=== PATIENT | male | born 1945 | race Caucasian/White ===

== ENCOUNTER 2017-01-13 06:00 | Day surgery (SDC) | payer MEDICARE, OTHER ==
[~2017-01-13 06:00] MED LIST: Ketamine HCl 50 MG/ML IJ ONE
[2017-01-13] MEDS ORDERED: Lactated Ringers 1,000 ML IV SCH (06:30)
[2017-01-13] MEDS ORDERED: DIPRIVAN 200 MG/20 ML IV ONE (08:00)
[2017-01-13 09:37] VITALS: BP 109/63; PULSE 57; O2SAT 94
--- NOTE | 2017-01-13 10:12 | OP ---
SURGERY DATE/TIME: 01/13/2017720 PREOPERATIVE DIAGNOSIS: Screening exam. POSTOPERATIVE DIAGNOSIS: Sigmoid diverticulosis and otherwise normal colon. PROCEDURE: Colonoscopy. SURGEON: Dr. Ryan. ANESTHESIA: MAC. Medications given by anesthesia department. HISTORY: The patient is a 71 year-old white male patient presenting now for colonoscopic evaluation. He reports that it has been ten years since his previous examination. The patient was reappraised of the risks of the procedure including the risk of perforation, phlebitis, untoward reaction to medication, bleeding, and missed lesions. The patient verbalized his understanding and desired to have the procedure performed. DESCRIPTION OF PROCEDURE: The patient was given the medications by the anesthesia department. He had continuous pulse oximetry, ECG monitoring, intermittent blood pressure monitoring, and tidal CO2 monitoring during the examination. He was placed in the left lateral decubitus position. A digital rectal examination was performed and revealed normal anal sphincter tone and no masses and normal prostate. The flexible Olympus pediatric colonoscope was used to intubate the rectum. A view of the colon was developed sequentially to the cecum. Upon insertion and withdrawal, including a retroflex view in the rectum, it was noted sigmoid diverticulosis otherwise no mucosal lesions were encountered. The scope was removed from the patient who tolerated the procedure well and was sent back to OP recovery in good condition. The prep was noted to be fair.
== END 2017-01-13 08:40 | disposition home or self-care (01) ==
LOC: SDC 06:00
PROVIDERS: ATTEND Family Medicine
PROC: 0DJD8ZZ Inspection of Lower Intestinal Tract, Via Natural or Artificial Opening Endoscopic (ICD-10-PCS; principal; 2017-01-13)
DX: Z12.11 Encounter for screening for malignant neoplasm of colon (principal); K57.30 Diverticulosis of large intestine without perforation or abscess without bleeding; E11.9 Type 2 diabetes mellitus without complications; Z79.4 Long term (current) use of insulin
CPT/HCPCS: 00810; G0121; J2704

== ENCOUNTER 2018-03-09 08:31 | Day surgery (SDC) | payer MEDICARE, OTHER ==
[~2018-03-09 08:31] MED LIST changes: -Ketamine HCl 50 MG/ML IJ ONE; +Lactated Ringers 1,000 ML IV ONE; +Lactated Ringers 1,000 ML IV SCH
[2018-03-09] MEDS ORDERED: DIPRIVAN 200 MG/20 ML IV ONE (08:32)
--- NOTE | 2018-03-09 09:20 | HP ---
DATE OF SURGERY: 03/09/2018 HISTORY OF PRESENT ILLNESS: The patient is a 72 year-old who had been going on for a while the past three to four months with dysphagia, upper esophagus on even liquids at times, feeling of stuck sensation or feeling upper esophagus. PAST MEDICAL HISTORY: Chronic obstructive pulmonary disease. Gallbladder issues to be addressed at a later date. He had been scheduled and canceled in the past for abnormal HIDA scan and dyskinesia. Reflux, diabetes and glaucoma, chronic obstructive pulmonary disease, hypertension. Chronic lung disease, dysphagia in the past. PAST SURGICAL HISTORY: Colonoscopy in the past. MEDICATIONS: Aspirin, atorvastatin, Claritin, gabapentin, levofloxacin, metformin, Naprosyn, polyethylene glycol, potassium chloride, prednisone, ProAir HFA, Ventolin inhaler, ropinirole, Spiriva, zolpidem in the past. ALLERGIES: NKDA. FAMILY HISTORY: Negative for esophageal cancer. Dysphagia. SOCIAL HISTORY: Smoked one pack per day but quit back in 2005. REVIEW OF SYSTEMS: Twelve systems reviewed pertinent for medical problems as mentioned above and per admission assessment. No chest pain or palpitations other systems negative or noncontributory as above and per preadmission questionnaire. PHYSICAL EXAMINATION: GENERAL: No acute distress. HEENT: Sclerae nonicteric. NECK: No JVD. CHEST: Equal excursion, nonlabored breathing. CVS: Regular rate and rhythm. ABDOMEN: Soft, overweight. No peritoneal signs. EXTREMITIES: No significant edema. NEURO: Alert, moving extremities symmetrically. No gross motor deficits noted. IMPRESSION: Dysphagia upper esophagus. Will benefit from EGD possible biopsy, possible dilatation. Risks and benefits explained in detail including but not limited to bleeding or infection, risk of bowel injury or perforation possibly requiring open procedure, risk of ongoing morbidity, risk of missed or nondiagnosis or incomplete exam possibly requiring barium swallow, other studies or procedures, general risk of anesthesia or sedation, risk of bowel injury or perforation or perforation possibly requiring open procedure, risk of ongoing morbidity/mortality, general risk if possibility if dilatation performed may need it repeated again in the future. He also understands that if there is functional problem and he failed to improve with dilatation that he may need further work up and or testing upper GI studies, other studies or referrals. He understands and agrees to the planned procedure and will proceed with EGD with possible biopsy, possible dilatation as an outpatient.
[2018-03-09 11:46] VITALS: BP 126/78; PULSE 85; O2SAT 96
--- NOTE | 2018-03-09 13:58 | OP ---
SURGERY DATE/TIME: 03/09/2018 1022 PREOPERATIVE DIAGNOSIS: Dysphagia. POSTOPERATIVE DIAGNOSES: 1) Minimal mild gastritis. 2) Proximal esophageal symptomatic narrowing and spasm. PROCEDURE: 1) EGD with cold biopsy of the antrum to evaluate for Helicobacter pylori. 2) Esophageal dilatation symptomatic proximal esophageal narrowing (size 20 balloon dilator). SURGEON: Dr. Shay Hutchison. BULK TANK DRIVER: Jose Perales, Medical Student III. ANESTHESIA: MAC. ESTIMATED BLOOD LOSS: Minimal. INDICATIONS: As noted above. Risks and benefits explained in detail and not limited to and consent obtained. DESCRIPTION OF PROCEDURE AND FINDINGS: The patient is taken to the operating room. MAC anesthesia introduced. After official time out and no disagreement with planned procedure, bite block positioned. Video gastroscope easily passed down the esophagus through the oropharynx to the proximal esophagus where there was a narrowed area and spasm. There was no obvious mass to biopsy but there was a narrowed area where he was having symptoms. It was felt that although the scope would just pass through here, it was felt he would benefit from dilatation as he is having symptoms in this area. The scope is passed back down through the gastroesophageal junction to 40 cm to the patent pylorus to the junction of the second and third portion of the duodenum. Duodenum and duodenal bulb grossly unremarkable. Back in the stomach had some minimal to mild gastritis. A cold biopsy taken to evaluate for Helicobacter pylori. Good hemostasis noted. On retroflex, there was no signs of any significant hiatal hernia. Gastroesophageal junction snug against the scope. The scope pulled back. The Z-line was crisp at 40 cm with the gastroesophageal junction. Random cold biopsies were taken of the esophagus to evaluate for eosinophilic esophagitis. He had some tertiary contractions. Otherwise back to the proximal narrowed area again no obvious evidence of any mass or anything to biopsy but a narrowed area. Dilatation scope passed back down in the stomach. Balloon catheter carefully advanced under direct vision of the stomach and then pulled back up to the narrowed area of proximal esophagus where it gradually inflated first stage 45 seconds, second stage 45 seconds, final stage 2 minutes size 20 balloon dilator. The balloon was then decompressed and removed. The scope much more easily passed through this area. There is no evidence of any full thickness issues or injury secondary to balloon dilatation. The scope is withdrawn. The patient tolerated the procedure well. Findings discussed with the family out in the waiting area.
== END 2018-03-09 11:55 | disposition home or self-care (01) ==
LOC: SDC 08:31
PROVIDERS: ATTEND Surgery
DX: K29.70 Gastritis, unspecified, without bleeding (principal); K22.2 Esophageal obstruction; J44.9 Chronic obstructive pulmonary disease, unspecified; K21.9 Gastro-esophageal reflux disease without esophagitis; I10 Essential (primary) hypertension; Z79.899 Other long term (current) drug therapy
CPT/HCPCS: 87081; 88305; C1726; J2704

== ENCOUNTER 2018-04-30 21:48 | Emergency (ER) | payer MEDICARE, OTHER ==
[2018-04-30] MEDS ORDERED: TYLENOL EXTRA STRENGTH 500 MG PO STA (22:10)
--- NOTE | 2018-04-30 22:14 | ERPHSYRPT ---
- History of Present Illness Time Seen by Provider: 04/30/18 22:04 Source: patient Exam Limitations: no limitations Physician History: 72 y/o male comes to the ER after some 4X4 wooden objects landed on the left side of head. Pt arrives with a large goose egg on the left side of his forehead. Pt admits to feeling hazy and having mild headache. Pt is on a baby ASA and denies any LOC. Pt also denies any neck or back pain. Occurred: just prior to arrival Severity: mild Head Injury Location: frontal Method of Injury: direct blow Loss of Consciousness: no loss of consciousness Associated Symptoms: denies symptoms Allergies/Adverse Reactions: influenza virus vaccine, specific [Influenza Virus Vacc,Specific] Allergy ( Severe, Verified 04/30/18 22:12) H1N1 vaccine sob, airway closed Home Medications: Albuterol Sulfate [Ventolin Hfa] 8 gm IH DAILY 07/17/13 [History] Zolpidem Tartrate 10 mg PO HS 06/11/15 [History] Ropinirole HCl 0.5 mg [Requip 0.5 MG] 0.5 mg PO HS 01/07/17 [History] Metformin HCl 500 mg [Glucophage 500 MG] 500 mg PO BID 04/22/17 [History] Omeprazole 20 MG [Prilosec 20 mg] 20 mg PO DAILY 04/22/17 [History] Budesonide/Formoterol Fumarate [Symbicort 160-4.5 Mcg Inhaler] 6 gm IH DAILY [History] Gabapentin 300 mg PO HS 03/04/18 [History] Hx Tetanus, Diphtheria Vaccination/Date Given: No Hx Influenza Vaccination/Date Given: No Hx Pneumococcal Vaccination/Date Given: Yes - Review of Systems Constitutional: No Fever, No Chills Eyes: No Symptoms Ears, Nose, & Throat: No Symptoms Respiratory: No Cough, No Dyspnea Cardiac: No Chest Pain, No Edema, No Syncope Abdominal/Gastrointestinal: No Abdominal Pain, No Nausea, No Vomiting, No Diarrhea Genitourinary Symptoms: No Dysuria Musculoskeletal: No Back Pain, No Neck Pain Skin: No Rash Neurological: Dizziness, Headache, No Focal Weakness, No Sensory Changes Psychological: No Symptoms Endocrine: No Symptoms All Other Systems: Reviewed and Negative - Past Medical History Pertinent Past Medical History: Yes Neurological History: No Pertinent History ENT History: Cataracts Cardiac History: No Pertinent History Respiratory History: COPD Endocrine Medical History: Diabetes Type II Musculoskeletal History: No Pertinent History GI Medical History: GERD, Other History: No Pertinent History Psycho-Social History: Anxiety Male Reproductive Disorders: Prostate Problems Other Medical History: esophageal difficulties. pt states has low b/p not high b/p - Past Surgical History Past Surgical History: Yes Neuro Surgical History: No Pertinent History Cardiac: No Pertinent History Respiratory: No Pertinent History Gastrointestinal: No Pertinent History Genitourinary: No Pertinent History Musculoskeletal: No Pertinent History Male Surgical History: No Pertinent History Other Surgical History: right big toenail. t&a - Social History Smoking Status: Former smoker How long have you smoked: 40 years Exposure to second hand smoke: No Drug Use: none Patient Lives Alone: No - Nursing Vital Signs Nursing Vital Signs: Initial Vital Signs Temperature 98.0 F 04/30/18 22:01 Pulse Rate 89 04/30/18 22:01 Respiratory Rate 20 04/30/18 22:01 Blood Pressure 126/65 04/30/18 22:01 O2 Sat by Pulse Oximetry 96 04/30/18 22:01 Pain Scale Pain Intensity 5 - [place] Coma Score Best Eye Response (Markos): (4) open spontaneously Best Verbal Response (Markos): (5) oriented Best Motor Response ([place]): (6) obeys commands Markos Total: 15 - Physical Exam General Appearance: no apparent distress, alert Head Injury: contusions, ecchymosis, swelling, tenderness Eye Exam: bilateral eye: PERRL, EOMI ENT Exam: airway nml Neck Exam: supple, trachea midline Cardiovascular/Respiratory Exam: chest non-tender, normal breath sounds, regular rate/rhythm Gastrointestinal/Abdominal Exam: soft, non tender, no distention Back Exam: normal inspection, No vertebral tenderness Extremity Exam: non-tender, normal range of motion, normal inspection Mental Status Exam: alert, 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, 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 Exam: normal hearing, normal speech, PERRL Motor/Sensory Exam: no motor deficit, no sensory deficit, CN II-XII intact Skin Exam: normal color, warm, dry, No rash - Course Nursing assessment & vital signs reviewed: Yes Ordered Tests: Active Orders 24 hr Category Date Time Status HEAD WITHOUT CONTRAST [CT] Stat Exams 04/30/18 22:42 Taken Medication Summary Discontinued Medications Generic Name Dose Route Start Last Admin Trade Name Princeq PRN Reason Stop Dose Admin Acetaminophen 1,000 mg 04/30/18 22:10 04/30/18 22:19 Tylenol Extra Strength 500 Mg PO 04/30/18 22:11 1,000 mg STAT STA Administration Acetaminophen Confirm 04/30/18 22:19 Tylenol Extra Strength 500 Mg Administered 04/30/18 22:20 Dose 1,000 mg .ROUTE .STK-MED ONE - Progress Progress: improved Progress Note: 04/30/18 23:24 The patient feels slightly better after receiving tylenol but still has a throbbing sensation. Pt will be given a script for tylenol # 3. The CT scan is negative for bleed. - Departure Time of Disposition: 23:25 Departure Disposition: Home Clinical Impression: Head injury Qualifiers: Encounter type: initial encounter Qualified Code(s): S09.90XA - Unspecified injury of head, initial encounter Condition: Stable Critical Care Time: No Referrals: WENDIE ROBLES [Primary Care Provider] - Instructions: Closed Head Injury (DC) Additional Instructions: Return to the ER if you should have worsening headache, dizziness, nausea, vomiting or balance issues. Prescriptions: Codeine Phosphate/APAP #3 [Tylenol #3 Tablet] 1 tab PO QID PRN #15 tablet PRN Reason: Pain
[2018-04-30] MEDS ORDERED: TYLENOL EXTRA STRENGTH 500 MG ONE (22:19)
[2018-04-30 23:05] VITALS: BP 126/54; O2SAT 94
[2018-04-30] MEDS ORDERED: Tylenol #3 Tablet PO ONE (23:24)
[2018-04-30] MEDS ORDERED: Tylenol #3 Tablet ONE (23:28)
[2018-04-30 23:30] VITALS: PULSE 76
--- NOTE | 2018-05-01 09:20 | XRAY ---
Indication: Pain following left head injury with 2 x 4 board. Multiple contiguous axial images obtained through the head without contrast. Comparison: None Age-appropriate global atrophy and minimal periventricular degenerative micro-ischemia bilaterally. No acute intracranial hemorrhage, abnormal extra-axial fluid collection, or mass effect. Fourth ventricle is midline without hydrocephalus. Bony calvarium intact. Small left anterior parietal scalp hematoma. Visualized paranasal sinuses and mastoid air cells are clear. Impression: Left anterior parietal scalp hematoma. Otherwise nonacute senile brain. Comment: Preliminary interpretation was made by [facility]. No discrepancy. CT DI 49.71
== END 2018-04-30 23:40 | disposition home or self-care (01) ==
LOC: ED 21:48
DX: S09.90XA Unspecified injury of head, initial encounter (principal); R51 Headache; W20.8XXA Other cause of strike by thrown, projected or falling object, initial encounter; Z79.899 Other long term (current) drug therapy
CPT/HCPCS: 70450; 99284; A9270-GY

== ENCOUNTER 2018-06-23 09:36 | Day surgery (SDC) | payer MEDICARE, OTHER ==
[~2018-06-23 09:36] MED LIST changes: +ACETAZOLAMIDE 250 MG TABLET PO ONE; +Ak-Dilate OPHTHALMIC*** 0.71 ML, Cyclogyl 1% OPHTH SOL 5 ML 0.71 ML, GATIFLOXACIN 0.5% ... OP ONE; +BETADINE 5% OPHTHALMIC 30 ML OP ONE; +TETRACAINE 0.5% STERI-UNIT SOL OP ONE; +Zofran 4 MG/2 ML VIAL IV PRN
[2018-06-23] MEDS ORDERED: DIPRIVAN 200 MG/20 ML IV ONE (09:37)
[2018-06-23] MEDS ORDERED: LIDOCAINE HCL 1% AMPUL 5 ML IJ ONE (12:30)
[2018-06-23] MEDS ORDERED: Epinephrine Preservative Free 1 MG/ML INTRAOP ONE (12:30)
[2018-06-23] MEDS ORDERED: BSS 500 ML, Fortaz/Tazicef 1 GM** 0.2 G IO ONE ×2 (12:30)
[2018-06-23 13:04] LABS: Hematocrit 30.3 % (42-50); Hemoglobin 8.5 gm/dl (12.5-18.0); Mean Cell Volume 65.6 fl (78-100); Mean Corpuscular Hgb Concent. 28.1 g/dl (32-36); Mean Platelet Volume 9.8 fl (6-9.5); Platelet Count 360 K/mm3 (150-450); Red Blood Count 4.62 M/mm3 (4.1-5.6); Red Cell Distribution Width 19.9 % (11.5-14.0); White Blood Count 8.3 K/mm3 (4.0-10.5)
[2018-06-23 13:06] LABS: Mean Corpuscular Hemoglobin 18.3 pg (26-32)
--- NOTE | 2018-06-23 13:19 | OP ---
DATE/TIME OF OPERATION: 06/23/2018 1220 TIME DICTATED: 1255 PREOPERATIVE DIAGNOSIS: Senile cataract of left eye. POSTOPERATIVE DIAGNOSIS: Senile cataract of left eye. SURGEON: Ren Richter MD HISTORIC SITE ADMINISTRATOR: None. OPERATION: Cataract extraction of left eye with an intraocular lens implant. STANDARD __X___ COMPLEX ANESTHESIA: MAC. ___X___ Monitored anesthesia care in combination with topical and intra-cameral anesthesia (because of the established specific risk of reflux, arrhythmias, or an anxiety attack associated with ocular manipulation as well as difficulty of the judicial clerk to manage such potentially catastrophic events while simultaneously attempting to complete the surgical procedure, it was deemed necessary for the patient's safety to have an anesthesiologist or a nurse still operator batch or continuous present during the procedure whenever possible. The anesthesiologist or the nurse still operator batch or continuous was utilized to monitor and regulate the intravenous sedation of the patient, so the patient was cooperative, relaxed, and comfortable). Topical anesthesia using Tetracaine eye drops together with intra cameral anesthesia using Lidocaine 1% MPF. The nurse was utilized to monitor the patient. ANESTHESIA PROVIDER: Felix Adamson CRNA. COMPLICATIONS: None. BLOOD LOSS: None. INDICATIONS: The patient is undergoing cataract surgery in the hopes of eliminating the visual complaints and difficulty. PROCEDURE: After arriving at the facility's outpatient surgery area, an IV was started; the patient was given 5 mg of p.o. Versed. (If an anesthesia provider was not monitoring the patient) The patient was then given topical anesthetic Tetracaine eye drops. A cotton pellet was soaked into a solution of a combination of Zymaxid 0.5%, Mariano-Synephrine 2.5% and Ocufen (other drops might have been substituted referenced in the patient's record). The pellet was inserted by the RN into the lower conjunctival cul-de-sac with a sterile forceps and left for 20 minutes. The pellet was then removed by the RN with a sterile forceps before taking the patient to the operating room. The preoperative area nurse identified the patient and marked the correct eye to be operated on. I identified the correct eye to be operated on and marked it appropriately in the outpatient surgery area. The patient was then taken into the operating room. Tetracaine eye drops were installed again in the correct eye. The eyelids and the lashes and the lid margins were scrubbed with Betadine solution. One drop of the diluted Betadine solution was placed in the conjunctival cul-de-sac for 45 seconds and then was irrigated. A drop of Tetracaine Gel was placed in the conjunctival cul-de-sac. The patient's forehead was taped to secure it during the procedure. The patient was monitored. The patient was then draped in the usual way for this procedure. An eye speculum was used to separate the eyelids. The eye was then fixated and a temporal 2.5 mm incision was made in the clear cornea temporally at the limbus. Through the incision, 0.25 cc of 1% non-preserved lidocaine was injected into the anterior chamber for intracameral anesthesia. The anterior chamber was then filled with viscoelastic. The pupil was small. I felt that it would be safer to mechanically dilate the pupil. A Malyugin ring was used at this point which dilated the pupil. That was removed at the end of the procedure prior to aspiration of the viscoelastic from the anterior chamber and posterior to the intraocular lens implant. The cataract had a great amount of cortical changes. That rendered seeing the anterior capsule difficult for a safe performance of an anterior capsulotomy. I injected an air bubble into the anterior chamber. I then injected 1 ML of vision blue solution into the anterior chamber. The vision blue solution was irrigated from the anterior chamber after 30 seconds. The anterior capsule was stained which facilitated performing the anterior capsulotomy safely. After that was completed, a cystotome was introduced into the anterior chamber and a round anterior capsulotomy was performed. The capsule was removed by a forceps. Hydrodissection was next carried utilizing a 25-gauge cannula and balanced salt solution to delineate the cortical material from the capsule and the nucleus from the cortical material. The nucleus was rotated freely into the capsular bag with no difficulty. The phaco tip of the [employer] Phacoemulsifier was introduced into the anterior chamber and two grooves were made into the nucleus 90 degrees apart. Using two spatulas resulted into the nucleus being fractured into four quadrants. The phaco tip was then used to remove each quadrant of the nucleus. Viscoelastic was used during this process to protect the corneal endothelium. Once the entire nucleus was removed, the phaco tip then was removed and the irrigation tip was introduced into the eye and the cortex was removed. The posterior capsule was polished. It was noticed that there was a tear into the posterior capsule with few vitreous strands into the pupil plan. An anterior vitrectomy was performed. A 23.50 diopter, [id number], posterior chamber lens implant, was inspected and found to be grossly normal. The implant was inserted into the implant injector cartridge; Viscoelastic again was introduced into the anterior chamber, which filled the capsular bag. The implant injector's cartridge tip was placed at the limbal wound and the posterior chamber implant was released into the capsular bag and rotated appropriately. The implant was found to be into the capsular bag and it was centered. 0.2 ml of Tri-Moxi was introduced via 27 gauge cannula into the vitreous cavity through the ciliary processes. Viscoelastic was aspirated from the anterior chamber and posterior to the intraocular lens implant from the capsular bag using the irrigating tip. The anterior chamber was irrigated and filled with 5 cc antibiotic solution (500 cc of BSS plus 2 ml of Fortaz 100 mg/ml) ( if patient was not allergic to the medication). The lips of the corneal incision were hydrated using BSS solution. The anterior chamber was checked and found to be water tight. ___X___ One drop each of antibiotic, steroid and NSAID drops (refer to chart for drops used) were placed in the conjunctival cul-de-sac of the operated eye. NOTE: During the procedure the patient was coughing and anesthesia did some aspiration and there was blood in the aspirating tube. When patient was stable we were committed to finish the procedure so we finished the procedure and the patient's vital signs were stable. We are going to send the patient for monitoring and consultation prior to his discharge. DISCHARGE SUMMARY: The patient was released in stable condition. The patient and those with the patient were given an instruction sheet as of how to care for the eye after surgery as well as counseling on any abnormal laboratory studies by the postoperative RN. The patient was also given an appointment card for follow-up in the office and is to call immediately for any difficulties including but not limited to pain in the eye, decreased vision, discharge from the eye, headache and or fever. DISCHARGE DIAGNOSIS: Pseudophakia of left eye.
[2018-06-23 13:20] LABS: ALBUMIN 3.6 g/dL (3.5-5.0); ALKALINE PHOSPHATASE 67 U/L (38-126); ANION GAP 9.9 MEQ/L (5-15); BLOOD UREA NITROGEN 14 mg/dL (9-20); CHLORIDE 108 mmol/L (98-107); Calcium 8.7 mg/dL (8.4-10.2); Carbon Dioxide 26 mmol/L (22-30); Creatinine 1 0.81 mg/dL (0.66-1.25); Glucose 104 mg/dL (74-106); Potassium 3.5 mmol/L (3.5-5.1); SGOT/AST 37 U/L (17-59); SGPT/ALT 27 U/L (0-50); SODIUM 140 mmol/L (137-145); Total Protein 6.3 g/dL (6.3-8.2)
--- NOTE | 2018-06-23 13:21 | XRAY ---
Exam: AP upright portable chest film from 06/23/2018. Comparison: Two-view chest from 01/12/2018. Indication: Coughing up blood post-cataract surgery. Findings: The film was obtained in a lordotic projection. The transverse heart size appears within normal limits for an AP portable technique. There is again noted to be mild hyperinflation of the lung sousa with some scattered prominent interstitial lung markings within the lower two thirds of each lung, left greater than right. This may reflect some interstitial scarring/fibrosis. I believe there is mild pulmonary vascular redistribution to the upper lobes, although I see no Phani B lines or pleural fluid. There is a minimal airspace density of the right cardiophrenic angle which could possibly represent a focus of pneumonitis. No other lung consolidation is seen. No pneumothorax is seen. No acute osseous process is seen. Impression: 1. I see mild hyperinflation of the lungs with prominent interstitial markings within the lower two thirds of each lung, left greater than right, suggestive of COPD with chronic interstitial lung disease/fibrosis. 2. However, there is a small focal airspace opacity at the right cardiophrenic angle which is difficult to confirm as stable. This may represent focal pneumonitis. 3. No other acute cardiopulmonary disease is seen.
[2018-06-23 13:34] VITALS: BP 140/69; PULSE 84; O2SAT 92
== END 2018-06-23 13:48 | disposition home or self-care (01) ==
LOC: SDC 09:36
PROVIDERS: ATTEND Ophthalmology
DX: H25.9 Unspecified age-related cataract (principal); G47.00 Insomnia, unspecified; E11.9 Type 2 diabetes mellitus without complications; Z79.4 Long term (current) use of insulin; J44.9 Chronic obstructive pulmonary disease, unspecified; G20 Parkinson's disease; Z79.899 Other long term (current) drug therapy
CPT/HCPCS: 36415; 66984; 67005; 71045; 80053; 82962; 85027; 94250; C1780; 99100; J0171; J2704; A9270-GY

== ENCOUNTER 2018-07-13 09:38 | Day surgery (SDC) | payer MEDICARE, OTHER ==
--- NOTE | 2018-07-13 08:11 | HP ---
DATE OF SURGERY: 07/13/2018 HISTORY OF PRESENT ILLNESS: The patient is a 72 year-old with some constant aches and pains, had been scheduled for surgery in the past. On HIDA scan shown increasingly symptomatic biliary dyskinesia, chronic cholecystitis. I felt he would benefit from cholecystectomy. Ultrasound had borderline wall thickening back then but no stones. PAST MEDICAL HISTORY: Diabetes, chronic obstructive pulmonary disease, had some chronic pain. PAST SURGICAL HISTORY: He had been scheduled for surgery a year or so ago but canceled at time. He has had endoscopy in the past. MEDICATIONS: Zolpidem, omeprazole, metformin, aspirin, gabapentin, ropinirole, Symbicort, ProAir. ALLERGIES: NKDA. FAMILY HISTORY: Negative. SOCIAL HISTORY: No smoking or alcohol abuse. He used to smoke, quit smoking in 2005. REVIEW OF SYSTEMS: Twelve systems reviewed pertinent for as noted above. No chest pain or palpitations other systems negative or noncontributory as above and per preadmission questionnaire. PHYSICAL EXAMINATION: GENERAL: A chronically ill gentleman. HEENT: Sclerae nonicteric. NECK: No JVD. CHEST: Equal excursion, nonlabored breathing. No current audible wheeze. CVS: Regular rate and rhythm. ABDOMEN: Soft. EXTREMITIES: No significant edema. NEURO: Alert, moving extremities symmetrically. No gross motor deficits noted. IMPRESSION: Increasingly symptomatic biliary dyskinesia, probable chronic cholecystitis. I feel the patient will benefit from cholecystectomy. Shown the risk sheet and gallbladder pamphlet. Explained the procedure in detail including but not limited to bleeding or infection, risk of trocar injury or hernia, small risk of bowel, bladder or blood vessel injury, small risk of bile leak, bile duct injury, retained stone or sludge possibly requiring further procedure either open or ERCP, general risk of anesthesia, deep venous thrombosis, pulmonary embolism, pneumonia, perioperative risk of aches, pains, bloating, constipation and/or loose stools possibly even chronic in nature. He understands and agrees to the planned procedure, will proceed with laparoscopic cholecystectomy with possible open as an outpatient.
[~2018-07-13 09:38] MED LIST changes: -ACETAZOLAMIDE 250 MG TABLET PO ONE; -Ak-Dilate OPHTHALMIC*** 0.71 ML, Cyclogyl 1% OPHTH SOL 5 ML 0.71 ML, GATIFLOXACIN 0.5% ... OP ONE; -BETADINE 5% OPHTHALMIC 30 ML OP ONE; +MEFOXIN 2 GM** 2 GM in Dextrose 5%/Water IV Soln. 100ML PLUS BAG 100 ML IV SCH; -TETRACAINE 0.5% STERI-UNIT SOL OP ONE; -Zofran 4 MG/2 ML VIAL IV PRN
[2018-07-13] MEDS ORDERED: BRIDION 200MG/2ML IV ONE (09:39)
[2018-07-13] MEDS ORDERED: SUBLIMAZE 250 MCG/5 ML IV ONE (09:39)
[2018-07-13] MEDS ORDERED: Zemuron 100 MG/10 ML IV ONE (09:39)
[2018-07-13] MEDS ORDERED: Versed 2 MG/2 ML Injection IV ONE (09:39)
[2018-07-13] MEDS ORDERED: DIPRIVAN 200 MG/20 ML IV ONE (09:39)
[2018-07-13] MEDS ORDERED: Sensorcaine 0.25% 10 ML ONE (11:28)
[2018-07-13] MEDS ORDERED: Lactated Ringers 1,000 ML IV ONE (11:28)
[2018-07-13] MEDS ORDERED: SUBLIMAZE 100 MCG/2 ML ONE (13:27)
[2018-07-13] MEDS ORDERED: MORPHINE SULFATE 10 MG/ML ONE (13:44)
--- NOTE | 2018-07-13 14:07 | OP ---
SURGERY DATE/TIME: 07/13/2018 1115 PREOPERATIVE DIAGNOSIS: Symptomatic biliary dyskinesia, chronic cholecystitis. POSTOPERATIVE DIAGNOSIS: Symptomatic biliary dyskinesia, chronic cholecystitis including fatty infiltration of the liver with question of early cirrhosis. PROCEDURES: 1) Laparoscopic cholecystectomy. 2) Laparoscopic assisted liver Dante-Cut core biopsy. SURGEON: Dr. Shay Hutchison. CUSTOM CAR BUILDER: Orion Rodrigues, Medical Student III. ANESTHESIA: General. ESTIMATED BLOOD LOSS: Less than 50 cc. INDICATIONS: As noted above. Risks and benefits explained in detail but not limited to and consent obtained. DESCRIPTION OF PROCEDURE AND FINDINGS: The patient was taken to the OR. General anesthesia induced. Abdomen prepped and draped in the usual sterile fashion. After official time out and no disagreement with planned procedure, a transverse incision made at the supraumbilical area. Fascia grasped and pulled upward. Veress needle inserted and tested with saline. Pneumoperitoneum accomplished insufflating opening pressure of 0-15. An 11 mm bladeless port and camera inserted without difficulty followed by two - 5 mm right upper quadrant ports and 5 mm epigastric port. The gallbladder grasped and retracted up over the edge of the liver. It was noted that he had some fatty infiltration of the liver and probably early cirrhosis. Extensive fibrofatty inflammation up to the gallbladder and very large veins and arterioles directly on the gallbladder this required slowly carefully dissecting them free to allow access to the gallbladder clipping directly on the gallbladder wall. This took quite some time requiring extra clips given the large veins and arterioles. Dissection carried down to infundibular cystic duct junction area. This area skeletonized until critical view obtained both anterior and posteriorly on the gallbladder side. The infundibulum had some leakage of bile. There was no evidence of any stone or sludge spillage. A 12 port placed in the epigastrium. A large clip was used to clip this. Again a critical view had been obtained both anteriorly and posteriorly. Given the extensive inflammatory reaction it was elected to go ahead and use stapler. EndoGIA stapler was then fired across the cystic duct-infundibular junction area. It appeared to have good hemostasis. No signs of any leakage from the staple line. The gallbladder is then slowly and carefully dissected free from its dense almost concrete attachment to liver bed. Staying directly on the gallbladder wall clipping additional oozing large veins and arterioles that were oozing as necessary directly on the gallbladder wall. This took some time but slowly and carefully accomplished. Just prior to releasing from final attachments to the anterior edge of the liver the liver bed re-inspected. Clips are noted in place in cystic duct and cystic artery stumps, large vein stumps with no sign of any active bleeding. The staple line is intact on the cystic duct infundibular area. Final vein on the anterior edge of the liver was clipped allowing the gallbladder to be freed. It was then pulled up out the epigastric port and passed off. Port is replaced. Copious amount of irrigation accomplished lateral to the liver and subhepatic space irrigating until clear. Given the question of cirrhosis I felt he warranted Dante-Cut core biopsy. A separate stab wound was made along the costal margin. Core biopsy carefully inserted elevating the liver upward with a blunt scoop. Blade and needle was then carefully advanced and then core biopsy slid over the top and then withdrawn. It appeared to have a core sample. There was some oozing from the liver. It was felt given the oozing issues it was not warranted to take any additional biopsies as it appeared to have adequate core biopsy. The area was cauterized. A small piece of Surgicel left in place and pressure held on this core biopsy site on the anterior aspect and the lateral aspect of the right lobe of the liver holding pressure in place for a few minutes and did have good hemostasis. Copious amount of irrigation irrigating lateral to the liver and subhepatic space irrigating until clear. Liver bed re-inspected. Clips noted in place cystic arteries, cystic vein stumps. There were no signs of any active bleeding at this point. Staple lines intact on cystic duct stump. Given extensive inflammation it was felt he would benefit from temporary BEATRIZ drain placement. BEATRIZ drain placed subhepatic space out through lateral port and sutured with PDS suture and placed to bulb suction. Copious amount of irrigation accomplished lateral to the liver. The core biopsy site appeared to have adequate hemostasis. No signs of any active bleeding at this point. Surgicel had been removed. At this point fascial defect 12 mm in the epigastrium, 10/11 in the supraumbilical area closed under direct vision of the camera with puncture closure device with #1 Vicryl. Pneumoperitoneum decompressed. The wound was irrigated out. Skin incision closed with 4-0 Vicryl. Steri-Strips and sterile dressing applied. 0.25% Marcaine local injected along the skin incision fascial defect at the beginning of the procedure. The patient tolerated the procedure well. There were no immediate complications. Findings discussed with the family out in the waiting area. I will see him back in the office next week for drain removal.
[2018-07-13] MEDS ORDERED: MORPHINE SULFATE 2 MG INJ IV ONE (15:54)
[2018-07-13 17:14] VITALS: O2SAT 98
[2018-07-13 17:22] VITALS: BP 140/66; PULSE 74
== END 2018-07-13 16:50 | disposition home or self-care (01) ==
LOC: SDC 09:38
PROVIDERS: ATTEND Surgery
DX: K81.1 Chronic cholecystitis (principal); K76.0 Fatty (change of) liver, not elsewhere classified; E11.9 Type 2 diabetes mellitus without complications; Z79.4 Long term (current) use of insulin; J44.9 Chronic obstructive pulmonary disease, unspecified; Z79.899 Other long term (current) drug therapy
CPT/HCPCS: 82962; 94010; 94250; 99100; J0694; J2250; J2270; J2704; J3010

== ENCOUNTER 2018-09-22 06:58 | Day surgery (SDC) | payer MEDICARE, OTHER ==
[~2018-09-22 06:58] MED LIST changes: -Lactated Ringers 1,000 ML IV SCH; -MEFOXIN 2 GM** 2 GM in Dextrose 5%/Water IV Soln. 100ML PLUS BAG 100 ML IV SCH
[2018-09-22] MEDS ORDERED: DIPRIVAN 200 MG/20 ML IV ONE (06:59)
[2018-09-22] MEDS ORDERED: TETRACAINE 0.5% STERI-UNIT SOL OP ONE ×2 (07:00)
[2018-09-22] MEDS ORDERED: Ak-Dilate OPHTHALMIC*** 1.065 ML, Cyclogyl 1% OPHTH SOL 5 ML 1.065 ML, GATIFLOXACIN 0.5... OP ONE ×4 (07:00)
[2018-09-22] MEDS ORDERED: Lactated Ringers 1,000 ML IV SCH (07:00)
[2018-09-22] MEDS ORDERED: ACETAZOLAMIDE 250 MG TABLET PO ONE (09:00)
[2018-09-22] MEDS ORDERED: Zofran 4 MG/2 ML VIAL IV PRN (09:00)
[2018-09-22] MEDS ORDERED: LIDOCAINE HCL 1% AMPUL 5 ML IJ ONE (10:00)
[2018-09-22] MEDS ORDERED: BETADINE 5% OPHTHALMIC 30 ML OP ONE (10:00)
[2018-09-22] MEDS ORDERED: Epinephrine Preservative Free 1 MG/ML INTRAOP ONE (10:00)
[2018-09-22] MEDS ORDERED: BSS 500 ML, Fortaz/Tazicef 1 GM** 0.2 G IO ONE ×2 (10:00)
[2018-09-22] MEDS ORDERED: TYLENOL EXTRA STRENGTH 500 MG ONE (10:01)
[2018-09-22] MEDS ORDERED: TYLENOL EXTRA STRENGTH 500 MG PO SCH (10:30)
[2018-09-22 10:36] VITALS: BP 124/75; PULSE 74; O2SAT 95
[2018-09-22] MEDS ORDERED: Lactated Ringers 1,000 ML IV ONE (11:19)
--- NOTE | 2018-09-23 08:54 | OP ---
DATE/TIME OF OPERATION: 09/22/2018 0910 TIME DICTATED: 1241 PREOPERATIVE DIAGNOSIS: Senile cataract of right eye. POSTOPERATIVE DIAGNOSIS: Senile cataract of right eye. SURGEON: Ren Richter MD BUSINESS ANALYTICS ANALYST: None. OPERATION: Cataract extraction of right eye with an intraocular lens implant. STANDARD __X___ COMPLEX ANESTHESIA: MAC. ___X___ Monitored anesthesia care in combination with topical and intra-cameral anesthesia (because of the established specific risk of reflux, arrhythmias, or an anxiety attack associated with ocular manipulation as well as difficulty of the sales service representative to manage such potentially catastrophic events while simultaneously attempting to complete the surgical procedure, it was deemed necessary for the patient's safety to have an anesthesiologist or a nurse cooler man present during the procedure whenever possible. The anesthesiologist or the nurse cooler man was utilized to monitor and regulate the intravenous sedation of the patient, so the patient was cooperative, relaxed, and comfortable). Topical anesthesia using Tetracaine eye drops together with intra cameral anesthesia using Lidocaine 1% MPF. The nurse was utilized to monitor the patient. ANESTHESIA PROVIDER: Corey Ugarte CRNA. COMPLICATIONS: None. BLOOD LOSS: None. INDICATIONS: The patient is undergoing cataract surgery in the hopes of eliminating the visual complaints and difficulty. PROCEDURE: After arriving at the facility's outpatient surgery area, an IV was started; the patient was given 5 mg of p.o. Versed. (If an anesthesia provider was not monitoring the patient) The patient was then given topical anesthetic Tetracaine eye drops. A cotton pellet was soaked into a solution of a combination of Zymaxid 0.5%, Mariano-Synephrine 2.5% and Ocufen (other drops might have been substituted referenced in the patient's record). The pellet was inserted by the RN into the lower conjunctival cul-de-sac with a sterile forceps and left for 20 minutes. The pellet was then removed by the RN with a sterile forceps before taking the patient to the operating room. The preoperative area nurse identified the patient and marked the correct eye to be operated on. I identified the correct eye to be operated on and marked it appropriately in the outpatient surgery area. The patient was then taken into the operating room. Tetracaine eye drops were installed again in the correct eye. The eyelids and the lashes and the lid margins were scrubbed with Betadine solution. One drop of the diluted Betadine solution was placed in the conjunctival cul-de-sac for 45 seconds and then was irrigated. A drop of Tetracaine Gel was placed in the conjunctival cul-de-sac. The patient's forehead was taped to secure it during the procedure. The patient was monitored. The patient was then draped in the usual way for this procedure. An eye speculum was used to separate the eyelids. The eye was then fixated and a temporal 2.5 mm incision was made in the clear cornea temporally at the limbus. Through the incision, 0.25 cc of 1% non-preserved lidocaine was injected into the anterior chamber for intracameral anesthesia. The anterior chamber was then filled with viscoelastic. The pupil was small. I felt that it would be safer to mechanically dilate the pupil. A Malyugin ring was used at this point which dilated the pupil. That was removed at the end of the procedure prior to aspiration of the viscoelastic from the anterior chamber and posterior to the intraocular lens implant. The cataract had a great amount of cortical changes. That rendered seeing the anterior capsule difficult for a safe performance of an anterior capsulotomy. I injected an air bubble into the anterior chamber. I then injected 1 ML of vision blue solution into the anterior chamber. The vision blue solution was irrigated from the anterior chamber after 30 seconds. The anterior capsule was stained which facilitated performing the anterior capsulotomy safely. After that was completed, a cystotome was introduced into the anterior chamber and a round anterior capsulotomy was performed. The capsule was removed by a forceps. Hydrodissection was next carried utilizing a 25-gauge cannula and balanced salt solution to delineate the cortical material from the capsule and the nucleus from the cortical material. The nucleus was rotated freely into the capsular bag with no difficulty. The phaco tip of the [employer] Phacoemulsifier was introduced into the anterior chamber and two grooves were made into the nucleus 90 degrees apart. Using two spatulas resulted into the nucleus being fractured into four quadrants. The phaco tip was then used to remove each quadrant of the nucleus. Viscoelastic was used during this process to protect the corneal endothelium. Once the entire nucleus was removed, the phaco tip then was removed and the irrigation tip was introduced into the eye and the cortex was removed. The posterior capsule was polished. It was noticed that there was a tear into the posterior capsule with few vitreous strands into the pupil plan. An anterior vitrectomy was performed. A 23.50 diopter, [id number], posterior chamber lens implant, was inspected and found to be grossly normal. The implant was inserted into the implant injector cartridge; Viscoelastic again was introduced into the anterior chamber, which filled the capsular bag. The implant injector's cartridge tip was placed at the limbal wound and the posterior chamber implant was released into the capsular bag and rotated appropriately. The implant was found to be into the capsular bag and it was centered. 0.2 ml of Tri-Moxi was introduced via 27 gauge cannula into the vitreous cavity through the ciliary processes. Viscoelastic was aspirated from the anterior chamber and posterior to the intraocular lens implant from the capsular bag using the irrigating tip. The anterior chamber was irrigated and filled with 5 cc antibiotic solution (500 cc of BSS plus 2 ml of Fortaz 100 mg/ml) ( if patient was not allergic to the medication). The lips of the corneal incision were hydrated using BSS solution. The anterior chamber was checked and found to be water tight. ___X___ One drop each of antibiotic, steroid and NSAID drops (refer to chart for drops used) were placed in the conjunctival cul-de-sac of the operated eye. Patient tolerated the procedure quite well and left the operating room in satisfactory condition. DISCHARGE SUMMARY: The patient was released in stable condition. The patient and those with the patient were given an instruction sheet as of how to care for the eye after surgery as well as counseling on any abnormal laboratory studies by the postoperative RN. The patient was also given an appointment card for follow-up in the office and is to call immediately for any difficulties including but not limited to pain in the eye, decreased vision, discharge from the eye, headache and or fever. DISCHARGE DIAGNOSIS: Pseudophakia of right eye.
== END 2018-09-22 10:35 | disposition home or self-care (01) ==
LOC: SDC 06:58
PROVIDERS: ATTEND Ophthalmology
DX: H25.811 Combined forms of age-related cataract, right eye (principal); E11.9 Type 2 diabetes mellitus without complications; G20 Parkinson's disease; Z79.84 Long term (current) use of oral hypoglycemic drugs; Z79.899 Other long term (current) drug therapy
CPT/HCPCS: 82962; 99100; C1780; J2704; A9270-GY

== ENCOUNTER 2020-01-31 11:00 | Observation (INO) | payer MEDICARE, OTHER ==
[2020-01-31] MEDS ORDERED: DUONEB 0.5-3 MG/3 ml Neb IH ONE ×2 (11:25→12:04)
[2020-01-31 11:53] LABS: Absolute Neutrophil Ct (ANC) 3.82 (1.4-6.9); BASOPHIL % 4.8 % (0.0-0.4); Basophil (Absolute #) 0.33 (0-0.4); Eosinophil % 9.3 % (0.00-5.0); Eosinophil (Absolute #) 0.64 (0-0.5); Lymphocyte (Absolute #) 1.09 (1.0-4.6); Lymphocytes % 15.8 % (24.0-44.0); Mean Cell Volume 62.5 fl (78-100); Mean Corpuscular Hemoglobin 16.5 pg (26-32); Mean Corpuscular Hgb Concent. 26.4 g/dl (32-36); Mean Platelet Volume 9.5 fl (7.5-11.0); Monocyte (Absolute #) 1.01 (0.0-1.3); Monocytes % 14.7 % (0.0-12.0); Neutrophil % 55.4 % (36.0-66.0); Platelet Count 586 K/mm3 (150-450); Red Blood Count 3.52 M/mm3 (4.1-5.6); Red Cell Distribution Width 18.7 % (11.5-14.0); White Blood Count 6.9 K/mm3 (4.0-10.5)
[2020-01-31 11:54] LABS: Hemoglobin 5.8 gm/dl (12.5-18.0)
[2020-01-31 12:03] LABS: ALBUMIN 3.2 g/dL (3.5-5.0); ALKALINE PHOSPHATASE 85 U/L (38-126); ANION GAP 9.6 MEQ/L (5-15); BLOOD UREA NITROGEN 12 mg/dL (9-20); CHLORIDE 108 mmol/L (98-107); Calcium 8.9 mg/dL (8.4-10.2); Carbon Dioxide 26 mmol/L (22-30); Creatinine 1 0.73 mg/dL (0.66-1.25); Glucose 110 mg/dL (74-106); NT PRO BNP 238 pg/mL (0-900); Potassium 3.3 mmol/L (3.5-5.1); SGOT/AST 60 U/L (17-59); SGPT/ALT 35 U/L (0-50); SODIUM 141 mmol/L (137-145); Total Protein 5.9 g/dL (6.3-8.2)
--- NOTE | 2020-01-31 12:46 | ERPHSYRPT ---
- History of Present Illness Time Seen by Provider: 01/31/20 11:05 Source: patient Exam Limitations: no limitations Patient Subjective Stated Complaint: Pt c/o of olya leg and feet swelling for the past 2 days, pt denies any hx of swelling prior to this, denies any heart history Triage Nursing Assessment: Pt brought to the ER by his , lungs clear, heart sounds normal, rates pain in feet as 4/10, olya swelling in lower legs and feet, +4 edema, denies chest pain, states that it is a little bit harder to breath, pulses normal, vitals wnl Physician History: 74 years old male with history of COPD on oxygen as needed, diabetes mellitus presented in the ER with chief complaint of bilateral lower extremity swelling for the last 3 days with progressive worsening associated with increasing dyspnea on exertion which is going on for the last few weeks. Patient reports lately he has not been able to walk without needing to rest to catch his breath. He is also complaining of generalized weakness and fatigue. He denies any chest pain tightness or pressure sensation. Denies any cough fever or chills. Denies any nausea or vomiting. No abdominal pain. Denies any history of heart disease or lower extremity swellings in the past. Timing/Duration: day(s) (3), gradual onset, worse Severity: moderate Associated Symptoms: shortness of breath, weakness Allergies/Adverse Reactions: No Known Drug Allergies Allergy (Verified 01/31/20 11:26) Home Medications: Zolpidem Tartrate 10 mg PO HS 06/11/15 [History] Ropinirole HCl 0.5 mg [Requip 0.5 MG] 0.5 mg PO HS 01/07/17 [History] Metformin HCl 500 mg [Glucophage 500 MG] 500 mg PO BID 04/22/17 [History] Budesonide/Formoterol Fumarate [Symbicort 160-4.5 Mcg Inhaler] 6 gm IH DAILY [History] Gabapentin 600 mg PO HS 03/04/18 [History] Albuterol Sulfate [Proair Hfa] 8.5 gm IH UD 07/13/18 [History] Hx Tetanus, Diphtheria Vaccination/Date Given: No Hx Influenza Vaccination/Date Given: No Hx Pneumococcal Vaccination/Date Given: Yes Travel Risk - International Travel Have you traveled outside of the country in past 3 weeks: No (N) Have you or anyone close to you been diagnosed with or: No Do your reside in a community with a known COVID-19 case?: Yes If Yes where:: [place] - Coronavirus Screening Has patient experienced Coronavirus symptoms: No - Review of Systems Constitutional: Fatigue, Weakness Eyes: No Symptoms Ears, Nose, & Throat: Epistaxis Respiratory: Dyspnea on Exertion ([place]), Wheezing Cardiac: No Symptoms, Edema Abdominal/Gastrointestinal: No Symptoms Genitourinary Symptoms: No Symptoms Musculoskeletal: No Symptoms Skin: No Symptoms Neurological: No Symptoms Psychological: No Symptoms Endocrine: No Symptoms Hematologic/Lymphatic: No Symptoms Immunological/Allergic: No Symptoms - Past Medical History Pertinent Past Medical History: Yes Neurological History: Peripheral Neuropathy ENT History: Cataracts Cardiac History: No Pertinent History Respiratory History: Bronchitis, COPD Endocrine Medical History: Diabetes Type II Musculoskeletal History: Arthritis GI Medical History: GERD, Gallbladder Disease, Other History: No Pertinent History Psycho-Social History: Anxiety Male Reproductive Disorders: Prostate Problems Other Medical History: esophageal difficulties. pt states has low b/p not high b/p - Past Surgical History Past Surgical History: Yes Neuro Surgical History: No Pertinent History Cardiac: No Pertinent History Respiratory: No Pertinent History Gastrointestinal: Cholecystectomy Genitourinary: No Pertinent History Musculoskeletal: No Pertinent History Male Surgical History: No Pertinent History Other Surgical History: right big toenail. t&a, [place] July 2018, left eye cataract removed and revision to a fold - Social History Smoking Status: Never smoker How long have you smoked: 40 years Exposure to second hand smoke: No Drug Use: none Patient Lives Alone: No - Nursing Vital Signs Nursing Vital Signs: Initial Vital Signs Temperature 96.3 F 01/31/20 11:09 Pulse Rate 90 01/31/20 11:09 Blood Pressure 125/58 01/31/20 11:09 O2 Sat by Pulse Oximetry 94 L 01/31/20 11:09 Pain Scale Pain Intensity 6 - Physical Exam General Appearance: no apparent distress, alert Eye Exam: eyes nml inspection Ears, Nose, Throat Exam: normal ENT inspection, TMs normal, pharynx normal Neck Exam: normal inspection, non-tender, supple, full range of motion Respiratory Exam: normal breath sounds, lungs clear Cardiovascular Exam: regular rate/rhythm, normal heart sounds Gastrointestinal/Abdomen Exam: soft, normal bowel sounds, No tenderness Extremity Exam: normal range of motion, pelvis stable, pedal edema (3+ bilateral pitting edema) Neurologic Exam: alert, 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, cooperative Skin Exam: normal color, warm SpO2 Interpretation: normal SpO2: 94 O2 Delivery: Room Air - Course Nursing assessment & vital signs reviewed: Yes EKG Interpreted by Me: RATE ([id number]), Sinus Rhythm, NORMAL AXIS, NORMAL INTERVALS, NORMAL QRS Ordered Tests: Active Orders 24 hr Category Date Time Status Central Scheduler STAT Care 01/31/20 11:26 Active EKG-ER Only STAT Care 01/31/20 11:25 Active IV Insertion STAT Care 01/31/20 11:25 Active CHEST 2 VIEWS (PA AND LAT) Stat Exams 01/31/20 11:25 Taken CBC W DIFF Stat Lab 01/31/20 11:30 Completed CMP Stat Lab 01/31/20 11:30 Completed MAGNESIUM Stat Lab 01/31/20 11:30 Completed Manual Differential NC Stat Lab 01/31/20 11:30 Completed NT PRO BNP Stat Lab 01/31/20 11:30 Completed PROTIME WITH INR Stat Lab 01/31/20 12:37 Ordered PTT Stat Lab 01/31/20 12:37 Ordered TROPONIN Q3H Lab 01/31/20 11:30 Completed TROPONIN Q3H Lab 01/31/20 14:30 Ordered TROPONIN Q3H Lab 01/31/20 17:30 Ordered TROPONIN Q3H Lab 01/31/20 20:30 Ordered TROPONIN Q3H Lab 01/31/20 23:30 Ordered Respiratory Therapy Assessment ONCE RT 01/31/20 12:13 Active Transfer Order Routine Transfer 01/31/20 Ordered Medication Summary Discontinued Medications Generic Name Dose Route Start Last Admin Trade Name Freq PRN Reason Stop Dose Admin Albuterol/Ipratropium 3 ml 01/31/20 11:25 01/31/20 12:06 Duoneb 0.5-3 Mg/3 Ml Neb IH 01/31/20 11:26 3 ml STAT ONE Administration Albuterol/Ipratropium Confirm 01/31/20 12:04 Duoneb 0.5-3 Mg/3 Ml Neb Administered 01/31/20 12:05 Dose 3 ml IH .STK-MED ONE Pantoprazole Sodium 40 mg 01/31/20 12:50 Protonix 40 Mg Iv IV 01/31/20 12:51 STAT ONE Potassium Chloride 40 meq 01/31/20 12:50 Klor Con 10 Meq PO 01/31/20 12:51 STAT ONE Lab/Rad Data: Laboratory Result Diagrams 01/31/20 11:30 01/31/20 11:30 Laboratory Results 01/31/20 01/31/20 01/31/20 Range/Units 12:00 11:30 11:30 WBC (4.0-10.5) K/mm3 RBC (4.1-5.6) M/mm3 Hgb (12.5-18.0) gm/dl Hct (42-50) % MCV (78-100) fl MCH (26-32) pg MCHC (32-36) g/dl RDW (11.5-14.0) % Plt Count (150-450) K/mm3 MPV (7.5-11.0) fl Gran % (36.0-66.0) % Eos # (Auto) (0-0.5) Absolute Lymphs (auto) (1.0-4.6) Absolute Monos (auto) (0.0-1.3) Lymphocytes % (24.0-44.0) % Monocytes % (0.0-12.0) % Eosinophils % (0.00-5.0) % Basophils % (0.0-0.4) % Absolute Granulocytes (1.4-6.9) Basophils # (0-0.4) PT 14.5 H (8.83-12.87) SECONDS INR 1.28 (0.8-3.0) APTT 35.9 (24.1-36.1) SECONDS Sodium 141 (137-145) mmol/L Potassium 3.3 L (3.5-5.1) mmol/L Chloride 108 H (98-107) mmol/L Carbon Dioxide 26 (22-30) mmol/L Anion Gap 9.6 (5-15) MEQ/L BUN 12 (9-20) mg/dL Creatinine 0.73 (0.66-1.25) mg/dL Estimated GFR > 60.0 ML/MIN Glucose 110 H (74-106) mg/dL Calcium 8.9 (8.4-10.2) mg/dL Magnesium 2.0 (1.6-2.3) mg/dL Total Bilirubin 1.00 (0.2-1.3) mg/dL AST 60 H (17-59) U/L ALT 35 (0-50) U/L Alkaline Phosphatase 85 (38-126) U/L Troponin I < 0.012 (0.000-0.034) ng/mL NT-Pro-B Natriuret Pep 238 (0-900) pg/mL Serum Total Protein 5.9 L (6.3-8.2) g/dL Albumin 3.2 L (3.5-5.0) g/dL // Range/Units 11:30 WBC 6.9 (4.0-10.5) K/mm3 RBC 3.52 L (4.1-5.6) M/mm3 Hgb 5.8 L* (12.5-18.0) gm/dl Hct 22.0 L (42-50) % MCV 62.5 L (78-100) fl MCH 16.5 L (26-32) pg MCHC 26.4 L (32-36) g/dl RDW 18.7 H (11.5-14.0) % Plt Count 586 H (150-450) K/mm3 MPV 9.5 (7.5-11.0) fl Gran % 55.4 (36.0-66.0) % Eos # (Auto) 0.64 H (0-0.5) Absolute Lymphs (auto) 1.09 (1.0-4.6) Absolute Monos (auto) 1.01 (0.0-1.3) Lymphocytes % 15.8 L (24.0-44.0) % Monocytes % 14.7 H (0.0-12.0) % Eosinophils % 9.3 H (0.00-5.0) % Basophils % 4.8 (0.0-0.4) % Absolute Granulocytes 3.82 (1.4-6.9) Basophils # 0.33 (0-0.4) PT (8.83-12.87) SECONDS INR (0.8-3.0) APTT (24.1-36.1) SECONDS Sodium (137-145) mmol/L Potassium (3.5-5.1) mmol/L Chloride (98-107) mmol/L Carbon Dioxide (22-30) mmol/L Anion Gap (5-15) MEQ/L BUN (9-20) mg/dL Creatinine (0.66-1.25) mg/dL Estimated GFR ML/MIN Glucose (74-106) mg/dL Calcium (8.4-10.2) mg/dL Magnesium (1.6-2.3) mg/dL Total Bilirubin (0.2-1.3) mg/dL AST (17-59) U/L ALT (0-50) U/L Alkaline Phosphatase (38-126) U/L Troponin I (0.000-0.034) ng/mL NT-Pro-B Natriuret Pep (0-900) pg/mL Serum Total Protein (6.3-8.2) g/dL Albumin (3.5-5.0) g/dL - Progress Progress: unchanged Progress Note: 01/31/20 13:01 74 years old is evaluated for bilateral lower extremity pitting edema with increasing shortness of breath and generalized weakness/fatigue. EKG showed normal sinus rhythm, chest x-ray did not show any new acute findings but has some old chronic changes. Has normal white count but his hemoglobin is 5.8 which was rechecked. Patient denies any history of epigastric pain, GERD or dark-colored stool but does have history of epistaxis off and on. Is given a dose of Protonix as well. I have discussed with patient about risk and benefits of transfusion and he wants to go ahead with transfusion. We will type and crossmatch, transfuse 2 units. Patient needs further work-up for his anemia. Discussed with Dr. Sweeney and patient is being admitted. Will see patient in: hospital (full admit) Counseled pt/family regarding: lab results, diagnosis, rad results - Departure Departure Disposition: In-patient Admission Clinical Impression: Edema of lower extremity Anemia Qualifiers: Anemia type: unspecified type Qualified Code(s): D64.9 - Anemia, unspecified Condition: Stable Critical Care Time: Yes Critical Care Time(excluding separately billable procedures): Critical 30-74 mins Referrals: IRINA KINGSTON [Primary Care Provider] -
[2020-01-31] MEDS ORDERED: Klor Con 10 MEQ PO ONE ×2 (12:50→13:06)
[2020-01-31] MEDS ORDERED: PROTONIX 40 MG IV IV ONE ×2 (12:50→13:06)
[2020-01-31 12:51] LABS: INR 1.28 (0.8-3.0); PROTIME 14.5 SECONDS (8.83-12.87)
[2020-01-31 12:54] LABS: PTT 35.9 SECONDS (24.1-36.1)
[2020-01-31 13:46] LABS: ABO TYPING O; Antibody Screen NEGATIVE (NEGATIVE); RH TYPING POSITIVE
[2020-01-31] MEDS ORDERED: Zofran 4 MG/2 ML VIAL IV PRN (13:48)
[2020-01-31] MEDS ORDERED: TYLENOL 325 MG PO PRN (13:48)
[2020-01-31] MEDS ORDERED: HUMALOG SQ PRN (13:48)
[2020-01-31 13:59] LABS: CROSS MATCH (PRBC) COMPATIBLE (COMPATIBLE)
[2020-01-31 15:13] LABS: Eosinophil 3 % (0.00-3.0); Lymphocytes 9 % (24-44); Monocyte 6 % (0.0-12.0); Neutrophils 82 % (36.-66.); Total Cells Counted 100
[2020-01-31 15:16] LABS: Polychromasia 2+
[2020-01-31 15:17] LABS: ANISOCYTOSIS 2+; Hypochromia 1+; Poikilocytosis 2+
[2020-01-31 15:19] LABS: Platelet Estimate INCREASED (NORMAL)
[2020-01-31] MEDS ORDERED: Sodium Chloride 0.9% 1000 ML 1,000 ML IV SCH (15:45)
[2020-01-31] MEDS ORDERED: PATIENT OWN MEDICATION IH PRN (17:04)
--- NOTE | 2020-01-31 18:33 | PCM.SSS ---
History of Present Illness - Chief Complaint Chief Complaint: anemia History of Present Illness: is a 74 year old male with DM2,COPD,HTN and sleep apnea states he has been feeling a little tired and his legs swelled so he came to ER,no Hx CHF. His BNP was wnl.Hgb was low at 5.6 and he was admitted for blood transfusion . Hgb 01/08/19 was 11.4 was 8.5 in 2018 , looking for a more recent Hgb.The source of bleed is from left nostril multiple ,states nose bleeds over the past several weeks ,followed by ENT . States cauterized but still bled and recauterized. Denies any GI symptoms or abnormal colored stools. - Review of Systems Constitutional: Fatigue, Other (no fever or chills) Eyes: No Symptoms Ears, Nose, & Throat: Epistaxis, Other (no sore throat or acute sinus symptoms) Respiratory: Other (COPD at baseline) Cardiac: No Symptoms Abdominal/Gastrointestinal: No Symptoms Genitourinary Symptoms: Other (no dysuria or frequency or hematuria) Musculoskeletal: Arthralgias (knees and shoulders) Skin: No Symptoms Neurological: No Symptoms Psychological: No Symptoms Medications & Allergies Home Medications: Home Medication List Zolpidem Tartrate 10 mg PO HS 06/11/15 [History Confirmed 01/31/20] Ropinirole HCl 0.5 mg [Requip 0.5 MG] 0.5 mg PO HS 01/07/17 [History Confirmed 01/31/20] Metformin HCl 500 mg [Glucophage 500 MG] 500 mg PO BID 04/22/17 [History Confirmed 01/31/20] Budesonide/Formoterol Fumarate [Symbicort 160-4.5 Mcg Inhaler] 6 gm IH DAILY [History Confirmed 01/31/20] Gabapentin 600 mg PO HS 03/04/18 [History Confirmed 01/31/20] Albuterol Sulfate [Proair Hfa] 8.5 gm IH UD 07/13/18 [History Confirmed 01/31/20 ] Aspirin 81 mg PO DAILY #0 07/13/18 [Rx Confirmed 01/31/20] Allergies/Adverse Reactions: Allergies Allergy/AdvReac Type Severity Reaction Status Date / Time No Known Drug Allergies Allergy Verified 01/31/20 11:26 - Past Medical History Past Medical History: Yes Neurological History: Peripheral Neuropathy ENT History: Cataracts Cardiac History: No Pertinent History Respiratory History: Bronchitis, COPD, Sleep Apnea Endocrine Medical History: Diabetes Type II Musculoskelatal History: Arthritis GI Medical History: GERD, Gallbladder Disease, Other History: No Pertinent History Pyscho-Social History: Anxiety Male Reproductive Disorders: Prostate Problems Comment: esophageal difficulties. pt states has low b/p not high b/p - Past Surgical History Past Surgical History: Yes Neuro Surgical History: No Pertinent History Cardiac History: No Pertinent History Respiratory Surgery: No Pertinent History GI Surgical History: Cholecystectomy Genitourinary Surgical Hx: No Pertinent History Musculskeletal Surgical Hx: No Pertinent History Male Surgical History: No Pertinent History Other Surgical History: right big toenail. t&a, [place] July 2018, left eye cataract removed and revision to a fold - Social History Smoking Status: Former smoker How long have you smoked: 40 years Exposure to second hand smoke: No Alcohol: Rarely Drug Use: none - Physical Exam Vital Signs: Vital Signs - 24 hr Temp Pulse Resp BP Pulse Ox 01/31/20 16:15 98.4 F 92 H 22 132/63 94 L 01/31/20 16:00 97.7 F 88 18 130/60 94 L 01/31/20 14:43 97.7 F 88 18 130/60 94 L 01/31/20 13:03 94 L 01/31/20 12:13 90 18 94 L 01/31/20 12:11 87 22 129/67 99 01/31/20 11:09 96.3 F 90 125/58 94 L General Appearance: no apparent distress, other (Patient is very talkative and full of energy during exam,does not appear to have an ACUTE anemia) Neurologic Exam: alert, 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, cooperative, 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 as tested, normal mood/affect Eye Exam: PERRL/EOMI, eyes nml inspection Ears, Nose, Throat Exam: pharynx normal, moist mucous membranes, other (no heme in nares or pharynx) Neck Exam: normal inspection (no JVD) Respiratory Exam: diminished breath sounds (bases), other (no wheeze no ronchi no rales) Cardiovascular Exam: regular rate/rhythm Gastrointestinal/Abdomen Exam: soft, normal bowel sounds (nontender) Rectal Exam: other (ER reported hemocult neg) Back Exam: normal inspection Extremity Exam: pedal edema (ankle edema 1+/4), other Skin Exam: warm, dry, pale Results - Labs Lab/Micro Results: Accuchecks Date 01/31/20 Time 16:30 Accucheck Value: 173 Lab Results-Last 24 Hours 01/31/20 01/31/20 01/31/20 Range/Units 11:30 11:30 11:30 WBC 6.9 (4.0-10.5) K/mm3 RBC 3.52 L (4.1-5.6) M/mm3 Hgb 5.8 L* (12.5-18.0) gm/dl Hct 22.0 L (42-50) % MCV 62.5 L (78-100) fl MCH 16.5 L (26-32) pg MCHC 26.4 L (32-36) g/dl RDW 18.7 H (11.5-14.0) % Plt Count 586 H (150-450) K/mm3 MPV 9.5 (7.5-11.0) fl Gran % 55.4 (36.0-66.0) % Eos # (Auto) 0.64 H (0-0.5) Absolute Lymphs (auto) 1.09 (1.0-4.6) Absolute Monos (auto) 1.01 (0.0-1.3) Lymphocytes % 15.8 L (24.0-44.0) % Monocytes % 14.7 H (0.0-12.0) % Eosinophils % 9.3 H (0.00-5.0) % Basophils % 4.8 (0.0-0.4) % Absolute Granulocytes 3.82 (1.4-6.9) Segmented Neutrophils 82 H (36.-66.) % Lymphocytes (Manual) 9 L (24-44) % Monocytes (Manual) 6 (0.0-12.0) % Eosinophils (Manual) 3 (0.00-3.0) % Basophils # 0.33 (0-0.4) Hypochromia 1+ Platelet Estimate INCREASED (NORMAL) RBC Morphology ABNORMAL Polychromasia 2+ Poikilocytosis 2+ Anisocytosis 2+ Smear Path Review Pending PT (8.83-12.87) SECONDS INR (0.8-3.0) APTT (24.1-36.1) SECONDS Sodium 141 (137-145) mmol/L Potassium 3.3 L (3.5-5.1) mmol/L Chloride 108 H (98-107) mmol/L Carbon Dioxide 26 (22-30) mmol/L Anion Gap 9.6 (5-15) MEQ/L BUN 12 (9-20) mg/dL Creatinine 0.73 (0.66-1.25) mg/dL Estimated GFR > 60.0 ML/MIN Glucose 110 H (74-106) mg/dL Calcium 8.9 (8.4-10.2) mg/dL Magnesium 2.0 (1.6-2.3) mg/dL Total Bilirubin 1.00 (0.2-1.3) mg/dL AST 60 H (17-59) U/L ALT 35 (0-50) U/L Alkaline Phosphatase 85 (38-126) U/L Troponin I < 0.012 (0.000-0.034) ng/mL NT-Pro-B Natriuret Pep 238 (0-900) pg/mL Serum Total Protein 5.9 L (6.3-8.2) g/dL Albumin 3.2 L (3.5-5.0) g/dL Stool Occult Blood (Negative) ABO Group Rh Factor Antibody Screen (NEGATIVE) Crossmatch (COMPATIBLE) 01/31/20 01/31/20 01/31/20 Range/Units 12:00 12:00 12:00 WBC (4.0-10.5) K/mm3 RBC (4.1-5.6) M/mm3 Hgb (12.5-18.0) gm/dl Hct (42-50) % MCV (78-100) fl MCH (26-32) pg MCHC (32-36) g/dl RDW (11.5-14.0) % Plt Count (150-450) K/mm3 MPV (7.5-11.0) fl Gran % (36.0-66.0) % Eos # (Auto) (0-0.5) Absolute Lymphs (auto) (1.0-4.6) Absolute Monos (auto) (0.0-1.3) Lymphocytes % (24.0-44.0) % Monocytes % (0.0-12.0) % Eosinophils % (0.00-5.0) % Basophils % (0.0-0.4) % Absolute Granulocytes (1.4-6.9) Segmented Neutrophils (36.-66.) % Lymphocytes (Manual) (24-44) % Monocytes (Manual) (0.0-12.0) % Eosinophils (Manual) (0.00-3.0) % Basophils # (0-0.4) Hypochromia Platelet Estimate (NORMAL) RBC Morphology Polychromasia Poikilocytosis Anisocytosis Smear Path Review PT 14.5 H (8.83-12.87) SECONDS INR 1.28 (0.8-3.0) APTT 35.9 (24.1-36.1) SECONDS Sodium (137-145) mmol/L Potassium (3.5-5.1) mmol/L Chloride (98-107) mmol/L Carbon Dioxide (22-30) mmol/L Anion Gap (5-15) MEQ/L BUN (9-20) mg/dL Creatinine (0.66-1.25) mg/dL Estimated GFR ML/MIN Glucose (74-106) mg/dL Calcium (8.4-10.2) mg/dL Magnesium (1.6-2.3) mg/dL Total Bilirubin (0.2-1.3) mg/dL AST (17-59) U/L ALT (0-50) U/L Alkaline Phosphatase (38-126) U/L Troponin I (0.000-0.034) ng/mL NT-Pro-B Natriuret Pep (0-900) pg/mL Serum Total Protein (6.3-8.2) g/dL Albumin (3.5-5.0) g/dL Stool Occult Blood (Negative) ABO Group O Rh Factor POSITIVE Antibody Screen NEGATIVE (NEGATIVE) Crossmatch COMPATIBLE COMPATIBLE (COMPATIBLE) 01/31/20 01/31/20 01/31/20 Range/Units 12:30 14:25 17:30 WBC (4.0-10.5) K/mm3 RBC (4.1-5.6) M/mm3 Hgb (12.5-18.0) gm/dl Hct (42-50) % MCV (78-100) fl MCH (26-32) pg MCHC (32-36) g/dl RDW (11.5-14.0) % Plt Count (150-450) K/mm3 MPV (7.5-11.0) fl Gran % (36.0-66.0) % Eos # (Auto) (0-0.5) Absolute Lymphs (auto) (1.0-4.6) Absolute Monos (auto) (0.0-1.3) Lymphocytes % (24.0-44.0) % Monocytes % (0.0-12.0) % Eosinophils % (0.00-5.0) % Basophils % (0.0-0.4) % Absolute Granulocytes (1.4-6.9) Segmented Neutrophils (36.-66.) % Lymphocytes (Manual) (24-44) % Monocytes (Manual) (0.0-12.0) % Eosinophils (Manual) (0.00-3.0) % Basophils # (0-0.4) Hypochromia Platelet Estimate (NORMAL) RBC Morphology Polychromasia Poikilocytosis Anisocytosis Smear Path Review PT (8.83-12.87) SECONDS INR (0.8-3.0) APTT (24.1-36.1) SECONDS Sodium (137-145) mmol/L Potassium (3.5-5.1) mmol/L Chloride (98-107) mmol/L Carbon Dioxide (22-30) mmol/L Anion Gap (5-15) MEQ/L BUN (9-20) mg/dL Creatinine (0.66-1.25) mg/dL Estimated GFR ML/MIN Glucose (74-106) mg/dL Calcium (8.4-10.2) mg/dL Magnesium (1.6-2.3) mg/dL Total Bilirubin (0.2-1.3) mg/dL AST (17-59) U/L ALT (0-50) U/L Alkaline Phosphatase (38-126) U/L Troponin I < 0.012 < 0.012 (0.000-0.034) ng/mL NT-Pro-B Natriuret Pep (0-900) pg/mL Serum Total Protein (6.3-8.2) g/dL Albumin (3.5-5.0) g/dL Stool Occult Blood NEGATIVE (Negative) ABO Group Rh Factor Antibody Screen (NEGATIVE) Crossmatch (COMPATIBLE) Accuchecks Date 01/31/20 Time 16:30 Accucheck Value: 173 - Radiology Impressions Radiology Exams & Impressions: Radiology Procedures Category Date Time Status CHEST 2 VIEWS (PA AND LAT) Stat Exams 01/31/20 11:25 Taken - Other Procedures and Tests Respiratory Therapy 01/31/20 15:10 RT Screen per Nursing Assess ONCE Assessment/Plan (1) Anemia due to blood loss Current Visit: Yes Status: Acute Assessment & Plan: epistaxis over several weeks followed by ENT,patient does not appear to have an acute anemia and will daljit outpatient workup by his PCP as to any other underlying etiology Code(s): D50.0 - IRON DEFICIENCY ANEMIA SECONDARY TO BLOOD LOSS (CHRONIC) (2) Epistaxis, recurrent Current Visit: Yes Status: Chronic Assessment & Plan: left nostril by hx Code(s): R04.0 - EPISTAXIS (3) Sleep apnea Current Visit: Yes Status: Chronic Code(s): G47.30 - SLEEP APNEA, UNSPECIFIED (4) Edema of both lower extremities Current Visit: Yes Status: Acute Assessment & Plan: feet and ankles ,BNP and TSH were wnl,further eval by PCP Code(s): R60.0 - LOCALIZED [facility] Hospital Summary - Hospital Course Hospital Course: Patient was admitted for transfusion with initial Hgb = 5.8. After 2 units PRBC Hgb = 7.9. His potassium was 3.1 post transfusion and after receiving IV lasix 40mg between units. He did not want to stay for a Krider and repeat labs. He was given potassium [place] 50meq at discharge. Labs ordered for AM outpatient CBCdiff ,BMP,hemetest stool x 3. Patient is anxious to return home due to his has health issues and nobody is able to be there with her. AM labs, Appt with PCP this week . Return to ER if any acute changes. - Vitals & Intake/Output Vital Signs: Vital Signs Temperature 98.4 F 01/31/20 16:15 Pulse Rate 92 H 01/31/20 16:15 Respiratory Rate 22 01/31/20 16:15 Blood Pressure 132/63 01/31/20 16:15 O2 Sat by Pulse Oximetry 94 L 01/31/20 16:15 Intake & Output: Intake & Output 01/29/20 01/30/20 01/31/20 02/01/20 11:59 11:59 11:59 11:59 Intake Total 431 Balance 431 Weight 102.965 kg 101.3 kg - Lab Result Diagrams: 02/01/20 05:00 02/01/20 05:00 Lab Results-Last 24 Hrs: Accuchecks Date 01/31/20 Time 16:30 Accucheck Value: 173 Lab Results-Last 24 Hours 01/31/20 01/31/20 01/31/20 Range/Units 11:30 11:30 11:30 WBC 6.9 (4.0-10.5) K/mm3 RBC 3.52 L (4.1-5.6) M/mm3 Hgb 5.8 L* (12.5-18.0) gm/dl Hct 22.0 L (42-50) % MCV 62.5 L (78-100) fl MCH 16.5 L (26-32) pg MCHC 26.4 L (32-36) g/dl RDW 18.7 H (11.5-14.0) % Plt Count 586 H (150-450) K/mm3 MPV 9.5 (7.5-11.0) fl Gran % 55.4 (36.0-66.0) % Eos # (Auto) 0.64 H (0-0.5) Absolute Lymphs (auto) 1.09 (1.0-4.6) Absolute Monos (auto) 1.01 (0.0-1.3) Lymphocytes % 15.8 L (24.0-44.0) % Monocytes % 14.7 H (0.0-12.0) % Eosinophils % 9.3 H (0.00-5.0) % Basophils % 4.8 (0.0-0.4) % Absolute Granulocytes 3.82 (1.4-6.9) Segmented Neutrophils 82 H (36.-66.) % Lymphocytes (Manual) 9 L (24-44) % Monocytes (Manual) 6 (0.0-12.0) % Eosinophils (Manual) 3 (0.00-3.0) % Basophils # 0.33 (0-0.4) Hypochromia 1+ Platelet Estimate INCREASED (NORMAL) RBC Morphology ABNORMAL Polychromasia 2+ Poikilocytosis 2+ Anisocytosis 2+ Smear Path Review Pending PT (8.83-12.87) SECONDS INR (0.8-3.0) APTT (24.1-36.1) SECONDS Sodium 141 (137-145) mmol/L Potassium 3.3 L (3.5-5.1) mmol/L Chloride 108 H (98-107) mmol/L Carbon Dioxide 26 (22-30) mmol/L Anion Gap 9.6 (5-15) MEQ/L BUN 12 (9-20) mg/dL Creatinine 0.73 (0.66-1.25) mg/dL Estimated GFR > 60.0 ML/MIN Glucose 110 H (74-106) mg/dL Calcium 8.9 (8.4-10.2) mg/dL Magnesium 2.0 (1.6-2.3) mg/dL Total Bilirubin 1.00 (0.2-1.3) mg/dL AST 60 H (17-59) U/L ALT 35 (0-50) U/L Alkaline Phosphatase 85 (38-126) U/L Troponin I < 0.012 (0.000-0.034) ng/mL NT-Pro-B Natriuret Pep 238 (0-900) pg/mL Serum Total Protein 5.9 L (6.3-8.2) g/dL Albumin 3.2 L (3.5-5.0) g/dL Stool Occult Blood (Negative) ABO Group Rh Factor Antibody Screen (NEGATIVE) Crossmatch (COMPATIBLE) 01/31/20 01/31/20 01/31/20 Range/Units 12:00 12:00 12:00 WBC (4.0-10.5) K/mm3 RBC (4.1-5.6) M/mm3 Hgb (12.5-18.0) gm/dl Hct (42-50) % MCV (78-100) fl MCH (26-32) pg MCHC (32-36) g/dl RDW (11.5-14.0) % Plt Count (150-450) K/mm3 MPV (7.5-11.0) fl Gran % (36.0-66.0) % Eos # (Auto) (0-0.5) Absolute Lymphs (auto) (1.0-4.6) Absolute Monos (auto) (0.0-1.3) Lymphocytes % (24.0-44.0) % Monocytes % (0.0-12.0) % Eosinophils % (0.00-5.0) % Basophils % (0.0-0.4) % Absolute Granulocytes (1.4-6.9) Segmented Neutrophils (36.-66.) % Lymphocytes (Manual) (24-44) % Monocytes (Manual) (0.0-12.0) % Eosinophils (Manual) (0.00-3.0) % Basophils # (0-0.4) Hypochromia Platelet Estimate (NORMAL) RBC Morphology Polychromasia Poikilocytosis Anisocytosis Smear Path Review PT 14.5 H (8.83-12.87) SECONDS INR 1.28 (0.8-3.0) APTT 35.9 (24.1-36.1) SECONDS Sodium (137-145) mmol/L Potassium (3.5-5.1) mmol/L Chloride (98-107) mmol/L Carbon Dioxide (22-30) mmol/L Anion Gap (5-15) MEQ/L BUN (9-20) mg/dL Creatinine (0.66-1.25) mg/dL Estimated GFR ML/MIN Glucose (74-106) mg/dL Calcium (8.4-10.2) mg/dL Magnesium (1.6-2.3) mg/dL Total Bilirubin (0.2-1.3) mg/dL AST (17-59) U/L ALT (0-50) U/L Alkaline Phosphatase (38-126) U/L Troponin I (0.000-0.034) ng/mL NT-Pro-B Natriuret Pep (0-900) pg/mL Serum Total Protein (6.3-8.2) g/dL Albumin (3.5-5.0) g/dL Stool Occult Blood (Negative) ABO Group O Rh Factor POSITIVE Antibody Screen NEGATIVE (NEGATIVE) Crossmatch COMPATIBLE COMPATIBLE (COMPATIBLE) 01/31/20 01/31/20 01/31/20 Range/Units 12:30 14:25 17:30 WBC (4.0-10.5) K/mm3 RBC (4.1-5.6) M/mm3 Hgb (12.5-18.0) gm/dl Hct (42-50) % MCV (78-100) fl MCH (26-32) pg MCHC (32-36) g/dl RDW (11.5-14.0) % Plt Count (150-450) K/mm3 MPV (7.5-11.0) fl Gran % (36.0-66.0) % Eos # (Auto) (0-0.5) Absolute Lymphs (auto) (1.0-4.6) Absolute Monos (auto) (0.0-1.3) Lymphocytes % (24.0-44.0) % Monocytes % (0.0-12.0) % Eosinophils % (0.00-5.0) % Basophils % (0.0-0.4) % Absolute Granulocytes (1.4-6.9) Segmented Neutrophils (36.-66.) % Lymphocytes (Manual) (24-44) % Monocytes (Manual) (0.0-12.0) % Eosinophils (Manual) (0.00-3.0) % Basophils # (0-0.4) Hypochromia Platelet Estimate (NORMAL) RBC Morphology Polychromasia Poikilocytosis Anisocytosis Smear Path Review PT (8.83-12.87) SECONDS INR (0.8-3.0) APTT (24.1-36.1) SECONDS Sodium (137-145) mmol/L Potassium (3.5-5.1) mmol/L Chloride (98-107) mmol/L Carbon Dioxide (22-30) mmol/L Anion Gap (5-15) MEQ/L BUN (9-20) mg/dL Creatinine (0.66-1.25) mg/dL Estimated GFR ML/MIN Glucose (74-106) mg/dL Calcium (8.4-10.2) mg/dL Magnesium (1.6-2.3) mg/dL Total Bilirubin (0.2-1.3) mg/dL AST (17-59) U/L ALT (0-50) U/L Alkaline Phosphatase (38-126) U/L Troponin I < 0.012 < 0.012 (0.000-0.034) ng/mL NT-Pro-B Natriuret Pep (0-900) pg/mL Serum Total Protein (6.3-8.2) g/dL Albumin (3.5-5.0) g/dL Stool Occult Blood NEGATIVE (Negative) ABO Group Rh Factor Antibody Screen (NEGATIVE) Crossmatch (COMPATIBLE) Micro Results-Entire Visit: Accuchecks Date 01/31/20 Time 16:30 Accucheck Value: 173 - Radiology Exams Ordered Rad Exams-Entire Visit: Radiology Procedures Category Date Time Status CHEST 2 VIEWS (PA AND LAT) Stat Exams 01/31/20 11:25 Taken - Procedures and Test Procedures and Tests throughout Hospitalization: Therapy Orders & Screens 01/31/20 12:13 Respiratory Therapy Assessment ONCE Comment: Diagnosis: right breast cancer 01/31/20 15:10 RT Screen per Nursing Assess ONCE Comment: Protocol Order Physician Instructions: Greater than 3 points order RT Admission Screen Reason For Exam: Triggered on Admission Diagnosis: anemia Diagnosis: anemia Pneumonia: No Home O2: No Asthma: No CHF: No Home CPAP/BIPAP: Yes: doesn't use Home Nebs/MDI: Yes Total Points: 10 - Discharge Disposition: Home, Self-Care Condition: Stable Prescriptions: Continue Zolpidem Tartrate 10 mg PO HS Ropinirole HCl 0.5 mg [Requip 0.5 MG] 0.5 mg PO HS Metformin HCl 500 mg [Glucophage 500 MG] 500 mg PO BID Gabapentin 600 mg PO HS Budesonide/Formoterol Fumarate [Symbicort 160-4.5 Mcg Inhaler] 6 gm IH DAILY Albuterol Sulfate [Proair Hfa] 8.5 gm IH UD Aspirin 81 mg PO DAILY #0 Outpatient Orders: BMP Time Frame: 1 Day, Location: LABORATORY CBC W DIFF Location: LABORATORY Instructions: Anemia of Chronic Disease Follow up with: IRINA KINGSTON [Primary Care Provider] - 02/04/20 10:15 am Forms: Discharge Instructions
[2020-01-31] MEDS ORDERED: Lasix 40 MG/4 ML IV ONE (19:30)
--- NOTE | 2020-01-31 19:53 | XRAY ---
Indication: CHF. Comparison: December 20, 2019. PA/lateral chest remains hyperinflated with mild improving right infrahilar infiltrate/atelectasis. Remaining heart and lungs unremarkable again with a few tiny calcified granulomas and left lung base fibrosis/scarring. No new cardiopulmonary abnormalities.
[2020-01-31] MEDS: DUONEB 0.5-3 MG/3 ml Neb IH SCH ×2 (19:55→21:27)
[2020-01-31] MEDS ORDERED: Glucophage 500 MG PO SCH (22:00)
[2020-01-31] MEDS ORDERED: Requip 0.5 MG PO SCH (22:00)
[2020-01-31] MEDS ORDERED: NEURONTIN 300 MG PO SCH (22:00)
[2020-01-31] MEDS ORDERED: Ambien 10 MG PO SCH (22:00)
[2020-01-31] MEDS ORDERED: CEPACOL SORE THROAT LOZENGE PO PRN (23:51)
[2020-02-01] MEDS: DUONEB 0.5-3 MG/3 ml Neb IH SCH ×2 (00:15→08:12)
[2020-02-01 00:51] LABS: Hematocrit 27.4 % (42-50)
[2020-02-01 00:57] LABS: Hemoglobin 7.9 gm/dl (12.5-18.0)
[2020-02-01 01:05] LABS: ANION GAP 10.7 MEQ/L (5-15); BLOOD UREA NITROGEN 10 mg/dL (9-20); CHLORIDE 106 mmol/L (98-107); Calcium 8.8 mg/dL (8.4-10.2); Carbon Dioxide 26 mmol/L (22-30); Creatinine 1 0.82 mg/dL (0.66-1.25); Glucose 135 mg/dL (74-106); Potassium 3.1 mmol/L (3.5-5.1); SODIUM 139 mmol/L (137-145)
[2020-02-01] MEDS ORDERED: Tessalon Perles 100 MG PO PRN (01:32)
[2020-02-01 05:19] LABS: Hematocrit 26.7 % (42-50); Hemoglobin 7.5 gm/dl (12.5-18.0); Mean Corpuscular Hemoglobin 18.6 pg (26-32); Mean Corpuscular Hgb Concent. 28.1 g/dl (32-36); Mean Platelet Volume 9.7 fl (7.5-11.0); Platelet Count 557 K/mm3 (150-450); Red Blood Count 4.03 M/mm3 (4.1-5.6); Red Cell Distribution Width 22.3 % (11.5-14.0); White Blood Count 8.7 K/mm3 (4.0-10.5)
[2020-02-01 05:22] LABS: Mean Cell Volume 66.3 fl (78-100)
[2020-02-01 05:34] LABS: ALBUMIN 3.2 g/dL (3.5-5.0); ALKALINE PHOSPHATASE 75 U/L (38-126); ANION GAP 10.6 MEQ/L (5-15); BLOOD UREA NITROGEN 9 mg/dL (9-20); CHLORIDE 107 mmol/L (98-107); Calcium 8.6 mg/dL (8.4-10.2); Carbon Dioxide 26 mmol/L (22-30); Creatinine 1 0.82 mg/dL (0.66-1.25); Glucose 93 mg/dL (74-106); Potassium 3.1 mmol/L (3.5-5.1); SGOT/AST 64 U/L (17-59); SGPT/ALT 32 U/L (0-50); SODIUM 140 mmol/L (137-145)
[2020-02-01 07:22] LABS: BAND 3 % (0.0-2.0); Basophil 1 % (0.0-1.0); Eosinophil 3 % (0.00-3.0); Lymphocytes 15 % (24-44); Monocyte 7 % (0.0-12.0); Neutrophils 71 % (36.-66.); Total Cells Counted 100
[2020-02-01 07:23] LABS: Platelet Estimate INCREASED (NORMAL)
[2020-02-01 07:24] LABS: Microcytosis 3+; Polychromasia 2+
[2020-02-01 07:25] LABS: Hypochromia 3+
[2020-02-01 07:27] VITALS: BP 119/57
[2020-02-01] MEDS ORDERED: Glucophage 500 MG PO SCH (08:00)
[2020-02-01 08:15] VITALS: PULSE 88; O2SAT 96
[2020-02-01] MEDS ORDERED: K-LYTE 25 MEQ PO ONE (08:32)
[2020-02-01] MEDS ORDERED: PROTONIX 40 MG IV IV SCH (10:00)
[2020-02-01] MEDS ORDERED: NON-FORMULARY ITEM (Budesonide/Formoterol Fumarate [Symbicort 160-4.5 Mcg Inhaler] 6 GM) IH SCH (10:00)
== END 2020-02-01 09:45 | disposition home or self-care (01) ==
LOC: ED 11:00 → INTOOBSV 13:30 → MED SURG 13:30 → ED 13:32
PROVIDERS: ADMIT Family Medicine; ATTEND Family Medicine
DX: D50.0 Iron deficiency anemia secondary to blood loss (chronic) (principal); E11.9 Type 2 diabetes mellitus without complications; I10 Essential (primary) hypertension; J44.9 Chronic obstructive pulmonary disease, unspecified; G47.30 Sleep apnea, unspecified; Z79.899 Other long term (current) drug therapy; R04.0 Epistaxis; R60.0 Localized edema
CPT/HCPCS: 36415; 36430; 80048; 80053; 82272; 82962; 83036; 83735; 83880; 84443; 84484; 85014; 85018; 85025; 85610; 85730; 86850; 86900; 86901; 86922; 93005; 93041; 93268; 94640; 94760; 96374; 99291; G0378; P9016; 36000; 71046; 99285; J1817; J1940; A9270-GY

== ENCOUNTER 2020-02-07 06:09 | Day surgery (SDC) | payer MEDICARE, OTHER ==
[2020-02-07] MEDS ORDERED: Lactated Ringers 1,000 ML IV SCH (06:30)
[2020-02-07] MEDS ORDERED: DIPRIVAN 200 MG/20 ML IV ONE (07:41)
[2020-02-07] MEDS ORDERED: Ketamine HCl 50 MG/ML ONE (07:42)
[2020-02-07] MEDS ORDERED: Xylocaine-Mpf 2% 5 Ml Vial ONE (07:46)
[2020-02-07 09:06] VITALS: BP 136/67; PULSE 89; O2SAT 95
--- NOTE | 2020-02-08 07:53 | OP ---
SURGERY DATE/TIME: 02/07/2020 0805 PREOPERATIVE DIAGNOSIS: Anemia and epigastric pain. POSTOPERATIVE DIAGNOSIS: Mild gastritis and epistaxis. PROCEDURE: Esophagogastroduodenoscopy. SURGEON: Dr. Ryan. ANESTHESIA: Medications were given by the anesthesia department. HISTORY: The patient is a 74 year old white male patient who had recent transfusion with hemoglobin below 6. The patient notes that he has been having problem with epistaxis which had been recently cauterized. He reports he still has occasional bleeding including some last night. However, the patient continues to take aspirin. He has been asked to stop taking the aspirin previously. The patient was felt the need to have endoscopic evaluation due to the chronicity of his bleeding problems with the anemia and taking aspirin with concern for possibility of gastric ulcer or NSAID gastropathy. The patient was appraised of the risks of the procedure including the risk of perforation, phlebitis, untoward reaction to medication, bleeding and missed lesions. The patient verbalized his understanding and desired to have the procedure performed. DESCRIPTION OF PROCEDURE: The patient was given the medications by the anesthesia department. He had continuous pulse oximetry, ECG monitoring, intermittent blood pressure monitoring and tidal CO2 monitoring during the examination. He was placed in the left lateral decubitus position. A bite block was placed. The flexible Olympus gastroscope was used to intubate the oropharynx. On entry into the posterior pharynx was noted blood coming down from the nasopharynx. The vocal cords were noted to be essentially normal. The scope was passed in the esophagus with ease. The esophagus appeared to be normal throughout its length. The stomach was entered where normal gastric rugal folds were seen and these distended nicely with insufflation of air. There was also noted to be small amounts of blood in the stomach. There were no erosions or ulcerations however noted in the stomach. The scope was passed along the greater curvature of the stomach to the pylorus which was then intubated. Duodenum inspected and found to be normal. The scope is withdrawn towards the stomach. Again a retroflex view was obtained of the lesser curvature, fundus and cardia regions of the stomach and these appeared to be normal as well. The scope was then withdrawn from the patient who tolerated the procedure well and sent back to outpatient recovery in good condition.
== END 2020-02-07 09:10 | disposition home or self-care (01) ==
LOC: SDC 06:09
PROVIDERS: ATTEND Family Medicine
DX: K29.70 Gastritis, unspecified, without bleeding (principal); D64.9 Anemia, unspecified; R04.0 Epistaxis; E11.9 Type 2 diabetes mellitus without complications; Z79.82 Long term (current) use of aspirin; Z79.899 Other long term (current) drug therapy
CPT/HCPCS: 82962; 99100; J2704

== ENCOUNTER 2020-03-29 17:39 | Observation (INO) | payer MEDICARE, OTHER ==
[2020-03-29] MEDS ORDERED: Klor Con 10 MEQ PO ONE ×2 (17:50→19:10)
--- NOTE | 2020-03-29 18:32 | ERPHSYRPT ---
- History of Present Illness Time Seen by Provider: 03/29/20 18:00 Source: patient Patient Subjective Stated Complaint: Pt states "I had blood drawn this morning and was callled and told my potassium was 2.5." Triage Nursing Assessment: PT presented alert and oriented X 3, skin pwd Pt ambulates with an upright steady gait, able to speak in clear full sentences pt in no apparent respiratory distress. Physician History: 74 years old male with history of hypertension, diabetes mellitus, COPD is sent in ER by primary care for hypokalemia. Patient reported he was having generalized weakness and fatigue yesterday evening which improved but again this morning was feeling weak all over with no energy to do his routine activities. He denies any chest pain palpitations or shortness of breath. In the rise any mariam pain nausea vomiting or diarrhea. Patient has a history of hypokalemia in the past and his work-up done today also showed it. Patient has been taking oral potassium as recommended. Denies any sick contact, fever or chills. Timing/Duration: yesterday, intermittent, gradual onset Severity: mild, moderate Modifying Factors: Improves With: nothing Associated Symptoms: weakness Allergies/Adverse Reactions: No Known Drug Allergies Allergy (Verified 03/21/20 14:47) Home Medications: Zolpidem Tartrate 10 mg PO HS PRN 06/11/15 [History] Ropinirole HCl 0.5 mg [Requip 0.5 MG] 0.5 mg PO HS 01/07/17 [History] Metformin HCl 500 mg [Glucophage 500 MG] 500 mg PO BID 04/22/17 [History] Budesonide/Formoterol Fumarate [Symbicort 160-4.5 Mcg Inhaler] 2 inh IH BID 03/04/18 [History] Gabapentin 300 mg PO HS 03/04/18 [History] Albuterol Sulfate [Ventolin Hfa] 2 puffs IH QID PRN 02/04/20 [History] Ferrous Sulfate 325 mg PO DAILY 02/04/20 [History] Fluticasone/Vilanterol [Breo Ellipta 100-25 Mcg INH] 1 each IH DAILY 02/04/20 [History] Nystatin 5 ml PO QID 02/04/20 [History] Tamsulosin HCl 0.4 mg [Flomax 0.4 MG] 1 tab PO DAILY 02/04/20 [History] Tramadol HCl 50 mg [Ultram 50 mg] 1 tab PO QAM 02/04/20 [History] Hx Tetanus, Diphtheria Vaccination/Date Given: No Hx Influenza Vaccination/Date Given: Yes Hx Pneumococcal Vaccination/Date Given: Yes Immunizations Up to Date: Yes Travel Risk - International Travel Have you traveled outside of the country in past 3 weeks: No - Coronavirus Screening Are you exhibiting any of the following symptoms?: No Close contact with a COVID-19 positive Pt in past 14-21 Days: No - Review of Systems Constitutional: Fatigue, Weakness Eyes: No Symptoms Ears, Nose, & Throat: No Symptoms Respiratory: No Symptoms Cardiac: No Symptoms Abdominal/Gastrointestinal: No Symptoms Genitourinary Symptoms: No Symptoms Musculoskeletal: No Symptoms Skin: No Symptoms Neurological: No Symptoms Psychological: No Symptoms Endocrine: No Symptoms Hematologic/Lymphatic: No Symptoms Immunological/Allergic: No Symptoms - Past Medical History Pertinent Past Medical History: Yes Neurological History: Peripheral Neuropathy ENT History: Cataracts Cardiac History: No Pertinent History Respiratory History: Bronchitis, COPD Endocrine Medical History: Diabetes Type II Musculoskeletal History: Arthritis GI Medical History: Other History: No Pertinent History Psycho-Social History: Anxiety Male Reproductive Disorders: Prostate Problems Other Medical History: esophageal difficulties. pt states has low b/p not high b/p. Uses 02 at home.Former smoker. anemia,low K+ levels - Past Surgical History Past Surgical History: Yes Neuro Surgical History: No Pertinent History Cardiac: No Pertinent History Respiratory: No Pertinent History Gastrointestinal: Cholecystectomy Genitourinary: No Pertinent History Musculoskeletal: No Pertinent History Male Surgical History: No Pertinent History Other Surgical History: right big toenail. t&a, [place] July 2018, left eye cataract removed and revision to a fold - Social History Smoking Status: Former smoker How long have you smoked: 40 years Exposure to second hand smoke: Yes Drug Use: none Patient Lives Alone: No - Nursing Vital Signs Nursing Vital Signs: Initial Vital Signs Temperature 97.9 F 03/29/20 17:48 Pulse Rate 94 H 03/29/20 17:48 Respiratory Rate 03/29/20 17:48 Blood Pressure 128/69 03/29/20 17:48 O2 Sat by Pulse Oximetry 94 L 03/29/20 17:48 Pain Scale Pain Intensity 4 - Physical Exam General Appearance: no apparent distress Eye Exam: PERRL/EOMI, eyes nml inspection Ears, Nose, Throat Exam: normal ENT inspection, pharynx normal Neck Exam: normal inspection, non-tender, supple, full range of motion Respiratory Exam: normal breath sounds, lungs clear Cardiovascular Exam: regular rate/rhythm, normal heart sounds Gastrointestinal/Abdomen Exam: soft, normal bowel sounds, No tenderness Back Exam: normal inspection Extremity Exam: normal inspection, pedal edema (1+ bilaterally), swelling Neurologic Exam: alert, 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, cooperative, air brake man II-XII nml as tested, normal mood/affect, nml cerebellar function, sensation nml Skin Exam: normal color SpO2 Interpretation: normal SpO2: 94 O2 Delivery: Room Air - Course EKG Interpreted by Me: RATE, Sinus Rhythm, NORMAL AXIS, NORMAL INTERVALS, NORMAL QRS Ordered Tests: Active Orders 24 hr Category Date Time 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 Care 03/29/20 17:50 Active EKG-ER Only STAT Care 03/29/20 17:49 Active IV Insertion STAT Care 03/29/20 17:49 Active CHEST 1 VIEW (PORTABLE) Stat Exams 03/29/20 17:49 Taken CBC W DIFF Stat Lab 03/29/20 18:20 Completed CMP Stat Lab 03/29/20 18:30 Completed MAG [MAGNESIUM] Stat Lab 03/29/20 18:20 Completed Manual Differential NC Stat Lab 03/29/20 18:20 Completed NT PRO BNP Stat Lab 03/29/20 18:30 Completed TROPONIN Q3H Lab 03/29/20 18:20 Completed TROPONIN Q3H Lab 03/29/20 21:00 Ordered TROPONIN Q3H Lab 03/30/20 00:00 Ordered TROPONIN Q3H Lab 03/30/20 03:00 Ordered TROPONIN Q3H Lab 03/30/20 06:00 Ordered Medication Summary Generic Name Dose Route Start Last Admin Trade Name Freq PRN Reason Stop Dose Admin Potassium Chloride 20 meq in 100 mls @ 50 mls/hr 03/29/20 18:00 03/29/20 19:15 Potassium Chloride 20 Meq In Water 100ml IV 03/29/20 21:59 50 mls/hr Q2H MAN Administration Sodium Chloride 500 mls @ 50 mls/hr 03/29/20 19:15 03/29/20 19:15 Sodium Chloride 0.9% 500 Ml IV 04/28/20 19:14 50 mls/hr .Q10H MAN Administration Discontinued Medications Generic Name Dose Route Start Last Admin Trade Name Marino PRN Reason Stop Dose Admin Potassium Chloride 40 meq 03/29/20 17:50 03/29/20 19:15 Klor Con 10 Meq PO 03/29/20 17:51 40 meq STAT ONE Administration Potassium Chloride Confirm 03/29/20 19:10 Klor Con 10 Meq Administered 03/29/20 19:11 Dose 40 meq PO .STK-MED ONE Lab/Rad Data: Laboratory Result Diagrams 03/29/20 18:20 03/29/20 18:30 Laboratory Results 03/29/20 03/29/20 03/29/20 Range/Units 18:30 18:20 18:20 WBC (4.0-10.5) K/mm3 RBC (4.1-5.6) M/mm3 Hgb (12.5-18.0) gm/dl Hct (42-50) % MCV (78-100) fl MCH (26-32) pg MCHC (32-36) g/dl RDW (11.5-14.0) % Plt Count (150-450) K/mm3 MPV (7.5-11.0) fl Absolute Granulocytes (1.4-6.9) Sodium 139 (137-145) mmol/L Potassium 2.6 L* (3.5-5.1) mmol/L Chloride 96 L (98-107) mmol/L Carbon Dioxide 35 H (22-30) mmol/L Anion Gap 11.3 (5-15) MEQ/L BUN 14 (9-20) mg/dL Creatinine 0.91 (0.66-1.25) mg/dL Estimated GFR > 60.0 ML/MIN Glucose 124 H (74-106) mg/dL Calcium 9.8 (8.4-10.2) mg/dL Magnesium 2.4 H (1.6-2.3) mg/dL Total Bilirubin 1.50 H (0.2-1.3) mg/dL AST 55 (17-59) U/L ALT 29 (0-50) U/L Alkaline Phosphatase 135 H (38-126) U/L Troponin I 0.017 (0.000-0.034) ng/mL NT-Pro-B Natriuret Pep 191 (0-900) pg/mL Serum Total Protein 7.7 (6.3-8.2) g/dL Albumin 4.3 (3.5-5.0) g/dL 03/29/20 Range/Units 18:20 WBC 8.5 (4.0-10.5) K/mm3 RBC 5.31 (4.1-5.6) M/mm3 Hgb 10.4 L (12.5-18.0) gm/dl Hct 36.7 L (42-50) % MCV 69.1 L (78-100) fl MCH 19.6 L (26-32) pg MCHC 28.3 L (32-36) g/dl RDW 27.4 H (11.5-14.0) % Plt Count 591 H (150-450) K/mm3 MPV 10.3 (7.5-11.0) fl Absolute Granulocytes 4.23 (1.4-6.9) Sodium (137-145) mmol/L Potassium (3.5-5.1) mmol/L Chloride (98-107) mmol/L Carbon Dioxide (22-30) mmol/L Anion Gap (5-15) MEQ/L BUN (9-20) mg/dL Creatinine (0.66-1.25) mg/dL Estimated GFR ML/MIN Glucose (74-106) mg/dL Calcium (8.4-10.2) mg/dL Magnesium (1.6-2.3) mg/dL Total Bilirubin (0.2-1.3) mg/dL AST (17-59) U/L ALT (0-50) U/L Alkaline Phosphatase (38-126) U/L Troponin I (0.000-0.034) ng/mL NT-Pro-B Natriuret Pep (0-900) pg/mL Serum Total Protein (6.3-8.2) g/dL Albumin (3.5-5.0) g/dL - Progress Progress: unchanged, re-examined Progress Note: 03/29/20 19:34 74 years old is evaluated for hypokalemia with generalized weakness fatigue. I have rechecked his potassium and it is 2.6. EKG was so it showed sinus rhythm with no acute ischemic changes. Negative initial troponins. Chest x-ray showed old changes but no new pneumonic infiltrates/consolidation. Patient is not in any distress. Has a magnesium of 2.4, started on potassium replacement oral and IV. Discussed with Dr. Sweeney and patient is being admitted for observation. Discussed with .: Avni Will see patient in: hospital (observation) Counseled pt/family regarding: lab results, diagnosis, rad results - Departure Departure Disposition: Observation Clinical Impression: Hypokalemia, General weakness Condition: Stable Critical Care Time: No Referrals: IRINA KINGSTON [Primary Care Provider] -
[2020-03-29 18:43] LABS: Absolute Neutrophil Ct (ANC) 4.23 (1.4-6.9); Hematocrit 36.7 % (42-50); Hemoglobin 10.4 gm/dl (12.5-18.0); Mean Cell Volume 69.1 fl (78-100); Mean Corpuscular Hemoglobin 19.6 pg (26-32); Mean Corpuscular Hgb Concent. 28.3 g/dl (32-36); Mean Platelet Volume 10.3 fl (7.5-11.0); Platelet Count 591 K/mm3 (150-450); Red Blood Count 5.31 M/mm3 (4.1-5.6); Red Cell Distribution Width 27.4 % (11.5-14.0); White Blood Count 8.5 K/mm3 (4.0-10.5)
[2020-03-29 19:06] LABS: ALBUMIN 4.3 g/dL (3.5-5.0); ALKALINE PHOSPHATASE 135 U/L (38-126); ANION GAP 11.3 MEQ/L (5-15); BLOOD UREA NITROGEN 14 mg/dL (9-20); CHLORIDE 96 mmol/L (98-107); Calcium 9.8 mg/dL (8.4-10.2); Carbon Dioxide 35 mmol/L (22-30); Creatinine 1 0.91 mg/dL (0.66-1.25); Glucose 124 mg/dL (74-106); NT PRO BNP 191 pg/mL (0-900); SGOT/AST 55 U/L (17-59); SGPT/ALT 29 U/L (0-50); SODIUM 139 mmol/L (137-145); Total Protein 7.7 g/dL (6.3-8.2)
[2020-03-29 19:08] LABS: Potassium 2.6 mmol/L (3.5-5.1)
[2020-03-29] MEDS: POTASSIUM CHLORIDE 20 mEq IN WATER 100ML 20 MEQ/100 ML BAG IV SCH ×2 (19:15→22:31)
[2020-03-29] MEDS: Sodium Chloride 0.9% 500 ML 500 ML IV SCH (19:15)
[2020-03-29 20:17] LABS: BAND 1 % (0.0-2.0); Basophil 5 % (0.0-1.0); Eosinophil 8 % (0.00-3.0); Lymphocytes 20 % (24-44); Monocyte 8 % (0.0-12.0); Neutrophils 58 % (36.-66.); Total Cells Counted 100
[2020-03-29 20:18] LABS: Platelet Estimate INCREASED (NORMAL); Polychromasia 1+
[2020-03-29 20:19] LABS: ANISOCYTOSIS 3+; Hypochromia 1+; Microcytosis 3+
[2020-03-29] MEDS ORDERED: TYLENOL 325 MG PO PRN (20:27)
[2020-03-29] MEDS ORDERED: Zofran 4 MG/2 ML VIAL IV PRN (20:27)
[2020-03-29] MEDS ORDERED: HUMALOG SQ PRN (20:27)
[2020-03-29] MEDS ORDERED: DUONEB 0.5-3 MG/3 ml Neb IH PRN (20:27)
[2020-03-29] MEDS: Advair Hfa 230/21 Mcg COMMON CANISTER IH SCH (21:18)
[2020-03-29] MEDS ORDERED: NEURONTIN 300 MG PO SCH (21:45)
[2020-03-29] MEDS ORDERED: Requip 0.5 MG PO SCH (22:00)
[2020-03-29] MEDS ORDERED: Ambien 10 MG PO SCH (22:00)
--- NOTE | 2020-03-29 22:12 | XRAY ---
Exam: AP portable chest film from 03/29/2020. Comparison: Two-view chest from 01/31/2020. Indication: 74-year-old male with generalized weakness, decreased potassium level per patient. Findings: The transverse heart size appears within normal limits. The sakshi and mediastinal structures appear unchanged. There is paucity of the bronchovascular structures within both upper lung sousa which may be due to emphysematous changes. Correlate clinically. Minimal bibasilar linear scarring/chronic plate atelectasis is seen. No acute air space infiltrates, vascular congestion, pneumothorax, or pleural fluid is seen. No acute osseous process is seen. Impression: 1. I believe there are some emphysematous changes within the upper lung sousa. 2. Also, mild bibasilar linear scarring/chronic plate atelectasis is seen. This is similar to 01/31/2020. 3. No acute air space infiltrates or other acute cardiopulmonary disease is seen.
[2020-03-29] MEDS: Pepcid 20 MG VIAL IV SCH (22:31)
[2020-03-30] MEDS: Sodium Chloride 0.9% 500 ML 500 ML IV SCH (00:40)
[2020-03-30 05:09] LABS: Hematocrit 33.1 % (42-50); Hemoglobin 9.2 gm/dl (12.5-18.0); Mean Cell Volume 69.1 fl (78-100); Mean Corpuscular Hemoglobin 19.2 pg (26-32); Mean Corpuscular Hgb Concent. 27.8 g/dl (32-36); Mean Platelet Volume 9.6 fl (7.5-11.0); Platelet Count 506 K/mm3 (150-450); Red Blood Count 4.79 M/mm3 (4.1-5.6); Red Cell Distribution Width 26.7 % (11.5-14.0); White Blood Count 7.9 K/mm3 (4.0-10.5)
[2020-03-30 05:26] LABS: ALBUMIN 3.4 g/dL (3.5-5.0); ALKALINE PHOSPHATASE 98 U/L (38-126); ANION GAP 7.9 MEQ/L (5-15); BLOOD UREA NITROGEN 10 mg/dL (9-20); CHLORIDE 103 mmol/L (98-107); Calcium 8.7 mg/dL (8.4-10.2); Carbon Dioxide 31 mmol/L (22-30); Creatinine 1 0.79 mg/dL (0.66-1.25); Glucose 95 mg/dL (74-106); SGOT/AST 39 U/L (17-59); SGPT/ALT 24 U/L (0-50); SODIUM 139 mmol/L (137-145); Total Protein 6.4 g/dL (6.3-8.2)
[2020-03-30 05:30] LABS: Potassium 2.7 mmol/L (3.5-5.1)
[2020-03-30] MEDS: POTASSIUM CHLORIDE 20 mEq IN WATER 100ML 20 MEQ/100 ML BAG IV SCH ×2 (05:48→09:23)
[2020-03-30] MEDS ORDERED: NEURONTIN 300 MG PO PRN (06:36)
[2020-03-30] MEDS ORDERED: Sodium Chloride 0.9% 1000 ML 1,000 ML IV SCH (06:45)
[2020-03-30 06:48] LABS: ANISOCYTOSIS 1+; Eosinophil 13 % (0.00-3.0); Hypochromia 1+; Lymphocytes 14 % (24-44); Monocyte 2 % (0.0-12.0); Neutrophils 71 % (36.-66.); Poikilocytosis 1+; Polychromasia 1+; Total Cells Counted 100
[2020-03-30 06:49] LABS: Platelet Estimate INCREASED (NORMAL)
[2020-03-30] MEDS: Advair Hfa 230/21 Mcg COMMON CANISTER IH SCH (07:17)
[2020-03-30] MEDS ORDERED: Ventolin Hfa MDI IH PRN (08:55)
[2020-03-30] MEDS ORDERED: VENTOLIN COMMON CANISTER IH PRN (08:59)
--- NOTE | 2020-03-30 09:05 | HP ---
CHIEF COMPLAINT: Low potassium. HISTORY OF PRESENT ILLNESS: The patient is a 75 year old white male patient who was brought into the hospital due to having low potassium. He had a blood draw that showed his potassium to be less than 2.5. The patient has been having problems over the last week with low potassium due to taking large amounts of Lasix for 3 to 4+ edema. The patient had gotten in trouble initially because he became anemic from epistaxis which was recalcitrant. The patient went to [place] and had a procedure performed which essentially has stopped the bleeding. The patient did receive blood transfusions and also on iron. His hemoglobin has been holding above 8 since that time. Due to the large amounts of extracellular fluid, he had been receiving Lasix after which his potassium had dropped and has been difficult to control. He was therefore brought in to the hospital for IV and p.o. potassium to get it out of the critical range. PAST MEDICAL/SURGICAL HISTORY: Otherwise essential for peripheral neuropathy, diabetes mellitus type II, chronic obstructive pulmonary disease, chronic hypokalemia. HOME MEDICATIONS: Albuterol, budesonide, iron, gabapentin 600 mg three times a day PRN for neuropathy, Metformin 500 mg b.i.d., Nystatin PRN basis for thrush, ropinirole 0.5 mg q.h.d., Tamsulosin 0.4 mg a day, tramadol 50 mg PRN basis for pain, Ambien 10 mg at night for sleep. ALLERGIES: NKDA. PHYSICAL EXAMINATION: The patient's vital signs on admission showed a temperature to be 97.9F, pulse 94, respiratory rate 22, blood pressure 128/69. O2 saturation 94% on room air. HEENT: NECK: CHEST: HEART: ABDOMEN: EXTREMITIES: NEUROLOGIC: LAB DATA AND TESTS: The patient's laboratory studies showed his hemoglobin to be 10.4, white count 8,500, PLT 599,000. Magnesium was slightly high at 2.4. Sugar 124 nonfasting, BUN 14, creatinine 0.91, potassium 2.6. Liver enzymes were essentially normal. Bilirubin was slightly high at 1.5. He had troponin of 0.017. Chest x-ray showed some emphysematous changes with no acute process. His EKG showed sinus rhythm. ASSESSMENT: A patient with profound hypokalemia. He has been brought in for oral and IV potassium and telemetry monitoring. He should be able to return home after bringing his potassium at least above 3.0.
[2020-03-30] MEDS: Pepcid 20 MG VIAL IV SCH (09:23)
[2020-03-30] MEDS ORDERED: FEOSOL 325 MG PO SCH (10:00)
[2020-03-30] MEDS ORDERED: Glucophage 500 MG PO SCH (10:00)
[2020-03-30] MEDS ORDERED: ULTRAM 50 MG PO SCH (10:00)
[2020-03-30] MEDS ORDERED: Flomax 0.4 MG PO SCH (10:00)
[2020-03-30 11:26] VITALS: BP 118/67; PULSE 82; O2SAT 94
[2020-03-30] MEDS ORDERED: Klor Con 10 MEQ PO SCH (12:00)
[2020-03-30] MEDS ORDERED: Ambien 10 MG PO PRN (22:00)
--- NOTE | 2020-03-31 08:14 | SSS ---
DISCHARGE DIAGNOSIS: LOW POTASSIUM. HISTORY: The patient is a 75 year old white male patient who was brought into the hospital due to having low potassium. He had a blood draw that showed his potassium to be less than 2.5. The patient has been having problems over the last week with low potassium due to taking large amounts of Lasix for 3 to 4+ edema. The patient had gotten in trouble initially because he became anemic from epistaxis which was recalcitrant. The patient went to [place] and had a procedure performed which essentially has stopped the bleeding. The patient did receive blood transfusions and also on iron. His hemoglobin has been holding above 8 since that time. Due to the large amounts of extracellular fluid, he had been receiving Lasix after which his potassium had dropped and has been difficult to control. He was therefore brought in to the hospital for IV and p.o. potassium to get it out of the critical range. PAST MEDICAL/SURGICAL HISTORY: Otherwise essential for peripheral neuropathy, diabetes mellitus type II, chronic obstructive pulmonary disease, chronic hypokalemia. HOME MEDICATIONS: Albuterol, budesonide, iron, gabapentin 600 mg three times a day PRN for neuropathy, Metformin 500 mg b.i.d., Nystatin PRN basis for thrush, ropinirole 0.5 mg q.h.s., Tamsulosin 0.4 mg a day, tramadol 50 mg PRN basis for pain, Ambien 10 mg at night for sleep. ALLERGIES: NKDA. PHYSICAL EXAMINATION: The patient's vital signs on admission showed a temperature to be 97.9F, pulse 94, respiratory rate 22 and blood pressure 128/69. O2 saturation 94% on room air. HEENT: Normocephalic, atraumatic. Pupils equal round reactive to light. Extraocular movements intact. Oropharynx is pink and moist. NECK: Supple without lymphadenopathy, thyromegaly or JVD. CHEST: Clear to auscultation. HEART: Regular rate and rhythm. ABDOMEN: Soft without palpable masses. EXTREMITIES: Reveal edema approximately 1+ at this time. It was noted previously that the patient had significant at least 4+ edema prior to this hospitalization. NEUROLOGIC: The patient is alert and oriented x3 with no focal deficits noted. LAB DATA AND TESTS: The patient's laboratory studies showed his hemoglobin to be 10.4, white count 8,500, PLT 599,000. Magnesium was slightly high at 2.4. Sugar 124 nonfasting, BUN 14, creatinine 0.91, potassium 2.6. Liver enzymes were essentially normal. Bilirubin was slightly high at 1.5. He had troponin of 0.017. Chest x-ray showed some emphysematous changes with no acute process. His EKG showed sinus rhythm. ASSESSMENT: A patient with profound hypokalemia. He has been brought in for oral and IV potassium and telemetry monitoring. He should be able to return home after bringing his potassium at least above 3.0.
== END 2020-03-30 16:40 | disposition home or self-care (01) ==
LOC: ED 17:39 → MED SURG 20:21
PROVIDERS: ADMIT Family Medicine; ATTEND Family Medicine
DX: E87.6 Hypokalemia (principal); E11.9 Type 2 diabetes mellitus without complications; J44.9 Chronic obstructive pulmonary disease, unspecified; Z79.899 Other long term (current) drug therapy; I10 Essential (primary) hypertension
CPT/HCPCS: 36000; 36415; 71045; 80048; 80053; 82962; 83735; 83880; 84132; 84484; 85025; 93005; 93041; 93268; 94640; 94760; 96365; 99285; G0378; J3480; A9270-GY

== ENCOUNTER 2020-04-06 11:02 | Emergency (ER) | payer MEDICARE, OTHER ==
[2020-04-06 11:42] LABS: Hematocrit 33.8 % (42-50); Hemoglobin 9.7 gm/dl (12.5-18.0); Mean Cell Volume 68.8 fl (78-100); Mean Corpuscular Hemoglobin 19.8 pg (26-32); Mean Corpuscular Hgb Concent. 28.7 g/dl (32-36); Platelet Count 563 K/mm3 (150-450); Red Blood Count 4.91 M/mm3 (4.1-5.6); Red Cell Distribution Width 26.9 % (11.5-14.0); White Blood Count 9.3 K/mm3 (4.0-10.5)
[2020-04-06 12:00] LABS: ALBUMIN 4.1 g/dL (3.5-5.0); ALKALINE PHOSPHATASE 107 U/L (38-126); BLOOD UREA NITROGEN 11 mg/dL (9-20); CHLORIDE 101 mmol/L (98-107); Calcium 9.4 mg/dL (8.4-10.2); Carbon Dioxide 29 mmol/L (22-30); Creatinine 1 0.86 mg/dL (0.66-1.25); Glucose 108 mg/dL (74-106); MAGNESIUM 2.1 mg/dL (1.6-2.3); SGOT/AST 48 U/L (17-59); SGPT/ALT 23 U/L (0-50); SODIUM 139 mmol/L (137-145); Total Protein 7.4 g/dL (6.3-8.2)
[2020-04-06 12:03] LABS: ETHYL ALCOHOL < 10 mg/dL (0-10); Potassium 2.9 mmol/L (3.5-5.1)
--- NOTE | 2020-04-06 12:05 | ERPHSYRPT ---
- History of Present Illness Time Seen by Provider: 04/06/20 11:15 Patient Subjective Stated Complaint: pt co pain today to right knee and left shoulder, states hes falling more, he states he is loosing he's balance. u ses walker some, was to have knee surg this month but couldnt due to anemia and low KCL Triage Nursing Assessment: pt alert, oriented, resp easy, face mask on, skin w/d/p, has bruising to right thigh and right side of abd Physician History: Patient is a 74-year-old male presents to our ED with his for evaluation of generalized weakness and recurrent falls. Symptoms have been ongoing for approximately 3 weeks. 3 weeks ago he was diagnosed with profound anemia. Family states his hemoglobin was approximately 5. Patient was transfused. Patient states since then he has been experiencing bilateral leg swelling. Patient also complains of burning sensation in both feet. No calf pain. Patient states he is borderline diabetic. Possible neuropathy. No associated fevers. No nausea or vomiting. No chest pain or shortness of breath no diarrhea. No diaphoresis. No BHT or LOC. No neck pain. No focal or lateralizing symptoms. Cervical spine cleared clinically. Patient at bedside. They voiced no other complaints or concerns at this time. Timing/Duration: week(s) (3 weeks) Severity: moderate Associated Symptoms: denies symptoms Allergies/Adverse Reactions: No Known Drug Allergies Allergy (Verified 04/06/20 11:19) Home Medications: Zolpidem Tartrate 10 mg PO HS PRN 06/11/15 [History] Ropinirole HCl 0.5 mg [Requip 0.5 MG] 0.5 mg PO HS 01/07/17 [History] Metformin HCl 500 mg [Glucophage 500 MG] 500 mg PO BID 04/22/17 [History] Budesonide/Formoterol Fumarate [Symbicort 160-4.5 Mcg Inhaler] 2 inh IH BID 03/04/18 [History] Gabapentin 600 mg PO TIDPRN PRN 03/04/18 [History] Albuterol Sulfate [Ventolin Hfa] 2 puffs IH QID PRN 02/04/20 [History] Ferrous Sulfate 325 mg PO DAILY 02/04/20 [History] Nystatin 5 ml PO QID 02/04/20 [History] Tamsulosin HCl 0.4 mg [Flomax 0.4 MG] 1 tab PO DAILY 02/04/20 [History] Tramadol HCl 50 mg [Ultram 50 mg] 1 tab PO QAM 02/04/20 [History] Hx Tetanus, Diphtheria Vaccination/Date Given: No Hx Influenza Vaccination/Date Given: Yes Hx Pneumococcal Vaccination/Date Given: Yes Immunizations Up to Date: Yes Travel Risk - International Travel Have you traveled outside of the country in past 3 weeks: No - Coronavirus Screening Are you exhibiting any of the following symptoms?: No Close contact with a COVID-19 positive Pt in past 14-21 Days: No - Review of Systems Constitutional: No Symptoms, No Fever, No Chills Eyes: No Symptoms Ears, Nose, & Throat: No Symptoms Respiratory: No Symptoms, No Cough, No Dyspnea Cardiac: No Symptoms, No Chest Pain, No Edema, No Syncope Abdominal/Gastrointestinal: No Symptoms, No Abdominal Pain, No Nausea, No Vomiting, No Diarrhea Genitourinary Symptoms: No Symptoms, No Dysuria Musculoskeletal: No Symptoms, No Back Pain, No Neck Pain Skin: No Symptoms, No Rash Neurological: No Symptoms, No Dizziness, No Focal Weakness, No Sensory Changes Psychological: No Symptoms Endocrine: No Symptoms Hematologic/Lymphatic: No Symptoms Immunological/Allergic: No Symptoms All Other Systems: Reviewed and Negative - Past Medical History Pertinent Past Medical History: Yes Neurological History: Peripheral Neuropathy ENT History: Cataracts Cardiac History: No Pertinent History, High Cholesterol Respiratory History: Bronchitis, COPD Endocrine Medical History: Diabetes Type II Musculoskeletal History: Arthritis GI Medical History: Other History: No Pertinent History Psycho-Social History: Anxiety Male Reproductive Disorders: Prostate Problems Other Medical History: esophageal difficulties. pt states has low b/p not high b/p. Uses 02 at home.Former smoker. anemia,low K+ levels - Past Surgical History Past Surgical History: Yes Neuro Surgical History: No Pertinent History Cardiac: No Pertinent History Respiratory: No Pertinent History Gastrointestinal: Cholecystectomy Genitourinary: No Pertinent History Musculoskeletal: No Pertinent History Male Surgical History: No Pertinent History Other Surgical History: right big toenail. t&a, [place] July 2018, left eye cataract removed and revision to a fold - Social History Smoking Status: Former smoker How long have you smoked: 40 years Exposure to second hand smoke: No Drug Use: none Patient Lives Alone: No - Nursing Vital Signs Nursing Vital Signs: Initial Vital Signs Temperature 98.9 F 04/06/20 11:10 Pulse Rate 95 H 04/06/20 11:10 Respiratory Rate 18 04/06/20 11:10 Blood Pressure 122/73 04/06/20 11:10 O2 Sat by Pulse Oximetry 95 04/06/20 11:10 Pain Scale Pain Intensity 10 - Physical Exam General Appearance: no apparent distress, alert Eye Exam: PERRL/EOMI, eyes nml inspection Ears, Nose, Throat Exam: normal ENT inspection, TMs normal, pharynx normal, moist mucous membranes Neck Exam: normal inspection, non-tender, supple, full range of motion Respiratory Exam: normal breath sounds, lungs clear, No respiratory distress Cardiovascular Exam: regular rate/rhythm, normal heart sounds, normal peripheral pulses Gastrointestinal/Abdomen Exam: soft, normal bowel sounds, No tenderness, No mass Back Exam: normal inspection, normal range of motion, No CVA tenderness, No vertebral tenderness Extremity Exam: normal inspection, normal range of motion, pelvis stable Neurologic Exam: alert, 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, cooperative, normal mood/affect, nml cerebellar function, nml station & gait, sensation nml, No motor deficits Skin Exam: normal color, warm, dry, No rash Lymphatic Exam: No adenopathy SpO2 Interpretation: normal SpO2: 95 O2 Delivery: Room Air - Course Nursing assessment & vital signs reviewed: Yes EKG Interpreted by Me: RATE (91), Sinus Rhythm, NORMAL AXIS, prolonged QT interval - Radiology Exams Chest X-ray Interpretation: Teleradiologist Report (Hyperinflated with bibasilar fibrosis/scarring and a few scattered tiny calcified granulomas. Heart is not enlarged. No new acute findings.) - Radiology Ultrasound Exam Venous Lower Extremity Ultrasound: discussed w/radiologist (Per satellite dish installer no DVT.) Ordered Tests: Active Orders 24 hr Category Date Time Status Etl Manager STAT Care 04/06/20 11:25 Active EKG-ER Only STAT Care 04/06/20 11:23 Active IV Insertion STAT Care 04/06/20 11:23 Active Pulse Oximetry (ED) STAT Care 04/06/20 11:23 Active CHEST 1 VIEW (PORTABLE) Stat Exams 04/06/20 12:37 Completed VENOUS BILATERAL EXTREMITY [US] Stat Exams 04/06/20 12:39 Taken CBC W DIFF Stat Lab 04/06/20 11:30 Completed CMP Stat Lab 04/06/20 11:30 Completed ETHYL ALCOHOL Stat Lab 04/06/20 11:30 Completed MAGNESIUM Stat Lab 04/06/20 11:30 Completed Manual Differential NC Stat Lab 04/06/20 11:30 Completed NT PRO BNP Stat Lab 04/06/20 11:42 Completed TROPONIN Q3H Lab 04/06/20 11:30 Completed TROPONIN Q3H Lab 04/06/20 14:27 Received TROPONIN Q3H Lab 04/06/20 17:30 Ordered TROPONIN Q3H Lab 04/06/20 20:30 Ordered TROPONIN Q3H Lab 04/06/20 23:30 Ordered UA W/RFX UR CULTURE Stat Lab 04/06/20 12:00 Completed Urine Triage Profile Stat Lab 04/06/20 12:00 Completed Medication Summary Discontinued Medications Generic Name Dose Route Start Last Admin Trade Name Freq PRN Reason Stop Dose Admin Potassium Chloride 40 meq 04/06/20 12:11 04/06/20 12:21 Klor Con 10 Meq PO 04/06/20 12:12 40 meq STAT ONE Administration Potassium Chloride Confirm 04/06/20 12:20 Klor Con 10 Meq Administered 04/06/20 12:21 Dose 40 meq PO .[employer] ONE Lab/Rad Data: Laboratory Result Diagrams 04/06/20 11:30 04/06/20 11:30 Laboratory Results 04/06/20 04/06/20 04/06/20 Range/Units 12:00 12:00 11:42 WBC (4.0-10.5) K/mm3 RBC (4.1-5.6) M/mm3 Hgb (12.5-18.0) gm/dl Hct (42-50) % MCV (78-100) fl MCH (26-32) pg MCHC (32-36) g/dl RDW (11.5-14.0) % Plt Count (150-450) K/mm3 MPV (7.5-11.0) fl Sodium (137-145) mmol/L Potassium (3.5-5.1) mmol/L Chloride (98-107) mmol/L Carbon Dioxide (22-30) mmol/L Anion Gap (5-15) MEQ/L BUN (9-20) mg/dL Creatinine (0.66-1.25) mg/dL Estimated GFR ML/MIN Glucose (74-106) mg/dL Calcium (8.4-10.2) mg/dL Magnesium (1.6-2.3) mg/dL Total Bilirubin (0.2-1.3) mg/dL AST (17-59) U/L ALT (0-50) U/L Alkaline Phosphatase (38-126) U/L Troponin I (0.000-0.034) ng/mL NT-Pro-B Natriuret Pep 187 (0-900) pg/mL Serum Total Protein (6.3-8.2) g/dL Albumin (3.5-5.0) g/dL Urine Color YELLOW (YELLOW) Urine Appearance CLEAR (CLEAR) Urine pH 5.0 (5-6) Ur Specific [place] 1.020 (1.005-1.025) Urine Protein NEGATIVE (Negative) Urine Ketones NEGATIVE (NEGATIVE) Urine Blood NEGATIVE (0-5) Pradeep/ul Urine Nitrite NEGATIVE (NEGATIVE) Urine Bilirubin NEGATIVE (NEGATIVE) Urine Urobilinogen 2 (0-1) mg/dL Ur Leukocyte Esterase NEGATIVE (NEGATIVE) Urine WBC (Auto) 0-2 (0-5) /HPF Urine RBC (Auto) NONE (0-2) /HPF U Epithel Cells (Auto) NONE (FEW) /HPF Urine Bacteria (Auto) NONE (NEGATIVE) /HPF Urine Mucus (Auto) SLIGHT (NEGATIVE) /HPF Urine Culture Reflexed NO (NO) Urine Glucose NEGATIVE (NEGATIVE) mg/dL Urine Opiates Level NEGATIVE (NEGATIVE) Ur Methadone NEGATIVE (NEGATIVE) Urine Barbiturates NEGATIVE (NEGATIVE) Ur Phencyclidine (PCP) NEGATIVE (NEGATIVE) Urine Amphetamine NEGATIVE (NEGATIVE) U Benzodiazepine Level NEGATIVE (NEGATIVE) Urine Cocaine NEGATIVE (NEGATIVE) Urine Marijuana (THC) NEGATIVE (NEGATIVE) Ethyl Alcohol (0-10) mg/dL 04/06/20 04/06/20 04/06/20 Range/Units 11:30 11:30 11:30 WBC 9.3 (4.0-10.5) K/mm3 RBC 4.91 (4.1-5.6) M/mm3 Hgb 9.7 L (12.5-18.0) gm/dl Hct 33.8 L (42-50) % MCV 68.8 L (78-100) fl MCH 19.8 L (26-32) pg MCHC 28.7 L (32-36) g/dl RDW 26.9 H (11.5-14.0) % Plt Count 563 H (150-450) K/mm3 MPV 10.0 (7.5-11.0) fl Sodium 139 (137-145) mmol/L Potassium 2.9 L* D (3.5-5.1) mmol/L Chloride 101 (98-107) mmol/L Carbon Dioxide 29 (22-30) mmol/L Anion Gap 12.0 (5-15) MEQ/L BUN 11 (9-20) mg/dL Creatinine 0.86 (0.66-1.25) mg/dL Estimated GFR > 60.0 ML/MIN Glucose 108 H (74-106) mg/dL Calcium 9.4 (8.4-10.2) mg/dL Magnesium 2.1 (1.6-2.3) mg/dL Total Bilirubin 1.30 (0.2-1.3) mg/dL AST 48 (17-59) U/L ALT 23 (0-50) U/L Alkaline Phosphatase 107 (38-126) U/L Troponin I 0.015 (0.000-0.034) ng/mL NT-Pro-B Natriuret Pep (0-900) pg/mL Serum Total Protein 7.4 (6.3-8.2) g/dL Albumin 4.1 (3.5-5.0) g/dL Urine Color (YELLOW) Urine Appearance (CLEAR) Urine pH (5-6) Ur Specific [place] (1.005-1.025) Urine Protein (Negative) Urine Ketones (NEGATIVE) Urine Blood (0-5) Pradeep/ul Urine Nitrite (NEGATIVE) Urine Bilirubin (NEGATIVE) Urine Urobilinogen (0-1) mg/dL Ur Leukocyte Esterase (NEGATIVE) Urine WBC (Auto) (0-5) /HPF Urine RBC (Auto) (0-2) /HPF U Epithel Cells (Auto) (FEW) /HPF Urine Bacteria (Auto) (NEGATIVE) /HPF Urine Mucus (Auto) (NEGATIVE) /HPF Urine Culture Reflexed (NO) Urine Glucose (NEGATIVE) mg/dL Urine Opiates Level (NEGATIVE) Ur Methadone (NEGATIVE) Urine Barbiturates (NEGATIVE) Ur Phencyclidine (PCP) (NEGATIVE) Urine Amphetamine (NEGATIVE) U Benzodiazepine Level (NEGATIVE) Urine Cocaine (NEGATIVE) Urine Marijuana (THC) (NEGATIVE) Ethyl Alcohol < 10 (0-10) mg/dL - Progress Progress: improved Progress Note: 04/06/20 14:32 Patient reassessed. He is well. Potassium replaced. Patient currently on iron for microcytic anemia. Thrombocytosis observed. Unclear etiology. Prolonged QT observed on EKG. However this is not immediately concerning. Case discussed with Dr. Hearn. Dr. Hearn will see Mr. Gudino tomorrow at 9:15 AM in his office. Patient may require referral to hematology oncology. Counseled pt/family regarding: lab results, diagnosis, need for follow-up, rad results - Departure Departure Disposition: Home, Extended Care Facility Clinical Impression: Hypokalemia, Microcytic anemia, Thrombocytosis, Prolonged QT interval, Generalized weakness, Falls Condition: Stable Critical Care Time: No Referrals: IRINA KINGSTON [Primary Care Provider] - DIANNE HEARN [ACTIVE STAFF] - Additional Instructions: He has an appointment with Dr. Hearn tomorrow at 9:15 AM. Discharge/Care Plan JALEEL GUDINO was seen on 04/06/20 in the Emergency Room. The patient was counseled regarding Diagnosis,Lab results, Imaging studies, need for follow up and when to return to the Emergency Room. Prescriptions given: Discharge Note I have spoken with the patient and/or caregivers. I have explained the patient's condition, diagnosis and treatment plan based on the information available to me at this time. I have answered the patient's and/or caregiver's questions and addressed any concerns. The patient and/or caregivers have as good understanding of the patient's diagnosis, condition and treatment plan as can be expected at this point. The vital signs have been stable. The patient's condition is stable and appropriate for discharge from the emergency department. The patient will pursue further outpatient evaluation with the primary care physician or other designated or consulting physician as outlined in the discharge instructions. The patient and/or caregivers are agreeable to this plan of care and follow-up instructions have been explained in detail. The patient and/or caregivers have received these instruction. The patient/and or caregivers are aware that any significant change in condition or worsening of symptoms should prompt an immediate return to this or the closest emergency department or call 911.
[2020-04-06] MEDS ORDERED: Klor Con 10 MEQ PO ONE ×2 (12:11→12:20)
[2020-04-06 12:20] LABS: Appearance CLEAR (CLEAR); Bilirubin NEGATIVE (NEGATIVE); Blood NEGATIVE Ery/ul (0-5); Glucose NEGATIVE (NEGATIVE); Ketones NEGATIVE (NEGATIVE); Leukocyte Esterase NEGATIVE (NEGATIVE); Mucus SLIGHT /HPF (NEGATIVE); Nitrite NEGATIVE (NEGATIVE); Protein,Urine Dip NEGATIVE (Negative); Urobilinogen 2 mg/dL (0-1); WBC 0-2 /HPF (0-5)
[2020-04-06 12:42] LABS: Amphetamine,Urine NEGATIVE (NEGATIVE); Barbiturate,Urine NEGATIVE (NEGATIVE); Benzodiazepine,Urine NEGATIVE (NEGATIVE); Cocaine,Urine NEGATIVE (NEGATIVE); Methadone,Urine NEGATIVE (NEGATIVE); Opiate,Urine NEGATIVE (NEGATIVE); PCP,Urine NEGATIVE (NEGATIVE); THC,Urine NEGATIVE (NEGATIVE)
--- NOTE | 2020-04-06 13:54 | XRAY ---
Indication: Edema. Comparison: March 29, 2020. Portable chest again hyperinflated with bibasilar fibrosis/scarring and a few scattered tiny calcified granulomas. Heart is not enlarged. No new/acute findings.
--- NOTE | 2020-04-06 14:41 | XRAY ---
Indication: DVT. Two-dimensional sonogram and color Doppler imaging of the major venous vessels of the left and right leg performed. Comparison: None No thrombus seen in the examined deep venous vessels of the left and right leg including greater saphenous vein. Veins demonstrate normal compressibility. Venous waveforms are normal with and without augmentation. Impression: Left and right legs negative for DVT.
[2020-04-06 14:44] VITALS: BP 120/68; PULSE 93; O2SAT 94
[2020-04-06 15:16] LABS: ANISOCYTOSIS 1+; Eosinophil 9 % (0.00-3.0); Hypochromia 2+; Lymphocytes 25 % (24-44); Neutrophils 66 % (36.-66.); Poikilocytosis 1+; Schistocytes 1+; Total Cells Counted 100
[2020-04-06 15:17] LABS: Microcytosis 1+; Platelet Estimate INCREASED (NORMAL)
== END 2020-04-06 14:44 | disposition home or self-care (01) ==
LOC: ED 11:02
DX: E87.6 Hypokalemia (principal); D50.9 Iron deficiency anemia, unspecified; D47.3 Essential (hemorrhagic) thrombocythemia; I45.81 Long QT syndrome; R53.1 Weakness; M79.661 Pain in right lower leg; E78.00 Pure hypercholesterolemia, unspecified; R29.6 Repeated falls; M25.561 Pain in right knee; M25.512 Pain in left shoulder; S70.11XA Contusion of right thigh, initial encounter; Z79.899 Other long term (current) drug therapy; E11.9 Type 2 diabetes mellitus without complications; Z79.4 Long term (current) use of insulin; F41.9 Anxiety disorder, unspecified
CPT/HCPCS: 36000; 36415; 71045; 80053; 80307; 81001; 83735; 83880; 84484; 85025; 93005; 93041; 93970; 94760; 99284; G0480; A9270-GY

== ENCOUNTER 2020-04-18 14:17 | Emergency (ER) | payer MEDICARE, OTHER ==
--- NOTE | 2020-04-18 15:07 | ERPHSYRPT ---
- History of Present Illness Time Seen by Provider: 04/18/20 14:18 Source: patient Exam Limitations: no limitations Patient Subjective Stated Complaint: pt here for falling x2 today, weakness, and being sleepy, pt has no co's at persent time, falls asleep during triage,arouses easlily, Triage Nursing Assessment: pt alert, resp easy. has facemask on, moves all ext well, edema to lower legs that is normal for him Physician History: Patient is a 74-year-old male presents to our ED for evaluation of generalized weakness. Patient has reportedly fallen 2 times today. Patient has been appearing very sleepy. No pain. Family reports bilateral lower extremity pitting edema however patient states this is chronic. Patient is arousable to verbal and tactile stimulus. Otherwise patient tends to sleep. No nausea or vo miting. No diarrhea. No fever. Symptoms are progressive. Symptoms are moderate in intensity. No specific worsening or improving factors. Patient voices no other complaints at this time. Timing/Duration: today Severity: moderate Modifying Factors: Improves With: nothing Associated Symptoms: No nausea, No vomiting, No shortness of breath, No chest pain, No fever, No loss of appetite, No rash, No syncope, No seizure, No weakness Allergies/Adverse Reactions: No Known Drug Allergies Allergy (Verified 04/18/20 14:28) Home Medications: Zolpidem Tartrate 10 mg PO HS PRN 06/11/15 [History] Ropinirole HCl 0.5 mg [Requip 0.5 MG] 0.5 mg PO HS 01/07/17 [History] Metformin HCl 500 mg [Glucophage 500 MG] 500 mg PO BID 04/22/17 [History] Budesonide/Formoterol Fumarate [Symbicort 160-4.5 Mcg Inhaler] 2 inh IH BID 03/04/18 [History] Gabapentin 600 mg PO TIDPRN PRN 03/04/18 [History] Albuterol Sulfate [Ventolin Hfa] 2 puffs IH QID PRN 02/04/20 [History] Ferrous Sulfate 325 mg PO DAILY 02/04/20 [History] Nystatin 5 ml PO QID 02/04/20 [History] Tramadol HCl 50 mg [Ultram 50 mg] 1 tab PO QAM 02/04/20 [History] Hx Tetanus, Diphtheria Vaccination/Date Given: No Hx Influenza Vaccination/Date Given: Yes Hx Pneumococcal Vaccination/Date Given: Yes Immunizations Up to Date: Yes Travel Risk - International Travel Have you traveled outside of the country in past 3 weeks: No - Coronavirus Screening Close contact with a COVID-19 positive Pt in past 14-21 Days: No - Review of Systems Constitutional: No Symptoms, No Fever, No Chills Eyes: No Symptoms Ears, Nose, & Throat: No Symptoms Respiratory: No Symptoms, No Cough, No Dyspnea Cardiac: No Symptoms, No Chest Pain, No Edema, No Syncope Abdominal/Gastrointestinal: No Symptoms, No Abdominal Pain, No Nausea, No Vomiting, No Diarrhea Genitourinary Symptoms: No Symptoms, No Dysuria Musculoskeletal: No Symptoms, No Back Pain, No Neck Pain Skin: No Symptoms, No Rash Neurological: No Symptoms, No Dizziness, No Focal Weakness, No Sensory Changes Psychological: No Symptoms Endocrine: No Symptoms Hematologic/Lymphatic: No Symptoms Immunological/Allergic: No Symptoms All Other Systems: Reviewed and Negative - Past Medical History Pertinent Past Medical History: Yes Neurological History: Peripheral Neuropathy ENT History: Cataracts Cardiac History: No Pertinent History, High Cholesterol Respiratory History: Bronchitis, COPD Endocrine Medical History: Diabetes Type II Musculoskeletal History: Arthritis GI Medical History: Other History: No Pertinent History Psycho-Social History: Anxiety Male Reproductive Disorders: Prostate Problems Other Medical History: esophageal difficulties. pt states has low b/p not high b/p. Uses 02 at home.Former smoker. anemia,low K+ levels - Past Surgical History Past Surgical History: Yes Neuro Surgical History: No Pertinent History Cardiac: No Pertinent History Respiratory: No Pertinent History Gastrointestinal: Cholecystectomy Genitourinary: No Pertinent History Musculoskeletal: No Pertinent History Male Surgical History: No Pertinent History Other Surgical History: right big toenail. t&a, [place] July 2018, left eye cataract removed and revision to a fold - Social History Smoking Status: Former smoker How long have you smoked: 40 years Exposure to second hand smoke: No Drug Use: none Patient Lives Alone: No - Nursing Vital Signs Nursing Vital Signs: Initial Vital Signs Temperature 97.9 F 04/18/20 14:18 Pulse Rate 78 04/18/20 14:18 Respiratory Rate 18 04/18/20 14:18 Blood Pressure 130/67 04/18/20 14:18 O2 Sat by Pulse Oximetry 93 L 04/18/20 14:18 Pain Scale Pain Intensity 0 - Physical Exam General Appearance: no apparent distress, alert, other (Patient appears very sleepy. He tends to fall asleep but arouses easily. Patient in no acute distre ss.) Eye Exam: PERRL/EOMI, eyes nml inspection Ears, Nose, Throat Exam: normal ENT inspection, TMs normal, pharynx normal, moist mucous membranes Neck Exam: normal inspection, non-tender, supple, full range of motion Respiratory Exam: normal breath sounds, lungs clear, No respiratory distress Cardiovascular Exam: regular rate/rhythm, normal heart sounds, normal peripheral pulses, other (1+ pitting edema bilateral lower extremity. Negative Homans sign bilaterally.) Gastrointestinal/Abdomen Exam: soft, normal bowel sounds, No tenderness, No mass Back Exam: normal inspection, normal range of motion, No CVA tenderness, No vertebral tenderness Extremity Exam: normal inspection, normal range of motion, pelvis stable Neurologic Exam: cooperative, normal mood/affect, nml cerebellar function, nml station & gait, sensation nml, No motor deficits Skin Exam: normal color, warm, dry, No rash Lymphatic Exam: No adenopathy SpO2 Interpretation: normal SpO2: 93 O2 Delivery: Room Air - Course EKG Interpreted by Me: RATE (78), Sinus Rhythm, NORMAL AXIS, NORMAL INTERVALS - Radiology Exams Chest X-ray Interpretation: Teleradiologist Report (No acute pathology.) - CT Exams Head CT Interpretation: Tele-radiologist Report (No Pathology.) Ordered Tests: Active Orders 24 hr Category Date Time Status Wax Room Supervisor STAT Care 04/18/20 14:32 Active EKG-ER Only STAT Care 04/18/20 14:31 Active IV Insertion STAT Care 04/18/20 14:31 Active Order K Level 2 hours post-inf 2 HRS POST K-INFUSED Care 04/18/20 16:25 Active Pulse Oximetry (ED) STAT Care 04/18/20 14:31 Active Telemetry q4h Care 04/18/20 16:25 Active CHEST 1 VIEW (PORTABLE) Stat Exams 04/18/20 14:32 Completed HEAD WITHOUT CONTRAST [CT] Stat Exams 04/18/20 14:34 Completed BNP [NT PRO BNP] Stat Lab 04/18/20 Completed CBC W DIFF Stat Lab 04/18/20 14:30 Completed CMP Stat Lab 04/18/20 14:30 Completed ETHYL ALCOHOL Stat Lab 04/18/20 14:30 Completed MAGNESIUM Stat Lab 04/18/20 14:30 Completed Manual Differential NC Stat Lab 04/18/20 14:30 Completed Potassium Urgent Lab 04/18/20 16:25 Ordered TROPONIN Q3H Lab 04/18/20 14:30 Completed TROPONIN Q3H Lab 04/18/20 17:45 Received TROPONIN Q3H Lab 04/18/20 20:45 Ordered TROPONIN Q3H Lab 04/18/20 23:45 Ordered TROPONIN Q3H Lab 04/19/20 02:45 Ordered TSH, 3RD Generation Stat Lab 04/18/20 Completed UA W/RFX UR CULTURE Stat Lab 04/18/20 16:42 Completed Transfer Order Routine Transfer 04/18/20 Ordered Medication Summary Generic Name Dose Route Start Last Admin Trade Name Freq PRN Reason Stop Dose Admin Potassium Chloride 20 meq in 100 mls @ 50 mls/hr 04/18/20 16:25 04/18/20 16:33 Potassium Chloride 20 Meq In Water 100ml IV 04/18/20 18:24 50 mls/hr STAT ONE Administration Sodium Chloride 1,000 mls @ 50 mls/hr 04/18/20 16:45 04/18/20 16:40 Sodium Chloride 0.9% 1000 Ml IV 05/18/20 16:44 50 mls/hr .Q20H MAN Administration Discontinued Medications Generic Name Dose Route Start Last Admin Trade Name Freq PRN Reason Stop Dose Admin Potassium Chloride Confirm 04/18/20 16:30 Potassium Chloride 20 Meq In Water 100ml Administered 04/18/20 16:31 Dose 100 mls @ ud IV .STK-MED ONE Sodium Chloride Confirm 04/18/20 16:30 Sodium Chloride 0.9% 1000 Ml Administered 04/18/20 16:31 Dose 1,000 mls @ ud .ROUTE .STK-MED ONE Potassium Chloride 40 meq 04/18/20 16:23 04/18/20 16:33 Klor Con 10 Meq PO 04/18/20 16:24 40 meq STAT ONE Administration Potassium Chloride Confirm 04/18/20 16:29 Klor Con 10 Meq Administered 04/18/20 16:30 Dose 40 meq PO .STK-MED ONE Lab/Rad Data: Laboratory Result Diagrams 04/18/20 14:30 04/18/20 14:30 Laboratory Results 04/18/20 04/18/20 04/18/20 Range/Units Unknown 16:42 14:30 WBC (4.0-10.5) K/mm3 RBC (4.1-5.6) M/mm3 Hgb (12.5-18.0) gm/dl Hct (42-50) % MCV (78-100) fl MCH (26-32) pg MCHC (32-36) g/dl RDW (11.5-14.0) % Plt Count (150-450) K/mm3 MPV (7.5-11.0) fl Sodium (137-145) mmol/L Potassium (3.5-5.1) mmol/L Chloride (98-107) mmol/L Carbon Dioxide (22-30) mmol/L Anion Gap (5-15) MEQ/L BUN (9-20) mg/dL Creatinine (0.66-1.25) mg/dL Estimated GFR ML/MIN Glucose (74-106) mg/dL Calcium (8.4-10.2) mg/dL Magnesium (1.6-2.3) mg/dL Total Bilirubin (0.2-1.3) mg/dL AST (17-59) U/L ALT (0-50) U/L Alkaline Phosphatase (38-126) U/L Troponin I 0.018 (0.000-0.034) ng/mL NT-Pro-B Natriuret Pep 194 (0-900) pg/mL Serum Total Protein (6.3-8.2) g/dL Albumin (3.5-5.0) g/dL TSH 3rd Generation 1.140 (0.47-4.68) mIU/L Urine Color YELLOW (YELLOW) Urine Appearance CLEAR (CLEAR) Urine pH 5.0 (5-6) Ur Specific [place] 1.018 (1.005-1.025) Urine Protein NEGATIVE (Negative) Urine Ketones NEGATIVE (NEGATIVE) Urine Blood NEGATIVE (0-5) Pradeep/ul Urine Nitrite NEGATIVE (NEGATIVE) Urine Bilirubin NEGATIVE (NEGATIVE) Urine Urobilinogen 2 (0-1) mg/dL Ur Leukocyte Esterase TRACE (NEGATIVE) Urine WBC (Auto) 3-5 (0-5) /HPF Urine RBC (Auto) NONE (0-2) /HPF U Epithel Cells (Auto) NONE (FEW) /HPF Urine Bacteria (Auto) NONE (NEGATIVE) /HPF Urine Mucus (Auto) SLIGHT (NEGATIVE) /HPF Urine Culture Reflexed NO (NO) Urine Glucose NEGATIVE (NEGATIVE) mg/dL Ethyl Alcohol (0-10) mg/dL 04/18/20 04/18/20 Range/Units 14:30 14:30 WBC 6.6 (4.0-10.5) K/mm3 RBC 4.56 (4.1-5.6) M/mm3 Hgb 9.7 L (12.5-18.0) gm/dl Hct 34.4 L (42-50) % MCV 75.4 L (78-100) fl MCH 21.3 L (26-32) pg MCHC 28.2 L (32-36) g/dl RDW 28.3 H (11.5-14.0) % Plt Count 415 (150-450) K/mm3 MPV 10.1 (7.5-11.0) fl Sodium 139 (137-145) mmol/L Potassium 2.7 L* (3.5-5.1) mmol/L Chloride 100 (98-107) mmol/L Carbon Dioxide 33 H (22-30) mmol/L Anion Gap 8.9 (5-15) MEQ/L BUN 11 (9-20) mg/dL Creatinine 0.77 (0.66-1.25) mg/dL Estimated GFR > 60.0 ML/MIN Glucose 128 H (74-106) mg/dL Calcium 9.2 (8.4-10.2) mg/dL Magnesium 2.5 H (1.6-2.3) mg/dL Total Bilirubin 0.90 (0.2-1.3) mg/dL AST 43 (17-59) U/L ALT 23 (0-50) U/L Alkaline Phosphatase 106 (38-126) U/L Troponin I (0.000-0.034) ng/mL NT-Pro-B Natriuret Pep (0-900) pg/mL Serum Total Protein 6.3 (6.3-8.2) g/dL Albumin 3.5 (3.5-5.0) g/dL TSH 3rd Generation (0.47-4.68) mIU/L Urine Color (YELLOW) Urine Appearance (CLEAR) Urine pH (5-6) Ur Specific [place] (1.005-1.025) Urine Protein (Negative) Urine Ketones (NEGATIVE) Urine Blood (0-5) Pradeep/ul Urine Nitrite (NEGATIVE) Urine Bilirubin (NEGATIVE) Urine Urobilinogen (0-1) mg/dL Ur Leukocyte Esterase (NEGATIVE) Urine WBC (Auto) (0-5) /HPF Urine RBC (Auto) (0-2) /HPF U Epithel Cells (Auto) (FEW) /HPF Urine Bacteria (Auto) (NEGATIVE) /HPF Urine Mucus (Auto) (NEGATIVE) /HPF Urine Culture Reflexed (NO) Urine Glucose (NEGATIVE) mg/dL Ethyl Alcohol < 10 (0-10) mg/dL - Progress Progress: improved Progress Note: 04/18/20 17:58 Patient reassessed. Patient stable. Patient has hypokalemia. We began to replace potassium in our ED. Case discussed with Dr. Dowd covering Dr. Ryan. Dr. Dowd accepts admission to observation. Plan of care discussed with patient and his . They agree to admission to [facility] for further evaluation and treatment. Discussed with : Charlene Will see patient in: hospital (observation) Counseled pt/family regarding: lab results, diagnosis, need for follow-up, rad results - Departure Departure Disposition: Observation, Extended Care Facility Clinical Impression: Hypokalemia, Hypermagnesuria, Microcytic anemia, Chronic sinusitis, Generalized weakness Condition: Stable Critical Care Time: No Referrals: IRINA RYAN [Primary Care Provider] -
--- NOTE | 2020-04-18 15:21 | XRAY ---
Exam: AP upright portable chest film from 04/18/2020. Comparison: AP upright portable chest film from 04/06/2020. Indication: Altered mental status, weakness. Findings: The transverse heart size appears towards the upper limits of normal. This represents no change from 04/06/2020. No central pulmonary vascular congestion is seen. I again note a couple focal areas of atelectasis/scarring at the left lung base. There are also some mild interstitial changes at the central right lung base and lateral left lower lung field which appear to be chronic and are likely due to chronic interstitial lung disease. A new airspace infiltrate or consolidation is not seen. No pneumothorax or pleural effusion is seen. No acute osseous process is seen. Mild degenerative changes of both acromioclavicular joints are seen. Impression: 1. No significant interval change from 04/06/2020. Some mild chronic interstitial lung changes are seen at the central right lung base and lateral left lower lung field. I also see a couple small foci of focal scarring/atelectasis at the left lung base near the left hemidiaphragm - stable. 2. No new airspace consolidations or other acute cardiopulmonary disease is seen.
[2020-04-18 15:22] LABS: Hematocrit 34.4 % (42-50); Hemoglobin 9.7 gm/dl (12.5-18.0); Mean Cell Volume 75.4 fl (78-100); Mean Corpuscular Hemoglobin 21.3 pg (26-32); Mean Corpuscular Hgb Concent. 28.2 g/dl (32-36); Mean Platelet Volume 10.1 fl (7.5-11.0); Platelet Count 415 K/mm3 (150-450); Red Blood Count 4.56 M/mm3 (4.1-5.6); Red Cell Distribution Width 28.3 % (11.5-14.0); White Blood Count 6.6 K/mm3 (4.0-10.5)
[2020-04-18 15:33] LABS: ALBUMIN 3.5 g/dL (3.5-5.0); ALKALINE PHOSPHATASE 106 U/L (38-126); ANION GAP 8.9 MEQ/L (5-15); BLOOD UREA NITROGEN 11 mg/dL (9-20); CHLORIDE 100 mmol/L (98-107); Calcium 9.2 mg/dL (8.4-10.2); Carbon Dioxide 33 mmol/L (22-30); Creatinine 1 0.77 mg/dL (0.66-1.25); Glucose 128 mg/dL (74-106); MAGNESIUM 2.5 mg/dL (1.6-2.3); SGOT/AST 43 U/L (17-59); SGPT/ALT 23 U/L (0-50); SODIUM 139 mmol/L (137-145); Total Protein 6.3 g/dL (6.3-8.2)
[2020-04-18 15:37] LABS: ETHYL ALCOHOL < 10 mg/dL (0-10); Potassium 2.7 mmol/L (3.5-5.1)
--- NOTE | 2020-04-18 15:41 | XRAY ---
Exam: CT of the head without IV contrast from 04/18/2020. CTDI: 53.92 mGy Comparison: CT of the head without IV contrast from 04/30/2018. Indication: 74-year-old male with altered mental status, weakness. Technique: Non-IV contrast axial images were obtained through the brain. Reconstructed coronal and sagittal images were created and reviewed. Findings: The ventricles are mildly prominent in a diffuse manner representing no significant change. There is also some prominence of the cortical sulci and basilar cisterns. These findings likely due to generalized atrophy/cerebral volume loss. There is no focal mass effect or midline shift. No acute intracranial bleed or abnormal extra-axial fluid collection is seen. Subtle bilateral periventricular and subcortical white matter changes are again seen, likely due to chronic microvascular disease. I see no acute cortical infarct. The calvarium of the skull appears intact. The left maxillary sinus is small and reveals moderate peripheral mucosal thickening consistent with chronic sinusitis. No air-fluid level is seen. Minimal motion artifact is evident. I see mild mucosal thickening within the left frontoethmoid sinus recess and anterior aspect of the left ethmoid sinus. The mastoids are cells are clear without effusion. The orbits appear grossly unremarkable. Impression: 1. No acute intracranial bleed, cortical infarct, or other acute intracranial abnormality is seen. 2. Mild generalized cerebral atrophy/volume loss representing no significant change from 04/30/2018. I again note subtle evidence of chronic microvascular disease within the periventricular and subcortical white matter. A new discrete cortical infarct is not seen. 3. Chronic paranasal sinus disease, as discussed above.
[2020-04-18] MEDS ORDERED: Klor Con 10 MEQ PO ONE ×2 (16:23→16:29)
[2020-04-18] MEDS ORDERED: POTASSIUM CHLORIDE 20 mEq IN WATER 100ML 20 MEQ/100 ML BAG IV ONE (16:25)
[2020-04-18] MEDS ORDERED: POTASSIUM CHLORIDE 20 mEq IN WATER 100ML 100 ML IV ONE (16:30)
[2020-04-18] MEDS ORDERED: Sodium Chloride 0.9% 1000 ML 1,000 ML ONE (16:30)
[2020-04-18 16:32] LABS: Appearance CLEAR (CLEAR); Bilirubin NEGATIVE (NEGATIVE); Blood NEGATIVE Ery/ul (0-5); Glucose NEGATIVE (NEGATIVE); Ketones NEGATIVE (NEGATIVE); Leukocyte Esterase TRACE (NEGATIVE); Mucus SLIGHT /HPF (NEGATIVE); Nitrite NEGATIVE (NEGATIVE); Protein,Urine Dip NEGATIVE (Negative); Specific Gravity 1.018 (1.005-1.025); Urobilinogen 2 mg/dL (0-1)
[2020-04-18] MEDS ORDERED: Sodium Chloride 0.9% 1000 ML 1,000 ML IV SCH (16:45)
[2020-04-18 16:56] LABS: TSH, 3RD Generation 1.14 mIU/L (0.47-4.68)
[2020-04-18 18:41] LABS: ATYPICAL LYMPHS 1 %; BAND 1 % (0.0-2.0); Basophil 9 % (0.0-1.0); Eosinophil 10 % (0.00-3.0); Hypochromia 2+; Lymphocytes 17 % (24-44); Metamyelocyte 3 %; Monocyte 9 % (0.0-12.0); Neutrophils 50 % (36.-66.); Platelet Estimate NORMAL (NORMAL); Total Cells Counted 100
[2020-04-18 18:42] LABS: ANISOCYTOSIS 2+; Microcytosis 1+
[2020-04-18 18:43] LABS: Ovalocytes 1+; Poikilocytosis 1+; Schistocytes 1+
[2020-04-18] MEDS: Advair Hfa 230/21 Mcg COMMON CANISTER IH SCH (18:54)
[2020-04-18] MEDS ORDERED: DESYREL 50 MG ONE (19:03)
[2020-04-18] MEDS: ULTRAM 50 MG PO SCH (19:09)
[2020-04-18] MEDS ORDERED: Ambien 10 MG PO PRN (20:15)
[2020-04-18] MEDS: Klor Con 10 MEQ PO SCH (21:28)
[2020-04-18] MEDS: NEURONTIN 300 MG PO SCH (21:29)
[2020-04-18] MEDS: Nystatin SUSPENSION 60 ML PO SCH (21:30)
[2020-04-18] MEDS ORDERED: Glucophage 500 MG PO SCH (22:00)
[2020-04-18] MEDS ORDERED: Requip 0.5 MG PO SCH (22:00)
[2020-04-18] MEDS ORDERED: PROVENTIL 2.5 MG/3 ML NEB IH PRN (22:23)
[2020-04-18] MEDS ORDERED: VENTOLIN COMMON CANISTER IH PRN (22:24)
[2020-04-19 00:28] LABS: A-aADO2 35; ABG HEMOGLOBIN 9.3; ABG POTASSIUM 3.1 (3.5-5.1); ARTERIAL BLD GAS O2 SATURATION 95.7 % (95-100); ARTERIAL BLOOD GAS FIO2 21 %; ARTERIAL BLOOD GAS PCO2 38 mmHg (35-45); ARTERIAL BLOOD GAS PO2 67 mmHg (75-100); CARBOXYHEMOGLOBIN 1.8 % THgb (0.0-6.9); HGB O2 SAT 93.8 g/dF (94-100); Methhemoglobin 0.2 % (1.4-1.5); paO2 pAO1 0.66
[2020-04-19 00:31] LABS: ABG SITE RIGHT BRACHIAL; ARTERIAL BLOOD GAS pH 7.56 (7.35-7.45)
[2020-04-19 04:09] LABS: Hematocrit 31.8 % (42-50); Hemoglobin 8.8 gm/dl (12.5-18.0); Mean Cell Volume 76.3 fl (78-100); Mean Corpuscular Hemoglobin 21.1 pg (26-32); Mean Corpuscular Hgb Concent. 27.7 g/dl (32-36); Mean Platelet Volume 10.3 fl (7.5-11.0); Platelet Count 374 K/mm3 (150-450); Red Blood Count 4.17 M/mm3 (4.1-5.6); Red Cell Distribution Width 28.3 % (11.5-14.0); White Blood Count 6.9 K/mm3 (4.0-10.5)
[2020-04-19 04:12] LABS: ALBUMIN 2.8 g/dL (3.5-5.0); ALKALINE PHOSPHATASE 83 U/L (38-126); ANION GAP 6.5 MEQ/L (5-15); BLOOD UREA NITROGEN 9 mg/dL (9-20); CHLORIDE 105 mmol/L (98-107); Calcium 8.8 mg/dL (8.4-10.2); Carbon Dioxide 31 mmol/L (22-30); Creatinine 1 0.71 mg/dL (0.66-1.25); Glucose 106 mg/dL (74-106); Potassium 3.2 mmol/L (3.5-5.1); SGOT/AST 38 U/L (17-59); SGPT/ALT 20 U/L (0-50); SODIUM 139 mmol/L (137-145); Total Protein 5.3 g/dL (6.3-8.2)
[2020-04-19] MEDS: Advair Hfa 230/21 Mcg COMMON CANISTER IH SCH (05:17)
[2020-04-19 05:27] LABS: A-aADO2 63; ABG HEMOGLOBIN 9.4; ARTERIAL BLD GAS O2 SATURATION 97.6 % (95-100); ARTERIAL BLOOD GAS BASE EXCESS 7.4 (-2.0-2.0); ARTERIAL BLOOD GAS FIO2 28 %; ARTERIAL BLOOD GAS PCO2 44 mmHg (35-45); ARTERIAL BLOOD GAS PO2 82 mmHg (75-100); ARTERIAL BLOOD GAS pH 7.47 (7.35-7.45); CARBOXYHEMOGLOBIN 1.7 % THgb (0.0-6.9); HGB O2 SAT 95.5 g/dF (94-100); Methhemoglobin 0.5 % (1.4-1.5); paO2 pAO1 0.57
[2020-04-19 05:28] LABS: ABG SITE RIGHT BRACHIAL
[2020-04-19 05:54] LABS: ATYPICAL LYMPHS 2 %; BAND 1 % (0.0-2.0); Basophil 5 % (0.0-1.0); Eosinophil 9 % (0.00-3.0); Lymphocytes 24 % (24-44); Metamyelocyte 1 %; Monocyte 6 % (0.0-12.0); Neutrophils 52 % (36.-66.); Total Cells Counted 100
[2020-04-19 05:55] LABS: ANISOCYTOSIS 2+; Platelet Estimate NORMAL (NORMAL)
[2020-04-19 05:56] LABS: Hypochromia 1+; Polychromasia 1+
[2020-04-19] MEDS ORDERED: Glucophage 500 MG PO SCH (08:00)
[2020-04-19] MEDS ORDERED: FEOSOL 325 MG PO SCH (10:00)
[2020-04-19] MEDS ORDERED: Lasix 40 MG PO SCH (10:00)
[2020-04-19] MEDS: Klor Con 10 MEQ PO SCH ×2 (10:33→14:01)
[2020-04-19] MEDS: NEURONTIN 300 MG PO SCH (10:33)
[2020-04-19] MEDS: Nystatin SUSPENSION 60 ML PO SCH (10:33)
[2020-04-19] MEDS: ULTRAM 50 MG PO SCH ×2 (10:50→14:00)
[2020-04-19 12:33] VITALS: BP 119/62; PULSE 80; O2SAT 97
--- NOTE | 2020-04-19 13:24 | PCM.SSS ---
History of Present Illness - Chief Complaint Chief Complaint: hypokalemia Date: 04/19/20 History of Present Illness: is a 74 year old male. Presented to ER last evening complaining of increased weakness and reportedly had fallen twice yesterday, pt. with chronic lower extremity edema. - Review of Systems Constitutional: Weakness, No Fever, No Chills Eyes: No Symptoms Ears, Nose, & Throat: No Symptoms Respiratory: No Cough, No Short Of Breath Cardiac: No Chest Pain, No Edema, No Syncope Abdominal/Gastrointestinal: No Abdominal Pain, No Nausea, No Vomiting, No Diarrhea Genitourinary Symptoms: No Dysuria Musculoskeletal: No Back Pain, No Neck Pain Skin: No Rash Neurological: No Dizziness, No Focal Weakness, No Sensory Changes Psychological: No Symptoms Endocrine: No Symptoms Hematologic/Lymphatic: No Symptoms Immunological/Allergic: No Symptoms Medications & Allergies Home Medications: Home Medication List Zolpidem Tartrate 10 mg PO HS PRN 06/11/15 [History Confirmed 04/18/20] Ropinirole HCl 0.5 mg [Requip 0.5 MG] 0.5 mg PO HS 01/07/17 [History Confirmed 04/18/20] Metformin HCl 500 mg [Glucophage 500 MG] 500 mg PO BID 04/22/17 [History Confirmed 04/18/20] Budesonide/Formoterol Fumarate [Symbicort 160-4.5 Mcg Inhaler] 2 inh IH BID 03/04/18 [History Confirmed 04/18/20] Gabapentin 600 mg PO TID 03/04/18 [History Confirmed 04/18/20] Albuterol Sulfate [Ventolin Hfa] 2 puffs IH QID PRN 02/04/20 [History Confirmed 04/18/20] Ferrous Sulfate 325 mg PO DAILY 02/04/20 [History Confirmed 04/18/20] Nystatin 5 ml PO QID 02/04/20 [History Confirmed 04/18/20] Potassium Chloride 10 Meq Tab* [Klor Con 10 MEQ] 20 meq PO TID 30 Days #180 tab 03/30/20 [Rx Confirmed 04/18/20] Furosemide 40 mg PO DAILY 04/18/20 [History Confirmed 04/18/20] Tramadol HCl 50 mg [Ultram 50 mg] 50 mg PO BID PRN 04/18/20 [History Confirmed 04/19/20] Allergies/Adverse Reactions: Allergies Allergy/AdvReac Type Severity Reaction Status Date / Time No Known Drug Allergies Allergy Verified 04/18/20 14:28 - Past Medical History Past Medical History: Yes Neurological History: Peripheral Neuropathy ENT History: Cataracts Cardiac History: No Pertinent History Respiratory History: Bronchitis, COPD, Pneumonia Endocrine Medical History: Diabetes Type II Musculoskelatal History: No Pertinent History GI Medical History: Other History: No Pertinent History Pyscho-Social History: No Pertinent History Male Reproductive Disorders: Prostate Problems Comment: esophageal difficulties. pt states has low b/p not high b/p. Uses 02 at home.Former smoker. anemia,low K+ levels - Past Surgical History Past Surgical History: Yes Neuro Surgical History: No Pertinent History Cardiac History: No Pertinent History Respiratory Surgery: No Pertinent History GI Surgical History: Cholecystectomy Genitourinary Surgical Hx: No Pertinent History Musculskeletal Surgical Hx: No Pertinent History Male Surgical History: No Pertinent History Other Surgical History: right big toenail ingrown toenail. t&a, [place] July 2018, left eye cataract removed and revision to a fold - Social History Smoking Status: Former smoker How long have you smoked: 40 years Exposure to second hand smoke: No Alcohol: Rarely Drug Use: none - Physical Exam Vital Signs: Vital Signs - 24 hr Temp Pulse Resp BP Pulse Ox 04/19/20 12:00 98.1 F 80 16 119/62 97 04/19/20 10:27 93 L 04/19/20 07:56 97.9 F 78 16 119/65 91 L 04/19/20 05:17 76 18 96 04/19/20 04:00 97.6 F 79 18 113/56 94 L 04/19/20 00:00 97.6 F 82 18 107/51 92 L 04/18/20 20:02 97.6 F 79 20 110/56 95 04/18/20 19:41 97.6 F 79 20 110/56 95 04/18/20 18:54 76 19 95 04/18/20 18:25 95 04/18/20 18:01 93 L 04/18/20 17:32 82 17 120/78 95 04/18/20 16:17 79 15 116/63 95 04/18/20 15:30 83 20 135/73 94 L 04/18/20 14:31 94 L 04/18/20 14:18 97.9 F 78 18 130/67 93 L General Appearance: no apparent distress, alert Neurologic Exam: alert, 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, cooperative Eye Exam: PERRL/EOMI Ears, Nose, Throat Exam: normal ENT inspection Neck Exam: normal inspection Respiratory Exam: normal breath sounds, chest tenderness Cardiovascular Exam: regular rate/rhythm, normal heart sounds, normal peripheral pulses Gastrointestinal/Abdomen Exam: soft, normal bowel sounds, No tenderness, No mass Rectal Exam: deferred Back Exam: normal inspection Extremity Exam: normal inspection, normal range of motion, pelvis stable Skin Exam: normal color, warm, dry, No rash Lymphatic Exam: No adenopathy Results - Labs Lab/Micro Results: Lab Results-Last 24 Hours 04/18/20 04/18/20 04/18/20 Range/Units 00:09 14:30 14:30 WBC 6.6 (4.0-10.5) K/mm3 RBC 4.56 (4.1-5.6) M/mm3 Hgb 9.7 L (12.5-18.0) gm/dl Hct 34.4 L (42-50) % MCV 75.4 L (78-100) fl MCH 21.3 L (26-32) pg MCHC 28.2 L (32-36) g/dl RDW 28.3 H (11.5-14.0) % Plt Count 415 (150-450) K/mm3 MPV 10.1 (7.5-11.0) fl Segmented Neutrophils 50 (36.-66.) % Band Neutrophils 1 (0.0-2.0) % Lymphocytes (Manual) 17 L (24-44) % Monocytes (Manual) 9 (0.0-12.0) % Eosinophils (Manual) 10 H (0.00-3.0) % Basophils (Manual) 9 H (0.0-1.0) % Metamyelocytes 3 % Atypical Lymphocytes 1 % Hypochromia 2+ Platelet Estimate NORMAL (NORMAL) RBC Morphology ABNORMAL Polychromasia Poikilocytosis 1+ Anisocytosis 2+ Microcytosis 1+ Ovalocytes 1+ Schistocytes 1+ Puncture Site pCO2 (35-45) mmHg pO2 (75-100) mmHg Base Excess (-2.0-2.0) O2 Saturation (94-100) g/dF ABG pH (7.35-7.45) ABG HCO3 (22-28) ABG O2 Sat (Measured) (95-100) % Gold Test A-a Gradient a/A Ratio Hemoglobin Carboxyhemoglobin (0.0-6.9) % THgb Methemoglobin (1.4-1.5) % Temperature C POC O2 Flow Rate % Inspiratory BiPAP Expiratory BiPAP Sodium 139 (137-145) mmol/L Potassium 2.7 L* (3.5-5.1) mmol/L Chloride 100 (98-107) mmol/L Carbon Dioxide 33 H (22-30) mmol/L Anion Gap 8.9 (5-15) MEQ/L BUN 11 (9-20) mg/dL Creatinine 0.77 (0.66-1.25) mg/dL Estimated GFR > 60.0 ML/MIN Glucose 128 H (74-106) mg/dL Calcium 9.2 (8.4-10.2) mg/dL Magnesium 2.5 H (1.6-2.3) mg/dL Total Bilirubin 0.90 (0.2-1.3) mg/dL AST 43 (17-59) U/L ALT 23 (0-50) U/L Alkaline Phosphatase 106 (38-126) U/L Troponin I 0.018 (0.000-0.034) ng/mL NT-Pro-B Natriuret Pep (0-900) pg/mL Serum Total Protein 6.3 (6.3-8.2) g/dL Albumin 3.5 (3.5-5.0) g/dL TSH 3rd Generation (0.47-4.68) mIU/L Urine Color (YELLOW) Urine Appearance (CLEAR) Urine pH (5-6) Ur Specific Dalton (1.005-1.025) Urine Protein (Negative) Urine Ketones (NEGATIVE) Urine Blood (0-5) Pradeep/ul Urine Nitrite (NEGATIVE) Urine Bilirubin (NEGATIVE) Urine Urobilinogen (0-1) mg/dL Ur Leukocyte Esterase (NEGATIVE) Urine WBC (Auto) (0-5) /HPF Urine RBC (Auto) (0-2) /HPF U Epithel Cells (Auto) (FEW) /HPF Urine Bacteria (Auto) (NEGATIVE) /HPF Urine Mucus (Auto) (NEGATIVE) /HPF Urine Culture Reflexed (NO) Urine Glucose (NEGATIVE) mg/dL Ethyl Alcohol < 10 (0-10) mg/dL 04/18/20 04/18/20 04/18/20 Range/Units 14:30 16:42 17:45 WBC (4.0-10.5) K/mm3 RBC (4.1-5.6) M/mm3 Hgb (12.5-18.0) gm/dl Hct (42-50) % MCV (78-100) fl MCH (26-32) pg MCHC (32-36) g/dl RDW (11.5-14.0) % Plt Count (150-450) K/mm3 MPV (7.5-11.0) fl Segmented Neutrophils (36.-66.) % Band Neutrophils (0.0-2.0) % Lymphocytes (Manual) (24-44) % Monocytes (Manual) (0.0-12.0) % Eosinophils (Manual) (0.00-3.0) % Basophils (Manual) (0.0-1.0) % Metamyelocytes % Atypical Lymphocytes % Hypochromia Platelet Estimate (NORMAL) RBC Morphology Polychromasia Poikilocytosis Anisocytosis Microcytosis Ovalocytes Schistocytes Puncture Site pCO2 (35-45) mmHg pO2 (75-100) mmHg Base Excess (-2.0-2.0) O2 Saturation (94-100) g/dF ABG pH (7.35-7.45) ABG HCO3 (22-28) ABG O2 Sat (Measured) (95-100) % Gold Test A-a Gradient a/A Ratio Hemoglobin Carboxyhemoglobin (0.0-6.9) % THgb Methemoglobin (1.4-1.5) % Temperature C POC O2 Flow Rate % Inspiratory BiPAP Expiratory BiPAP Sodium (137-145) mmol/L Potassium (3.5-5.1) mmol/L Chloride (98-107) mmol/L Carbon Dioxide (22-30) mmol/L Anion Gap (5-15) MEQ/L BUN (9-20) mg/dL Creatinine (0.66-1.25) mg/dL Estimated GFR ML/MIN Glucose (74-106) mg/dL Calcium (8.4-10.2) mg/dL Magnesium (1.6-2.3) mg/dL Total Bilirubin (0.2-1.3) mg/dL AST (17-59) U/L ALT (0-50) U/L Alkaline Phosphatase (38-126) U/L Troponin I 0.018 0.016 (0.000-0.034) ng/mL NT-Pro-B Natriuret Pep (0-900) pg/mL Serum Total Protein (6.3-8.2) g/dL Albumin (3.5-5.0) g/dL TSH 3rd Generation (0.47-4.68) mIU/L Urine Color YELLOW (YELLOW) Urine Appearance CLEAR (CLEAR) Urine pH 5.0 (5-6) Ur Specific Dalton 1.018 (1.005-1.025) Urine Protein NEGATIVE (Negative) Urine Ketones NEGATIVE (NEGATIVE) Urine Blood NEGATIVE (0-5) Pradeep/ul Urine Nitrite NEGATIVE (NEGATIVE) Urine Bilirubin NEGATIVE (NEGATIVE) Urine Urobilinogen 2 (0-1) mg/dL Ur Leukocyte Esterase TRACE (NEGATIVE) Urine WBC (Auto) 3-5 (0-5) /HPF Urine RBC (Auto) NONE (0-2) /HPF U Epithel Cells (Auto) NONE (FEW) /HPF Urine Bacteria (Auto) NONE (NEGATIVE) /HPF Urine Mucus (Auto) SLIGHT (NEGATIVE) /HPF Urine Culture Reflexed NO (NO) Urine Glucose NEGATIVE (NEGATIVE) mg/dL Ethyl Alcohol (0-10) mg/dL 04/18/20 04/18/20 04/18/20 Range/Units 21:16 21:16 Unknown WBC (4.0-10.5) K/mm3 RBC (4.1-5.6) M/mm3 Hgb (12.5-18.0) gm/dl Hct (42-50) % MCV (78-100) fl MCH (26-32) pg MCHC (32-36) g/dl RDW (11.5-14.0) % Plt Count (150-450) K/mm3 MPV (7.5-11.0) fl Segmented Neutrophils (36.-66.) % Band Neutrophils (0.0-2.0) % Lymphocytes (Manual) (24-44) % Monocytes (Manual) (0.0-12.0) % Eosinophils (Manual) (0.00-3.0) % Basophils (Manual) (0.0-1.0) % Metamyelocytes % Atypical Lymphocytes % Hypochromia Platelet Estimate (NORMAL) RBC Morphology Polychromasia Poikilocytosis Anisocytosis Microcytosis Ovalocytes Schistocytes Puncture Site pCO2 (35-45) mmHg pO2 (75-100) mmHg Base Excess (-2.0-2.0) O2 Saturation (94-100) g/dF ABG pH (7.35-7.45) ABG HCO3 (22-28) ABG O2 Sat (Measured) (95-100) % Gold Test A-a Gradient a/A Ratio Hemoglobin Carboxyhemoglobin (0.0-6.9) % THgb Methemoglobin (1.4-1.5) % Temperature C POC O2 Flow Rate % Inspiratory BiPAP Expiratory BiPAP Sodium (137-145) mmol/L Potassium 3.1 L (3.5-5.1) mmol/L Chloride (98-107) mmol/L Carbon Dioxide (22-30) mmol/L Anion Gap (5-15) MEQ/L BUN (9-20) mg/dL Creatinine (0.66-1.25) mg/dL Estimated GFR ML/MIN Glucose (74-106) mg/dL Calcium (8.4-10.2) mg/dL Magnesium (1.6-2.3) mg/dL Total Bilirubin (0.2-1.3) mg/dL AST (17-59) U/L ALT (0-50) U/L Alkaline Phosphatase (38-126) U/L Troponin I 0.016 (0.000-0.034) ng/mL NT-Pro-B Natriuret Pep 194 (0-900) pg/mL Serum Total Protein (6.3-8.2) g/dL Albumin (3.5-5.0) g/dL TSH 3rd Generation 1.140 (0.47-4.68) mIU/L Urine Color (YELLOW) Urine Appearance (CLEAR) Urine pH (5-6) Ur Specific Dalton (1.005-1.025) Urine Protein (Negative) Urine Ketones (NEGATIVE) Urine Blood (0-5) Pradeep/ul Urine Nitrite (NEGATIVE) Urine Bilirubin (NEGATIVE) Urine Urobilinogen (0-1) mg/dL Ur Leukocyte Esterase (NEGATIVE) Urine WBC (Auto) (0-5) /HPF Urine RBC (Auto) (0-2) /HPF U Epithel Cells (Auto) (FEW) /HPF Urine Bacteria (Auto) (NEGATIVE) /HPF Urine Mucus (Auto) (NEGATIVE) /HPF Urine Culture Reflexed (NO) Urine Glucose (NEGATIVE) mg/dL Ethyl Alcohol (0-10) mg/dL 04/19/20 04/19/20 04/19/20 Range/Units 00:18 03:35 03:35 WBC 6.9 (4.0-10.5) K/mm3 RBC 4.17 (4.1-5.6) M/mm3 Hgb 8.8 L (12.5-18.0) gm/dl Hct 31.8 L (42-50) % MCV 76.3 L (78-100) fl MCH 21.1 L (26-32) pg MCHC 27.7 L (32-36) g/dl RDW 28.3 H (11.5-14.0) % Plt Count 374 (150-450) K/mm3 MPV 10.3 (7.5-11.0) fl Segmented Neutrophils 52 (36.-66.) % Band Neutrophils 1 (0.0-2.0) % Lymphocytes (Manual) 24 (24-44) % Monocytes (Manual) 6 (0.0-12.0) % Eosinophils (Manual) 9 H (0.00-3.0) % Basophils (Manual) 5 H (0.0-1.0) % Metamyelocytes 1 % Atypical Lymphocytes 2 % Hypochromia 1+ Platelet Estimate NORMAL (NORMAL) RBC Morphology ABNORMAL Polychromasia 1+ Poikilocytosis Anisocytosis 2+ Microcytosis Ovalocytes Schistocytes Puncture Site RIGHT BRACHIAL pCO2 38 (35-45) mmHg pO2 67 L (75-100) mmHg Base Excess 11.0 H (-2.0-2.0) O2 Saturation 93.8 L (94-100) g/dF ABG pH 7.56 H* (7.35-7.45) ABG HCO3 34.0 H* (22-28) ABG O2 Sat (Measured) 95.7 (95-100) % Gold Test NOT APPLICABLE A-a Gradient 35 a/A Ratio 0.66 Hemoglobin 9.3 Carboxyhemoglobin 1.8 (0.0-6.9) % THgb Methemoglobin 0.2 L (1.4-1.5) % Temperature 37.0 C POC O2 Flow Rate 21 % Inspiratory BiPAP Expiratory BiPAP Sodium (137-145) mmol/L Potassium 3.1 L (3.5-5.1) mmol/L Chloride (98-107) mmol/L Carbon Dioxide (22-30) mmol/L Anion Gap (5-15) MEQ/L BUN (9-20) mg/dL Creatinine (0.66-1.25) mg/dL Estimated GFR ML/MIN Glucose (74-106) mg/dL Calcium (8.4-10.2) mg/dL Magnesium (1.6-2.3) mg/dL Total Bilirubin (0.2-1.3) mg/dL AST (17-59) U/L ALT (0-50) U/L Alkaline Phosphatase (38-126) U/L Troponin I 0.015 (0.000-0.034) ng/mL NT-Pro-B Natriuret Pep (0-900) pg/mL Serum Total Protein (6.3-8.2) g/dL Albumin (3.5-5.0) g/dL TSH 3rd Generation (0.47-4.68) mIU/L Urine Color (YELLOW) Urine Appearance (CLEAR) Urine pH (5-6) Ur Specific Dalton (1.005-1.025) Urine Protein (Negative) Urine Ketones (NEGATIVE) Urine Blood (0-5) Pradeep/ul Urine Nitrite (NEGATIVE) Urine Bilirubin (NEGATIVE) Urine Urobilinogen (0-1) mg/dL Ur Leukocyte Esterase (NEGATIVE) Urine WBC (Auto) (0-5) /HPF Urine RBC (Auto) (0-2) /HPF U Epithel Cells (Auto) (FEW) /HPF Urine Bacteria (Auto) (NEGATIVE) /HPF Urine Mucus (Auto) (NEGATIVE) /HPF Urine Culture Reflexed (NO) Urine Glucose (NEGATIVE) mg/dL Ethyl Alcohol (0-10) mg/dL 04/19/20 04/19/20 Range/Units 03:35 05:12 WBC (4.0-10.5) K/mm3 RBC (4.1-5.6) M/mm3 Hgb (12.5-18.0) gm/dl Hct (42-50) % MCV (78-100) fl MCH (26-32) pg MCHC (32-36) g/dl RDW (11.5-14.0) % Plt Count (150-450) K/mm3 MPV (7.5-11.0) fl Segmented Neutrophils (36.-66.) % Band Neutrophils (0.0-2.0) % Lymphocytes (Manual) (24-44) % Monocytes (Manual) (0.0-12.0) % Eosinophils (Manual) (0.00-3.0) % Basophils (Manual) (0.0-1.0) % Metamyelocytes % Atypical Lymphocytes % Hypochromia Platelet Estimate (NORMAL) RBC Morphology Polychromasia Poikilocytosis Anisocytosis Microcytosis Ovalocytes Schistocytes Puncture Site RIGHT BRACHIAL pCO2 44 (35-45) mmHg pO2 82 (75-100) mmHg Base Excess 7.4 H (-2.0-2.0) O2 Saturation 95.5 (94-100) g/dF ABG pH 7.47 H (7.35-7.45) ABG HCO3 32.0 H* (22-28) ABG O2 Sat (Measured) 97.6 (95-100) % Gold Test NOT APPLICABLE A-a Gradient 63 a/A Ratio 0.57 Hemoglobin 9.4 Carboxyhemoglobin 1.7 (0.0-6.9) % THgb Methemoglobin 0.5 L (1.4-1.5) % Temperature 37.0 C POC O2 Flow Rate 28 % Inspiratory BiPAP 12 Expiratory BiPAP 6 Sodium 139 (137-145) mmol/L Potassium 3.2 L 3.0 L (3.5-5.1) mmol/L Chloride 105 (98-107) mmol/L Carbon Dioxide 31 H (22-30) mmol/L Anion Gap 6.5 (5-15) MEQ/L BUN 9 (9-20) mg/dL Creatinine 0.71 (0.66-1.25) mg/dL Estimated GFR > 60.0 ML/MIN Glucose 106 (74-106) mg/dL Calcium 8.8 (8.4-10.2) mg/dL Magnesium (1.6-2.3) mg/dL Total Bilirubin 0.90 (0.2-1.3) mg/dL AST 38 (17-59) U/L ALT 20 (0-50) U/L Alkaline Phosphatase 83 (38-126) U/L Troponin I (0.000-0.034) ng/mL NT-Pro-B Natriuret Pep (0-900) pg/mL Serum Total Protein 5.3 L (6.3-8.2) g/dL Albumin 2.8 L (3.5-5.0) g/dL TSH 3rd Generation (0.47-4.68) mIU/L Urine Color (YELLOW) Urine Appearance (CLEAR) Urine pH (5-6) Ur Specific Dalton (1.005-1.025) Urine Protein (Negative) Urine Ketones (NEGATIVE) Urine Blood (0-5) Pradeep/ul Urine Nitrite (NEGATIVE) Urine Bilirubin (NEGATIVE) Urine Urobilinogen (0-1) mg/dL Ur Leukocyte Esterase (NEGATIVE) Urine WBC (Auto) (0-5) /HPF Urine RBC (Auto) (0-2) /HPF U Epithel Cells (Auto) (FEW) /HPF Urine Bacteria (Auto) (NEGATIVE) /HPF Urine Mucus (Auto) (NEGATIVE) /HPF Urine Culture Reflexed (NO) Urine Glucose (NEGATIVE) mg/dL Ethyl Alcohol (0-10) mg/dL - Radiology Impressions Radiology Exams & Impressions: Radiology Procedures Category Date Time Status CHEST 1 VIEW (PORTABLE) Stat Exams 04/18/20 14:32 Completed HEAD WITHOUT CONTRAST [CT] Stat Exams 04/18/20 14:34 Completed - Other Procedures and Tests Respiratory Therapy 04/18/20 19:38 Oxygen NASAL CANNULA 2 lpm 04/18/20 22:06 Respiratory Therapy Assessment DAILY 04/19/20 01:21 BiPap/CPAP ROUTINE Assessment/Plan (1) General weakness Current Visit: Yes Status: Acute Assessment & Plan: Pt. admitted with judicious fluids, weakness resolved and ready for discharge by this am. cardiac markers rechecked and remained negative. Code(s): R53.1 - WEAKNESS (2) Hypokalemia Current Visit: Yes Status: Acute Assessment & Plan: Pt. was aggressively treated with potassium,. but next morning felt better, no further weakness, potassium near normal and inadvertent excess of lasix was discussed, pt. was receiving 2 lasix tablets twice daily but should have been on 1 twice daily. Pt. will have potassium increased to 40 meq twice daily from 20meq tid. Pt. ready for discharge. Code(s): E87.6 - HYPOKALEMIA Hospital Summary - Hospital Course Hospital Course: Pt. admitted for hydration and potassium replacement, lower extremity edema resolved, pt. felt strength return and ready for discharge by the following day. - Vitals & Intake/Output Vital Signs: Vital Signs Temperature 98.1 F 04/19/20 12:00 Pulse Rate 80 04/19/20 12:00 Respiratory Rate 16 04/19/20 12:00 Blood Pressure 119/62 04/19/20 12:00 O2 Sat by Pulse Oximetry 97 04/19/20 12:00 Intake & Output: Intake & Output 04/17/20 04/18/20 04/19/20 04/20/20 11:59 11:59 11:59 11:59 Intake Total 1312 Balance 1312 Weight 87.9 kg - Lab Result Diagrams: 04/19/20 03:35 04/19/20 03:35 Lab Results-Last 24 Hrs: Lab Results-Last 24 Hours 04/18/20 04/18/20 04/18/20 Range/Units 00:09 14:30 14:30 WBC 6.6 (4.0-10.5) K/mm3 RBC 4.56 (4.1-5.6) M/mm3 Hgb 9.7 L (12.5-18.0) gm/dl Hct 34.4 L (42-50) % MCV 75.4 L (78-100) fl MCH 21.3 L (26-32) pg MCHC 28.2 L (32-36) g/dl RDW 28.3 H (11.5-14.0) % Plt Count 415 (150-450) K/mm3 MPV 10.1 (7.5-11.0) fl Segmented Neutrophils 50 (36.-66.) % Band Neutrophils 1 (0.0-2.0) % Lymphocytes (Manual) 17 L (24-44) % Monocytes (Manual) 9 (0.0-12.0) % Eosinophils (Manual) 10 H (0.00-3.0) % Basophils (Manual) 9 H (0.0-1.0) % Metamyelocytes 3 % Atypical Lymphocytes 1 % Hypochromia 2+ Platelet Estimate NORMAL (NORMAL) RBC Morphology ABNORMAL Polychromasia Poikilocytosis 1+ Anisocytosis 2+ Microcytosis 1+ Ovalocytes 1+ Schistocytes 1+ Puncture Site pCO2 (35-45) mmHg pO2 (75-100) mmHg Base Excess (-2.0-2.0) O2 Saturation (94-100) g/dF ABG pH (7.35-7.45) ABG HCO3 (22-28) ABG O2 Sat (Measured) (95-100) % Gold Test A-a Gradient a/A Ratio Hemoglobin Carboxyhemoglobin (0.0-6.9) % THgb Methemoglobin (1.4-1.5) % Temperature C POC O2 Flow Rate % Inspiratory BiPAP Expiratory BiPAP Sodium 139 (137-145) mmol/L Potassium 2.7 L* (3.5-5.1) mmol/L Chloride 100 (98-107) mmol/L Carbon Dioxide 33 H (22-30) mmol/L Anion Gap 8.9 (5-15) MEQ/L BUN 11 (9-20) mg/dL Creatinine 0.77 (0.66-1.25) mg/dL Estimated GFR > 60.0 ML/MIN Glucose 128 H (74-106) mg/dL Calcium 9.2 (8.4-10.2) mg/dL Magnesium 2.5 H (1.6-2.3) mg/dL Total Bilirubin 0.90 (0.2-1.3) mg/dL AST 43 (17-59) U/L ALT 23 (0-50) U/L Alkaline Phosphatase 106 (38-126) U/L Troponin I 0.018 (0.000-0.034) ng/mL NT-Pro-B Natriuret Pep (0-900) pg/mL Serum Total Protein 6.3 (6.3-8.2) g/dL Albumin 3.5 (3.5-5.0) g/dL TSH 3rd Generation (0.47-4.68) mIU/L Urine Color (YELLOW) Urine Appearance (CLEAR) Urine pH (5-6) Ur Specific Dalton (1.005-1.025) Urine Protein (Negative) Urine Ketones (NEGATIVE) Urine Blood (0-5) Pradeep/ul Urine Nitrite (NEGATIVE) Urine Bilirubin (NEGATIVE) Urine Urobilinogen (0-1) mg/dL Ur Leukocyte Esterase (NEGATIVE) Urine WBC (Auto) (0-5) /HPF Urine RBC (Auto) (0-2) /HPF U Epithel Cells (Auto) (FEW) /HPF Urine Bacteria (Auto) (NEGATIVE) /HPF Urine Mucus (Auto) (NEGATIVE) /HPF Urine Culture Reflexed (NO) Urine Glucose (NEGATIVE) mg/dL Ethyl Alcohol < 10 (0-10) mg/dL 04/18/20 04/18/20 04/18/20 Range/Units 14:30 16:42 17:45 WBC (4.0-10.5) K/mm3 RBC (4.1-5.6) M/mm3 Hgb (12.5-18.0) gm/dl Hct (42-50) % MCV (78-100) fl MCH (26-32) pg MCHC (32-36) g/dl RDW (11.5-14.0) % Plt Count (150-450) K/mm3 MPV (7.5-11.0) fl Segmented Neutrophils (36.-66.) % Band Neutrophils (0.0-2.0) % Lymphocytes (Manual) (24-44) % Monocytes (Manual) (0.0-12.0) % Eosinophils (Manual) (0.00-3.0) % Basophils (Manual) (0.0-1.0) % Metamyelocytes % Atypical Lymphocytes % Hypochromia Platelet Estimate (NORMAL) RBC Morphology Polychromasia Poikilocytosis Anisocytosis Microcytosis Ovalocytes Schistocytes Puncture Site pCO2 (35-45) mmHg pO2 (75-100) mmHg Base Excess (-2.0-2.0) O2 Saturation (94-100) g/dF ABG pH (7.35-7.45) ABG HCO3 (22-28) ABG O2 Sat (Measured) (95-100) % Gold Test A-a Gradient a/A Ratio Hemoglobin Carboxyhemoglobin (0.0-6.9) % THgb Methemoglobin (1.4-1.5) % Temperature C POC O2 Flow Rate % Inspiratory BiPAP Expiratory BiPAP Sodium (137-145) mmol/L Potassium (3.5-5.1) mmol/L Chloride (98-107) mmol/L Carbon Dioxide (22-30) mmol/L Anion Gap (5-15) MEQ/L BUN (9-20) mg/dL Creatinine (0.66-1.25) mg/dL Estimated GFR ML/MIN Glucose (74-106) mg/dL Calcium (8.4-10.2) mg/dL Magnesium (1.6-2.3) mg/dL Total Bilirubin (0.2-1.3) mg/dL AST (17-59) U/L ALT (0-50) U/L Alkaline Phosphatase (38-126) U/L Troponin I 0.018 0.016 (0.000-0.034) ng/mL NT-Pro-B Natriuret Pep (0-900) pg/mL Serum Total Protein (6.3-8.2) g/dL Albumin (3.5-5.0) g/dL TSH 3rd Generation (0.47-4.68) mIU/L Urine Color YELLOW (YELLOW) Urine Appearance CLEAR (CLEAR) Urine pH 5.0 (5-6) Ur Specific Dalton 1.018 (1.005-1.025) Urine Protein NEGATIVE (Negative) Urine Ketones NEGATIVE (NEGATIVE) Urine Blood NEGATIVE (0-5) Pradeep/ul Urine Nitrite NEGATIVE (NEGATIVE) Urine Bilirubin NEGATIVE (NEGATIVE) Urine Urobilinogen 2 (0-1) mg/dL Ur Leukocyte Esterase TRACE (NEGATIVE) Urine WBC (Auto) 3-5 (0-5) /HPF Urine RBC (Auto) NONE (0-2) /HPF U Epithel Cells (Auto) NONE (FEW) /HPF Urine Bacteria (Auto) NONE (NEGATIVE) /HPF Urine Mucus (Auto) SLIGHT (NEGATIVE) /HPF Urine Culture Reflexed NO (NO) Urine Glucose NEGATIVE (NEGATIVE) mg/dL Ethyl Alcohol (0-10) mg/dL 04/18/20 04/18/20 04/18/20 Range/Units 21:16 21:16 Unknown WBC (4.0-10.5) K/mm3 RBC (4.1-5.6) M/mm3 Hgb (12.5-18.0) gm/dl Hct (42-50) % MCV (78-100) fl MCH (26-32) pg MCHC (32-36) g/dl RDW (11.5-14.0) % Plt Count (150-450) K/mm3 MPV (7.5-11.0) fl Segmented Neutrophils (36.-66.) % Band Neutrophils (0.0-2.0) % Lymphocytes (Manual) (24-44) % Monocytes (Manual) (0.0-12.0) % Eosinophils (Manual) (0.00-3.0) % Basophils (Manual) (0.0-1.0) % Metamyelocytes % Atypical Lymphocytes % Hypochromia Platelet Estimate (NORMAL) RBC Morphology Polychromasia Poikilocytosis Anisocytosis Microcytosis Ovalocytes Schistocytes Puncture Site pCO2 (35-45) mmHg pO2 (75-100) mmHg Base Excess (-2.0-2.0) O2 Saturation (94-100) g/dF ABG pH (7.35-7.45) ABG HCO3 (22-28) ABG O2 Sat (Measured) (95-100) % Gold Test A-a Gradient a/A Ratio Hemoglobin Carboxyhemoglobin (0.0-6.9) % THgb Methemoglobin (1.4-1.5) % Temperature C POC O2 Flow Rate % Inspiratory BiPAP Expiratory BiPAP Sodium (137-145) mmol/L Potassium 3.1 L (3.5-5.1) mmol/L Chloride (98-107) mmol/L Carbon Dioxide (22-30) mmol/L Anion Gap (5-15) MEQ/L BUN (9-20) mg/dL Creatinine (0.66-1.25) mg/dL Estimated GFR ML/MIN Glucose (74-106) mg/dL Calcium (8.4-10.2) mg/dL Magnesium (1.6-2.3) mg/dL Total Bilirubin (0.2-1.3) mg/dL AST (17-59) U/L ALT (0-50) U/L Alkaline Phosphatase (38-126) U/L Troponin I 0.016 (0.000-0.034) ng/mL NT-Pro-B Natriuret Pep 194 (0-900) pg/mL Serum Total Protein (6.3-8.2) g/dL Albumin (3.5-5.0) g/dL TSH 3rd Generation 1.140 (0.47-4.68) mIU/L Urine Color (YELLOW) Urine Appearance (CLEAR) Urine pH (5-6) Ur Specific Dalton (1.005-1.025) Urine Protein (Negative) Urine Ketones (NEGATIVE) Urine Blood (0-5) Pradeep/ul Urine Nitrite (NEGATIVE) Urine Bilirubin (NEGATIVE) Urine Urobilinogen (0-1) mg/dL Ur Leukocyte Esterase (NEGATIVE) Urine WBC (Auto) (0-5) /HPF Urine RBC (Auto) (0-2) /HPF U Epithel Cells (Auto) (FEW) /HPF Urine Bacteria (Auto) (NEGATIVE) /HPF Urine Mucus (Auto) (NEGATIVE) /HPF Urine Culture Reflexed (NO) Urine Glucose (NEGATIVE) mg/dL Ethyl Alcohol (0-10) mg/dL 04/19/20 04/19/20 04/19/20 Range/Units 00:18 03:35 03:35 WBC 6.9 (4.0-10.5) K/mm3 RBC 4.17 (4.1-5.6) M/mm3 Hgb 8.8 L (12.5-18.0) gm/dl Hct 31.8 L (42-50) % MCV 76.3 L (78-100) fl MCH 21.1 L (26-32) pg MCHC 27.7 L (32-36) g/dl RDW 28.3 H (11.5-14.0) % Plt Count 374 (150-450) K/mm3 MPV 10.3 (7.5-11.0) fl Segmented Neutrophils 52 (36.-66.) % Band Neutrophils 1 (0.0-2.0) % Lymphocytes (Manual) 24 (24-44) % Monocytes (Manual) 6 (0.0-12.0) % Eosinophils (Manual) 9 H (0.00-3.0) % Basophils (Manual) 5 H (0.0-1.0) % Metamyelocytes 1 % Atypical Lymphocytes 2 % Hypochromia 1+ Platelet Estimate NORMAL (NORMAL) RBC Morphology ABNORMAL Polychromasia 1+ Poikilocytosis Anisocytosis 2+ Microcytosis Ovalocytes Schistocytes Puncture Site RIGHT BRACHIAL pCO2 38 (35-45) mmHg pO2 67 L (75-100) mmHg Base Excess 11.0 H (-2.0-2.0) O2 Saturation 93.8 L (94-100) g/dF ABG pH 7.56 H* (7.35-7.45) ABG HCO3 34.0 H* (22-28) ABG O2 Sat (Measured) 95.7 (95-100) % Gold Test NOT APPLICABLE A-a Gradient 35 a/A Ratio 0.66 Hemoglobin 9.3 Carboxyhemoglobin 1.8 (0.0-6.9) % THgb Methemoglobin 0.2 L (1.4-1.5) % Temperature 37.0 C POC O2 Flow Rate 21 % Inspiratory BiPAP Expiratory BiPAP Sodium (137-145) mmol/L Potassium 3.1 L (3.5-5.1) mmol/L Chloride (98-107) mmol/L Carbon Dioxide (22-30) mmol/L Anion Gap (5-15) MEQ/L BUN (9-20) mg/dL Creatinine (0.66-1.25) mg/dL Estimated GFR ML/MIN Glucose (74-106) mg/dL Calcium (8.4-10.2) mg/dL Magnesium (1.6-2.3) mg/dL Total Bilirubin (0.2-1.3) mg/dL AST (17-59) U/L ALT (0-50) U/L Alkaline Phosphatase (38-126) U/L Troponin I 0.015 (0.000-0.034) ng/mL NT-Pro-B Natriuret Pep (0-900) pg/mL Serum Total Protein (6.3-8.2) g/dL Albumin (3.5-5.0) g/dL TSH 3rd Generation (0.47-4.68) mIU/L Urine Color (YELLOW) Urine Appearance (CLEAR) Urine pH (5-6) Ur Specific Dalton (1.005-1.025) Urine Protein (Negative) Urine Ketones (NEGATIVE) Urine Blood (0-5) Pradeep/ul Urine Nitrite (NEGATIVE) Urine Bilirubin (NEGATIVE) Urine Urobilinogen (0-1) mg/dL Ur Leukocyte Esterase (NEGATIVE) Urine WBC (Auto) (0-5) /HPF Urine RBC (Auto) (0-2) /HPF U Epithel Cells (Auto) (FEW) /HPF Urine Bacteria (Auto) (NEGATIVE) /HPF Urine Mucus (Auto) (NEGATIVE) /HPF Urine Culture Reflexed (NO) Urine Glucose (NEGATIVE) mg/dL Ethyl Alcohol (0-10) mg/dL 04/19/20 04/19/20 Range/Units 03:35 05:12 WBC (4.0-10.5) K/mm3 RBC (4.1-5.6) M/mm3 Hgb (12.5-18.0) gm/dl Hct (42-50) % MCV (78-100) fl MCH (26-32) pg MCHC (32-36) g/dl RDW (11.5-14.0) % Plt Count (150-450) K/mm3 MPV (7.5-11.0) fl Segmented Neutrophils (36.-66.) % Band Neutrophils (0.0-2.0) % Lymphocytes (Manual) (24-44) % Monocytes (Manual) (0.0-12.0) % Eosinophils (Manual) (0.00-3.0) % Basophils (Manual) (0.0-1.0) % Metamyelocytes % Atypical Lymphocytes % Hypochromia Platelet Estimate (NORMAL) RBC Morphology Polychromasia Poikilocytosis Anisocytosis Microcytosis Ovalocytes Schistocytes Puncture Site RIGHT BRACHIAL pCO2 44 (35-45) mmHg pO2 82 (75-100) mmHg Base Excess 7.4 H (-2.0-2.0) O2 Saturation 95.5 (94-100) g/dF ABG pH 7.47 H (7.35-7.45) ABG HCO3 32.0 H* (22-28) ABG O2 Sat (Measured) 97.6 (95-100) % Gold Test NOT APPLICABLE A-a Gradient 63 a/A Ratio 0.57 Hemoglobin 9.4 Carboxyhemoglobin 1.7 (0.0-6.9) % THgb Methemoglobin 0.5 L (1.4-1.5) % Temperature 37.0 C POC O2 Flow Rate 28 % Inspiratory BiPAP 12 Expiratory BiPAP 6 Sodium 139 (137-145) mmol/L Potassium 3.2 L 3.0 L (3.5-5.1) mmol/L Chloride 105 (98-107) mmol/L Carbon Dioxide 31 H (22-30) mmol/L Anion Gap 6.5 (5-15) MEQ/L BUN 9 (9-20) mg/dL Creatinine 0.71 (0.66-1.25) mg/dL Estimated GFR > 60.0 ML/MIN Glucose 106 (74-106) mg/dL Calcium 8.8 (8.4-10.2) mg/dL Magnesium (1.6-2.3) mg/dL Total Bilirubin 0.90 (0.2-1.3) mg/dL AST 38 (17-59) U/L ALT 20 (0-50) U/L Alkaline Phosphatase 83 (38-126) U/L Troponin I (0.000-0.034) ng/mL NT-Pro-B Natriuret Pep (0-900) pg/mL Serum Total Protein 5.3 L (6.3-8.2) g/dL Albumin 2.8 L (3.5-5.0) g/dL TSH 3rd Generation (0.47-4.68) mIU/L Urine Color (YELLOW) Urine Appearance (CLEAR) Urine pH (5-6) Ur Specific Dalton (1.005-1.025) Urine Protein (Negative) Urine Ketones (NEGATIVE) Urine Blood (0-5) Pradeep/ul Urine Nitrite (NEGATIVE) Urine Bilirubin (NEGATIVE) Urine Urobilinogen (0-1) mg/dL Ur Leukocyte Esterase (NEGATIVE) Urine WBC (Auto) (0-5) /HPF Urine RBC (Auto) (0-2) /HPF U Epithel Cells (Auto) (FEW) /HPF Urine Bacteria (Auto) (NEGATIVE) /HPF Urine Mucus (Auto) (NEGATIVE) /HPF Urine Culture Reflexed (NO) Urine Glucose (NEGATIVE) mg/dL Ethyl Alcohol (0-10) mg/dL - Radiology Exams Ordered Rad Exams-Entire Visit: Radiology Procedures Category Date Time Status CHEST 1 VIEW (PORTABLE) Stat Exams 04/18/20 14:32 Completed HEAD WITHOUT CONTRAST [CT] Stat Exams 04/18/20 14:34 Completed - Procedures and Test Procedures and Tests throughout Hospitalization: Therapy Orders & Screens 04/18/20 19:38 Oxygen NASAL CANNULA 2 lpm Comment: Diagnosis: hypokalemia 04/18/20 22:06 Respiratory Therapy Assessment DAILY Comment: Diagnosis: hypokalemia 04/19/20 01:21 BiPap/CPAP ROUTINE Comment: Diagnosis: hypokalemia - Discharge Discharge Date: 04/19/20 Disposition: Home, Self-Care Condition: Stable Prescriptions: No Action Zolpidem Tartrate 10 mg PO HS PRN PRN Reason: Insomnia Ropinirole HCl 0.5 mg [Requip 0.5 MG] 0.5 mg PO HS Metformin HCl 500 mg [Glucophage 500 MG] 500 mg PO BID Gabapentin 600 mg PO TID Budesonide/Formoterol Fumarate [Symbicort 160-4.5 Mcg Inhaler] 2 inh IH BID Nystatin 5 ml PO QID Ferrous Sulfate 325 mg PO DAILY Albuterol Sulfate [Ventolin Hfa] 2 puffs IH QID PRN PRN Reason: Shortness Of Breath Potassium Chloride 10 Meq Tab* [Klor Con 10 MEQ] 20 meq PO TID 30 Days #180 tab Furosemide 40 mg PO DAILY Tramadol HCl 50 mg [Ultram 50 mg] 50 mg PO BID PRN PRN Reason: Pain Additional Instructions: Pt. to take 1 lasix tablet twice daily and potassium 40meq total twice daily for a daily total of 80 meq. Follow up with: IRINA KINGSTON [Primary Care Provider] - 1 Week
[2020-04-19] MEDS ORDERED: Klor Con 10 MEQ PO SCH (14:00)
== END 2020-04-19 15:31 | disposition home or self-care (01) ==
LOC: ED 14:17 → MED SURG 18:08
PROVIDERS: ADMIT Family Medicine; ATTEND Family Medicine
DX: R53.1 Weakness (principal); E87.6 Hypokalemia; E11.9 Type 2 diabetes mellitus without complications; J44.9 Chronic obstructive pulmonary disease, unspecified; Z79.899 Other long term (current) drug therapy
CPT/HCPCS: 36000; 36415; 36600; 70450; 71045; 80053; 81001; 82375; 82803; 83735; 83880; 84132; 84443; 84484; 85025; 93005; 93041; 93268; 94002; 94640; 94760; 94762; 96360; 96365; 99285; G0378; G0480; 80307; J3480; A9270-GY

== ENCOUNTER 2020-07-29 12:08 | Emergency (ER) | payer MEDICARE, OTHER ==
--- NOTE | 2020-07-29 12:50 | ERPHSYRPT ---
- History of Present Illness Time Seen by Provider: 07/29/20 12:48 Source: patient Exam Limitations: no limitations Patient Subjective Stated Complaint: back pain Triage Nursing Assessment: pt to ED c/o R lower back pain with unknown onset. states he has to compensate for knee pain and thinks thats why his back has been hurting. rates 7/10 pain dull at rest and intermittent shooting sharp pains. ambulates with steady gate with no assist. denies trauma or injury to area Physician History: 74-year-old male with history of hypertension coronary artery disease osteoarthritis came to the emergency room with complaining of lower back pain radiating to both lower extremity for last 2 to 3 days. Patient denies any numb ness weakness or loss of control of bladder or bowel. Patient denies any other symptoms. Timing/Duration: day(s) Method of Injury: bending Quality: sharp, aching Back Pain Location: lumbar spine Back Pain Radiation: lower legs Severity of Pain-Max: mild Severity of Pain-Current: moderate Modifying Factors: Improves With: nothing Associated Symptoms: denies symptoms Allergies/Adverse Reactions: No Known Drug Allergies Allergy (Verified 07/29/20 12:24) Home Medications: Zolpidem Tartrate 10 mg PO HS PRN 06/11/15 [History] Ropinirole HCl 0.5 mg [Requip 0.5 MG] 0.5 mg PO HS 01/07/17 [History] Metformin HCl 500 mg [Glucophage 500 MG] 500 mg PO BID 04/22/17 [History] Budesonide/Formoterol Fumarate [Symbicort 160-4.5 Mcg Inhaler] 2 inh IH BID 03/04/18 [History] Gabapentin 600 mg PO TID 03/04/18 [History] Albuterol Sulfate [Ventolin Hfa] 2 puffs IH QID PRN 02/04/20 [History] Ferrous Sulfate 325 mg PO DAILY 02/04/20 [History] Nystatin 5 ml PO QID 02/04/20 [History] Furosemide 40 mg PO BID 04/18/20 [History] Tramadol HCl 50 mg [Ultram 50 mg] 50 mg PO BID PRN 04/18/20 [History] Hx Tetanus, Diphtheria Vaccination/Date Given: No Hx Influenza Vaccination/Date Given: Yes Hx Pneumococcal Vaccination/Date Given: Yes Travel Risk - International Travel Have you traveled outside of the country in past 3 weeks: No - Coronavirus Screening Are you exhibiting any of the following symptoms?: No Close contact with a COVID-19 positive Pt in past 14-21 Days: No - Review of Systems Constitutional: No Fever, No Chills Eyes: No Symptoms Ears, Nose, & Throat: No Symptoms Respiratory: No Cough, No Dyspnea Cardiac: No Chest Pain, No Edema, No Syncope Abdominal/Gastrointestinal: No Abdominal Pain, No Nausea, No Vomiting, No Diarrhea Genitourinary Symptoms: No Dysuria Musculoskeletal: Back Pain, No Neck Pain Skin: No Rash Neurological: No Dizziness, No Focal Weakness, No Sensory Changes Psychological: No Symptoms Endocrine: No Symptoms All Other Systems: Reviewed and Negative - Past Medical History Pertinent Past Medical History: Yes Neurological History: Peripheral Neuropathy ENT History: Cataracts Cardiac History: No Pertinent History Respiratory History: Bronchitis, COPD, Pneumonia Endocrine Medical History: Diabetes Type II Musculoskeletal History: No Pertinent History GI Medical History: Other History: No Pertinent History Psycho-Social History: No Pertinent History Male Reproductive Disorders: Prostate Problems Other Medical History: esophageal difficulties. pt states has low b/p not high b/p. Uses 02 at home.Former smoker. anemia,low K+ levels - Past Surgical History Past Surgical History: Yes Neuro Surgical History: No Pertinent History Cardiac: No Pertinent History Respiratory: No Pertinent History Gastrointestinal: Cholecystectomy Genitourinary: No Pertinent History Musculoskeletal: No Pertinent History Male Surgical History: No Pertinent History Other Surgical History: right big toenail ingrown toenail. t&a, [place] July 2018, left eye cataract removed and revision to a fold - Social History Smoking Status: Former smoker How long have you smoked: 40 years Exposure to second hand smoke: No Drug Use: none Patient Lives Alone: No - Nursing Vital Signs Nursing Vital Signs: Initial Vital Signs Temperature 97.1 F 07/29/20 12:10 Pulse Rate 83 07/29/20 12:10 Respiratory Rate 18 07/29/20 12:10 Blood Pressure 132/62 07/29/20 12:10 O2 Sat by Pulse Oximetry 94 L 07/29/20 12:10 Pain Scale Pain Intensity [] 7 Pain Intensity 7 - Physical Exam General Appearance: no apparent distress, alert Eye Exam: PERRL/EOMI, eyes nml inspection Neck Exam: normal inspection, non-tender, supple, full range of motion, No meningismus, No midline tenderness Respiratory Exam: normal breath sounds, lungs clear, No respiratory distress Cardiovascular Exam: regular rate/rhythm, normal heart sounds Gastrointestinal Exam: soft, No tenderness, No mass Extremity Exam: normal inspection, normal range of motion, No calf tenderness, No pedal edema Neurologic Exam: alert, 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, cooperative, cath lab radiological technologist II-XII nml as tested, normal mood/affect, nml station & gait, sensation nml, No motor deficits Skin Exam: normal color, warm, dry, No rash SpO2: 94 - Course Nursing assessment & vital signs reviewed: Yes - Radiology Exams Abdomen X-ray Interpretation: Reviewed by me, Negative, No Fracture Ordered Tests: Active Orders 24 hr Category Date Time Status KUB Stat Exams 07/29/20 12:42 Ordered CBC W DIFF Stat Lab 07/29/20 13:15 Completed CMP Stat Lab 07/29/20 13:15 Received Manual Differential NC Stat Lab 07/29/20 13:15 Completed Medication Summary Generic Name Dose Route Start Last Admin Trade Name Marino PRN Reason Stop Dose Admin Ketorolac Tromethamine 60 mg 07/29/20 13:43 Toradol 30 Mg Injection IM 07/29/20 13:44 STAT ONE Lab/Rad Data: Laboratory Result Diagrams 07/29/20 13:15 Laboratory Results 07/29/20 Range/Units 13:15 WBC 5.3 (4.0-10.5) K/mm3 RBC 5.51 (4.1-5.6) M/mm3 Hgb 14.2 (12.5-18.0) gm/dl Hct 45.9 (42-50) % MCV 83.3 (78-100) fl MCH 25.8 L (26-32) pg MCHC 30.9 L (32-36) g/dl RDW 18.6 H (11.5-14.0) % Plt Count 242 (150-450) K/mm3 MPV 11.1 H (7.5-11.0) fl - Progress Progress: improved, pain not gone completely Counseled pt/family regarding: lab results, diagnosis, need for follow-up, rad results - Departure Departure Disposition: Home Clinical Impression: Back pain at L4-L5 level, Degenerative disc disease, lumbar Condition: Stable Critical Care Time: No Referrals: DIANNE HEARN [Primary Care Provider] - Instructions: Low Back Pain (DC), Sciatica (DC) Additional Instructions: Discharge/Care Plan JALEEL GUDINO was seen on 07/29/20 in the Emergency Room. The patient was counseled regarding Diagnosis,Lab results, Imaging studies, need for follow up and when to return to the Emergency Room. Prescriptions given: Discharge Note I have spoken with the patient and/or caregivers. I have explained the patient's condition, diagnosis and treatment plan based on the information available to me at this time. I have answered the patient's and/or caregiver's questions and addressed any concerns. The patient and/or caregivers have as good understanding of the patient's diagnosis, condition and treatment plan as can be expected at this point. The vital signs have been stable. The patient's condition is stable and appropriate for discharge from the emergency department. The patient will pursue further outpatient evaluation with the primary care physician or other designated or consulting physician as outlined in the discharge instructions. The patient and/or caregivers are agreeable to this plan of care and follow-up instructions have been explained in detail. The patient and/or caregivers have received these instruction. The patient/and or caregivers are aware that any significant change in condition or worsening of symptoms should prompt an immediate return to this or the closest emergency department or call 911. JALEEL GUDINO was seen on 07/29/20 n the Emergency Room. At that time you were treated for an emergent condition, during your visit Laboratory, Radiology and/or other procedures may have been ordered. It is very important that you follow-up with your Primary Care Physician DIANNE HEARN within the next 24-48 hours to review your Emergency Room visit and the final results of testing that was ordered. Some test results such as Urine Cultures, Blood Cultures, and other cultures if ordered will not be finalized for 24-48 hours. If you do not have a Primary Care Provider please call the medical records department at [phone] to obtain a copy of your results or you may sign into our patient portal to obtain these results by visiting us @ [email or web address] and completing the following steps: 1. Click on the Patient Portal link 2. Click the Patient Self Enrollment Link to complete the enrollment form and entering your 3. Once the enrollment form is completed you will receive an email with a temp orary ID and password at the email address you provided. 4. Next choose a user name and password. Your user name must be at least 4 characters long and your password must be at least 4 characters long. 5. Choose a security question from the list and provide your answer to the question. If you already have signed into the Health Portal you may access your Health Care Information 31/03 by the following steps: 1. Login to our website @ [email or web address] 2. Enter your original user name and password. FAQS The [facility] Health Portal is an online tool that contains your Lab Results, Radiology Reports, Visit History, Discharge Instructions and Health Summary Lab and Radiology Results will not be available for 72 hours on the portal. The Portal is a secure site, passwords are encryted and URLs are re-written so they cannot be copied and pasted. You and authorized family members are the only ones who can access your Portal. Also there is a timeout feature that protects your information if you leave the Portal page open. If you have technical difficulty please use the Contact Us link on the page this will allow you to submit any questions you have regarding the Portal or you may contact the Medical Record Department at [phone]. Prescriptions: Cyclobenzaprine HCl 10 mg [Flexeril 10 MG] 10 mg PO TID #20 tablet
[2020-07-29 13:24] LABS: Hematocrit 45.9 % (42-50); Hemoglobin 14.2 gm/dl (12.5-18.0); Mean Cell Volume 83.3 fl (78-100); Mean Corpuscular Hemoglobin 25.8 pg (26-32); Mean Corpuscular Hgb Concent. 30.9 g/dl (32-36); Mean Platelet Volume 11.1 fl (7.5-11.0); Platelet Count 242 K/mm3 (150-450); Red Blood Count 5.51 M/mm3 (4.1-5.6); Red Cell Distribution Width 18.6 % (11.5-14.0); White Blood Count 5.3 K/mm3 (4.0-10.5)
[2020-07-29 13:34] LABS: ALBUMIN 3.7 g/dL (3.5-5.0); ALKALINE PHOSPHATASE 96 U/L (38-126); ANION GAP 9.4 MEQ/L (5-15); BLOOD UREA NITROGEN 13 mg/dL (9-20); CHLORIDE 103 mmol/L (98-107); Calcium 8.9 mg/dL (8.4-10.2); Carbon Dioxide 30 mmol/L (22-30); Creatinine 1 0.79 mg/dL (0.66-1.25); EST GLOMERULAR FILTRATION RATE > 60.0 ML/MIN; Glucose 104 mg/dL (74-106); Potassium 3.6 mmol/L (3.5-5.1); SGOT/AST 41 U/L (17-59); SGPT/ALT 26 U/L (0-50); SODIUM 140 mmol/L (137-145); Total Protein 6.6 g/dL (6.3-8.2)
[2020-07-29] MEDS ORDERED: TORAdol 30 mg Injection IM ONE (13:43)
[2020-07-29] MEDS ORDERED: TORAdol 30 mg Injection ONE (13:52)
[2020-07-29 14:02] VITALS: BP 120/66; PULSE 78; O2SAT 93
[2020-07-29 14:25] LABS: BAND 1 % (0.0-2.0); Eosinophil 2 % (0.00-3.0); Lymphocytes 19 % (24-44); Monocyte 11 % (0.0-12.0); Neutrophils 67 % (36.-66.); Total Cells Counted 100
[2020-07-29 14:26] LABS: Platelet Estimate NORMAL (NORMAL)
--- NOTE | 2020-07-29 18:30 | XRAY ---
Indication: Pain. History kidney infection. Comparison: None KUB nonacute and nonobstructed with incidental minimal vascular calcifications and right upper quadrant surgical clips. No radiopaque calculus. Osseous structures intact with mild lumbar degenerative changes. Lung bases demonstrates left infrahilar subsegmental atelectasis/scarring.
== END 2020-07-29 14:15 | disposition home or self-care (01) ==
LOC: ED 12:08
DX: M54.2 Cervicalgia (principal); M47.896 Other spondylosis, lumbar region; I10 Essential (primary) hypertension; I25.10 Atherosclerotic heart disease of native coronary artery without angina pectoris; M79.605 Pain in left leg; M79.604 Pain in right leg; Z79.899 Other long term (current) drug therapy; E11.9 Type 2 diabetes mellitus without complications; J44.9 Chronic obstructive pulmonary disease, unspecified
CPT/HCPCS: 36415; 74018; 80053; 85025; 96372; 99284; J1885

== ENCOUNTER 2021-01-03 11:14 | Emergency (ER) | payer MEDICARE, OTHER ==
[2021-01-03] MEDS ORDERED: MORPHINE SULFATE 4 MG INJ IV ONE (11:34)
[2021-01-03] MEDS ORDERED: BABY ASPIRIN 81 MG CHEW PO ONE (11:34)
[2021-01-03] MEDS ORDERED: Zofran 4 MG/2 ML VIAL IV ONE (11:34)
[2021-01-03] MEDS ORDERED: PROTONIX 40 MG IV IV ONE ×2 (11:35→11:37)
[2021-01-03] MEDS ORDERED: BABY ASPIRIN 81 MG CHEW ONE (11:37)
[2021-01-03] MEDS ORDERED: Zofran 4 MG/2 ML VIAL ONE (11:37)
[2021-01-03] MEDS ORDERED: MORPHINE SULFATE 4 MG INJ ONE (11:38)
--- NOTE | 2021-01-03 11:40 | ERPHSYRPT ---
- History of Present Illness Time Seen by Provider: 01/03/21 11:22 Historian: patient Exam Limitations: no limitations Patient Subjective Stated Complaint: Patient states he has a history of pain every 6 months "coming down into chest" and states when this happens he goes to the doctor to get antibiotics and prednisone injections. He states there is pain in his stomach and in chest. "everything hurts all the time its hard to nail it down." Triage Nursing Assessment: Patient presents to the ER stating he is having pain that he has around every 6 months. Does not appear to be in distress. Patient is laughing and talking with staff. Skin is pink, no respiratory distress, v/s WNL. Physician History: 75 years old male with history of diabetes mellitus, hypertension, hyperlipidemia, COPD presented in the ER with substernal chest burning pain since yesterday without any significant aggravating or relieving factors. Denies associated palpitations but does have mild increased shortness of breath than usual. Patient reports having similar symptoms once or twice a year and has to go to the urgent care to get some steroid shot and antibiotics which helps. No fever or chills reported. Has chronic cough which is not any worse than usual. Denies any lower extremity swellings. Timing/Duration: day(s) (1), gradual onset, worse Activities at Onset: rest Quality: burning, dullness Location: substernal Chest Pain Radiation: no radiation Severity of Pain-Max: moderate Severity of Pain-Current: moderate Modifying Factors: Improves With: nothing Associated Symptoms: heartburn, No palpitations, No dizziness Prior Chest Pain/Cardiac Workup: no prior cardiac workup Nitro Today/Relief: no nitro taken today Aspirin Treatment Today: no aspirin today Allergies/Adverse Reactions: No Known Drug Allergies Allergy (Verified 01/03/21 11:37) Home Medications: Zolpidem Tartrate 10 mg PO HS PRN 06/11/15 [History] Ropinirole HCl 0.5 mg [Requip 0.5 MG] 0.5 mg PO HS 01/07/17 [History] Metformin HCl 500 mg [Glucophage 500 MG] 500 mg PO BID 04/22/17 [History] Budesonide/Formoterol Fumarate [Symbicort 160-4.5 Mcg Inhaler] 2 inh IH BID 03/04/18 [History] Gabapentin 600 mg PO TID 03/04/18 [History] Albuterol Sulfate [Ventolin Hfa] 2 puffs IH QID PRN 02/04/20 [History] Ferrous Sulfate 325 mg PO DAILY 02/04/20 [History] Nystatin 5 ml PO QID 02/04/20 [History] Furosemide 40 mg PO BID 04/18/20 [History] Tramadol HCl 50 mg [Ultram 50 mg] 50 mg PO BID PRN 04/18/20 [History] Hx Tetanus, Diphtheria Vaccination/Date Given: No Hx Influenza Vaccination/Date Given: Yes Hx Pneumococcal Vaccination/Date Given: Yes Travel Risk - International Travel Have you traveled outside of the country in past 3 weeks: No - Coronavirus Screening Are you exhibiting any of the following symptoms?: No Close contact with a COVID-19 positive Pt in past 14-21 Days: No - Vaccine Status Have you recieved a Covid-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: Yes 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[employer] - Vaccination Dates Date of 2cond Vaccination (if applicable): 12/27 - Review of Systems Constitutional: No Symptoms Eyes: No Symptoms Ears, Nose, & Throat: No Symptoms Respiratory: Cough, Dyspnea Cardiac: Chest Pain Abdominal/Gastrointestinal: No Symptoms Genitourinary Symptoms: No Symptoms Musculoskeletal: No Symptoms Skin: No Symptoms Neurological: No Symptoms Psychological: No Symptoms Endocrine: No Symptoms Hematologic/Lymphatic: No Symptoms Immunological/Allergic: No Symptoms - Past Medical History Pertinent Past Medical History: Yes Neurological History: Peripheral Neuropathy ENT History: Cataracts Cardiac History: No Pertinent History Respiratory History: Bronchitis, COPD, Pneumonia Endocrine Medical History: Diabetes Type II Musculoskeletal History: No Pertinent History GI Medical History: Other History: No Pertinent History Psycho-Social History: No Pertinent History Male Reproductive Disorders: Prostate Problems Other Medical History: esophageal difficulties. pt states has low b/p not high b/p. Uses 02 at home.Former smoker. anemia,low K+ levels - Past Surgical History Past Surgical History: Yes Neuro Surgical History: No Pertinent History Cardiac: No Pertinent History Respiratory: No Pertinent History Gastrointestinal: Cholecystectomy Genitourinary: No Pertinent History Musculoskeletal: No Pertinent History Male Surgical History: No Pertinent History Other Surgical History: right big toenail ingrown toenail. t&a, [place] July 2018, left eye cataract removed and revision to a fold - Social History Smoking Status: Former smoker How long have you smoked: 40 years Exposure to second hand smoke: No Drug Use: none Patient Lives Alone: No - Nursing Vital Signs Nursing Vital Signs: Initial Vital Signs Temperature 97.8 F 01/03/21 11:20 Pulse Rate 90 01/03/21 11:20 Blood Pressure 139/79 01/03/21 11:20 O2 Sat by Pulse Oximetry 93 L 01/03/21 11:20 Pain Scale Pain Intensity 0 - Physical Exam General Appearance: no apparent distress, alert Eye Exam: PERRL/EOMI, eyes nml inspection Ears, Nose, Throat Exam: normal ENT inspection, pharynx normal Neck Exam: normal inspection, non-tender, supple, full range of motion Respiratory Exam: normal breath sounds, lungs clear, No chest tenderness Cardiovascular Exam: regular rate/rhythm, normal heart sounds Gastrointestinal/Abdomen Exam: soft, normal bowel sounds, No tenderness Back Exam: normal inspection, normal range of motion Extremity Exam: normal inspection, normal range of motion, pelvis stable Neurologic Exam: alert, 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, cooperative Skin Exam: normal color SpO2 Interpretation: normal SpO2: 93 O2 Delivery: Room Air - Course EKG Interpreted by Me: RATE ([id number]), Sinus Rhythm, NORMAL AXIS, NORMAL INTERVALS, N ORMAL QRS Ordered Tests: Active Orders 24 hr Category Date Time Status Be[employer] Manager STAT Care 01/03/21 11:34 Active EKG-ER Only STAT Care 01/03/21 11:34 Active IV Insertion STAT Care 01/03/21 11:34 Active Oxygen-ED Only Nasal Cannula 2 lpm Care 01/03/21 11:34 Active CHEST 1 VIEW (PORTABLE) Stat Exams 01/03/21 11:34 Completed CBC W DIFF Stat Lab 01/03/21 11:30 Completed CMP Stat Lab 01/03/21 11:30 Completed D-DIMER QUANTITATIVE Stat Lab 01/03/21 11:30 Completed Manual Differential NC Stat Lab 01/03/21 11:30 Completed NT PRO BNP Stat Lab 01/03/21 11:30 Completed TROPONIN Q3H Lab 01/03/21 11:30 Completed TROPONIN Q3H Lab 01/03/21 14:55 Completed TROPONIN Q3H Lab 01/03/21 17:45 Ordered TROPONIN Q3H Lab 01/03/21 20:45 Ordered TROPONIN Q3H Lab 01/03/21 23:45 Ordered Medication Summary Discontinued Medications Generic Name Dose Route Start Last Admin Trade Name Freq PRN Reason Stop Dose Admin Aspirin 324 mg 01/03/21 11:34 01/03/21 11:42 Baby Aspirin 81 Mg Chew PO 01/03/21 11:35 324 mg STAT ONE Administration Aspirin Confirm 01/03/21 11:37 Baby Aspirin 81 Mg Chew Administered 01/03/21 11:38 Dose 324 mg .ROUTE .STK-MED ONE Morphine Sulfate 4 mg 01/03/21 11:34 01/03/21 11:41 Morphine Sulfate 4 Mg Inj IV 01/03/21 11:35 4 mg STAT ONE Administration Morphine Sulfate Confirm 01/03/21 11:38 Morphine Sulfate 4 Mg Inj Administered 01/03/21 11:39 Dose 4 mg .ROUTE .STK-MED ONE Ondansetron HCl 4 mg 01/03/21 11:34 01/03/21 11:41 Zofran 4 Mg/2 Ml Vial IV 01/03/21 11:35 4 mg STAT ONE Administration Ondansetron HCl Confirm 01/03/21 11:37 Zofran 4 Mg/2 Ml Vial Administered 01/03/21 11:38 Dose 4 mg .ROUTE .STK-MED ONE Pantoprazole Sodium 40 mg 01/03/21 11:35 01/03/21 11:41 Protonix 40 Mg Iv IV 01/03/21 11:36 40 mg STAT ONE Administration Pantoprazole Sodium Confirm 01/03/21 11:37 Protonix 40 Mg Iv Administered 01/03/21 11:38 Dose 40 mg IV .STK-MED ONE Lab/Rad Data: Laboratory Result Diagrams 01/03/21 11:30 01/03/21 11:30 Laboratory Results 01/03/21 01/03/21 01/03/21 Range/Units 14:55 11:30 11:30 WBC (4.0-10.5) K/mm3 RBC (4.1-5.6) M/mm3 Hgb (12.5-18.0) gm/dl Hct (42-50) % MCV (78-100) fl MCH (26-32) pg MCHC (32-36) g/dl RDW (11.5-14.0) % Plt Count (150-450) K/mm3 MPV (7.5-11.0) fl Segmented Neutrophils (36.-66.) % Lymphocytes (Manual) (24-44) % Monocytes (Manual) (0.0-12.0) % Eosinophils (Manual) (0.00-3.0) % Basophils (Manual) (0.0-1.0) % Platelet Estimate (NORMAL) RBC Morphology D-Dimer 287 (215-500) ng/mL Sodium (137-145) mmol/L Potassium (3.5-5.1) mmol/L Chloride (98-107) mmol/L Carbon Dioxide (22-30) mmol/L Anion Gap (5-15) MEQ/L BUN (9-20) mg/dL Creatinine (0.66-1.25) mg/dL Estimated GFR ML/MIN Glucose (74-106) mg/dL Calcium (8.4-10.2) mg/dL Total Bilirubin (0.2-1.3) mg/dL AST (17-59) U/L ALT (0-50) U/L Alkaline Phosphatase (38-126) U/L Troponin I < 0.012 < 0.012 (0.000-0.034) ng/mL NT-Pro-B Natriuret Pep (0-900) pg/mL Serum Total Protein (6.3-8.2) g/dL Albumin (3.5-5.0) g/dL 01/03/21 01/03/21 Range/Units 11:30 11:30 WBC 6.8 (4.0-10.5) K/mm3 RBC 5.45 (4.1-5.6) M/mm3 Hgb 15.8 (12.5-18.0) gm/dl Hct 48.7 (42-50) % MCV 89.4 (78-100) fl MCH 29.0 (26-32) pg MCHC 32.4 (32-36) g/dl RDW 14.6 H (11.5-14.0) % Plt Count 343 (150-450) K/mm3 MPV 11.3 H (7.5-11.0) fl Segmented Neutrophils 57 (36.-66.) % Lymphocytes (Manual) 57 H (24-44) % Monocytes (Manual) 6 (0.0-12.0) % Eosinophils (Manual) 8 H (0.00-3.0) % Basophils (Manual) 2 H (0.0-1.0) % Platelet Estimate NORMAL (NORMAL) RBC Morphology NORMAL D-Dimer (215-500) ng/mL Sodium 141 (137-145) mmol/L Potassium 3.5 (3.5-5.1) mmol/L Chloride 102 (98-107) mmol/L Carbon Dioxide 30 (22-30) mmol/L Anion Gap 13.3 (5-15) MEQ/L BUN 14 (9-20) mg/dL Creatinine 1.00 (0.66-1.25) mg/dL Estimated GFR > 60.0 ML/MIN Glucose 120 H (74-106) mg/dL Calcium 10.9 H (8.4-10.2) mg/dL Total Bilirubin 1.50 H (0.2-1.3) mg/dL AST 41 (17-59) U/L ALT 30 (0-50) U/L Alkaline Phosphatase 64 (38-126) U/L Troponin I (0.000-0.034) ng/mL NT-Pro-B Natriuret Pep 62.9 (0-900) pg/mL Serum Total Protein 7.9 (6.3-8.2) g/dL Albumin 4.4 (3.5-5.0) g/dL - Progress Progress: improved Air Movement: good Progress Note: 01/03/21 15:36 75 years old is evaluated for substernal chest pain. EKG did not show any acute ST elevation and negative troponins x2. Negative D-dimers. Low suspicion for dissection. Chest x-ray negative for any acute cardiopulmonary findings. Grossly unremarkable work-up otherwise. Given symptomatic treatment, reevaluation patient is feeling better. Patient has multiple risk factor for CAD and does not have any work-up done, recommended observation admission but patient does not want to stay in the hospital at all. Patient states "I have to take care of my she has multiple strokes and no one is there to help her". He is not confused altered at all. He states that he will return for worsening and would be more interested in getting outpatient follow-up with a client relation specialist. He seems to be reliable. I have convinced him to get second troponin done. patient does have some scratchiness in the throat and similar symptoms in the past that responded to antibiotics. I would give him Z-Joaquin to go home as it could be COPD related. I would also give him Pepcid as it could be acid reflux related. Recommended outpatient cardiology follow-up. Discussed signs symptoms of worsening needing return to ER which he seems understanding. 01/03/21 15:41 Blood Culture(s) Obtained: No Antibiotics given: Yes Counseled pt/family regarding: lab results, diagnosis, need for follow-up, rad results - Departure Departure Disposition: Home Clinical Impression: Atypical chest pain, Bronchitis Condition: Stable Critical Care Time: No Referrals: DIANNE HEARN [Primary Care Provider] - (1-2 days for reevaluation) TONY WALSH [CONSULTING PHYSICIAN] - (1-2 days for reevaluation) Instructions: Angina Additional Instructions: Take Tylenol as needed for pain. Continue with inhaler. Follow-up with your primary care physician and cardiology for reevaluation. Return to ER for any worsening pain, shortness of breath, fever chills cough etc. Prescriptions: Famotidine 20 mg [Pepcid 20 MG] 20 mg PO BID #60 tablet Azithromycin 250 mg [Zithromax 250 MG TABLET] 250 mg PO ZPACK #6 tablet
[2021-01-03 12:04] LABS: Hematocrit 48.7 % (42-50); Hemoglobin 15.8 gm/dl (12.5-18.0); Mean Cell Volume 89.4 fl (78-100); Mean Corpuscular Hgb Concent. 32.4 g/dl (32-36); Mean Platelet Volume 11.3 fl (7.5-11.0); Platelet Count 343 K/mm3 (150-450); Red Blood Count 5.45 M/mm3 (4.1-5.6); Red Cell Distribution Width 14.6 % (11.5-14.0); White Blood Count 6.8 K/mm3 (4.0-10.5)
[2021-01-03 12:11] LABS: ALBUMIN 4.4 g/dL (3.5-5.0); ALKALINE PHOSPHATASE 64 U/L (38-126); ANION GAP 13.3 MEQ/L (5-15); BLOOD UREA NITROGEN 14 mg/dL (9-20); CHLORIDE 102 mmol/L (98-107); Calcium 10.9 mg/dL (8.4-10.2); Carbon Dioxide 30 mmol/L (22-30); EST GLOMERULAR FILTRATION RATE > 60.0 ML/MIN; Glucose 120 mg/dL (74-106); NT PRO BNP 62.9 pg/mL (0-900); Potassium 3.5 mmol/L (3.5-5.1); SGOT/AST 41 U/L (17-59); SGPT/ALT 30 U/L (0-50); SODIUM 141 mmol/L (137-145); Total Protein 7.9 g/dL (6.3-8.2)
--- NOTE | 2021-01-03 12:40 | XRAY ---
Exam: AP upright portable chest film from 01/03/2021. Comparison: Two-view chest from 07/17/2020. Indication: 75-year-old male with chest pain. Findings: The transverse heart size appears within normal limits. The sakshi and mediastinal structures appear unchanged. The level of inspiration is not quite as deep on today's study as compared to 07/17/2020. I believe there is some mild vascular crowding/congestion at the lung bases. Relative hyper radiolucency within the upper lobes may be due to emphysematous change. Focal scarring/discoid atelectasis is again seen at the medial left lung base behind the heart and within the projection of the left lateral costophrenic angle. A confluent airspace infiltrate, pneumothorax, or pleural fluid is not seen. No acute osseous process is seen. Mild osteophyte formation is seen within the lower thoracic spine. Impression: 1. Compared to the prior two-view chest study of 07/17/2020, the inspiration is not quite as deep. There appears to be either some mild vascular crowding or congestion at the lung bases on the current study. No cardiomegaly, Phani B lines, or pleural fluid is seen. 2. No focal airspace infiltrate is seen to suggest pneumonia. 3. Mild chronic scarring/atelectasis at the left lung base. 4. Relative radiolucency overlying both upper lobes, probably due to emphysematous changes
[2021-01-03 14:06] LABS: Lymphocytes 57 % (24-44); Monocyte 6 % (0.0-12.0); Neutrophils 57 % (36.-66.); Total Cells Counted 100
[2021-01-03 14:07] LABS: Basophil 2 % (0.0-1.0); Eosinophil 8 % (0.00-3.0)
[2021-01-03 14:09] LABS: Platelet Estimate NORMAL (NORMAL)
[2021-01-03 15:44] VITALS: BP 127/80; PULSE 76; O2SAT 95
== END 2021-01-03 15:51 | disposition home or self-care (01) ==
LOC: ED 11:14
DX: R78.9 Finding of unspecified substance, not normally found in blood (principal); J40 Bronchitis, not specified as acute or chronic; E11.9 Type 2 diabetes mellitus without complications; I10 Essential (primary) hypertension; E78.5 Hyperlipidemia, unspecified; J44.9 Chronic obstructive pulmonary disease, unspecified; Z79.899 Other long term (current) drug therapy
CPT/HCPCS: 36000; 36415; 71045; 80053; 83880; 84484; 85025; 85379; 93005; 93041; 96374; 96375; 99284; J2270; J2405; A9270-GY

== ENCOUNTER 2022-02-18 12:35 | Emergency (ER) | payer MEDICARE, OTHER ==
[2022-02-18] MEDS ORDERED: Sodium Chloride 0.9% 1000 ML 1,000 ML ONE ×2 (12:58→13:10)
[2022-02-18] MEDS ORDERED: Zofran 4 MG/2 ML VIAL ONE ×2 (12:58→14:18)
--- NOTE | 2022-02-18 13:03 | ERPHSYRPT ---
- History of Present Illness Time Seen by Provider: 02/18/22 12:35 Source: patient, EMS Exam Limitations: clinical condition Patient Subjective Stated Complaint: Pt has been becoming ingreasingly weak and has a new diagnosis of leukemia Triage Nursing Assessment: Pt brought to the ER by EMS, hypoxic, placed on 3L NC and went from 86% to 94%, tachypnic, denies pain at this time although he is holding his head, photophobia, scattered bruises all over his body from previous falls per his , A&O x3, last intake was last night, last bowel movement yesterday Physician History: This is a 76-year-old white male who is a patient of Dr. Ryan is brought in by the ambulance service because of weakness. Patient has been falling frequently at home. Patient was recently diagnosed with leukemia. noted that he has a lot of bruises. However, the patient does not complain of any pain at this time. He is mildly short of breath. Patient has a history of diabetes mellitus, COPD, osteoarthritis and chronic anemia. Patient does, on occasion, see Dr. Coffey for pain control issues. Patient was hypoxic with a room air oxygen level of 86%. He was placed on 2 L oxygen nasal cannula and his oxygen saturations increased to 94%. Patient does use oxygen via nasal cannula at home on a as needed basis. Patient denies headache. He denies chest pain. He has no abdominal pain. He denies nausea vomiting or diarrhea. Timing/Duration: day(s) (Last few days) Severity: mild (To moderate) Associated Symptoms: shortness of breath, weakness, No chest pain, No fever Allergies/Adverse Reactions: No Known Drug Allergies Allergy (Verified 02/18/22 12:58) Home Medications: Zolpidem Tartrate 10 mg PO HS PRN 06/11/15 [History] Ropinirole HCl 0.5 mg [Requip 0.5 MG] 0.5 mg PO HS 01/07/17 [History] Metformin HCl 500 mg [Glucophage 500 MG] 500 mg PO BID 04/22/17 [History] Budesonide/Formoterol Fumarate [Symbicort 160-4.5 Mcg Inhaler] 2 inh IH BID 03/04/18 [History] Gabapentin 600 mg PO TID 06/27/18 [History] Albuterol Sulfate [Ventolin Hfa] 2 puffs IH QID PRN 02/04/20 [History] Ferrous Sulfate 325 mg PO UD 02/04/20 [History] Tramadol HCl 50 mg [Ultram 50 mg] 50 mg PO BID PRN 04/18/20 [History] Hydrocodone/Acetaminophen [Hydrocodone-Acetamin 10-325 mg] 1 tablet PO UD PRN 02/18/22 [History] Tamsulosin HCl 0.4 mg [Flomax 0.4 MG] 0.4 mg PO DAILY 02/18/22 [History] Hx Tetanus, Diphtheria Vaccination/Date Given: No Hx Influenza Vaccination/Date Given: Yes Hx Pneumococcal Vaccination/Date Given: Yes Travel Risk - International Travel Have you traveled outside of the country in past 3 weeks: No - Coronavirus Screening Are you exhibiting any of the following symptoms?: No Close contact with a COVID-19 positive Pt in past 14-21 Days: No - Vaccine Status Have you recieved a Covid-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: Yes 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[employer] - Vaccination Dates Date of 2cond Vaccination (if applicable): 12/27 - Review of Systems Constitutional: Weakness Eyes: No Symptoms, Foreign Body Sensation Respiratory: Dyspnea Cardiac: No Symptoms Abdominal/Gastrointestinal: No Symptoms Genitourinary Symptoms: No Symptoms Musculoskeletal: No Symptoms Skin: No Symptoms Neurological: No Symptoms Psychological: No Symptoms Endocrine: No Symptoms Hematologic/Lymphatic: No Symptoms Immunological/Allergic: No Symptoms All Other Systems: Reviewed and Negative - Past Medical History Pertinent Past Medical History: Yes Neurological History: Peripheral Neuropathy ENT History: Cataracts Cardiac History: Hypertension Respiratory History: COPD Endocrine Medical History: No Pertinent History Musculoskeletal History: Osteoarthritis GI Medical History: Other History: No Pertinent History Psycho-Social History: No Pertinent History Male Reproductive Disorders: Prostate Problems Other Medical History: HX OF ESOPHAGEAL DIFFICULTIES. PRN USE OF O2 AT HOME. HX OF ANEMIA, LOW K+, leukemia - Past Surgical History Past Surgical History: Yes Neuro Surgical History: No Pertinent History Cardiac: No Pertinent History Respiratory: No Pertinent History Gastrointestinal: Cholecystectomy Genitourinary: No Pertinent History Musculoskeletal: No Pertinent History Male Surgical History: No Pertinent History Other Surgical History: right big toenail ingrown toenail. t&a, [place] July 2018, left eye cataract removed and revision to a fold - Social History Smoking Status: Former smoker How long have you smoked: 40 years Exposure to second hand smoke: No Drug Use: none Patient Lives Alone: No - Nursing Vital Signs Nursing Vital Signs: Initial Vital Signs Temperature 98.8 F 02/18/22 12:37 Pulse Rate 100 H 02/18/22 12:37 Respiratory Rate 28 H 02/18/22 12:37 Blood Pressure 122/68 02/18/22 12:37 O2 Sat by Pulse Oximetry 86 L 02/18/22 12:37 Pain Scale Pain Intensity 0 - Physical Exam General Appearance: mild distress, alert, anxiety, obese Eye Exam: PERRL/EOMI, eyes nml inspection Ears, Nose, Throat Exam: normal ENT inspection, dry mucous membranes Neck Exam: normal inspection, non-tender, supple, full range of motion Respiratory Exam: normal breath sounds, lungs clear, respiratory distress (Mild), airway intact, No chest tenderness Cardiovascular Exam: regular rate/rhythm, normal heart sounds, normal peripheral pulses Gastrointestinal/Abdomen Exam: soft, normal bowel sounds, No tenderness Rectal Exam: not done Back Exam: normal inspection, normal range of motion, No CVA tenderness, No vertebral tenderness Extremity Exam: normal inspection, normal range of motion, pelvis stable Neurologic Exam: alert, 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, cooperative, rubber attacher II-XII nml as tested, normal mood/affect, sensation nml Skin Exam: normal color, warm, dry Lymphatic Exam: No adenopathy SpO2 Interpretation: hypoxic SpO2: 86 O2 Delivery: Room Air - Course Nursing assessment & vital signs reviewed: Yes EKG Interpreted by Me: RATE (100), Sinus Tach, Right [place] Deviation (Borderline), NORMAL INTERVALS, NORMAL QRS, Other (PVCs. No acute ischemic changes.) Ordered Tests: Active Orders 24 hr Category Date Time Status EKG-ER Only STAT Care 02/18/22 13:04 Active IV Insertion STAT Care 02/18/22 13:04 Active Oxygen-ED Only Nasal Cannula 3 lpm Care 02/18/22 13:10 Active Pulse Oximetry (ED) STAT Care 02/18/22 13:04 Active CHEST 1 VIEW (PORTABLE) Stat Exams 02/18/22 13:04 Completed CHEST WITH CONTRAST [CT] Stat Exams 02/18/22 17:02 Taken HEAD WITHOUT CONTRAST [CT] Stat Exams 02/18/22 14:07 Completed BLOOD CULTURE Stat Lab 02/18/22 13:25 Received CBC W DIFF Stat Lab 02/18/22 13:25 Completed CMP Stat Lab 02/18/22 13:20 Completed D-DIMER QUANTITATIVE Stat Lab 02/18/22 13:20 Completed Lactic Acid Stat Lab 02/18/22 13:25 Completed Manual Differential NC Stat Lab 02/18/22 13:25 Completed Turner Screen Stat Lab 02/18/22 13:25 Completed NT PRO BNP Stat Lab 02/18/22 13:20 Completed TROPONIN Q3H Lab 02/18/22 13:20 Completed TROPONIN Q3H Lab 02/18/22 16:19 Completed TROPONIN Q3H Lab 02/18/22 19:15 Ordered TROPONIN Q3H Lab 02/18/22 22:15 Ordered TROPONIN Q3H Lab 02/19/22 01:15 Ordered UA W/RFX CULTURE Stat Lab 02/18/22 16:19 Completed Medication Summary Generic Name Dose Route Start Last Admin Trade Name Freq PRN Reason Stop Dose Admin Sodium Chloride 1,000 mls @ 100 mls/hr 02/18/22 13:15 02/18/22 13:10 Sodium Chloride 0.9% 1000 Ml IV 03/20/22 13:14 100 mls/hr .Q10H MAN Administration Discontinued Medications Generic Name Dose Route Start Last Admin Trade Name Freq PRN Reason Stop Dose Admin Acetaminophen 650 mg 02/18/22 13:15 02/18/22 13:22 Acetaminophen 325 Mg Tablet PO 02/18/22 13:16 650 mg STAT ONE Administration Acetaminophen Confirm 02/18/22 13:15 Acetaminophen 325 Mg Tablet Administered 02/18/22 13:16 Dose 650 mg .ROUTE .STK-MED ONE Sodium Chloride Confirm 02/18/22 12:58 Sodium Chloride 0.9% 1000 Ml Administered 02/18/22 12:59 Dose 1,000 mls @ ud .ROUTE .STK-MED ONE Morphine Sulfate 2 mg 02/18/22 14:06 02/18/22 14:23 Morphine Sulfate 2 Mg/Ml Inj IV 02/18/22 14:07 2 mg STAT ONE Administration Morphine Sulfate Confirm 02/18/22 14:18 Morphine Sulfate 2 Mg/Ml Inj Administered 02/18/22 14:19 Dose 2 mg .ROUTE .STK-MED ONE Ondansetron HCl Confirm 02/18/22 12:58 Ondansetron Hcl 4 Mg/2 Ml Vial Administered 02/18/22 12:59 Dose 4 mg .ROUTE .STK-MED ONE Ondansetron HCl 4 mg 02/18/22 14:06 02/18/22 14:23 Ondansetron Hcl 4 Mg/2 Ml Vial IV 02/18/22 14:07 4 mg STAT ONE Administration Ondansetron HCl Confirm 02/18/22 14:18 Ondansetron Hcl 4 Mg/2 Ml Vial Administered 02/18/22 14:19 Dose 4 mg .ROUTE .STK-MED ONE Lab/Rad Data: Laboratory Result Diagrams 02/18/22 13:25 02/18/22 13:20 Laboratory Results 02/18/22 02/18/22 02/18/22 Range/Units 16:19 16:19 13:35 WBC (4.0-10.5) x10^3/uL RBC (4.1-5.6) x10^6/uL Hgb (12.5-18.0) g/dL Hct (42-50) % MCV (78-100) fL MCH (26-32) pg MCHC (32-36) g/dL RDW (11.5-14.0) % Plt Count (150-450) x10^3/uL MPV (7.5-11.0) fL Gran % (36.0-66.0) % D-Dimer (0.0-0.50) mg/L Sodium (137-145) mmol/L Potassium (3.5-5.1) mmol/L Chloride (98-107) mmol/L Carbon Dioxide (22-30) mmol/L Anion Gap (5-15) MEQ/L BUN (9-20) mg/dL Creatinine (0.66-1.25) mg/dL Estimated GFR ML/MIN Glucose (74-106) mg/dL Lactic Acid (0.4-2.0) Calcium (8.4-10.2) mg/dL Total Bilirubin (0.2-1.3) mg/dL AST (17-59) U/L ALT (0-50) U/L Alkaline Phosphatase (38-126) U/L Troponin I 0.021 (0.000-0.034) ng/mL NT-Pro-B Natriuret Pep (0-900) pg/mL Serum Total Protein (6.3-8.2) g/dL Albumin (3.5-5.0) g/dL Urinalys Dipstick Clnc MAIN LAB Urine Color YELLOW (YELLOW) Urine Appearance CLEAR (CLEAR) Urine pH 5.5 (5-6) Ur Specific [place] 1.020 (1.005-1.025) POC Urine Protein Conf NEGATIVE (Negative) Urine Ketones MODERATE-40 (NEGATIVE) Urine Nitrite NEGATIVE (NEGATIVE) Urine Bilirubin NEGATIVE (NEGATIVE) Urine Urobilinogen 0.2 (0-1) mg/dL Urine Leukocytes NEGATIVE (NEGATIVE) Urine WBC (Auto) NONE (0-5) /HPF Urine RBC (Auto) NONE (0-2) /HPF U Epithel Cells (Auto) Not Reportable Urine Bacteria (Auto) Not Reportable Urine RBC NEGATIVE (0-5) Pradeep/ul Urine Mucus (Auto) SLIGHT (NEGATIVE) /HPF Ur Culture Indicated? NO Urine Glucose NEGATIVE (NEGATIVE) mg/dL Monoscreen (Negative) Influenza Type A Ag NEGATIVE (NEGATIVE) Influenza Type B Ag NEGATIVE (NEGATIVE) RSV (PCR) NEGATIVE (Negative) SARS-CoV-2 (PCR) NEGATIVE (NEGATIVE) Group A Strep Antibody NOT DETECTED (NEGATIVE) 02/18/22 02/18/22 02/18/22 Range/Units 13:25 13:25 13:25 WBC 40.5 H* (4.0-10.5) x10^3/uL RBC 5.19 (4.1-5.6) x10^6/uL Hgb 15.2 (12.5-18.0) g/dL Hct 47.1 (42-50) % MCV 90.8 (78-100) fL MCH 29.3 (26-32) pg MCHC 32.3 (32-36) g/dL RDW 14.9 H (11.5-14.0) % Plt Count 193 (150-450) x10^3/uL MPV 10.1 (7.5-11.0) fL Gran % 53.9 (36.0-66.0) % D-Dimer (0.0-0.50) mg/L Sodium (137-145) mmol/L Potassium (3.5-5.1) mmol/L Chloride (98-107) mmol/L Carbon Dioxide (22-30) mmol/L Anion Gap (5-15) MEQ/L BUN (9-20) mg/dL Creatinine (0.66-1.25) mg/dL Estimated GFR ML/MIN Glucose (74-106) mg/dL Lactic Acid 1.0 (0.4-2.0) Calcium (8.4-10.2) mg/dL Total Bilirubin (0.2-1.3) mg/dL AST (17-59) U/L ALT (0-50) U/L Alkaline Phosphatase (38-126) U/L Troponin I (0.000-0.034) ng/mL NT-Pro-B Natriuret Pep (0-900) pg/mL Serum Total Protein (6.3-8.2) g/dL Albumin (3.5-5.0) g/dL Urinalys Dipstick Clnc Urine Color (YELLOW) Urine Appearance (CLEAR) Urine pH (5-6) Ur Specific [place] (1.005-1.025) POC Urine Protein Conf (Negative) Urine Ketones (NEGATIVE) Urine Nitrite (NEGATIVE) Urine Bilirubin (NEGATIVE) Urine Urobilinogen (0-1) mg/dL Urine Leukocytes (NEGATIVE) Urine WBC (Auto) (0-5) /HPF Urine RBC (Auto) (0-2) /HPF U Epithel Cells (Auto) Urine Bacteria (Auto) Urine RBC (0-5) Pradeep/ul Urine Mucus (Auto) (NEGATIVE) /HPF Ur Culture Indicated? Urine Glucose (NEGATIVE) mg/dL Monoscreen NEGATIVE (Negative) Influenza Type A Ag (NEGATIVE) Influenza Type B Ag (NEGATIVE) RSV (PCR) (Negative) SARS-CoV-2 (PCR) (NEGATIVE) Group A Strep Antibody (NEGATIVE) 02/18/22 02/18/22 02/18/22 Range/Units 13:20 13:20 13:20 WBC (4.0-10.5) x10^3/uL RBC (4.1-5.6) x10^6/uL Hgb (12.5-18.0) g/dL Hct (42-50) % MCV (78-100) fL MCH (26-32) pg MCHC (32-36) g/dL RDW (11.5-14.0) % Plt Count (150-450) x10^3/uL MPV (7.5-11.0) fL Gran % (36.0-66.0) % D-Dimer 0.58 H (0.0-0.50) mg/L Sodium 134 L (137-145) mmol/L Potassium 3.4 L (3.5-5.1) mmol/L Chloride 100 (98-107) mmol/L Carbon Dioxide 23 (22-30) mmol/L Anion Gap 13.6 (5-15) MEQ/L BUN 16 (9-20) mg/dL Creatinine 0.86 (0.66-1.25) mg/dL Estimated GFR > 60.0 ML/MIN Glucose 86 (74-106) mg/dL Lactic Acid (0.4-2.0) Calcium 9.0 (8.4-10.2) mg/dL Total Bilirubin 1.50 H (0.2-1.3) mg/dL AST 44 (17-59) U/L ALT 21 (0-50) U/L Alkaline Phosphatase 57 (38-126) U/L Troponin I 0.023 (0.000-0.034) ng/mL NT-Pro-B Natriuret Pep 185 (0-900) pg/mL Serum Total Protein 6.7 (6.3-8.2) g/dL Albumin 3.8 (3.5-5.0) g/dL Urinalys Dipstick Clnc Urine Color (YELLOW) Urine Appearance (CLEAR) Urine pH (5-6) Ur Specific [place] (1.005-1.025) POC Urine Protein Conf (Negative) Urine Ketones (NEGATIVE) Urine Nitrite (NEGATIVE) Urine Bilirubin (NEGATIVE) Urine Urobilinogen (0-1) mg/dL Urine Leukocytes (NEGATIVE) Urine WBC (Auto) (0-5) /HPF Urine RBC (Auto) (0-2) /HPF U Epithel Cells (Auto) Urine Bacteria (Auto) Urine RBC (0-5) Pradeep/ul Urine Mucus (Auto) (NEGATIVE) /HPF Ur Culture Indicated? Urine Glucose (NEGATIVE) mg/dL Monoscreen (Negative) Influenza Type A Ag (NEGATIVE) Influenza Type B Ag (NEGATIVE) RSV (PCR) (Negative) SARS-CoV-2 (PCR) (NEGATIVE) Group A Strep Antibody (NEGATIVE) - Progress Progress: improved Progress Note: 02/18/22 13:47 Patient's framing mill operator/oncologist is Dr. Graf. Patient had an elevated white blood cell count of 45.4 on 02/12/2022. Today he has an elevated white blood cell count of 40.5. 02/18/22 15:30 Chest x-ray shows no acute/new cardiopulmonary processes. CT of the head without contrast shows a nonacute senile brain. There is chronic left maxillary sinus disease. 02/18/22 18:07 CTA of the chest is negative for pulmonary embolus. There is extensive emphysema and worsening bibasilar atelectasis/scarring. There is no new or acu te findings. 02/18/22 18:07 Clinically, the patient states that he is feeling much better. Patient does wear oxygen primarily at night. His oxygen level on 2 L oxygen nasal cannula is 95%. His weakness has improved. He wants to go home. We will put a call into Dr. Graf or whoever is on-call for the patient's framing mill operator/oncologist. 02/18/22 18:11 Medical decision making: This patient has CML. I spoke with Dr. Graf, the patient's framing mill operator/oncologist. I reviewed the patient history, the physical findings, vital signs that are current and the results of his lab work- up and radiographic studies. The patient desires to go home. Dr. Graf states that he feels the patient is safe enough to be discharged to home. He has an appointment with the patient tomorrow (02/19/2022). We will discharge him to home and he is to wear his oxygen. The patient has had 2 troponins that are within the normal limits and the second troponin actually decreased compared to the first. Counseled pt/family regarding: lab results, diagnosis, rad results - Departure Departure Disposition: Home Clinical Impression: Weakness, CML (chronic myelocytic leukemia), Hypoxia Condition: Stable Critical Care Time: No Referrals: IRINA RYAN [Primary Care Provider] - Follow up/PCP as directed Additional Instructions: Continue your medication as prescribed. Follow-up with your framing mill operator/on cologist tomorrow at your scheduled appointment time. Return to the emergency department if symptoms worsen. Wear your oxygen from the moment to get home until you see your framing mill operator/oncologist.
[2022-02-18] MEDS ORDERED: TYLENOL 325 MG ONE (13:15)
[2022-02-18] MEDS ORDERED: TYLENOL 325 MG PO ONE (13:15)
[2022-02-18] MEDS ORDERED: Sodium Chloride 0.9% 1000 ML 1,000 ML IV SCH (13:15)
[2022-02-18 13:35] LABS: Hematocrit 47.1 % (42-50); Hemoglobin 15.2 g/dL (12.5-18.0); Mean Cell Volume 90.8 fL (78-100); Mean Corpuscular Hemoglobin 29.3 pg (26-32); Mean Corpuscular Hgb Concent. 32.3 g/dL (32-36); Mean Platelet Volume 10.1 fL (7.5-11.0); Neutrophil % 53.9 % (36.0-66.0); Platelet Count 193 x10^3/uL (150-450); Red Blood Count 5.19 x10^6/uL (4.1-5.6); Red Cell Distribution Width 14.9 % (11.5-14.0)
[2022-02-18 13:41] LABS: White Blood Count 40.5 x10^3/uL (4.0-10.5)
[2022-02-18] MEDS ORDERED: MORPHINE SULFATE 2 MG INJ IV ONE (14:06)
[2022-02-18] MEDS ORDERED: Zofran 4 MG/2 ML VIAL IV ONE (14:06)
[2022-02-18 14:17] LABS: ALBUMIN 3.8 g/dL (3.5-5.0); ALKALINE PHOSPHATASE 57 U/L (38-126); ANION GAP 13.6 MEQ/L (5-15); BLOOD UREA NITROGEN 16 mg/dL (9-20); CHLORIDE 100 mmol/L (98-107); Carbon Dioxide 23 mmol/L (22-30); Creatinine 1 0.86 mg/dL (0.66-1.25); EST GLOMERULAR FILTRATION RATE > 60.0 ML/MIN; Glucose 86 mg/dL (74-106); NT PRO BNP 185 pg/mL (0-900); Potassium 3.4 mmol/L (3.5-5.1); SGOT/AST 44 U/L (17-59); SGPT/ALT 21 U/L (0-50); SODIUM 134 mmol/L (137-145); Total Protein 6.7 g/dL (6.3-8.2)
[2022-02-18] MEDS ORDERED: MORPHINE SULFATE 2 MG INJ ONE (14:18)
[2022-02-18 14:19] LABS: Group A Strep NOT DETECTED (NEGATIVE)
--- NOTE | 2022-02-18 14:28 | XRAY ---
Indication: Short of breath, hypoxia, and weakness. History COPD. Comparison: January 03, 2021. Portable apical lordotic chest again hyperinflated with chronic lung markings and tiny left base calcified granuloma. Remaining heart and lungs unremarkable. Bony thorax intact again with mild osteopenia and degenerative changes. No new/acute findings.
[2022-02-18 14:30] LABS: INFLUENZA A NEGATIVE (NEGATIVE); INFLUENZA B NEGATIVE (NEGATIVE); RESPIRATORY SYNCTIAL VIRUS NEGATIVE (Negative); SARS-CoV-2 Xpert Express NEGATIVE (NEGATIVE)
--- NOTE | 2022-02-18 15:25 | XRAY ---
Indication: Headache and weakness. Frequent falls. Leukocytosis. Leukemia. Multiple contiguous axial images obtained through the head without contrast. Comparison: April 18, 2020. Again age-appropriate global atrophy and mild periventricular degenerative micro-ischemia bilaterally. No acute intracranial hemorrhage, abnormal extra-axial fluid collection, or mass effect. Fourth ventricle is midline without hydrocephalus. Bony calvarium intact. Again mild mucoperiosteal thickening left maxillary sinus. Remaining visualized paranasal sinuses and mastoid air cells are clear. Impression: Continued nonacute senile brain with again incidental chronic left maxillary sinus disease.
[2022-02-18 17:10] LABS: Mucus SLIGHT /HPF (NEGATIVE)
[2022-02-18 17:18] LABS: Appearance CLEAR (CLEAR); Bilirubin NEGATIVE (NEGATIVE); Dipstick done @ ? MAIN LAB; Glucose NEGATIVE (NEGATIVE); Ketones MODERATE-40 (NEGATIVE); Nitrite NEGATIVE (NEGATIVE); Ph 5.5 (5-6); Protein,Urine Dip NEGATIVE (Negative); RBC NEGATIVE Ery/ul (0-5); Urobilinogen 0.2 mg/dL (0-1)
[2022-02-18 17:23] VITALS: BP 141/68
[2022-02-18 17:24] LABS: Urine Cultured Indicated? NO
[2022-02-18 18:06] VITALS: PULSE 83
[2022-02-18 18:09] VITALS: O2SAT 86
[2022-02-18 22:42] LABS: BAND 5 % (0.0-2.0); Basophil 1 % (0.0-1.0); Eosinophil 4 % (0.00-3.0); Lymphocytes 8 % (24-44); Metamyelocyte 12 %; Monocyte 7 % (0.0-12.0); Myelocyte 10 %; Promyelocyte 4 %; Total Cells Counted 100
[2022-02-18 22:45] LABS: ANISOCYTOSIS 1+; Platelet Estimate NORMAL (NORMAL); Polychromasia 1+
--- NOTE | 2022-02-19 08:35 | XRAY ---
Indication: Short of breath. Elevated d-dimer. Multiple contiguous axial images obtained through the chest using 98 cc Isovue 370 contrast and PE protocol. Comparison: January 27, 2014. There is good opacification of the pulmonary arteries to include the lobar and segmental branches. No pulmonary embolus. Heart is not enlarged. Aorta is mildly arteriosclerotic without aneurysm/dissection. No pathologic mediastinal/hilar lymphadenopathy. Lungs again demonstrates extensive diffuse pulmonary emphysema. Worsening bibasilar subsegmental atelectasis/scarring. Left upper lobe demonstrates new 9 mm indeterminant subpleural noncalcified nodule. No infiltrate, effusion, or pneumothorax. Bony thorax intact with mild osteopenia and minimal degenerative changes. Limited upper abdomen demonstrates interval cholecystectomy. Impression: 1. Negative pulmonary embolus. 2. New 9 mm indeterminant left upper lobe noncalcified nodule. Findings too small for PET/CT. Recommend follow-up per Fleischner guidelines. 3. Again extensive pulmonary emphysema with worsening bibasilar subsegmental atelectasis/scarring
== END 2022-02-18 18:33 | disposition home or self-care (01) ==
LOC: ED 12:35
DX: C92.10 Chronic myeloid leukemia, BCR/ABL-positive, not having achieved remission (principal); R53.1 Weakness; R09.02 Hypoxemia; Z91.81 History of falling; E11.9 Type 2 diabetes mellitus without complications; J44.9 Chronic obstructive pulmonary disease, unspecified; I10 Essential (primary) hypertension; Z79.84 Long term (current) use of oral hypoglycemic drugs; Z79.891 Long term (current) use of opiate analgesic; Z79.899 Other long term (current) drug therapy; Z20.828 Contact with and (suspected) exposure to other viral communicable diseases
CPT/HCPCS: 0241U; 36000; 36415; 70450; 71045; 71260; 80053; 81015; 83605; 83880; 84484; 85025; 85379; 86308; 87040; 87651; 93005; 94760; 96374; 96375; 99285; J2270; J2405; A9270-GY

== ENCOUNTER 2022-04-19 13:40 | Emergency (ER) | payer MEDICARE, OTHER ==
--- NOTE | 2022-04-19 13:48 | ERPHSYRPT ---
- History of Present Illness Time Seen by Provider: 04/19/22 13:47 Source: patient Exam Limitations: no limitations Physician History: This is a 76-year-old white male patient of Dr. Ryan who fell while working out in the yard in grass and broken concrete. Patient tripped and fell onto his right tibia. Patient presents with an abrasion and mild swelling of the skin overlying the mid tibia region. He is able to ambulate. His tetanus status is up-to-date. Patient is diabetic. He has a history of hypertension and COPD. This occurred prior to arrival. He did not hit his head. He has no neck pain. He has no headache. Occurred: just prior to arrival Quality: aching (Mid right tibia) Severity of Pain-Max: mild Severity of Pain-Current: mild Lower Extremities Pain: leg: right (Mid right tibia) Modifying Factors: Improves With: movement Associated Symptoms: other (Is able to bear weight but there is some pain present when he does so.) Allergies/Adverse Reactions: No Known Drug Allergies Allergy (Verified 04/19/22 13:46) Home Medications: Zolpidem Tartrate 10 mg PO HS PRN 06/11/15 [History] Ropinirole HCl 0.5 mg [Requip 0.5 MG] 0.5 mg PO HS 01/07/17 [History] Metformin HCl 500 mg [Glucophage 500 MG] 500 mg PO BID 04/22/17 [History] Budesonide/Formoterol Fumarate [Symbicort 160-4.5 Mcg Inhaler] 2 inh IH BID 03/04/18 [History] Gabapentin 600 mg PO TID 03/04/18 [History] Albuterol Sulfate [Ventolin Hfa] 2 puffs IH QID PRN 02/04/20 [History] Ferrous Sulfate 325 mg PO UD 02/04/20 [History] Tramadol HCl 50 mg [Ultram 50 mg] 50 mg PO BID PRN 04/18/20 [History] Hydrocodone/Acetaminophen [Hydrocodone-Acetamin 10-325 mg] 1 tablet PO UD PRN 02/18/22 [History] Tamsulosin HCl 0.4 mg [Flomax 0.4 MG] 0.4 mg PO DAILY 02/18/22 [History] Hx Tetanus, Diphtheria Vaccination/Date Given: No Hx Influenza Vaccination/Date Given: Yes Hx Pneumococcal Vaccination/Date Given: Yes Travel Risk - International Travel Have you traveled outside of the country in past 3 weeks: No - Coronavirus Screening Are you exhibiting any of the following symptoms?: No Close contact with a COVID-19 positive Pt in past 14-21 Days: No - Vaccine Status Have you recieved a Covid-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: Yes [employer]: Modern[employer] - Vaccination Dates Date of 2cond Vaccination (if applicable): 12/27 - Review of Systems Constitutional: No Symptoms Eyes: No Symptoms Ears, Nose, & Throat: No Symptoms Respiratory: No Symptoms Cardiac: No Symptoms Abdominal/Gastrointestinal: No Symptoms Genitourinary Symptoms: No Symptoms Musculoskeletal: Fall, Injury (Right mid tibia) Skin: Other (Abrasion of the skin overlying the right mid tibia) Neurological: No Symptoms Psychological: No Symptoms Endocrine: No Symptoms Hematologic/Lymphatic: No Symptoms Immunological/Allergic: No Symptoms All Other Systems: Reviewed and Negative - Past Medical History Pertinent Past Medical History: Yes Neurological History: Peripheral Neuropathy ENT History: Cataracts Cardiac History: Hypertension Respiratory History: COPD Endocrine Medical History: No Pertinent History Musculoskeletal History: Osteoarthritis GI Medical History: Other History: No Pertinent History Psycho-Social History: No Pertinent History Male Reproductive Disorders: Prostate Problems Other Medical History: HX OF ESOPHAGEAL DIFFICULTIES. PRN USE OF O2 AT HOME. HX OF ANEMIA, LOW K+, leukemia - Past Surgical History Past Surgical History: Yes Neuro Surgical History: No Pertinent History Cardiac: No Pertinent History Respiratory: No Pertinent History Gastrointestinal: Cholecystectomy Genitourinary: No Pertinent History Musculoskeletal: No Pertinent History Male Surgical History: No Pertinent History Other Surgical History: right big toenail ingrown toenail. t&a, [place] July 2018, left eye cataract removed and revision to a fold - Social History Smoking Status: Former smoker How long have you smoked: 40 years Exposure to second hand smoke: No Drug Use: none Patient Lives Alone: No - Nursing Vital Signs Nursing Vital Signs: Initial Vital Signs Temperature 98.5 F 04/19/22 13:46 Pulse Rate 94 H 04/19/22 13:46 Respiratory Rate 20 04/19/22 13:46 Blood Pressure 127/62 04/19/22 13:46 O2 Sat by Pulse Oximetry 95 04/19/22 13:46 Pain Scale Pain Intensity 9 - Physical Exam General Appearance: no apparent distress, alert Eyes, Ears, Nose, Throat Exam: normal ENT inspection, moist mucous membranes Neck Exam: normal inspection, non-tender, supple, full range of motion Cardiovascular/Respiratory Exam: chest non-tender, no respiratory distress Gastrointestinal/Abdominal Exam: non-tender Back Exam: normal inspection, normal range of motion, No CVA tenderness, No vertebral tenderness Hips Exam: bilateral: non-tender, normal inspection, normal range of motion, no evidence of injury Legs Exam: right leg: bone tenderness (Right mid tibia), soft tissue tenderness (Right mid tibia), swelling (Skin overlying right mid tibia), other (Abrasion of the skin overlying right mid tibia), left leg: non-tender, normal inspection, no evidence of injury, bilateral leg: normal range of motion Knees Exam: bilateral knee: non-tender, normal inspection, normal range of motion, no evidence of injury Ankle Exam: bilateral ankle: non-tender, normal inspection, normal range of motion, no evidence of injury Foot Exam: bilateral foot: non-tender, normal inspection, normal range of motion, no evidence of injury Neuro/Tendon Exam: normal sensation, normal motor functions, normal tendon functions, responds to pain, no evidence tendon injury Mental Status Exam: alert, 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, cooperative Skin Exam: abrasion (Skin overlying right mid tibia), ecchymosis (Mild skin overlying right mid tibia) SpO2 Interpretation: normal O2 Delivery: Room Air - Course Nursing assessment & vital signs reviewed: Yes Ordered Tests: Active Orders 24 hr Category Date Time Status LOWER LEG Stat Exams 04/19/22 13:48 Taken - Progress Progress: unchanged Progress Note: 04/19/22 14:30 X-ray right tibfib shows no acute fracture or dislocation. Counseled pt/family regarding: diagnosis, need for follow-up, rad results - Departure Departure Disposition: Home Clinical Impression: Contusion of right tibia, Abrasion of leg, right Condition: Stable Critical Care Time: No Referrals: IRINA RYAN [Primary Care Provider] - Follow up/PCP as directed Additional Instructions: Keep the abrasion site clean daily with soap and water. May apply thin layer of antibiotic ointment to abrasion sites twice a day and cover with bandage. Ice pack to area 3 times a day for the next 48 hours. Take the antibiotics as pre scribed. Prescriptions: Cephalexin Mh 500 mg [Keflex 500 mg] 500 mg PO TID #15 cap
[2022-04-19 14:41] VITALS: BP 135/89; PULSE 88; O2SAT 96
--- NOTE | 2022-04-19 14:42 | XRAY ---
Indication: Pain and swelling following fall. Comparison: None 2 portable views right lower leg demonstrates osteopenia, partially visualized total knee arthroplasty with grossly intact prosthesis, mild anterior soft tissue swelling, and minimal vascular calcifications. No other bony, articular, or soft tissue abnormalities.
== END 2022-04-19 14:47 | disposition home or self-care (01) ==
LOC: ED 13:40
DX: S80.811A Abrasion, right lower leg, initial encounter (principal); W01.0XXA Fall on same level from slipping, tripping and stumbling without subsequent striking against object, initial encounter; Y93.H9 Activity, other involving exterior property and land maintenance, building and construction; Y92.007 Garden or yard of unspecified non-institutional (private) residence as the place of occurrence of the external cause; I10 Essential (primary) hypertension; E11.9 Type 2 diabetes mellitus without complications; J44.9 Chronic obstructive pulmonary disease, unspecified; Z79.84 Long term (current) use of oral hypoglycemic drugs; Z79.899 Other long term (current) drug therapy
CPT/HCPCS: 73590; 99282

== ENCOUNTER 2022-05-01 16:47 | Emergency (ER) | payer MEDICARE, OTHER ==
[2022-05-01] MEDS ORDERED: HYDROCODONE-ACETAMIN 10-325 MG PO ONE (17:04)
--- NOTE | 2022-05-01 17:42 | ERPHSYRPT ---
- History of Present Illness Source: patient, family Exam Limitations: no limitations Patient Subjective Stated Complaint: Right knee pain Triage Nursing Assessment: Patient brought back to ED per w/c and transferred self to bed. Patient A+O x3. Patient's skin pink, warm and dry. Patient complains of right hip pain/knee and lower leg pain after a fall two days ago. No internal/external or shortening noted to right leg. Patient complains of pain 7/10. Occurred: days ago (2) Reason for Fall: lost balance, tripped Injuries/Pain Location: lower extremity (Right lower extremity from the hip to t he lower leg) Loss of Consciousness: no loss of consciousness Quality: throbbing Severity of Pain-Max: moderate Severity of Pain-Current: moderate Associated Symptoms (Fall): extremity injury, trouble walking Hx Tetanus, Diphtheria Vaccination/Date Given: No Hx Influenza Vaccination/Date Given: Yes Hx Pneumococcal Vaccination/Date Given: Yes Immunizations Up to Date: Yes <LORENE LINDQUIST - Last Filed: 05/01/22 18:41> <MIKAEL RIBERA - Last Filed: 05/01/22 20:37> - History of Present Illness Time Seen by Provider: 05/01/22 17:10 Physician History: Patient is a 76-year-old white male who fell 2 days ago. He presents complaining of right hip pain which radiates down to the right knee where he has had a knee replacement according to the patient. Also complains of pain in his right leg from a more remote fall. He has been able to bear a small amount of weight on the right lower extremity. He is in chronic pain patient and has had pain regardless and errors effective of his [employer]. (OLRENE LINDQUSIT) Allergies/Adverse Reactions: No Known Drug Allergies Allergy (Verified 05/01/22 17:00) Home Medications: Zolpidem Tartrate 10 mg PO HS PRN 06/11/15 [History] Ropinirole HCl 0.5 mg [Requip 0.5 MG] 0.5 mg PO HS 01/07/17 [History] Metformin HCl 500 mg [Glucophage 500 MG] 500 mg PO BID 04/22/17 [History] Budesonide/Formoterol Fumarate [Symbicort 160-4.5 Mcg Inhaler] 2 inh IH BID 03/04/18 [History] Gabapentin 600 mg PO TID 03/04/18 [History] Albuterol Sulfate [Ventolin Hfa] 2 puffs IH QID PRN 02/04/20 [History] Ferrous Sulfate 325 mg PO UD 02/04/20 [History] Tramadol HCl 50 mg [Ultram 50 mg] 50 mg PO BID PRN 04/18/20 [History] Hydrocodone/Acetaminophen [Hydrocodone-Acetamin 10-325 mg] 1 tablet PO UD PRN 02/18/22 [History] Tamsulosin HCl 0.4 mg [Flomax 0.4 MG] 0.4 mg PO DAILY 02/18/22 [History] Travel Risk - International Travel Have you traveled outside of the country in past 3 weeks: No - Coronavirus Screening Are you exhibiting any of the following symptoms?: No Close contact with a COVID-19 positive Pt in past 14-21 Days: No - Vaccine Status Have you recieved a Covid-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: 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[place] - Vaccination Dates Date of 2cond Vaccination (if applicable): 12/27 <LORENE LINDQUIST - Last Filed: 05/01/22 18:41> - Review of Systems Constitutional: No Fever, No Chills Eyes: No Symptoms Ears, Nose, & Throat: No Symptoms Respiratory: No Cough, No Dyspnea Cardiac: No Chest Pain, No Edema, No Syncope Abdominal/Gastrointestinal: No Abdominal Pain, No Nausea, No Vomiting, No Diarrhea Genitourinary Symptoms: No Dysuria Musculoskeletal: Fall, Injury, Joint Pain, No Back Pain, No Neck Pain Skin: No Rash Neurological: No Dizziness, No Focal Weakness, No Sensory Changes Psychological: No Symptoms Endocrine: No Symptoms All Other Systems: Reviewed and Negative <LORENE LINDQUIST - Last Filed: 05/01/22 18:41> - Past Medical History Pertinent Past Medical History: Yes Neurological History: Peripheral Neuropathy ENT History: Cataracts Cardiac History: Hypertension Respiratory History: COPD Endocrine Medical History: No Pertinent History Musculoskeletal History: Osteoarthritis GI Medical History: Other History: No Pertinent History Psycho-Social History: No Pertinent History Male Reproductive Disorders: Prostate Problems Other Medical History: HX OF ESOPHAGEAL DIFFICULTIES. PRN USE OF O2 AT HOME. HX OF ANEMIA, LOW K+, leukemia - Past Surgical History Past Surgical History: Yes Neuro Surgical History: No Pertinent History Cardiac: No Pertinent History Respiratory: No Pertinent History Gastrointestinal: Cholecystectomy Genitourinary: No Pertinent History Musculoskeletal: Orthopedic Surgery Male Surgical History: No Pertinent History Other Surgical History: right big toenail ingrown toenail. t&a, [place] July 2018, left eye cataract removed and revision to a fold. right knee replacement 2020 - Social History Smoking Status: Former smoker How long have you smoked: 40 years Exposure to second hand smoke: No Drug Use: none Patient Lives Alone: No <LORENE LINDQUIST - Last Filed: 05/01/22 18:41> - Markos Coma Score Best Eye Response (Friona): (4) open spontaneously Best Verbal Response (Markos): (5) oriented Best Motor Response (Markos): (6) obeys commands Friona Total: 15 - Physical Exam General Appearance: mild distress, alert Head Injury: no evidence of injury Eye Exam: PERRL/EOMI ENT Exam: airway nml Neck Exam: normal inspection, No tenderness Respiratory/Chest Exam: normal breath sounds, No chest tenderness, No respiratory distress Cardiovascular Exam: normal heart sounds, regular rate/rhythm Gastrointestinal Exam: soft, No tenderness, No distention, No guarding, No ecchymosis Back Exam: normal inspection, No vertebral tenderness Extremity Exam: normal inspection, normal range of motion, pelvis stable, limited range of motion (Limited range of motion right hip and right knee some bony tenderness.), pain with movement, weight bearing, tenderness, No deformities Neurologic Exam: alert, 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, cooperative, sensation nml, No motor deficits Skin Exam: normal color, warm, dry SpO2 Interpretation: normal SpO2: 95 O2 Delivery: Room Air <LORENE LINDQUIST - Last Filed: 05/01/22 18:41> - Nursing Vital Signs Nursing Vital Signs: Initial Vital Signs Temperature 97.9 F 05/01/22 17:00 Pulse Rate 88 05/01/22 17:00 Respiratory Rate 18 05/01/22 17:00 Blood Pressure 132/59 05/01/22 17:00 O2 Sat by Pulse Oximetry 95 05/01/22 17:00 Pain Scale Pain Intensity 7 - Course Nursing assessment & vital signs reviewed: Yes - Radiology Exams Hip X-ray Interpretation: Interpreted by me, Other (Probable impacted fracture anatomic neck hip) <LORENE LINDQUIST - Last Filed: 05/01/22 18:41> Ordered Tests: Active Orders 24 hr Category Date Time Status HIP UNI (2V) INCL PEL IF DONE Stat Exams 05/01/22 18:37 Taken KNEE (3 VIEWS) Stat Exams 05/01/22 17:06 Taken LOWER EXTREMITY WO CONTRAST [CT] Stat Exams 05/01/22 18:39 Taken LOWER LEG Stat Exams 05/01/22 17:07 Taken Medication Summary Generic Name Dose Route Start Last Admin Trade Name Freq PRN Reason Stop Dose Admin Morphine Sulfate 4 mg 05/01/22 20:30 Morphine Sulfate 4 Mg/Ml Injection IV 05/01/22 20:31 STAT ONE Discontinued Medications Generic Name Dose Route Start Last Admin Trade Name Freq PRN Reason Stop Dose Admin Hydrocodone Bitart/Acetaminophen 1 tablet 05/01/22 17:04 05/01/22 17:35 Hydrocodone/Acetamin 10-325 Mg Tablet PO 05/01/22 17:05 1 tablet ONCE ONE Administration - Progress Progress: unchanged <LORENE LINDQUIST - Last Filed: 05/01/22 18:41> - Progress Counseled pt/family regarding: diagnosis, rad results <MIKAEL RIBERA - Last Filed: 05/01/22 20:37> - Progress Progress Note: Patient reassessed. He is requesting addition of no pain medication. 4 mg morphine ordered. CAT scan reveals a new nondisplaced nonangulated subcapital fracture of the right hip. Patient advised of the findings. We will transfer patient to [facility] for further evaluation and treatment. Case discussed with who accepts transfer. Plan of care discussed with patient and family. They agree to transfer to [facility] for further evaluation and treatment. Portions of this note were created with voice recognition technology. There may be grammatical, spelling, punctuation or sound alike errors 05/01/22 20:31 (MIKAEL RIBERA) - Departure Departure Disposition: Transfer Critical Care Time: No <LORENE LINDQUIST - Last Filed: 05/01/22 18:41> <MIKAEL RIBERA - Last Filed: 05/01/22 20:37> - Departure Clinical Impression: Closed right hip fracture Condition: Stable Referrals: IRINA KINGSTON [Primary Care Provider] - Follow up/PCP as directed
[2022-05-01 20:19] VITALS: O2SAT 94
[2022-05-01] MEDS ORDERED: MORPHINE SULFATE 4 MG INJ IV ONE (20:30)
[2022-05-01] MEDS ORDERED: MORPHINE SULFATE 4 MG INJ ONE (20:34)
[2022-05-01 21:19] VITALS: BP 123/64; PULSE 85
--- NOTE | 2022-05-02 08:44 | XRAY ---
Indication: Pain following fall one week ago. Comparison: April 19, 2022 2 view right lower leg unchanged again demonstrating osteopenia, intact total knee arthroplasty, and scattered vascular calcifications. No new/acute bony, articular, or soft tissue abnormalities.
--- NOTE | 2022-05-02 08:44 | XRAY ---
Indication: Pain following fall one week ago. Comparison: None 3 view right knee demonstrates osteopenia, intact total knee arthroplasty, and scattered vascular calcifications. No other bony, articular, or soft tissue abnormalities.
--- NOTE | 2022-05-02 08:46 | XRAY ---
Indication: Pain following fall one week ago. Comparison: March 29, 2016 AP pelvis and 2 view right hip demonstrates new nondisplaced right subcapital femur fracture. Remaining exam unchanged again demonstrating osteopenia, minimal degenerative changes both hips, and minimal scattered vascular calcifications.
--- NOTE | 2022-05-02 08:48 | XRAY ---
Indication: Right hip pain following fall 3 days ago. Right femur subcapital fracture on same day hip exam. Multiple contiguous axial images obtained through the right hip. Sagittal and coronal reformatted images obtained. Comparison: June 11, 2015 Osseous structures demineralized consistent with patient's age and mild degenerative joint space narrowing. Nondisplaced non-angulated subcapital femur fracture. No other acute fracture or suspicious bony lesions. Visualized right SI joint intact. Visualized noncontrasted soft tissues unremarkable with incidental mild scattered vascular calcifications. Impression: Right subcapital femur fracture. Incidental osteopenia and scattered vascular calcifications.
== END 2022-05-01 22:22 | disposition short-term general hospital (02) ==
LOC: ED 16:47
DX: S72.011A Unspecified intracapsular fracture of right femur, initial encounter for closed fracture (principal); W19.XXXA Unspecified fall, initial encounter; M25.551 Pain in right hip; I10 Essential (primary) hypertension; J44.9 Chronic obstructive pulmonary disease, unspecified; Z79.891 Long term (current) use of opiate analgesic; Z79.899 Other long term (current) drug therapy
CPT/HCPCS: 36000; 73502; 73562; 73590; 73700; 96374; 99284; J2270; A9270-GY

== ENCOUNTER 2022-09-16 17:17 | Emergency (ER) | payer MEDICARE, OTHER ==
[2022-09-16 18:54] LABS: Absolute Neutrophil Ct (ANC) 3.65 x10^3/uL (1.4-6.9); Eosinophil % 3.5 % (0.00-5.0); Eosinophil (Absolute #) 0.25 x10^3/uL (0-0.5); Hematocrit 26.7 % (42-50); Hemoglobin 7.6 g/dL (12.5-18.0); Lymphocyte (Absolute #) 0.83 x10^3/uL (1.0-4.6); Lymphocytes % 11.8 % (24.0-44.0); Mean Cell Volume 75.2 fL (78-100); Mean Corpuscular Hemoglobin 21.4 pg (26-32); Mean Corpuscular Hgb Concent. 28.5 g/dL (32-36); Mean Platelet Volume 9.9 fL (7.5-11.0); Monocytes % 24.1 % (0.0-12.0); Neutrophil % 51.7 % (36.0-66.0); Platelet Count 371 x10^3/uL (150-450); Red Blood Count 3.55 x10^6/uL (4.1-5.6); Red Cell Distribution Width 19.2 % (11.5-14.0); White Blood Count 7.1 x10^3/uL (4.0-10.5)
[2022-09-16 19:05] LABS: ALBUMIN 3.6 g/dL (3.5-5.0); ALKALINE PHOSPHATASE 114 U/L (38-126); ANION GAP 9.1 MEQ/L (5-15); BLOOD UREA NITROGEN 16 mg/dL (9-20); CHLORIDE 109 mmol/L (98-107); Calcium 9.2 mg/dL (8.4-10.2); Carbon Dioxide 24 mmol/L (22-30); Creatinine 1 0.63 mg/dL (0.66-1.25); EST GLOMERULAR FILTRATION RATE > 60.0 ML/MIN; Glucose 102 mg/dL (74-106); Potassium 3.6 mmol/L (3.5-5.1); SGOT/AST 26 U/L (17-59); SGPT/ALT 17 U/L (0-50); SODIUM 139 mmol/L (137-145); Total Protein 6.6 g/dL (6.3-8.2)
--- NOTE | 2022-09-16 19:05 | ERPHSYRPT ---
- History of Present Illness Time Seen by Provider: 09/16/22 19:01 Source: patient Exam Limitations: no limitations Patient Subjective Stated Complaint: C/O increased confusion and drowsiness by . Patient has no current complaints. also indicates that patient has been incontinent of bowel and bladder today and that this has never happened before. denies any falls at home. Triage Nursing Assessment: Patient brought into the ER by ambulance. No SOB. Patient wakes briefly to name and answers some yes/no questions before falling back asleep. He denies pain and is not currently showing any s/s of pain. He will not follow any commands given to him by nursing staff to complete NIHSS appropriately. BLE 2+ pitting edema present. Physician History: Patient is 76-year-old male presents to our ED for evaluation of confusion. Patient arrived via EMS. states he has been drowsy all day today. Patient has no complaints. He denies pain. states patient has been incontinent. He has never had issues with bowel bladder function in the past. No falls no trauma. No fever. Patient has a history of leukemia. Patient awakes to tactile verbal stimulation. They voiced no other complaints or concerns at this time. at bedside. She voices no other complaints or concerns at this time. Timing/Duration: today Severity: moderate Modifying Factors: Improves With: nothing Associated Symptoms: denies symptoms Allergies/Adverse Reactions: No Known Drug Allergies Allergy (Verified 09/16/22 17:25) Home Medications: Zolpidem Tartrate 10 mg PO HS PRN 06/11/15 [History] Ropinirole HCl 0.5 mg [Requip 0.5 MG] 0.5 mg PO HS 01/07/17 [History] Ferrous Sulfate 325 mg PO DAILY 02/04/20 [History] Tamsulosin HCl 0.4 mg [Flomax 0.4 MG] 0.4 mg PO DAILY 02/18/22 [History] Omeprazole Magnesium 1 tab PO DAILY 09/16/22 [History] Oxycodone HCl 10 mg PO Q4-6HPRN PRN 09/16/22 [History] Torsemide 20 mg [Demadex 20 mg] 1 tab PO BID 09/16/22 [History] Hx Tetanus, Diphtheria Vaccination/Date Given: Yes Hx Influenza Vaccination/Date Given: Yes Hx Pneumococcal Vaccination/Date Given: Yes Immunizations Up to Date: Yes Travel Risk - International Travel Have you traveled outside of the country in past 3 weeks: No - Coronavirus Screening Are you exhibiting any of the following symptoms?: No Close contact with a COVID-19 positive Pt in past 14-21 Days: No - Vaccine Status Have you recieved a Covid-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: Yes Car Scrubber: Moderna - Vaccination Dates Date of 2cond Vaccination (if applicable): 12/27 - Past Medical History Pertinent Past Medical History: Yes Neurological History: Peripheral Neuropathy ENT History: Cataracts Cardiac History: Hypertension Respiratory History: COPD Endocrine Medical History: No Pertinent History Musculoskeletal History: Osteoarthritis GI Medical History: GERD, Other History: No Pertinent History Psycho-Social History: No Pertinent History Male Reproductive Disorders: Prostate Problems Other Medical History: ANEMIA, Hypokalemia, leukemia, insomnia, BPH - Past Surgical History Past Surgical History: Yes Neuro Surgical History: No Pertinent History Cardiac: No Pertinent History Respiratory: No Pertinent History Gastrointestinal: Cholecystectomy Genitourinary: No Pertinent History Musculoskeletal: Orthopedic Surgery Male Surgical History: No Pertinent History Other Surgical History: right knee replacement 2020 - Social History Smoking Status: Former smoker How long have you smoked: 40 years Exposure to second hand smoke: No Drug Use: none Patient Lives Alone: No - Nursing Vital Signs Nursing Vital Signs: Initial Vital Signs Temperature 98.6 F 09/16/22 17:26 Pulse Rate 88 09/16/22 17:26 Respiratory Rate 18 09/16/22 17:26 Blood Pressure 121/53 09/16/22 17:26 O2 Sat by Pulse Oximetry 96 09/16/22 17:26 Pain Scale Pain Intensity 0 - Physical Exam General Appearance: no apparent distress, lethargy Eye Exam: PERRL/EOMI, eyes nml inspection Ears, Nose, Throat Exam: normal ENT inspection, TMs normal, pharynx normal, mois t mucous membranes Neck Exam: normal inspection, non-tender, supple, full range of motion Respiratory Exam: normal breath sounds, lungs clear, airway intact, No respiratory distress Cardiovascular Exam: regular rate/rhythm, normal heart sounds, normal peripheral pulses Gastrointestinal/Abdomen Exam: soft, normal bowel sounds, No tenderness, No mass Back Exam: normal inspection, normal range of motion, No CVA tenderness, No vertebral tenderness Extremity Exam: normal inspection, normal range of motion, pelvis stable Neurologic Exam: other (Patient is sleepy. He is arousable to tactile and verbal stimulation. He is focal or lateralizing symptoms. Symmetrical smile.), No motor deficits Skin Exam: normal color, warm, dry, No rash Lymphatic Exam: No adenopathy SpO2 Interpretation: normal SpO2: 97 O2 Delivery: Room Air - Course Nursing assessment & vital signs reviewed: Yes - Radiology Exams Chest X-ray Interpretation: Teleradiologist Report (New subtle bibasilar infiltrate versus atelectasis compared to 02/18/2022.) - CT Exams Head CT Interpretation: Tele-radiologist Report (Compared to 02/18/2022 new motion artifact limits exams. Otherwise grossly negative head) Ordered Tests: Active Orders 24 hr Category Date Time Status New Car Get Ready Mechanic STAT Care 09/16/22 17:37 Active IV Insertion STAT Care 09/16/22 17:37 Active Pulse Oximetry (ED) STAT Care 09/16/22 17:37 Active CHEST 1 VIEW (PORTABLE) Stat Exams 09/16/22 17:37 Taken HEAD WITHOUT CONTRAST [CT] Stat Exams 09/16/22 17:39 Taken ACETAMINOPHEN Stat Lab 09/16/22 19:06 Completed BLOOD CULTURE Stat Lab 09/16/22 18:25 Received BNP [NT PRO BNP] Stat Lab 09/16/22 19:12 Completed CBC W DIFF Stat Lab 09/16/22 18:25 Completed CMP Stat Lab 09/16/22 18:25 Completed ETHYL ALCOHOL Stat Lab 09/16/22 19:06 Completed Lactic Acid Stat Lab 09/16/22 18:40 Completed SALICYLATE Stat Lab 09/16/22 19:06 Completed UA W/RFX UR CULTURE Stat Lab 09/16/22 19:17 Completed Urine Triage Profile Stat Lab 09/16/22 19:17 Completed Medication Summary Discontinued Medications Generic Name Dose Route Start Last Admin Trade Name Freq PRN Reason Stop Dose Admin Hydrocodone Bitart/Acetaminophen 1 tab 09/17/22 03:02 09/17/22 03:03 Hydrocodone/Apap 5/325 1 Tab Tablet PO 09/17/22 03:03 1 tab STAT ONE Administration Hydrocodone Bitart/Acetaminophen Confirm 09/17/22 03:02 Hydrocodone/Apap 5/325 1 Tab Tablet Administered 09/17/22 03:03 Dose 1 tab .ROUTE .STK-MED ONE Lorazepam 0.5 mg 09/16/22 21:26 09/16/22 21:43 Lorazepam 2 Mg/1 Ml 2 Mg Vial IV 09/16/22 21:27 0.5 mg ONCE STA Administration Lorazepam Confirm 09/16/22 21:43 Lorazepam 2 Mg/1 Ml 2 Mg Vial Administered 09/16/22 21:44 Dose 2 mg .ROUTE .STK-MED ONE Lab/Rad Data: Laboratory Result Diagrams 09/16/22 18:25 09/16/22 18:25 Laboratory Results 09/16/22 09/16/22 09/16/22 Range/Units 19:17 19:17 19:12 WBC (4.0-10.5) x10^3/uL RBC (4.1-5.6) x10^6/uL Hgb (12.5-18.0) g/dL Hct (42-50) % MCV (78-100) fL MCH (26-32) pg MCHC (32-36) g/dL RDW (11.5-14.0) % Plt Count (150-450) x10^3/uL MPV (7.5-11.0) fL Gran % (36.0-66.0) % Immature Gran % (Auto) (0.00-0.4) % Nucleat RBC Rel Count (0.00-0.1) % Eos # (Auto) (0-0.5) x10^3/uL Immature Gran # (Auto) (0.00-0.03) x10^3u/L Absolute Lymphs (auto) (1.0-4.6) x10^3/uL Absolute Monos (auto) (0.0-1.3) x10^3/uL Absolute Nucleated RBC (0.00-0.01) x10^3u/L Lymphocytes % (24.0-44.0) % Monocytes % (0.0-12.0) % Eosinophils % (0.00-5.0) % Basophils % (0.0-0.4) % Absolute Granulocytes (1.4-6.9) x10^3/uL Basophils # (0-0.4) x10^3/uL Sodium (137-145) mmol/L Potassium (3.5-5.1) mmol/L Chloride (98-107) mmol/L Carbon Dioxide (22-30) mmol/L Anion Gap (5-15) MEQ/L BUN (9-20) mg/dL Creatinine (0.66-1.25) mg/dL Estimated GFR ML/MIN Glucose (74-106) mg/dL Lactic Acid (0.4-2.0) Calcium (8.4-10.2) mg/dL Total Bilirubin (0.2-1.3) mg/dL AST (17-59) U/L ALT (0-50) U/L Alkaline Phosphatase (38-126) U/L NT-Pro-B Natriuret Pep 298 (0-900) pg/mL Serum Total Protein (6.3-8.2) g/dL Albumin (3.5-5.0) g/dL Urine Color Yellow (Yellow) Urine Appearance Clear (Clear) Urine pH 7.5 (4.6-8.0) Ur Specific [place] 1.010 (1.005-1.030) Urine Protein Negative (Negative) Urine Glucose (UA) Negative (Negative) mg/dL Urine Ketones Negative (Negative) Urine Blood Negative (Negative) Urine Nitrite Negative (Negative) Urine Bilirubin Negative (Negative) Urine Urobilinogen 1.0 A (0.2) mg/dL Ur Leukocyte Esterase Trace A (Negative) U Hyaline Cast (Auto) 0-2 (0-2) /LPF Urine Microscopic RBC 0-2 (0-5) /HPF Urine Microscopic WBC 0-2 (0-5) /HPF Ur Epithelial Cells None Seen (None Seen) /HPF Urine Bacteria None Seen (None Seen) /HPF Urine Culture Reflexed NO (NO) Salicylates (2-20) mg/dL Urine Opiates Level NEGATIVE (NEGATIVE) Ur Methadone NEGATIVE (NEGATIVE) Acetaminophen (10-30) ug/ml Urine Barbiturates NEGATIVE (NEGATIVE) Ur Phencyclidine (PCP) NEGATIVE (NEGATIVE) Urine Amphetamine NEGATIVE (NEGATIVE) U Benzodiazepine Level NEGATIVE (NEGATIVE) Urine Cocaine NEGATIVE (NEGATIVE) Urine Marijuana (THC) NEGATIVE (NEGATIVE) Ethyl Alcohol (0-10) mg/dL Influenza Type A Ag (NEGATIVE) Influenza Type B Ag (NEGATIVE) RSV (PCR) (Negative) SARS-CoV-2 (PCR) (NEGATIVE) Slides for Path Review 0109/16/22 09/16/22 Range/Units 19:06 18:40 18:25 WBC (4.0-10.5) x10^3/uL RBC (4.1-5.6) x10^6/uL Hgb (12.5-18.0) g/dL Hct (42-50) % MCV (78-100) fL MCH (26-32) pg MCHC (32-36) g/dL RDW (11.5-14.0) % Plt Count (150-450) x10^3/uL MPV (7.5-11.0) fL Gran % (36.0-66.0) % Immature Gran % (Auto) (0.00-0.4) % Nucleat RBC Rel Count (0.00-0.1) % Eos # (Auto) (0-0.5) x10^3/uL Immature Gran # (Auto) (0.00-0.03) x10^3u/L Absolute Lymphs (auto) (1.0-4.6) x10^3/uL Absolute Monos (auto) (0.0-1.3) x10^3/uL Absolute Nucleated RBC (0.00-0.01) x10^3u/L Lymphocytes % (24.0-44.0) % Monocytes % (0.0-12.0) % Eosinophils % (0.00-5.0) % Basophils % (0.0-0.4) % Absolute Granulocytes (1.4-6.9) x10^3/uL Basophils # (0-0.4) x10^3/uL Sodium (137-145) mmol/L Potassium (3.5-5.1) mmol/L Chloride (98-107) mmol/L Carbon Dioxide (22-30) mmol/L Anion Gap (5-15) MEQ/L BUN (9-20) mg/dL Creatinine (0.66-1.25) mg/dL Estimated GFR ML/MIN Glucose (74-106) mg/dL Lactic Acid 1.8 (0.4-2.0) Calcium (8.4-10.2) mg/dL Total Bilirubin (0.2-1.3) mg/dL AST (17-59) U/L ALT (0-50) U/L Alkaline Phosphatase (38-126) U/L NT-Pro-B Natriuret Pep (0-900) pg/mL Serum Total Protein (6.3-8.2) g/dL Albumin (3.5-5.0) g/dL Urine Color (Yellow) Urine Appearance (Clear) Urine pH (4.6-8.0) Ur Specific [place] (1.005-1.030) Urine Protein (Negative) Urine Glucose (UA) (Negative) mg/dL Urine Ketones (Negative) Urine Blood (Negative) Urine Nitrite (Negative) Urine Bilirubin (Negative) Urine Urobilinogen (0.2) mg/dL Ur Leukocyte Esterase (Negative) U Hyaline Cast (Auto) (0-2) /LPF Urine Microscopic RBC (0-5) /HPF Urine Microscopic WBC (0-5) /HPF Ur Epithelial Cells (None Seen) /HPF Urine Bacteria (None Seen) /HPF Urine Culture Reflexed (NO) Salicylates < 1.0 L (2-20) mg/dL Urine Opiates Level (NEGATIVE) Ur Methadone (NEGATIVE) Acetaminophen < 10 L (10-30) ug/ml Urine Barbiturates (NEGATIVE) Ur Phencyclidine (PCP) (NEGATIVE) Urine Amphetamine (NEGATIVE) U Benzodiazepine Level (NEGATIVE) Urine Cocaine (NEGATIVE) Urine Marijuana (THC) (NEGATIVE) Ethyl Alcohol < 10 (0-10) mg/dL Influenza Type A Ag NEGATIVE (NEGATIVE) Influenza Type B Ag NEGATIVE (NEGATIVE) RSV (PCR) NEGATIVE (Negative) SARS-CoV-2 (PCR) NEGATIVE (NEGATIVE) Slides for Path Review 09/16/22 09/16/22 Range/Units 18:25 18:25 WBC 7.1 (4.0-10.5) x10^3/uL RBC 3.55 L (4.1-5.6) x10^6/uL Hgb 7.6 L (12.5-18.0) g/dL Hct 26.7 L (42-50) % MCV 75.2 L (78-100) fL MCH 21.4 L (26-32) pg MCHC 28.5 L (32-36) g/dL RDW 19.2 H (11.5-14.0) % Plt Count 371 (150-450) x10^3/uL MPV 9.9 (7.5-11.0) fL Gran % 51.7 (36.0-66.0) % Immature Gran % (Auto) 4.7 H (0.00-0.4) % Nucleat RBC Rel Count 0.4 H (0.00-0.1) % Eos # (Auto) 0.25 (0-0.5) x10^3/uL Immature Gran # (Auto) 0.33 H (0.00-0.03) x10^3u/L Absolute Lymphs (auto) 0.83 L (1.0-4.6) x10^3/uL Absolute Monos (auto) 1.70 H (0.0-1.3) x10^3/uL Absolute Nucleated RBC 0.03 H (0.00-0.01) x10^3u/L Lymphocytes % 11.8 L (24.0-44.0) % Monocytes % 24.1 H (0.0-12.0) % Eosinophils % 3.5 (0.00-5.0) % Basophils % 4.2 (0.0-0.4) % Absolute Granulocytes 3.65 (1.4-6.9) x10^3/uL Basophils # 0.30 (0-0.4) x10^3/uL Sodium 139 (137-145) mmol/L Potassium 3.6 (3.5-5.1) mmol/L Chloride 109 H (98-107) mmol/L Carbon Dioxide 24 (22-30) mmol/L Anion Gap 9.1 (5-15) MEQ/L BUN 16 (9-20) mg/dL Creatinine 0.63 L (0.66-1.25) mg/dL Estimated GFR > 60.0 ML/MIN Glucose 102 (74-106) mg/dL Lactic Acid (0.4-2.0) Calcium 9.2 (8.4-10.2) mg/dL Total Bilirubin 1.50 H (0.2-1.3) mg/dL AST 26 (17-59) U/L ALT 17 (0-50) U/L Alkaline Phosphatase 114 (38-126) U/L NT-Pro-B Natriuret Pep (0-900) pg/mL Serum Total Protein 6.6 (6.3-8.2) g/dL Albumin 3.6 (3.5-5.0) g/dL Urine Color (Yellow) Urine Appearance (Clear) Urine pH (4.6-8.0) Ur Specific [place] (1.005-1.030) Urine Protein (Negative) Urine Glucose (UA) (Negative) mg/dL Urine Ketones (Negative) Urine Blood (Negative) Urine Nitrite (Negative) Urine Bilirubin (Negative) Urine Urobilinogen (0.2) mg/dL Ur Leukocyte Esterase (Negative) U Hyaline Cast (Auto) (0-2) /LPF Urine Microscopic RBC (0-5) /HPF Urine Microscopic WBC (0-5) /HPF Ur Epithelial Cells (None Seen) /HPF Urine Bacteria (None Seen) /HPF Urine Culture Reflexed (NO) Salicylates (2-20) mg/dL Urine Opiates Level (NEGATIVE) Ur Methadone (NEGATIVE) Acetaminophen (10-30) ug/ml Urine Barbiturates (NEGATIVE) Ur Phencyclidine (PCP) (NEGATIVE) Urine Amphetamine (NEGATIVE) U Benzodiazepine Level (NEGATIVE) Urine Cocaine (NEGATIVE) Urine Marijuana (THC) (NEGATIVE) Ethyl Alcohol (0-10) mg/dL Influenza Type A Ag (NEGATIVE) Influenza Type B Ag (NEGATIVE) RSV (PCR) (Negative) SARS-CoV-2 (PCR) (NEGATIVE) Slides for Path Review YES - Progress Progress: improved Progress Note: Patient is a poor historian. providing pertinent information for our history of present illness 09/16/22 19:[address] Ordaz covering Dr. gilman who advised transfer to [facility] for interventional lumbar puncture to assess cytology for leptomeningeal involvement. He did not advise transfusing patient. 09/16/22 20:52 Were unable to transfer patient. Case discussed with Dr. Kapadia who declined admission and advised continue trying to transfer patient to [facility]/outside hospital as we do not have the services available to perform interventional lumbar puncture. Per RN, surrounding hospitals do not have the beds available to accomodate transfer. 09/17/22 03:13 Chest x-ray was initially read by ED physician as unchanged with bibasilar atelectasis. Dr. Ruiz requested to confirm findings. Dr. Ruiz read as possible bilateral lobar infiltrates versus atelectasis. Patient has no respiratory complaints. No respiratory clinical findings. No cough. No shortness of breath no hypoxia no fever. However we will cover for possible pneumonia in light of the read by the radiologist. 09/17/22 06:58 Patient is a 76-year-old male with a history of leukemia presents to our ED with altered mental status. Patient had a bout of incontinence. Upon arrival patient was lethargic but arousable to verbal and tactile stimulation. Patient symptoms are acute. Complexity of the problems is moderate to severe. Patient's history of leukemia may be a complicated comorbidity. Testing ordered include laboratory work-up, blood cultures chest x-ray, CT head. Results reviewed. Results were implemented in formulating medical decision making. We obtain outside medical records from [facility]. Medical records reviewed including hemoglobin. Patient's hemoglobin today was low at 7.6. Patient previous hemoglobin was 7.2. Medical records were faxed over to us and are currently in patient's chart. Patient received acetaminophen for initial temperature of 100. Patient was somewhat agitated later during his stay patient received a dose of lorazepam. Per 's request home pain medication was administered. Chest x-ray revealed possible bilateral infiltrates. Antibiotics infused. IV fluids infused for maintenance of hydration. Consultations with oncology specifically Dr. Ordaz. Dr. Ordaz advised transfer to [facility], as patient's oncologist is on staff at [facility]. Dr. Ordaz advised patient will require a interventional radiology guided lumbar puncture to assess for cytology for possible leptomeningeal involvement of leukemia Consultation with Dr. Kapadia our hospitalist declined admission due to lack of services to provide our patient care. Plan of care discussed with patient and family. They agree to transfer to [facility] however in the hospital unable to accommodate transfer at this time. Level of EM service provided was moderate to high. Complexity of problem was moderate to high. Complexity of data reviewed and analyzed is moderate to high. Risk for complication is moderate to high. Patient's provided most of the history pertaining to the history of present illness. No physician/allergy/immunology required. We are currently awaiting transfer to [facility]. Patient endorsed to incoming physician at change of shift.. Portions of this note were created with voice recognition technology. There may be grammatical, spelling, punctuation or sound alike errors 09/17/22 07:52 Counseled pt/family regarding: lab results, diagnosis, need for follow-up, rad results - Departure Departure Disposition: Home Clinical Impression: Altered mental status, Microcytic anemia Condition: Stable Critical Care Time: No Referrals: IRINA KINGSTON [Primary Care Provider] - Follow up/PCP as directed
[2022-09-16 19:31] LABS: INFLUENZA A NEGATIVE (NEGATIVE); INFLUENZA B NEGATIVE (NEGATIVE); RESPIRATORY SYNCTIAL VIRUS NEGATIVE (Negative); SARS-CoV-2 Xpert Express NEGATIVE (NEGATIVE)
[2022-09-16 19:33] LABS: ACETAMINOPHEN < 10 ug/ml (10-30); ETHYL ALCOHOL < 10 mg/dL (0-10); SALICYLATE < 1.0 mg/dL (2-20)
[2022-09-16 19:38] LABS: Appearance Clear (Clear); Bacteria None Seen /HPF (None Seen); Bilirubin Negative (Negative); Blood Negative (Negative); Epithelial Cells None Seen /HPF (None Seen); Glucose, Urine Negative (Negative); Hyaline Casts 0-2 /LPF (0-2); Ketones Negative (Negative); Leukocyte Esterase Trace (Negative); Nitrite Negative (Negative); Ph 7.5 (4.6-8.0); Protein,Urine Dip Negative (Negative); RBC 0-2 /HPF (0-5); WBC 0-2 /HPF (0-5)
[2022-09-16 19:48] LABS: Amphetamine,Urine NEGATIVE (NEGATIVE); Barbiturate,Urine NEGATIVE (NEGATIVE); Benzodiazepine,Urine NEGATIVE (NEGATIVE); Cocaine,Urine NEGATIVE (NEGATIVE); Methadone,Urine NEGATIVE (NEGATIVE); Opiate,Urine NEGATIVE (NEGATIVE); PCP,Urine NEGATIVE (NEGATIVE); THC,Urine NEGATIVE (NEGATIVE)
[2022-09-16 19:58] LABS: ADD URINE CULTURE? NO (NO)
[2022-09-16] MEDS ORDERED: Ativan 2 MG/1 ML VIAL IV STA (21:26)
[2022-09-16] MEDS ORDERED: Ativan 2 MG/1 ML VIAL ONE (21:43)
[2022-09-17] MEDS ORDERED: NORCO 5/325 MG ONE (03:02)
[2022-09-17] MEDS ORDERED: NORCO 5/325 MG PO ONE (03:02)
[2022-09-17 04:53] LABS: Slide Review 1 YES
[2022-09-17] MEDS ORDERED: Zithromax 500 MG/ 250 ML NaCl Premix 500 MG/250 ML IVPB IV STA (06:56)
[2022-09-17] MEDS ORDERED: ROCEPHIN 2 Gm-D5w 50ML BAG** 2 G/50 ML IVPB IV STA (06:57)
[2022-09-17] MEDS ORDERED: ROCEPHIN 2 Gm-D5w 50ML BAG** 2 G/50 ML IVPB IV ONE (07:22)
[2022-09-17] MEDS ORDERED: Zithromax 500 MG/ 250 ML NaCl Premix 500 MG/250 ML IVPB IV ONE (07:28)
--- NOTE | 2022-09-17 08:35 | XRAY ---
Indication: Confusion. Multiple contiguous axial images obtained through the head without contrast. Comparison: February 18, 2022 Several images through base of brain and near vertex are now degraded by motion artifact. Again age-appropriate global atrophy and mild periventricular degenerative micro-ischemia bilaterally. No gross acute intracranial hemorrhage, abnormal extra-axial fluid collection, or mass effect. Fourth ventricle is midline without hydrocephalus. Bony calvarium grossly intact. Visualized paranasal sinuses and mastoid air cells are clear. Impression: Motion artifact. Grossly nonacute senile brain.
--- NOTE | 2022-09-17 08:35 | XRAY ---
Indication: Confusion Comparison: February 18, 2022 Portable chest less inflated with new subtle bibasilar infiltrates versus atelectasis. Remaining lungs again demonstrates chronic lung markings and tiny left base calcified granuloma. Heart borderline enlarged. Bony thorax intact.
[2022-09-17 09:14] VITALS: BP 168/74; PULSE 73; O2SAT 98
== END 2022-09-17 09:14 | disposition home or self-care (01) ==
LOC: ED 17:17
DX: R41.82 Altered mental status, unspecified (principal); D50.9 Iron deficiency anemia, unspecified; I10 Essential (primary) hypertension; Z79.899 Other long term (current) drug therapy; Z20.828 Contact with and (suspected) exposure to other viral communicable diseases
CPT/HCPCS: 0241U; 36000; 36415; 51702; 70450; 71045; 80053; 80307; 81001; 83605; 83880; 85025; 87040; 93041; 94760; 96365; 96367; 96374; 99284; G0480; J0456; J0696; J2060; A9270-GY

== ENCOUNTER 2022-09-23 14:31 | Observation (INO) | payer MEDICARE, OTHER ==
[2022-09-23 16:02] LABS: Mean Cell Volume 77.1 fL (78-100); Mean Corpuscular Hemoglobin 21.3 pg (26-32); Mean Corpuscular Hgb Concent. 27.6 g/dL (32-36); Mean Platelet Volume 9.1 fL (7.5-11.0); Platelet Count 311 x10^3/uL (150-450); Red Blood Count 3.76 x10^6/uL (4.1-5.6); Red Cell Distribution Width 20.3 % (11.5-14.0); White Blood Count 10.8 x10^3/uL (4.0-10.5)
[2022-09-23 16:07] LABS: Appearance Clear (Clear); Bacteria None Seen /HPF (None Seen); Bilirubin Negative (Negative); Blood Negative (Negative); Epithelial Cells None Seen /HPF (None Seen); Glucose, Urine Negative (Negative); Hyaline Casts NONE SEEN /LPF (0-2); Ketones Trace (Negative); Leukocyte Esterase Negative (Negative); Nitrite Negative (Negative); Ph 6.5 (4.6-8.0); Protein,Urine Dip Trace (Negative); RBC 0-2 /HPF (0-5); WBC 0-2 /HPF (0-5)
[2022-09-23 16:11] LABS: ADD URINE CULTURE? NO (NO)
[2022-09-23 16:35] LABS: ALBUMIN 3.5 g/dL (3.5-5.0); ALKALINE PHOSPHATASE 114 U/L (38-126); ANION GAP 8.1 MEQ/L (5-15); BLOOD UREA NITROGEN 22 mg/dL (9-20); CHLORIDE 107 mmol/L (98-107); Carbon Dioxide 29 mmol/L (22-30); Creatinine 1 0.87 mg/dL (0.66-1.25); EST GLOMERULAR FILTRATION RATE > 60.0 ML/MIN; Glucose 104 mg/dL (74-106); Potassium 3.7 mmol/L (3.5-5.1); SGOT/AST 33 U/L (17-59); SGPT/ALT 22 U/L (0-50); SODIUM 140 mmol/L (137-145); Total Protein 6.4 g/dL (6.3-8.2)
[2022-09-23 17:00] LABS: INFLUENZA A NEGATIVE (NEGATIVE); INFLUENZA B NEGATIVE (NEGATIVE); RESPIRATORY SYNCTIAL VIRUS NEGATIVE (Negative)
[2022-09-23 17:10] LABS: SARS-CoV-2 Xpert Express POSITIVE (NEGATIVE)
--- NOTE | 2022-09-23 17:22 | ERPHSYRPT ---
- History of Present Illness Time Seen by Provider: 09/23/22 16:00 Source: patient Patient Subjective Stated Complaint: C/O generalized weakness and inability to be cared for at home. Patient was discharged from [facility] 3 days ago and is having problems getting around at home. Patient had a follow-up appointment with Dr. Ryan today and indicates that MD does not feel patient is safe to be at home at this time and would benefit from a stay in a rehab facility for therapy. states that the patient has 5 steps to climb up at home to enter his house and she is unsure how she is going to be able to get him back into the house today. Triage Nursing Assessment: Patient brought back to ER in a W/C. Patient transferred from w/c to bed with assist of one staff slowly. Patient will wake up to answer questions when spoken to but is drowsy and falls asleep during the assessment often. NO SOB noted. Patient denies pain but will moan out when asleep at times. Physician History: Patient is a 76-year-old male presents to our ED for evaluation of generalized weakness and decreased oral intake. Patient lives at home with his . states she is unable to care for him due to the level of assist required for ADLs. Patient was recently discharged from [facility]. Patient was admitted there for altered mental status and discharged 3 days ago. They followed up with patient's primary care doctor today. Dr. Ryan evaluated patient. Dr. Ryan instructed patient come to our ED for an admission to attend rehab for the generalized weakness and debilitation. Patient has no specific complaints. Patient denies pain at this time. No shortness of breath. No nausea vomiting or diaphoresis. No diarrhea. No rash. at bedside. providing most of the information for this HPI. She voices no other comp laints or concerns at this time. Portions of this note were created with voice recognition technology. There may be grammatical, spelling, punctuation or sound alike errors Timing/Duration: today Severity: moderate Modifying Factors: Improves With: nothing Associated Symptoms: weakness (Generalized weakness), No nausea, No vomiting, No shortness of breath Allergies/Adverse Reactions: No Known Drug Allergies Allergy (Verified 09/16/22 17:25) Home Medications: Zolpidem Tartrate 10 mg PO HS PRN 06/11/15 [History] Ropinirole HCl 0.5 mg [Requip 0.5 MG] 0.5 mg PO HS 01/07/17 [History] Ferrous Sulfate 325 mg PO DAILY 02/04/20 [History] Tamsulosin HCl 0.4 mg [Flomax 0.4 MG] 0.4 mg PO DAILY 02/18/22 [History] Omeprazole Magnesium 1 tab PO DAILY 09/16/22 [History] Oxycodone HCl 10 mg PO Q4-6HPRN PRN 09/16/22 [History] Torsemide 20 mg [Demadex 20 mg] 1 tab PO BID 09/16/22 [History] Furosemide [Lasix] 1 tab PO DAILY 09/23/22 [History] Hx Tetanus, Diphtheria Vaccination/Date Given: Yes Hx Influenza Vaccination/Date Given: Yes Hx Pneumococcal Vaccination/Date Given: Yes Immunizations Up to Date: Yes Travel Risk - International Travel Have you traveled outside of the country in past 3 weeks: No - Coronavirus Screening Are you exhibiting any of the following symptoms?: No Close contact with a COVID-19 positive Pt in past 14-21 Days: No - Vaccine Status Have you recieved a Covid-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: Yes 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: 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 - Vaccination Dates Date of 2cond Vaccination (if applicable): 12/27 - Review of Systems Constitutional: No Symptoms, No Fever, No Chills Eyes: No Symptoms Ears, Nose, & Throat: No Symptoms Respiratory: No Symptoms, No Cough, No Dyspnea Cardiac: No Symptoms, No Chest Pain, No Edema, No Syncope Abdominal/Gastrointestinal: No Symptoms, No Abdominal Pain, No Nausea, No Vomiting, No Diarrhea Genitourinary Symptoms: No Symptoms, No Dysuria Musculoskeletal: No Symptoms, No Back Pain, No Neck Pain Skin: No Symptoms, No Rash Neurological: No Symptoms, No Dizziness, No Focal Weakness, No Sensory Changes Psychological: No Symptoms Endocrine: No Symptoms Hematologic/Lymphatic: No Symptoms Immunological/Allergic: No Symptoms All Other Systems: Unable due to condition - Past Medical History Pertinent Past Medical History: Yes Neurological History: Peripheral Neuropathy ENT History: Cataracts Cardiac History: Hypertension Respiratory History: COPD Endocrine Medical History: No Pertinent History Musculoskeletal History: Osteoarthritis GI Medical History: GERD, Other History: No Pertinent History Psycho-Social History: No Pertinent History Male Reproductive Disorders: Prostate Problems Other Medical History: ANEMIA, Hypokalemia, leukemia, insomnia, BPH - Past Surgical History Past Surgical History: Yes Neuro Surgical History: No Pertinent History Cardiac: No Pertinent History Respiratory: No Pertinent History Gastrointestinal: Cholecystectomy Genitourinary: No Pertinent History Musculoskeletal: Orthopedic Surgery Male Surgical History: No Pertinent History Other Surgical History: right knee replacement 2020 - Social History Smoking Status: Former smoker How long have you smoked: 40 years Exposure to second hand smoke: No Drug Use: none Patient Lives Alone: No () - Nursing Vital Signs Nursing Vital Signs: Initial Vital Signs Temperature 98.3 F 09/23/22 15:44 Pulse Rate 90 09/23/22 15:44 Respiratory Rate 15 09/23/22 15:44 Blood Pressure 132/59 09/23/22 15:44 O2 Sat by Pulse Oximetry 94 L 09/23/22 15:44 Pain Scale Pain Intensity 0 - Physical Exam General Appearance: no apparent distress, alert Eye Exam: PERRL/EOMI, eyes nml inspection Ears, Nose, Throat Exam: normal ENT inspection, TMs normal, pharynx normal, moist mucous membranes Neck Exam: normal inspection, non-tender, supple, full range of motion Respiratory Exam: normal breath sounds, lungs clear, airway intact, No respiratory distress Cardiovascular Exam: regular rate/rhythm, normal heart sounds, normal peripheral pulses Gastrointestinal/Abdomen Exam: soft, normal bowel sounds, No tenderness, No mass Back Exam: normal inspection, normal range of motion, No CVA tenderness, No vertebral tenderness Extremity Exam: normal inspection, normal range of motion, pelvis stable Neurologic Exam: alert, 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, cooperative, normal mood/affect, nml cerebellar function, nml station & gait, sensation nml, No motor deficits Skin Exam: normal color, warm, dry, No rash Lymphatic Exam: No adenopathy SpO2 Interpretation: normal SpO2: 94 O2 Delivery: Room Air - Course Nursing assessment & vital signs reviewed: Yes - Radiology Exams Chest X-ray Interpretation: Interpreted by me (Bibasilar atelectasis. Otherwise no change since 09/16/2022) Ordered Tests: Active Orders 24 hr Category Date Time Status Granite Polisher Machine STAT Care 09/23/22 15:42 Active EKG-ER Only STAT Care 09/23/22 15:42 Active IV Insertion STAT Care 09/23/22 15:42 Active Pulse Oximetry (ED) STAT Care 09/23/22 15:42 Active CHEST 1 VIEW (PORTABLE) Stat Exams 09/23/22 17:31 Taken CBC W DIFF Stat Lab 09/23/22 15:56 Completed CMP Stat Lab 09/23/22 15:56 Completed Manual Differential NC Stat Lab 09/23/22 15:56 Completed UA W/RFX UR CULTURE Stat Lab 09/23/22 15:44 Completed Transfer Order Routine Transfer 09/23/22 Ordered Medication Summary Generic Name Dose Route Start Last Admin Trade Name Freq PRN Reason Stop Dose Admin Sodium Chloride 1,000 mls @ 100 mls/hr 09/23/22 17:30 Sodium Chloride 0.9% 1000 Ml IV 10/23/22 17:29 .Q10H MAN Remdesivir 200 mg/ Sodium 250 mls @ 125 mls/hr 09/23/22 17:28 Chloride IV 09/23/22 19:27 ONCE ONE Lab/Rad Data: Laboratory Result Diagrams 09/23/22 15:56 09/23/22 15:56 Laboratory Results 09/23/22 09/23/22 09/23/22 Range/Units 15:56 15:56 15:56 WBC 10.8 H (4.0-10.5) x10^3/uL RBC 3.76 L (4.1-5.6) x10^6/uL Hgb 8.0 L (12.5-18.0) g/dL Hct 29.0 L (42-50) % MCV 77.1 L (78-100) fL MCH 21.3 L (26-32) pg MCHC 27.6 L (32-36) g/dL RDW 20.3 H (11.5-14.0) % Plt Count 311 (150-450) x10^3/uL MPV 9.1 (7.5-11.0) fL Sodium 140 (137-145) mmol/L Potassium 3.7 (3.5-5.1) mmol/L Chloride 107 (98-107) mmol/L Carbon Dioxide 29 (22-30) mmol/L Anion Gap 8.1 (5-15) MEQ/L BUN 22 H (9-20) mg/dL Creatinine 0.87 (0.66-1.25) mg/dL Estimated GFR > 60.0 ML/MIN Glucose 104 (74-106) mg/dL Calcium 9.0 (8.4-10.2) mg/dL Total Bilirubin 0.80 (0.2-1.3) mg/dL AST 33 (17-59) U/L ALT 22 (0-50) U/L Alkaline Phosphatase 114 (38-126) U/L Serum Total Protein 6.4 (6.3-8.2) g/dL Albumin 3.5 (3.5-5.0) g/dL Urine Color (Yellow) Urine Appearance (Clear) Urine pH (4.6-8.0) Ur Specific Gower (1.005-1.030) Urine Protein (Negative) Urine Glucose (UA) (Negative) mg/dL Urine Ketones (Negative) Urine Blood (Negative) Urine Nitrite (Negative) Urine Bilirubin (Negative) Urine Urobilinogen (0.2) mg/dL Ur Leukocyte Esterase (Negative) U Hyaline Cast (Auto) (0-2) /LPF Urine Microscopic RBC (0-5) /HPF Urine Microscopic WBC (0-5) /HPF Ur Epithelial Cells (None Seen) /HPF Urine Bacteria (None Seen) /HPF Urine Culture Reflexed (NO) Influenza Type A Ag NEGATIVE (NEGATIVE) Influenza Type B Ag NEGATIVE (NEGATIVE) RSV (PCR) NEGATIVE (Negative) SARS-CoV-2 (PCR) POSITIVE A (NEGATIVE) 09/23/22 Range/Units 15:44 WBC (4.0-10.5) x10^3/uL RBC (4.1-5.6) x10^6/uL Hgb (12.5-18.0) g/dL Hct (42-50) % MCV (78-100) fL MCH (26-32) pg MCHC (32-36) g/dL RDW (11.5-14.0) % Plt Count (150-450) x10^3/uL MPV (7.5-11.0) fL Sodium (137-145) mmol/L Potassium (3.5-5.1) mmol/L Chloride (98-107) mmol/L Carbon Dioxide (22-30) mmol/L Anion Gap (5-15) MEQ/L BUN (9-20) mg/dL Creatinine (0.66-1.25) mg/dL Estimated GFR ML/MIN Glucose (74-106) mg/dL Calcium (8.4-10.2) mg/dL Total Bilirubin (0.2-1.3) mg/dL AST (17-59) U/L ALT (0-50) U/L Alkaline Phosphatase (38-126) U/L Serum Total Protein (6.3-8.2) g/dL Albumin (3.5-5.0) g/dL Urine Color Dark Yellow (Yellow) Urine Appearance Clear (Clear) Urine pH 6.5 (4.6-8.0) Ur Specific Gower 1.020 (1.005-1.030) Urine Protein Trace A (Negative) Urine Glucose (UA) Negative (Negative) mg/dL Urine Ketones Trace A (Negative) Urine Blood Negative (Negative) Urine Nitrite Negative (Negative) Urine Bilirubin Negative (Negative) Urine Urobilinogen 1.0 A (0.2) mg/dL Ur Leukocyte Esterase Negative (Negative) U Hyaline Cast (Auto) NONE SEEN (0-2) /LPF Urine Microscopic RBC 0-2 (0-5) /HPF Urine Microscopic WBC 0-2 (0-5) /HPF Ur Epithelial Cells None Seen (None Seen) /HPF Urine Bacteria None Seen (None Seen) /HPF Urine Culture Reflexed NO (NO) Influenza Type A Ag (NEGATIVE) Influenza Type B Ag (NEGATIVE) RSV (PCR) (Negative) SARS-CoV-2 (PCR) (NEGATIVE) - Progress Progress: improved Progress Note: Patient is a 76-year-old male presents to our ED as a referral from his primary care doctor for progressive weakness. Patient has been requiring increased assistance with ADLs since his discharge from [facility] 3 days ago. Patient's primary care doctor feels patient needs to be admitted for rehab. Review of systems noncontributory. Physical exam does reveal a gentleman who is weak appearing. No focal or lateralizing symptoms. Patient symptoms are acute. Complexity of patient's complaint is moderate. Patient's comorbidities are not directly affecting patient's current presentation. Work-up includes EKG, CBC, CMP, COVID testing, urinalysis. COVID test is pos itive. CBC reveals a microcytic anemia. CMP is noncontributory. Testing results reviewed and contributed to medical decision making. IV fluid administered for dehydration. Remdesivir for COVID positivity. . Case discussed with Dr. Casey who accepts admission to observation. Plan of care discussed with who agrees to admission [facility] for further evaluation and treatment. Level of EM service provided was moderate. Complexity of problem addressed was moderate. Complexity of data review and analysis was moderate. Risks of complications and risk of mor bidity/mortality of patient management was moderate. Patient's served as the historian. Patient could not serve as an independent historian. Portions of this note were created with voice recognition technology. There may be grammatical, spelling, punctuation or sound alike errors Discussed with Dr.: Viral Will see patient in: hospital (observation) Counseled pt/family regarding: lab results, diagnosis, need for follow-up - Departure Departure Disposition: Observation Clinical Impression: Generalized weakness, SARS-CoV-2 positive, Microcytic anemia, Dehydration Condition: Stable Critical Care Time: No Referrals: IRINA RYAN [Primary Care Provider] - Follow up/PCP as directed
[2022-09-23] MEDS ORDERED: REMDESIVIR 200 MG in Sodium Chloride 0.9% 250 ML 250 ML IV ONE (17:28)
[2022-09-23] MEDS ORDERED: TYLENOL 325 MG PO PRN (19:41)
[2022-09-23] MEDS ORDERED: MORPHINE SULFATE 4 MG INJ IV PRN (19:41)
[2022-09-23] MEDS ORDERED: Zofran 4 MG/2 ML VIAL IV PRN (19:41)
[2022-09-23] MEDS ORDERED: Oxycontin 10 MG ER PO PRN (20:14)
[2022-09-23] MEDS ORDERED: Ambien 10 MG PO PRN (20:15)
[2022-09-23] MEDS: Requip 0.5 MG PO SCH (21:46)
[2022-09-23] MEDS: Sodium Chloride 0.9% 1000 ML 1,000 ML IV SCH (21:46)
[2022-09-23 23:39] LABS: Eosinophil 3 % (0.00-3.0); Hypochromia 1+; Lymphocytes 11 % (24-44); Microcytosis 1+; Monocyte 5 % (0.0-12.0); Platelet Estimate NORMAL (NORMAL); Total Cells Counted 100
[2022-09-24 05:06] LABS: Hematocrit 28.5 % (42-50); Hemoglobin 7.8 g/dL (12.5-18.0); Mean Cell Volume 76.8 fL (78-100); Mean Corpuscular Hgb Concent. 27.4 g/dL (32-36); Mean Platelet Volume 9.4 fL (7.5-11.0); Platelet Count 287 x10^3/uL (150-450); Red Blood Count 3.71 x10^6/uL (4.1-5.6); Red Cell Distribution Width 20.6 % (11.5-14.0); White Blood Count 7.3 x10^3/uL (4.0-10.5)
[2022-09-24 05:35] LABS: ALBUMIN 3.4 g/dL (3.5-5.0); ALKALINE PHOSPHATASE 92 U/L (38-126); ANION GAP 8.7 MEQ/L (5-15); BLOOD UREA NITROGEN 16 mg/dL (9-20); CHLORIDE 108 mmol/L (98-107); Calcium 8.4 mg/dL (8.4-10.2); Carbon Dioxide 26 mmol/L (22-30); Creatinine 1 0.76 mg/dL (0.66-1.25); EST GLOMERULAR FILTRATION RATE > 60.0 ML/MIN; Glucose 144 mg/dL (74-106); Potassium 3.3 mmol/L (3.5-5.1); SGOT/AST 32 U/L (17-59); SGPT/ALT 22 U/L (0-50); SODIUM 140 mmol/L (137-145); Total Protein 6.4 g/dL (6.3-8.2)
[2022-09-24 05:42] LABS: Basophil 4 % (0.0-1.0); Eosinophil 4 % (0.00-3.0); Lymphocytes 22 % (24-44); Microcytosis 1+; Monocyte 12 % (0.0-12.0); Myelocyte 1 %; Nucleated Red Blood Cell 1 %; Platelet Estimate NORMAL (NORMAL); Total Cells Counted 100
[2022-09-24] MEDS: Sodium Chloride 0.9% 1000 ML 1,000 ML IV SCH ×2 (06:52→17:35)
--- NOTE | 2022-09-24 08:25 | XRAY ---
Indication: Covid 19. Comparison: September 16, 2022 Portable chest demonstrates interval worsening bibasilar infiltrates versus atelectasis without consolidation/large effusion. Remaining heart and upper lungs unremarkable.
[2022-09-24] MEDS ORDERED: PROTONIX 40 MG IV IV SCH (10:00)
[2022-09-24] MEDS ORDERED: NON-FORMULARY ITEM (Albuterol Sulfate [Proair Respiclick] 90 MCG Aer.Pow.Ba) IH PRN (11:35)
[2022-09-24] MEDS ORDERED: TYLENOL EXTRA STRENGTH 500 MG PO PRN (11:35)
[2022-09-24] MEDS ORDERED: celeBREX 100 MG PO PRN (11:35)
[2022-09-24] MEDS: Oxy-IR 5 MG PO PRN ×3 (11:38→22:13)
[2022-09-24] MEDS: ENOXAPARIN SODIUM SQ SCH (11:42)
[2022-09-24] MEDS ORDERED: VENTOLIN COMMON CANISTER IH PRN (11:45)
--- NOTE | 2022-09-24 11:56 | PCM.HP ---
History of Present Illness - Chief Complaint Chief Complaint: covid, weakness History of Present Illness: is a 76 year old male pt of Dr. Ryan admitted through ER yesterday with Covid, AMS, weakness, and anemia. He was in [facility] on 09/16/22 and transferred to [facility]. He was discharged from [place] [facility] prior to re-admission; yesterday he saw Dr. Ryan in office and was found to be too weak to return home with his . He was sent over to the hospital to explore a rehab stay, then was found to be covid positive. Pt's PMHx includes leukemia (sees Dr. Graf), peipheral neuropathy, COPD, HTN, OA, GERD, anemia, BPH, hypokalemia, insomnia, and hx TOB (40 pk yrs). In ER, pt had hgb 8.0, wbc 10.8. K+ 3.7. CXR showed worsening bibasilar infiltrates compared with 09/16/22. He was started on IV remdesivir. No O2 requirement. Today pt is well-appearing. He is alert and 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, but doesn't know exactly why he came in. Doesn't know several things, including name of his orthopedist. Only complaint is R knee pain - had surgery 14 mo ago, he says, then 2 mo ago had increase in pain and saw a different orthopedist. - Review of Systems Musculoskeletal: Joint Pain (R knee) All Other Systems: Unable due to dementia Medications & Allergies Home Medications: Home Medication List Zolpidem Tartrate 10 mg PO QHS 06/11/15 [History Confirmed 09/24/22] Ropinirole HCl 0.5 mg [Requip 0.5 MG] 0.5 mg PO QHS 01/07/17 [History Confirmed 09/24/22] Ferrous Sulfate 325 mg PO QHS 02/04/20 [History Confirmed 09/24/22] Tamsulosin HCl 0.4 mg [Flomax 0.4 MG] 0.4 mg PO QHS 02/18/22 [History Confirmed 09/24/22] Omeprazole Magnesium 40 mg PO QHS 09/16/22 [History Confirmed 09/24/22] Oxycodone HCl 10 mg PO Q4HPRN PRN 09/16/22 [History Confirmed 09/24/22] Furosemide [Lasix] 20 mg PO QAM 09/23/22 [History Confirmed 09/24/22] Acetaminophen 500 mg [Tylenol Extra Strength 500 mg] 500 mg PO TIDPRN PRN 09/24/22 [History Confirmed 09/24/22] Albuterol Sulfate [Proair Respiclick] 1 puff IH UD PRN 09/24/22 [History Confirmed 09/24/22] Aspirin EC 81 mg [Ecotrin 81 mg] 81 mg PO QHS 09/24/22 [History Confirmed 09/24/22] Celecoxib 100 mg [celeBREX 100 MG] 200 mg PO BIDPRN PRN 09/24/22 [History Confirmed 09/24/22] Fluticasone/Umeclidin/Vilanter [Trelegy Ellipta 100-62.5-25] 1 puff IH QHS 09/24/22 [History Confirmed 09/24/22] Gabapentin [Neurontin ] 300 mg PO QHS 09/24/22 [History Confirmed 09/24/22] Imatinib Mesylate [Gleevec] 300 mg PO QHS 09/24/22 [History Confirmed 09/24/22] Metformin HCl 500 mg [Glucophage 500 MG] 500 mg PO QHS 09/24/22 [History Confirmed 09/24/22] Potassium Chloride 10 mg PO QAM 09/24/22 [History Confirmed 09/24/22] Sennosides/Docusate Sodium [Stimulant Laxative Plus Tablet] 1 each PO BID [History Confirmed 09/24/22] Allergies/Adverse Reactions: Allergies Allergy/AdvReac Type Severity Reaction Status Date / Time No Known Drug Allergies Allergy Verified 09/16/22 17:25 - Past Medical History Past Medical History: Yes Neurological History: Peripheral Neuropathy ENT History: Cataracts Cardiac History: Hypertension Respiratory History: COPD Endocrine Medical History: No Pertinent History Musculoskelatal History: Osteoarthritis GI Medical History: GERD, Other History: No Pertinent History Pyscho-Social History: No Pertinent History Male Reproductive Disorders: Prostate Problems Comment: ANEMIA, Hypokalemia, leukemia, insomnia, BPH - Past Surgical History Past Surgical History: Yes Neuro Surgical History: No Pertinent History Cardiac History: No Pertinent History Respiratory Surgery: No Pertinent History GI Surgical History: Cholecystectomy Genitourinary Surgical Hx: No Pertinent History Musculskeletal Surgical Hx: Orthopedic Surgery Male Surgical History: No Pertinent History Other Surgical History: right knee replacement 2020 - Social History Smoking Status: Former smoker How long have you smoked: 40 years Exposure to second hand smoke: No Alcohol: None Drug Use: none - Physical Exam Vital Signs: Vital Signs - 24 hr Temp Pulse Resp BP Pulse Ox 09/24/22 07:58 97.9 F 83 18 117/58 95 09/24/22 04:00 98.5 F 87 16 121/60 94 L 09/24/22 00:00 86 137/59 93 L 09/23/22 20:07 90 16 97 09/23/22 20:06 97 09/23/22 18:56 97.8 F 99 H 18 121/56 93 L 09/23/22 18:51 97.8 F 99 H 18 121/56 93 L 09/23/22 18:37 97.8 F 99 H 18 121/56 93 L 09/23/22 18:22 94 L 09/23/22 17:00 95 H 17 120/82 95 09/23/22 16:05 88 18 124/55 94 L 09/23/22 15:44 98.3 F 90 15 132/59 95 General Appearance: no apparent distress, alert, other (very well appearing; in bed) Neurologic Exam: 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, cooperative Eye Exam: eyes nml inspection Ears, Nose, Throat Exam: moist mucous membranes Neck Exam: normal inspection, non-tender, No lymphadenopathy, No subcutaneous emphysema, No thyromegaly Respiratory Exam: normal breath sounds, lungs clear, No crackles/rales, No rhonchi, No wheezing Cardiovascular Exam: regular rate/rhythm, normal heart sounds, No murmur Gastrointestinal/Abdomen Exam: soft, normal bowel sounds, No tenderness, No distention, No mass, No guarding, No rebound Back Exam: normal inspection, No CVA tenderness, No rash Extremity Exam: swelling (R knee midline scar, healing. generalized edema. no pretibial edema bilat) Skin Exam: normal color, warm, dry, No rash Results - Labs Lab/Micro Results: Lab Results-Last 24 Hours 09/23/22 09/23/22 09/23/22 Range/Units 15:44 15:56 15:56 WBC 10.8 H (4.0-10.5) x10^3/uL RBC 3.76 L (4.1-5.6) x10^6/uL Hgb 8.0 L (12.5-18.0) g/dL Hct 29.0 L (42-50) % MCV 77.1 L (78-100) fL MCH 21.3 L (26-32) pg MCHC 27.6 L (32-36) g/dL RDW 20.3 H (11.5-14.0) % Plt Count 311 (150-450) x10^3/uL MPV 9.1 (7.5-11.0) fL Segmented Neutrophils 81 H (36.-66.) % Lymphocytes (Manual) 11 L (24-44) % Monocytes (Manual) 5 (0.0-12.0) % Eosinophils (Manual) 3 (0.00-3.0) % Basophils (Manual) (0.0-1.0) % Myelocytes % Nucleated RBCs % Hypochromia 1+ Platelet Estimate NORMAL (NORMAL) RBC Morphology ABNORMAL Microcytosis 1+ Sodium 140 (137-145) mmol/L Potassium 3.7 (3.5-5.1) mmol/L Chloride 107 (98-107) mmol/L Carbon Dioxide 29 (22-30) mmol/L Anion Gap 8.1 (5-15) MEQ/L BUN 22 H (9-20) mg/dL Creatinine 0.87 (0.66-1.25) mg/dL Estimated GFR > 60.0 ML/MIN Glucose 104 (74-106) mg/dL POC Glucometer (74 to 106) mg/dL Calcium 9.0 (8.4-10.2) mg/dL Total Bilirubin 0.80 (0.2-1.3) mg/dL AST 33 (17-59) U/L ALT 22 (0-50) U/L Alkaline Phosphatase 114 (38-126) U/L Serum Total Protein 6.4 (6.3-8.2) g/dL Albumin 3.5 (3.5-5.0) g/dL Urine Color Dark Yellow (Yellow) Urine Appearance Clear (Clear) Urine pH 6.5 (4.6-8.0) Ur Specific [place] 1.020 (1.005-1.030) Urine Protein Trace A (Negative) Urine Glucose (UA) Negative (Negative) mg/dL Urine Ketones Trace A (Negative) Urine Blood Negative (Negative) Urine Nitrite Negative (Negative) Urine Bilirubin Negative (Negative) Urine Urobilinogen 1.0 A (0.2) mg/dL Ur Leukocyte Esterase Negative (Negative) U Hyaline Cast (Auto) NONE SEEN (0-2) /LPF Urine Microscopic RBC 0-2 (0-5) /HPF Urine Microscopic WBC 0-2 (0-5) /HPF Ur Epithelial Cells None Seen (None Seen) /HPF Urine Bacteria None Seen (None Seen) /HPF Urine Culture Reflexed NO (NO) Influenza Type A Ag (NEGATIVE) Influenza Type B Ag (NEGATIVE) RSV (PCR) (Negative) SARS-CoV-2 (PCR) (NEGATIVE) SARS-CoV-2 Ag (Rapid) (NEGATIVE) 09/23/22 09/24/22 09/24/22 Range/Units 15:56 04:00 04:50 WBC 7.3 (4.0-10.5) x10^3/uL RBC 3.71 L (4.1-5.6) x10^6/uL Hgb 7.8 L (12.5-18.0) g/dL Hct 28.5 L (42-50) % MCV 76.8 L (78-100) fL MCH 21.0 L (26-32) pg MCHC 27.4 L (32-36) g/dL RDW 20.6 H (11.5-14.0) % Plt Count 287 (150-450) x10^3/uL MPV 9.4 (7.5-11.0) fL Segmented Neutrophils 57 (36.-66.) % Lymphocytes (Manual) 22 L (24-44) % Monocytes (Manual) 12 (0.0-12.0) % Eosinophils (Manual) 4 H (0.00-3.0) % Basophils (Manual) 4 H (0.0-1.0) % Myelocytes 1 % Nucleated RBCs 1 % Hypochromia Platelet Estimate NORMAL (NORMAL) RBC Morphology ABNORMAL Microcytosis 1+ Sodium 140 (137-145) mmol/L Potassium 3.3 L (3.5-5.1) mmol/L Chloride 108 H (98-107) mmol/L Carbon Dioxide 26 (22-30) mmol/L Anion Gap 8.7 (5-15) MEQ/L BUN 16 (9-20) mg/dL Creatinine 0.76 (0.66-1.25) mg/dL Estimated GFR > 60.0 ML/MIN Glucose 144 H (74-106) mg/dL POC Glucometer (74 to 106) mg/dL Calcium 8.4 (8.4-10.2) mg/dL Total Bilirubin 0.80 (0.2-1.3) mg/dL AST 32 (17-59) U/L ALT 22 (0-50) U/L Alkaline Phosphatase 92 (38-126) U/L Serum Total Protein 6.4 (6.3-8.2) g/dL Albumin 3.4 L (3.5-5.0) g/dL Urine Color (Yellow) Urine Appearance (Clear) Urine pH (4.6-8.0) Ur Specific [place] (1.005-1.030) Urine Protein (Negative) Urine Glucose (UA) (Negative) mg/dL Urine Ketones (Negative) Urine Blood (Negative) Urine Nitrite (Negative) Urine Bilirubin (Negative) Urine Urobilinogen (0.2) mg/dL Ur Leukocyte Esterase (Negative) U Hyaline Cast (Auto) (0-2) /LPF Urine Microscopic RBC (0-5) /HPF Urine Microscopic WBC (0-5) /HPF Ur Epithelial Cells (None Seen) /HPF Urine Bacteria (None Seen) /HPF Urine Culture Reflexed (NO) Influenza Type A Ag NEGATIVE (NEGATIVE) Influenza Type B Ag NEGATIVE (NEGATIVE) RSV (PCR) NEGATIVE (Negative) SARS-CoV-2 (PCR) POSITIVE A (NEGATIVE) SARS-CoV-2 Ag (Rapid) (NEGATIVE) 09/24/22 09/24/22 09/24/22 Range/Units 06:27 10:56 11:24 WBC (4.0-10.5) x10^3/uL RBC (4.1-5.6) x10^6/uL Hgb (12.5-18.0) g/dL Hct (42-50) % MCV (78-100) fL MCH (26-32) pg MCHC (32-36) g/dL RDW (11.5-14.0) % Plt Count (150-450) x10^3/uL MPV (7.5-11.0) fL Segmented Neutrophils (36.-66.) % Lymphocytes (Manual) (24-44) % Monocytes (Manual) (0.0-12.0) % Eosinophils (Manual) (0.00-3.0) % Basophils (Manual) (0.0-1.0) % Myelocytes % Nucleated RBCs % Hypochromia Platelet Estimate (NORMAL) RBC Morphology Microcytosis Sodium (137-145) mmol/L Potassium (3.5-5.1) mmol/L Chloride (98-107) mmol/L Carbon Dioxide (22-30) mmol/L Anion Gap (5-15) MEQ/L BUN (9-20) mg/dL Creatinine (0.66-1.25) mg/dL Estimated GFR ML/MIN Glucose (74-106) mg/dL POC Glucometer 106 92 (74 to 106) mg/dL Calcium (8.4-10.2) mg/dL Total Bilirubin (0.2-1.3) mg/dL AST (17-59) U/L ALT (0-50) U/L Alkaline Phosphatase (38-126) U/L Serum Total Protein (6.3-8.2) g/dL Albumin (3.5-5.0) g/dL Urine Color (Yellow) Urine Appearance (Clear) Urine pH (4.6-8.0) Ur Specific [place] (1.005-1.030) Urine Protein (Negative) Urine Glucose (UA) (Negative) mg/dL Urine Ketones (Negative) Urine Blood (Negative) Urine Nitrite (Negative) Urine Bilirubin (Negative) Urine Urobilinogen (0.2) mg/dL Ur Leukocyte Esterase (Negative) U Hyaline Cast (Auto) (0-2) /LPF Urine Microscopic RBC (0-5) /HPF Urine Microscopic WBC (0-5) /HPF Ur Epithelial Cells (None Seen) /HPF Urine Bacteria (None Seen) /HPF Urine Culture Reflexed (NO) Influenza Type A Ag (NEGATIVE) Influenza Type B Ag (NEGATIVE) RSV (PCR) (Negative) SARS-CoV-2 (PCR) (NEGATIVE) SARS-CoV-2 Ag (Rapid) NEGATIVE (NEGATIVE) Accuchecks Date 09/24/22 Time 07:58 - Radiology Impressions Radiology Exams & Impressions: Radiology Procedures Category Date Time Status CHEST 1 VIEW (PORTABLE) Stat Exams 09/23/22 17:31 Completed - Other Procedures and Tests Respiratory Therapy 09/23/22 20:07 Respiratory Therapy Assessment DAILY Assessment/Plan (1) Generalized weakness Current Visit: Yes Status: Acute Assessment & Plan: With deconditioning. Consult PT. I have ordered a procalcitonin in light of CXR findings, but I suspect these are chronic. Code(s): R53.1 - WEAKNESS (2) Microcytic anemia Current Visit: Yes Status: Acute Code(s): D50.9 - IRON DEFICIENCY ANEMIA, UNSPECIFIED (3) SARS-CoV-2 positive Current Visit: Yes Status: Ruled-out Assessment & Plan: Binax test was subsequently negative. Code(s): U07.1 - COVID-19 (4) Altered mental status Current Visit: No Status: Resolved Qualifiers: Altered mental status type: transient alteration of awareness Qualified Code(s): R40.4 - Transient alteration of awareness Assessment & Plan: Much better than when in ER, although still has some intermittent confusion. Code(s): R41.82 - ALTERED MENTAL STATUS, UNSPECIFIED (5) Right knee pain Current Visit: Yes Status: Chronic Qualifiers: Chronicity: chronic Qualified Code(s): M25.561 - Pain in right knee; G89.29 - Other chronic pain Code(s): M25.561 - PAIN IN RIGHT KNEE
[2022-09-24] MEDS: Klor Con PO SCH (13:14)
[2022-09-24] MEDS: LASIX 20 MG PO SCH (13:14)
[2022-09-24] MEDS ORDERED: PATIENT OWN MEDICATION IH PRN (15:35)
[2022-09-24] MEDS ORDERED: ECOTRIN 81 MG PO SCH (22:00)
[2022-09-24] MEDS ORDERED: OMEPRAZOLE MAGNESIUM 20 MG PO SCH (22:00)
[2022-09-24] MEDS ORDERED: Flomax 0.4 MG PO SCH (22:00)
[2022-09-24] MEDS ORDERED: Protonix 40MG Tablet PO SCH (22:00)
[2022-09-24] MEDS ORDERED: PATIENT OWN MEDICATION PO SCH (22:00)
[2022-09-24] MEDS ORDERED: IMATINIB MESYLATE 100 MG PO SCH (22:00)
[2022-09-24] MEDS ORDERED: Senokot-S Tablet PO PRN (22:00)
[2022-09-24] MEDS ORDERED: PATIENT OWN MEDICATION IH SCH (22:00)
[2022-09-24] MEDS ORDERED: NON-FORMULARY ITEM (Fluticasone/Umeclidin/Vilanter [Trelegy Ellipta 100-62.5-25] 1 EACH Bl IH SCH (22:00)
[2022-09-24] MEDS ORDERED: NEURONTIN PO SCH (22:00)
[2022-09-24] MEDS: Requip 0.5 MG PO SCH (22:14)
[2022-09-25] MEDS: Sodium Chloride 0.9% 1000 ML 1,000 ML IV SCH (03:36)
[2022-09-25] MEDS: Oxy-IR 5 MG PO PRN ×2 (03:58→10:38)
[2022-09-25 05:50] LABS: Hematocrit 30.7 % (42-50); Hemoglobin 8.7 g/dL (12.5-18.0); Mean Cell Volume 75.4 fL (78-100); Mean Corpuscular Hemoglobin 21.4 pg (26-32); Mean Corpuscular Hgb Concent. 28.3 g/dL (32-36); Mean Platelet Volume 9.3 fL (7.5-11.0); Platelet Count 318 x10^3/uL (150-450); Red Blood Count 4.07 x10^6/uL (4.1-5.6); Red Cell Distribution Width 20.4 % (11.5-14.0); White Blood Count 7.7 x10^3/uL (4.0-10.5)
[2022-09-25 06:34] LABS: ANION GAP 9.5 MEQ/L (5-15); BLOOD UREA NITROGEN 13 mg/dL (9-20); CHLORIDE 108 mmol/L (98-107); Calcium 8.8 mg/dL (8.4-10.2); Carbon Dioxide 25 mmol/L (22-30); Creatinine 1 0.77 mg/dL (0.66-1.25); EST GLOMERULAR FILTRATION RATE > 60.0 ML/MIN; Glucose 108 mg/dL (74-106); Potassium 3.6 mmol/L (3.5-5.1); SODIUM 139 mmol/L (137-145)
[2022-09-25 07:20] LABS: Basophil 2 % (0.0-1.0); Eosinophil 6 % (0.00-3.0); Lymphocytes 31 % (24-44); Monocyte 10 % (0.0-12.0); Total Cells Counted 100
[2022-09-25 07:31] LABS: Hypochromia 1+
[2022-09-25 07:32] LABS: ANISOCYTOSIS 2+; Microcytosis 1+; Platelet Estimate NORMAL (NORMAL)
[2022-09-25 07:36] VITALS: PULSE 85
[2022-09-25 07:36] LABS: Toxic Granulation 1+
--- NOTE | 2022-09-25 08:48 | PCM.DS ---
Discharge Summary Date of Admission: 09/23/22 18:28 Admitting Physician: SHINE KNUTSON Primary Care Provider: IRINA RYAN Allergies Allergies No Known Drug Allergies Allergy (Verified 09/16/22 17:25) Hospital Summary - Hospital Course Hospital Course: is a 76 year old male pt of Dr. Ryan admitted through ER with Covid+, AMS, weakness, and anemia. He was in [facility] on 09/16/22 and transferred to [facility]. He was discharged from [address] prior to re-admission; the day he was admitted again here he saw Dr. Ryan in office and was found to be too weak to return home with his . He was sent over to the hospital to explore a rehab stay, and was found to be covid positive. Subsequent testing with binax was negative, so pt was taken out of isolation. Pt's PMHx includes leukemia (sees Dr. Graf), peipheral neuropathy, COPD, HTN, OA, GERD, anemia, BPH, hypokalemia, insomnia, and hx TOB (40 pk yrs). In ER, pt had hgb 8.0, decreased to 7.8 on day 2 and today is back up to 8.7. cxr showed interval worsening bibasilar infiltrates versus atelectasis without consolidation/large effusion. His potassium has been slightly low, but today is 3.6. Sending out on increased potassium, 20 mEq daily. He worked with PT and did well, but I suspect he has variable performance physically and mentally. This morning he is oriented to place, thinks the day is Sep 21, 2022. He will be evaluated by Andrew for a rehab stay and may be able to be discharged today. - Vitals & Intake/Output Vital Signs: Vital Signs Temperature 97.7 F 09/25/22 07:35 Pulse Rate 85 09/25/22 07:35 Respiratory Rate 16 09/25/22 07:35 Blood Pressure 125/59 09/25/22 07:35 O2 Sat by Pulse Oximetry 94 L 09/25/22 07:35 Intake & Output: Intake & Output 09/22/22 09/23/22 09/24/22 09/25/22 11:59 11:59 11:59 11:59 Intake Total 600 3928 Output Total 600 1200 Balance 0 2728 Weight 79.832 kg - Lab Result Diagrams: 09/25/22 05:00 09/25/22 05:00 Lab Results-Last 24 Hrs: Lab Results-Last 24 Hours 09/24/22 09/24/22 09/24/22 Range/Units 10:56 11:24 16:17 WBC (4.0-10.5) x10^3/uL RBC (4.1-5.6) x10^6/uL Hgb (12.5-18.0) g/dL Hct (42-50) % MCV (78-100) fL MCH (26-32) pg MCHC (32-36) g/dL RDW (11.5-14.0) % Plt Count (150-450) x10^3/uL MPV (7.5-11.0) fL Gran % Immature Gran % (Auto) Nucleat RBC Rel Count Eos # (Auto) Immature Gran # (Auto) Absolute Lymphs (auto) Absolute Monos (auto) Absolute Nucleated RBC Lymphocytes % Monocytes % Eosinophils % Basophils % Absolute Granulocytes Segmented Neutrophils (36.-66.) % Lymphocytes (Manual) (24-44) % Monocytes (Manual) (0.0-12.0) % Eosinophils (Manual) (0.00-3.0) % Basophils (Manual) (0.0-1.0) % Basophils # Hypochromia Toxic Granulation Platelet Estimate (NORMAL) RBC Morphology Anisocytosis Microcytosis Sodium (137-145) mmol/L Potassium (3.5-5.1) mmol/L Chloride (98-107) mmol/L Carbon Dioxide (22-30) mmol/L Anion Gap (5-15) MEQ/L BUN (9-20) mg/dL Creatinine (0.66-1.25) mg/dL Estimated GFR ML/MIN Glucose (74-106) mg/dL POC Glucometer 92 118 H (74 to 106) mg/dL Calcium (8.4-10.2) mg/dL Procalcitonin (0.030-0.080) ng/mL SARS-CoV-2 Ag (Rapid) NEGATIVE (NEGATIVE) 09/24/22 09/25/22 09/25/22 Range/Units Unknown 05:00 05:00 WBC 7.7 (4.0-10.5) x10^3/uL RBC 4.07 L (4.1-5.6) x10^6/uL Hgb 8.7 L (12.5-18.0) g/dL Hct 30.7 L (42-50) % MCV 75.4 L (78-100) fL MCH 21.4 L (26-32) pg MCHC 28.3 L (32-36) g/dL RDW 20.4 H (11.5-14.0) % Plt Count 318 (150-450) x10^3/uL MPV 9.3 (7.5-11.0) fL Gran % Not Reportable Immature Gran % (Auto) Not Reportable Nucleat RBC Rel Count Not Reportable Eos # (Auto) Not Reportable Immature Gran # (Auto) Not Reportable Absolute Lymphs (auto) Not Reportable Absolute Monos (auto) Not Reportable Absolute Nucleated RBC Not Reportable Lymphocytes % Not Reportable Monocytes % Not Reportable Eosinophils % Not Reportable Basophils % Not Reportable Absolute Granulocytes Not Reportable Segmented Neutrophils 51 (36.-66.) % Lymphocytes (Manual) 31 (24-44) % Monocytes (Manual) 10 (0.0-12.0) % Eosinophils (Manual) 6 H (0.00-3.0) % Basophils (Manual) 2 H (0.0-1.0) % Basophils # Not Reportable Hypochromia 1+ Toxic Granulation 1+ Platelet Estimate NORMAL (NORMAL) RBC Morphology ABNORMAL Anisocytosis 2+ Microcytosis 1+ Sodium 139 (137-145) mmol/L Potassium 3.6 (3.5-5.1) mmol/L Chloride 108 H (98-107) mmol/L Carbon Dioxide 25 (22-30) mmol/L Anion Gap 9.5 (5-15) MEQ/L BUN 13 (9-20) mg/dL Creatinine 0.77 (0.66-1.25) mg/dL Estimated GFR > 60.0 ML/MIN Glucose 108 H (74-106) mg/dL POC Glucometer (74 to 106) mg/dL Calcium 8.8 (8.4-10.2) mg/dL Procalcitonin 0.050 (0.030-0.080) ng/mL SARS-CoV-2 Ag (Rapid) (NEGATIVE) Micro Results-Entire Visit: Accuchecks Date 09/24/22 Date 09/24/22 Time 16:37 Time 11:53 - Radiology Exams Ordered Rad Exams-Entire Visit: Radiology Procedures Category Date Time Status CHEST 1 VIEW (PORTABLE) Stat Exams 09/23/22 17:31 Completed - Procedures and Test Procedures and Tests throughout Hospitalization: Therapy Orders & Screens 09/23/22 19:41 Respiratory Therapy Consult ROUTINE Comment: Reason For Exam: 09/23/22 19:44 OT Screen per Nursing Assess ONCE Comment: Protocol Order Physician Instructions: Greater than 3 points order OT Admission Screening Reason For Exam: Triggered on Admission Diagnosis: covid, weakness Open Wound/Cellutlitis/Pressure Ulcers: No Acute Fx/ORIF/Change in wt bearing status: No Severe MUSCULOSKELETAL pain: No ADL Dysfunction: Yes Acute CVA w/Hemiparesis/Hemiplegia: No Decreased Functional Mobility/Strength: Yes Sprain/Strain: No Acute Post-op Mobility Dysfunction: No Total Points: 4 PT Screen per Nursing Assess ONCE Comment: Protocol Order Physician Instructions: Greater than 3 points order PT Admission Screenin Reason For Exam: Triggered on Admission Diagnosis: covid, weakness Open Wound/Cellutlitis/Pressure Ulcers: No Acute Fx/ORIF/Change in wt bearing status: No Severe MUSCULOSKELETAL pain: No ADL Dysfunction: Yes Acute CVA w/Hemiparesis/Hemiplegia: No Decreased Functional Mobility/Strength: Yes Sprain/Strain: No Acute Post-op Mobility Dysfunction: No Total Points: 4 09/23/22 20:07 Respiratory Therapy Assessment DAILY Comment: Diagnosis: covid, weakness 09/24/22 11:49 PT Eval & Treat (MD Order) ONCE Reason for Eval:: deconditioning Diagnosis: covid, weakness 09/24/22 15:29 Respiratory MDI UD Comment: Diagnosis: covid, weakness Discharge Exam General Appearance: no apparent distress, alert Neurologic Exam: cooperative, normal mood/affect Eye Exam: eyes nml inspection Ears, Nose, Throat Exam: moist mucous membranes Neck Exam: normal inspection Respiratory Exam: normal breath sounds, lungs clear, No crackles/rales, No rhonchi, No wheezing Cardiovascular Exam: regular rate/rhythm, normal heart sounds, No murmur Gastrointestinal/Abdomen Exam: soft, normal bowel sounds, No tenderness, No distention, No mass, No guarding, No rebound Extremity Exam: normal inspection, No pedal edema, No swelling Skin Exam: normal color, warm, dry, No rash Final Diagnosis/Problem List - Final Discharge Diagnosis/Problem (1) Generalized weakness Current Visit: Yes Status: Acute Assessment & Plan: Did well yesterday with PT, but I suspect this varies from day to day. Will be evaluated for rehab stay today. Code(s): R53.1 - WEAKNESS (2) Microcytic anemia Current Visit: Yes Status: Acute Assessment & Plan: stable at around 8.5. Code(s): D50.9 - IRON DEFICIENCY ANEMIA, UNSPECIFIED (3) Altered mental status Current Visit: No Status: Resolved Assessment & Plan: Also varies from day to day. improved today from yesterday. Code(s): R41.82 - ALTERED MENTAL STATUS, UNSPECIFIED (4) Right knee pain Current Visit: Yes Status: Chronic Assessment & Plan: no complaint today. Code(s): M25.561 - PAIN IN RIGHT KNEE - Discharge Disposition: DC TO ANY "OTHER" CARE HOME Condition: Stable Prescriptions: Continue Zolpidem Tartrate 10 mg PO QHS Ropinirole HCl 0.5 mg [Requip 0.5 MG] 0.5 mg PO QHS Ferrous Sulfate 325 mg PO QHS Tamsulosin HCl 0.4 mg [Flomax 0.4 MG] 0.4 mg PO QHS Oxycodone HCl 10 mg PO Q4HPRN PRN PRN Reason: Pain Omeprazole Magnesium 40 mg PO QHS Furosemide [Lasix] 20 mg PO QAM Sennosides/Docusate Sodium [Stimulant Laxative Plus Tablet] 1 each PO BID Metformin HCl 500 mg [Glucophage 500 MG] 500 mg PO QHS Imatinib Mesylate [Gleevec] 300 mg PO QHS Gabapentin [Neurontin ] 300 mg PO QHS Fluticasone/Umeclidin/Vilanter [Trelegy Ellipta 100-62.5-25] 1 puff IH QHS Celecoxib 100 mg [celeBREX 100 MG] 200 mg PO BIDPRN PRN PRN Reason: Pain Aspirin EC 81 mg [Ecotrin 81 mg] 81 mg PO QHS Albuterol Sulfate [Proair Respiclick] 1 puff IH UD PRN PRN Reason: Shortness Of Breath Acetaminophen 500 mg [Tylenol Extra Strength 500 mg] 500 mg PO TIDPRN PRN PRN Reason: Pain Changed Potassium Chloride 20 mg PO QAM 30 Days #30 tablet Follow up with: IRINA RYAN [Primary Care Provider] -
[2022-09-25] MEDS: Klor Con PO SCH (10:32)
[2022-09-25] MEDS: ENOXAPARIN SODIUM SQ SCH (10:32)
[2022-09-25] MEDS: LASIX 20 MG PO SCH (10:32)
[2022-09-25 14:12] VITALS: BP 127/59; O2SAT 93
== END 2022-09-25 13:55 ==
LOC: ED 14:31 → MED SURG 18:28
PROVIDERS: ADMIT Family Medicine; ATTEND Family Medicine
DX: R53.1 Weakness (principal); D50.9 Iron deficiency anemia, unspecified; R41.82 Altered mental status, unspecified; M25.561 Pain in right knee; U07.1 COVID-19; J44.9 Chronic obstructive pulmonary disease, unspecified; C95.90 Leukemia, unspecified not having achieved remission; I10 Essential (primary) hypertension; N40.0 Benign prostatic hyperplasia without lower urinary tract symptoms; E87.6 Hypokalemia; Z87.891 Personal history of nicotine dependence; Z79.899 Other long term (current) drug therapy; Z20.828 Contact with and (suspected) exposure to other viral communicable diseases
CPT/HCPCS: 0241U; 36000; 36415; 71045; 80048; 80053; 81001; 82947; 84145; 85025; 87811; 93005; 93041; 93268; 94640; 94760; 96360; 99284; J1650; A9270-GY; G0378

== ENCOUNTER 2023-05-01 18:19 | Inpatient (IN) | payer MEDICARE, OTHER ==
[2023-05-01] MEDS ORDERED: PROVENTIL 2.5 MG/3 ML NEB IH ONE (18:23)
[2023-05-01] MEDS ORDERED: DUONEB 0.5-3 MG/3 ml Neb IH ONE ×4 (18:24→19:52)
[2023-05-01] MEDS ORDERED: solu-MEDROL 125 MG, Sterile H2O 10 ml 2 ML IV ONE ×2 (18:29)
[2023-05-01] MEDS ORDERED: solu-MEDROL ONE (18:49)
[2023-05-01] MEDS ORDERED: Sterile H2O 10 ml IJ ONE (18:49)
[2023-05-01 18:54] LABS: A-aADO2 131; ABG HEMOGLOBIN 10.1; ARTERIAL BLD GAS O2 SATURATION 99.6 % (95-100); ARTERIAL BLOOD GAS BASE EXCESS 0.7 (-2.0-2.0); ARTERIAL BLOOD GAS FIO2 40 %; ARTERIAL BLOOD GAS PCO2 28 mmHg (35-45); ARTERIAL BLOOD GAS PO2 119 mmHg (75-100); ARTERIAL BLOOD GAS pH 7.52 (7.35-7.45); HCO3- 22.9 (22-28); HGB O2 SAT 93.6 g/dF (94-100); Methhemoglobin 0.9 % (1.4-1.5); paO2 pAO1 0.48
[2023-05-01 18:55] LABS: ABG POTASSIUM 2.6 (3.5-5.1); ABG SITE RIGHT RADIAL; ALLEN TEST OK? YES
[2023-05-01] MEDS ORDERED: PIPERACILLIN/TAZOBACTAM 3.375 GM in Sodium Chloride 100ML MINI-BAG PLUS 100 ML IV ONE (18:57)
[2023-05-01] MEDS ORDERED: Zithromax 500 MG/ 250 ML NaCl Premix 500 MG/250 ML IVPB IV STA (18:57)
[2023-05-01 19:03] LABS: Absolute Neutrophil Ct (ANC) 13.47 x10^3/uL (1.4-6.9); BASOPHIL % 0.1 % (0.0-0.4); Basophil (Absolute #) 0.02 x10^3/uL (0-0.4); Eosinophil (Absolute #) 0 x10^3/uL (0-0.5); Hematocrit 32.7 % (42-50); Hemoglobin 9.8 g/dL (12.5-18.0); IMMATURE GRAN % 0.7 % (0.00-0.4); Lymphocyte (Absolute #) 0.31 x10^3/uL (1.0-4.6); Lymphocytes % 2.1 % (24.0-44.0); Mean Cell Volume 91.3 fL (78-100); Mean Corpuscular Hemoglobin 27.4 pg (26-32); Mean Platelet Volume 9.9 fL (7.5-11.0); Monocyte (Absolute #) 1.06 x10^3/uL (0.0-1.3); Monocytes % 7.1 % (0.0-12.0); Platelet Count 165 x10^3/uL (150-450); Red Blood Count 3.58 x10^6/uL (4.1-5.6)
--- NOTE | 2023-05-01 19:04 | ERPHSYRPT ---
- History of Present Illness Time Seen by Provider: 05/01/23 18:29 Source: patient Exam Limitations: no limitations Patient Subjective Stated Complaint: PT HERE FOR INCREASE SOB TODAY, PT SPOUSE STATES THAT HE'S OXYGEN IS NOT WORKING TODAY, UNSURE HOW LONG PT WAS WITH OUT, AND STATES HE HAS NOT HAD A TREATMENT SINCE THIS MORNING Triage Nursing Assessment: PT ALERT, RESP DISTRESS, HELPED TO BED FROM , O2 APPLIED PER NC, SKIN W/D/PALE, EDEMA NOT LOWER LEGS THAT PT STATES IS NORMAL FOR HIM, CHEST DIMISNISHED, DRY COUGH Physician History: 77 years old male with history of chronic respiratory failure on 3 L oxygen, congestive heart failure, GERD, restless leg syndrome presented in the ER with chief complaint of increasing shortness of breath since morning. reports that oxygen concentrator was not working. Patient oxygen saturation is around 80% on presentation in the ER with minimal air movements and wh eezing/respiratory distress. Denies any chest pain fever or chills. Denies any known sick contact. Does have bilateral lower extremity swelling which is not any worse than usual. Allergies/Adverse Reactions: No Known Drug Allergies Allergy (Verified 05/01/23 18:22) Home Medications: Zolpidem Tartrate 10 mg PO QHS 06/11/15 [History] Ropinirole HCl 0.5 mg [Requip 0.5 MG] 0.5 mg PO QHS 01/07/17 [History] Ferrous Sulfate 325 mg PO QHS 02/04/20 [History] Tamsulosin HCl 0.4 mg [Flomax 0.4 MG] 0.4 mg PO QHS 02/18/22 [History] Omeprazole Magnesium 40 mg PO QHS 09/16/22 [History] Oxycodone HCl 10 mg PO Q4HPRN PRN 09/16/22 [History] Furosemide [Lasix] 20 mg PO QAM 09/23/22 [History] Acetaminophen 500 mg [Tylenol Extra Strength 500 mg] 500 mg PO TIDPRN PRN 09/24/22 [History] Albuterol Sulfate [Proair Respiclick] 1 puff IH UD PRN 09/24/22 [History] Aspirin EC 81 mg [Ecotrin 81 mg] 81 mg PO QHS 09/24/22 [History] Celecoxib 100 mg [celeBREX 100 MG] 200 mg PO BIDPRN PRN 09/24/22 [History] Fluticasone/Umeclidin/Vilanter [Trelegy Ellipta 100-62.5-25] 1 puff IH QHS 09/24/22 [History] Gabapentin [Neurontin ] 300 mg PO QHS 09/24/22 [History] Imatinib Mesylate [Gleevec] 300 mg PO QHS 09/24/22 [History] Metformin HCl 500 mg [Glucophage 500 MG] 500 mg PO QHS 09/24/22 [History] Sennosides/Docusate Sodium [Stimulant Laxative Plus Tablet] 1 each PO BID 09/24/22 [History] Hx Tetanus, Diphtheria Vaccination/Date Given: Yes Hx Influenza Vaccination/Date Given: No Hx Pneumococcal Vaccination/Date Given: Yes Immunizations Up to Date: Yes Travel Risk - International Travel Have you traveled outside of the country in past 3 weeks: No - Coronavirus Screening Are you exhibiting any of the following symptoms?: No Close contact with a COVID-19 positive Pt in past 14-21 Days: No - Vaccine Status Have you recieved a Covid-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: Yes Brake Tester: Moderna - Vaccination Dates Date of 2cond Vaccination (if applicable): 12/27 - Review of Systems Constitutional: No Symptoms Eyes: No Symptoms Ears, Nose, & Throat: No Symptoms Respiratory: Cough, Dyspnea, Dyspnea on Exertion ([place]), Wheezing Cardiac: Edema Abdominal/Gastrointestinal: No Symptoms Genitourinary Symptoms: No Symptoms Musculoskeletal: Arthralgias Skin: No Symptoms Endocrine: No Symptoms Hematologic/Lymphatic: No Symptoms - Past Medical History Pertinent Past Medical History: Yes Neurological History: Peripheral Neuropathy ENT History: Cataracts Cardiac History: Hypertension Respiratory History: COPD Endocrine Medical History: No Pertinent History Musculoskeletal History: Osteoarthritis GI Medical History: GERD, Other History: No Pertinent History Psycho-Social History: No Pertinent History Male Reproductive Disorders: Prostate Problems Other Medical History: ANEMIA, Hypokalemia, leukemia, insomnia, BPH - Past Surgical History Past Surgical History: Yes Neuro Surgical History: No Pertinent History Cardiac: No Pertinent History Respiratory: No Pertinent History Gastrointestinal: Cholecystectomy Genitourinary: No Pertinent History Musculoskeletal: Orthopedic Surgery Male Surgical History: No Pertinent History Other Surgical History: right knee replacement 2020 - Social History Smoking Status: Former smoker How long have you smoked: 40 years Exposure to second hand smoke: No Drug Use: none Patient Lives Alone: No - Nursing Vital Signs Nursing Vital Signs: Initial Vital Signs Temperature 98.8 F 05/01/23 18:22 Pulse Rate 106 H 05/01/23 18:22 Respiratory Rate 42 H 05/01/23 18:22 Blood Pressure 165/81 05/01/23 18:22 O2 Sat by Pulse Oximetry 85 L 05/01/23 18:22 Pain Scale Pain Intensity 0 - Physical Exam General Appearance: moderate distress, alert Eye Exam: PERRL/EOMI Ears, Nose, Throat Exam: hearing grossly normal Neck Exam: normal inspection, supple, full range of motion Respiratory Exam: diminished breath sounds, wheezing Cardiovascular/Chest Exam: normal heart sounds, regular rate/rhythm, edema Abdominal/Gastrointestinal Exam: soft, No tenderness Extremity Exam: normal range of motion Neurologic Exam: alert, 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, cooperative Skin Exam: normal color SpO2 Interpretation: hypoxic, O2 applied SpO2: 96 O2 Delivery: Nasal Cannula (5 L) - Course EKG Interpreted by Me: RATE ([id number]), Sinus Tach, Right [place] Deviation, NORMAL INTERVALS, Non-specific ST Changes, Other (PVCs) Ordered Tests: Active Orders 24 hr Category Date Time Status Cook Helper Preserves STAT Care 05/01/23 18:30 Active EKG-ER Only STAT Care 05/01/23 18:29 Active IV Insertion STAT Care 05/01/23 18:29 Active NPO (ED) STAT Care 05/01/23 18:29 Active Oxygen-ED Only Nasal Cannula 4 lpm Care 05/01/23 18:29 Active Telemetry q4h Care 05/01/23 19:34 Active CHEST 1 VIEW (PORTABLE) Stat Exams 05/01/23 18:30 Taken ARTERIAL BLOOD GASES Stat Lab 05/01/23 18:49 Completed BLOOD CULTURE Stat Lab 05/01/23 18:45 Received CBC W DIFF Stat Lab 05/01/23 18:40 Completed CMP Stat Lab 05/01/23 18:40 Completed Lactic Acid Stat Lab 05/01/23 18:49 Completed MAGNESIUM Stat Lab 05/01/23 18:40 Completed NT PRO BNPII Stat Lab 05/01/23 18:40 Completed PROCALCITONIN Stat Lab 05/01/23 18:40 Completed TROPONIN Q4H Lab 05/01/23 18:40 Completed TROPONIN Q4H Lab 05/01/23 22:30 Ordered TROPONIN Q4H Lab 05/02/23 02:30 Ordered Respiratory Therapy Assessment DAILY RT 05/01/23 19:03 Active Medication Summary Generic Name Dose Route Start Last Admin Trade Name Marino PRN Reason Stop Dose Admin Potassium Chloride 20 meq in 100 mls @ 50 mls/hr 05/01/23 19:45 05/01/23 20:10 Potassium Chloride 20 Meq In Water 100ml IV 05/01/23 23:44 50 mls/hr Q2H MAN Administration Discontinued Medications Generic Name Dose Route Start Last Admin Trade Name Freq PRN Reason Stop Dose Admin Albuterol Sulfate Confirm 05/01/23 18:23 Albuterol Sulfate 2.5 Mg/3 Ml Neb Administered 05/01/23 18:24 Dose 2.5 mg IH .STK-MED ONE Albuterol/Ipratropium Confirm 05/01/23 18:24 Ipratropium/Albuterol Sulfate 3 Ml Ampul.Neb Administered 05/01/23 18:25 Dose 3 ml IH .STK-MED ONE Albuterol/Ipratropium 3 ml 05/01/23 18:29 05/01/23 18:25 Ipratropium/Albuterol Sulfate 3 Ml Ampul.Neb IH 05/01/23 18:30 3 ml STAT ONE Administration Albuterol/Ipratropium Confirm 05/01/23 19:49 Ipratropium/Albuterol Sulfate 3 Ml Ampul.Neb Administered 05/01/23 19:50 Dose 3 ml IH .STK-MED ONE Albuterol/Ipratropium 3 ml 05/01/23 19:52 05/01/23 19:53 Ipratropium/Albuterol Sulfate 3 Ml Ampul.Neb IH 05/01/23 19:53 3 ml STAT ONE Administration Aspirin 324 mg 05/01/23 19:51 05/01/23 20:10 Aspirin 81 Mg Tab.Chew PO 05/01/23 19:52 324 mg STAT ONE Administration Aspirin Confirm 05/01/23 20:09 Aspirin 81 Mg Tab.Chew Administered 05/01/23 20:10 Dose 324 mg .ROUTE .STK-MED ONE Methylprednisolone Sodium 0 mg 05/01/23 18:29 05/01/23 18:49 Succinate 125 mg/ Sterile IV 05/01/23 18:30 125 mg Water 2 ml STAT ONE Administration Piperacillin Sod/Tazobactam 100 mls @ 200 mls/hr 05/01/23 18:57 05/01/23 19:24 Sod 3.375 gm/ Sodium Chloride IV 05/01/23 19:26 200 mls/hr STAT ONE Administration Azithromycin 500 mg in 250 mls @ 250 mls/hr 05/01/23 18:57 05/01/23 19:59 Zithromax 500 Mg/ 250 Ml Nacl Premix IV 05/01/23 19:56 250 mls/hr STAT STA 250 mls/hr Administration Sodium Chloride Confirm 05/01/23 19:20 Sodium Chloride 100ml Mini-Bag Plus Administered 05/01/23 19:21 Dose 100 mls @ ud IV .STK-MED ONE Azithromycin Confirm 05/01/23 19:20 Zithromax 500 Mg/ 250 Ml Nacl Premix Administered 05/01/23 19:21 Dose 500 mg in 250 mls @ ud IV .STK-MED ONE Methylprednisolone Sodium Succinate Confirm 05/01/23 18:49 Methylprednis Sod Succ 125 Mg/2 Ml Vial Administered 05/01/23 18:50 Dose 125 mg .ROUTE .STK-MED ONE Piperacillin Sod/Tazobactam Sod Confirm 05/01/23 19:19 Piperacillin/Tazobactam Sodium 3.375 Gm Vial Administered 05/01/23 19:20 Dose 3.375 gm IV .STK-MED ONE Potassium Chloride 40 meq 05/01/23 19:34 05/01/23 20:11 Potassium Chloride Tab 10 Meq Tab PO 05/01/23 19:35 40 meq STAT ONE Administration Potassium Chloride Confirm 05/01/23 20:09 Potassium Chloride Tab 10 Meq Tab Administered 05/01/23 20:10 Dose 40 meq PO .STK-MED ONE Sterile Water Confirm 05/01/23 18:49 Water For Injection,Sterile 10 Ml Vial Administered 05/01/23 18:50 Dose 10 ml IJ .STK-MED ONE Lab/Rad Data: Laboratory Result Diagrams 05/01/23 18:40 05/01/23 18:40 Laboratory Results 05/01/23 05/01/23 05/01/23 Range/Units 18:49 18:40 18:40 WBC (4.0-10.5) x10^3/uL RBC (4.1-5.6) x10^6/uL Hgb (12.5-18.0) g/dL Hct (42-50) % MCV (78-100) fL MCH (26-32) pg MCHC (32-36) g/dL Plt Count (150-450) x10^3/uL MPV (7.5-11.0) fL Gran % (36.0-66.0) % Immature Gran % (Auto) (0.00-0.4) % Nucleat RBC Rel Count (0.00-0.1) % Eos # (Auto) (0-0.5) x10^3/uL Immature Gran # (Auto) (0.00-0.03) x10^3u/L Absolute Lymphs (auto) (1.0-4.6) x10^3/uL Absolute Monos (auto) (0.0-1.3) x10^3/uL Absolute Nucleated RBC (0.00-0.01) x10^3u/L Lymphocytes % (24.0-44.0) % Monocytes % (0.0-12.0) % Eosinophils % (0.00-5.0) % Basophils % (0.0-0.4) % Absolute Granulocytes (1.4-6.9) x10^3/uL Basophils # (0-0.4) x10^3/uL Puncture Site RIGHT RADIAL pCO2 28 L (35-45) mmHg pO2 119 H (75-100) mmHg Base Excess 0.7 (-2.0-2.0) O2 Saturation 93.6 L (94-100) g/dF ABG pH 7.52 H (7.35-7.45) ABG HCO3 22.9 (22-28) ABG O2 Sat (Measured) 99.6 (95-100) % Gold Test YES A-a Gradient 131 a/A Ratio 0.48 Hemoglobin 10.1 Carboxyhemoglobin 5.0 (0.0-6.9) % THgb Methemoglobin 0.9 L (1.4-1.5) % Temperature 37.0 C POC O2 Flow Rate 40 % Sodium (137-145) mmol/L Potassium 2.6 L* (3.5-5.1) mmol/L Chloride (98-107) mmol/L Carbon Dioxide (22-30) mmol/L Anion Gap (5-15) MEQ/L BUN (9-20) mg/dL Creatinine (0.66-1.25) mg/dL Estimated GFR ML/MIN Glucose (74-106) mg/dL Lactic Acid 3.0 H (0.4-2.0) Calcium (8.4-10.2) mg/dL Magnesium (1.6-2.3) mg/dL Total Bilirubin (0.2-1.3) mg/dL AST (17-59) U/L ALT (0-50) U/L Alkaline Phosphatase (38-126) U/L Troponin I 0.085 H* (0.000-0.034) ng/mL NT-Pro-B Natriuret Pep (<300) pg/mL Serum Total Protein (6.3-8.2) g/dL Albumin (3.5-5.0) g/dL Procalcitonin (0.030-0.080) ng/mL Influenza Type A Ag NEGATIVE (NEGATIVE) Influenza Type B Ag NEGATIVE (NEGATIVE) RSV (PCR) NEGATIVE (NEGATIVE) SARS-CoV-2 (PCR) NEGATIVE (NEGATIVE) 05/01/23 05/01/23 Range/Units 18:40 18:40 WBC 15.0 H (4.0-10.5) x10^3/uL RBC 3.58 L (4.1-5.6) x10^6/uL Hgb 9.8 L (12.5-18.0) g/dL Hct 32.7 L (42-50) % MCV 91.3 (78-100) fL MCH 27.4 (26-32) pg MCHC 30.0 L (32-36) g/dL Plt Count 165 (150-450) x10^3/uL MPV 9.9 (7.5-11.0) fL Gran % 90.0 H (36.0-66.0) % Immature Gran % (Auto) 0.7 H (0.00-0.4) % Nucleat RBC Rel Count 0.0 (0.00-0.1) % Eos # (Auto) 0 (0-0.5) x10^3/uL Immature Gran # (Auto) 0.10 H (0.00-0.03) x10^3u/L Absolute Lymphs (auto) 0.31 L (1.0-4.6) x10^3/uL Absolute Monos (auto) 1.06 (0.0-1.3) x10^3/uL Absolute Nucleated RBC 0.00 (0.00-0.01) x10^3u/L Lymphocytes % 2.1 L (24.0-44.0) % Monocytes % 7.1 (0.0-12.0) % Eosinophils % 0.0 (0.00-5.0) % Basophils % 0.1 (0.0-0.4) % Absolute Granulocytes 13.47 H (1.4-6.9) x10^3/uL Basophils # 0.02 (0-0.4) x10^3/uL Puncture Site pCO2 (35-45) mmHg pO2 (75-100) mmHg Base Excess (-2.0-2.0) O2 Saturation (94-100) g/dF ABG pH (7.35-7.45) ABG HCO3 (22-28) ABG O2 Sat (Measured) (95-100) % Gold Test A-a Gradient a/A Ratio Hemoglobin Carboxyhemoglobin (0.0-6.9) % THgb Methemoglobin (1.4-1.5) % Temperature C POC O2 Flow Rate % Sodium 133 L (137-145) mmol/L Potassium 2.6 L* (3.5-5.1) mmol/L Chloride 99 (98-107) mmol/L Carbon Dioxide 22 (22-30) mmol/L Anion Gap 14.3 (5-15) MEQ/L BUN 17 (9-20) mg/dL Creatinine 0.67 (0.66-1.25) mg/dL Estimated GFR > 60.0 ML/MIN Glucose 148 H (74-106) mg/dL Lactic Acid (0.4-2.0) Calcium 8.0 L (8.4-10.2) mg/dL Magnesium 2.1 (1.6-2.3) mg/dL Total Bilirubin 3.30 H (0.2-1.3) mg/dL AST 89 H (17-59) U/L ALT 37 (0-50) U/L Alkaline Phosphatase 119 (38-126) U/L Troponin I (0.000-0.034) ng/mL NT-Pro-B Natriuret Pep 2940 (<300) pg/mL Serum Total Protein 6.3 (6.3-8.2) g/dL Albumin 3.3 L (3.5-5.0) g/dL Procalcitonin 0.240 H (0.030-0.080) ng/mL Influenza Type A Ag (NEGATIVE) Influenza Type B Ag (NEGATIVE) RSV (PCR) (NEGATIVE) SARS-CoV-2 (PCR) (NEGATIVE) - Progress Progress: improved, re-examined Air Movement: fair Progress Note: 05/01/23 19:03 77 years old male with history of chronic respiratory failure on 3 L oxygen, congestive heart failure, GERD, restless leg syndrome presented in the ER with chief complaint of increasing shortness of breath since morning. reports that oxygen concentrator was not working. Patient oxygen saturation is around 8 0% on presentation in the ER with minimal air movements and wheezing/respiratory distress. Denies any chest pain fever or chills. Denies any known sick contact. Does have bilateral lower extremity swelling which is not any worse than usual. EKG did not show any acute ST elevation, patient is placed on 5 L oxygen and saturation improved in mid 90s. Chest x-ray showed bilateral airspace disease reviewed by me with official report pending, started on broad-spectrum antibiotics. Given DuoNeb and Solu-Medrol as well. Patient is feeling better on reevaluation. 05/01/23 19:53 Patient still have some difficulty breathing but much better than before. Work- up showed white count of 15, lactate of 3.0 with a procalcitonin 0.24. Chemistries showed potassium of 2.6 with normal magnesium, started on oral and IV replacement. EKG showed sinus tach with PVC but no acute ST elevations, does have initial troponin of 0.085. Patient denies any chest pain. We will continue to trend cardiac enzymes. I think is more of respiratory/sepsis driven rather than cardiac. 05/01/23 20:00 I have discussed with Dr. Gilman, reviewed history, work-up and current management, agreed with admission. I have discussed the results of work-up and plan of care with patient and family, recommended admission and they are okay with it. Blood Culture(s) Obtained: Yes Antibiotics given: Yes Discussed with : Vilma ([id number]) Will see patient in: hospital (full admit) Counseled pt/family regarding: lab results, diagnosis, rad results Medical Desision Making - Independent Historian Additional History obtained from: Spouse - Discussion of managment Care discussed with:: hospitalist Reviewed:: Test results Agreed on:: Treatment plan, decision to admit Will see patient: in hospital - Diagnostic Testing Diagnostic test were ordered, analyzed, and reviewed by me: Yes Radiological Interpretation: Interpreted by me, Reviewed by me - Risk of complications The pt has a high risk of morbidity or mortality based on: Decision regarding hospitilization or escalation of hosp level of care - Departure Departure Disposition: In-patient Admission Clinical Impression: Acute exacerbation of chronic obstructive airways disease, Pneumonia, Sepsis, Hypokalemia, Elevated troponin Respiratory failure Qualifiers: Chronicity: acute on chronic Respiratory failure complication: hypoxia Qualified Code(s): J96.21 - Acute and chronic respiratory failure with hypoxia Condition: Fair Critical Care Time: Yes Critical Care Time(excluding separately billable procedures): Critical 30-74 mins Referrals: IRINA KINGSTON [Primary Care Provider] - Follow up/PCP as directed
[2023-05-01] MEDS ORDERED: PIPERACILLIN/TAZOBACTAM IV ONE (19:19)
[2023-05-01] MEDS ORDERED: Zithromax 500 MG/ 250 ML NaCl Premix 500 MG/250 ML IVPB IV ONE (19:20)
[2023-05-01] MEDS ORDERED: Sodium Chloride 100ML MINI-BAG PLUS 100 ML IV ONE (19:20)
[2023-05-01 19:30] LABS: ALBUMIN 3.3 g/dL (3.5-5.0); ALKALINE PHOSPHATASE 119 U/L (38-126); ANION GAP 14.3 MEQ/L (5-15); BLOOD UREA NITROGEN 17 mg/dL (9-20); CHLORIDE 99 mmol/L (98-107); Carbon Dioxide 22 mmol/L (22-30); Creatinine 1 0.67 mg/dL (0.66-1.25); EST GLOMERULAR FILTRATION RATE > 60.0 ML/MIN; Glucose 148 mg/dL (74-106); MAGNESIUM 2.1 mg/dL (1.6-2.3); NT PRO BNPII 2940 pg/mL (<300); SGOT/AST 89 U/L (17-59); SGPT/ALT 37 U/L (0-50); SODIUM 133 mmol/L (137-145); Total Protein 6.3 g/dL (6.3-8.2)
[2023-05-01 19:34] LABS: Potassium 2.6 mmol/L (3.5-5.1)
[2023-05-01] MEDS ORDERED: Klor Con PO ONE ×2 (19:34→20:09)
[2023-05-01 19:39] LABS: INFLUENZA A NEGATIVE (NEGATIVE); INFLUENZA B NEGATIVE (NEGATIVE); RESPIRATORY SYNCTIAL VIRUS NEGATIVE (NEGATIVE); SARS-CoV-2 Xpert Express NEGATIVE (NEGATIVE)
[2023-05-01] MEDS ORDERED: BABY ASPIRIN 81 MG CHEW PO ONE (19:51)
[2023-05-01] MEDS ORDERED: BABY ASPIRIN 81 MG CHEW ONE (20:09)
[2023-05-01] MEDS: POTASSIUM CHLORIDE 20 mEq IN WATER 100ML 20 MEQ/100 ML BAG IV SCH ×2 (20:10→22:33)
[2023-05-01] MEDS ORDERED: Sodium Chloride 0.9% 500 ML 500 ML IV SCH (20:15)
--- NOTE | 2023-05-01 21:17 | PCM.HP ---
History of Present Illness - Chief Complaint Chief Complaint: SOB History of Present Illness: is a 77 year old male with hx of COPD and chronic respiratory failure with 3Ls NC O2 at home, CHF, HTN, GERD, BPH and restless Leg Syndrome presented with c/o worsening SOB this AM. reports O2 concentrator has not been working at home. She thinks this may be the precipitating factor. O2 sat in ER was 80% on RA, placed on 5Ls NC and O2 sat improved to > 92%. He is now at 4Ls NC O2. Denies cough, sputum, hemoptysis, fever, chills, sweats. Denies nausea, vomiting, diarrhea, chest pain C XR in ER revealed BL infiltrates. So he is now admitted for PNA and COPD exacerbation, and sepsis. His is with him. He is back down to 3Ls NC O2 - Review of Systems Constitutional: Fatigue Eyes: No Symptoms Ears, Nose, & Throat: No Symptoms Respiratory: Short Of Breath, Wheezing Cardiac: No Symptoms Abdominal/Gastrointestinal: No Symptoms Genitourinary Symptoms: No Symptoms Musculoskeletal: No Symptoms Skin: No Symptoms Neurological: No Symptoms Psychological: No Symptoms Endocrine: No Symptoms Hematologic/Lymphatic: No Symptoms Immunological/Allergic: No Symptoms Medications & Allergies Home Medications: Home Medication List Zolpidem Tartrate 10 mg PO QHS 06/11/15 [History Confirmed 05/01/23] Ropinirole HCl 0.5 mg [Requip 0.5 MG] 0.5 mg PO QHS 01/07/17 [History Confirmed 05/01/23] Tamsulosin HCl 0.4 mg [Flomax 0.4 MG] 0.4 mg PO QHS 02/18/22 [History Confirmed 05/01/23] Furosemide [Lasix] 40 mg PO QAM 09/23/22 [History Confirmed 05/01/23] Albuterol Sulfate [Proair Respiclick] 1 puff IH UD PRN 09/24/22 [History Confirmed 05/01/23] Fluticasone/Umeclidin/Vilanter [Trelegy Ellipta 100-62.5-25] 1 puff IH QHS 09/24/22 [History Confirmed 05/01/23] Metformin HCl 500 mg [Glucophage 500 MG] 500 mg PO BID 09/24/22 [History Confirmed 05/01/23] Iron,Carb/Vit C/Vit B12/Folic [Iron 100 Plus Tablet] 1 each PO 05/01/23 [History] Potassium Chloride 10 meq PO QAM 05/01/23 [History Confirmed 05/01/23] Allergies/Adverse Reactions: Allergies Allergy/AdvReac Type Severity Reaction Status Date / Time No Known Drug Allergies Allergy Verified 05/01/23 18:22 - Past Medical History Past Medical History: Yes Neurological History: Peripheral Neuropathy ENT History: Cataracts Cardiac History: Hypertension Respiratory History: COPD Endocrine Medical History: No Pertinent History Musculoskelatal History: Osteoarthritis GI Medical History: GERD, Other History: No Pertinent History Pyscho-Social History: No Pertinent History Male Reproductive Disorders: Prostate Problems Comment: ANEMIA, Hypokalemia, leukemia, insomnia, BPH - Past Surgical History Past Surgical History: Yes Neuro Surgical History: No Pertinent History Cardiac History: No Pertinent History Respiratory Surgery: No Pertinent History GI Surgical History: Cholecystectomy Genitourinary Surgical Hx: No Pertinent History Musculskeletal Surgical Hx: Orthopedic Surgery Male Surgical History: No Pertinent History Other Surgical History: right knee replacement 2020 - Social History Smoking Status: Former smoker How long have you smoked: 40 years Exposure to second hand smoke: No Alcohol: None Drug Use: none Significant Family History: no pertinent family hx - Physical Exam Vital Signs: Vital Signs - 24 hr Temp Pulse Resp BP BP Pulse Ox 05/01/23 20:30 105 H 26 H 133/78 133/78 97 05/01/23 20:20 96 05/01/23 20:15 107 H 28 H 157/65 97 05/01/23 20:00 96 H 31 H 166/73 94 L 05/01/23 19:54 96 H 30 H 98 05/01/23 19:45 91 H 27 H 171/74 100 05/01/23 19:29 99 H 33 H 167/76 97 05/01/23 19:26 93 H 30 H 97 05/01/23 18:25 89 34 H 97 05/01/23 18:24 42 H 96 05/01/23 18:22 98.8 F 106 H 42 H 165/81 85 L General Appearance: mild distress Neurologic Exam: alert, 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, cooperative Eye Exam: PERRL/EOMI, eyes nml inspection Ears, Nose, Throat Exam: normal ENT inspection Neck Exam: normal inspection, supple, full range of motion Respiratory Exam: respiratory distress, diminished breath sounds, wheezing Cardiovascular Exam: regular rate/rhythm, normal heart sounds Gastrointestinal/Abdomen Exam: soft, normal bowel sounds Rectal Exam: deferred Extremity Exam: normal inspection Skin Exam: normal color Results - Labs Lab/Micro Results: Lab Results-Last 24 Hours 05/01/23 05/01/23 05/01/23 Range/Units 18:40 18:40 18:40 WBC 15.0 H (4.0-10.5) x10^3/uL RBC 3.58 L (4.1-5.6) x10^6/uL Hgb 9.8 L (12.5-18.0) g/dL Hct 32.7 L (42-50) % MCV 91.3 (78-100) fL MCH 27.4 (26-32) pg MCHC 30.0 L (32-36) g/dL Plt Count 165 (150-450) x10^3/uL MPV 9.9 (7.5-11.0) fL Gran % 90.0 H (36.0-66.0) % Immature Gran % (Auto) 0.7 H (0.00-0.4) % Nucleat RBC Rel Count 0.0 (0.00-0.1) % Eos # (Auto) 0 (0-0.5) x10^3/uL Immature Gran # (Auto) 0.10 H (0.00-0.03) x10^3u/L Absolute Lymphs (auto) 0.31 L (1.0-4.6) x10^3/uL Absolute Monos (auto) 1.06 (0.0-1.3) x10^3/uL Absolute Nucleated RBC 0.00 (0.00-0.01) x10^3u/L Lymphocytes % 2.1 L (24.0-44.0) % Monocytes % 7.1 (0.0-12.0) % Eosinophils % 0.0 (0.00-5.0) % Basophils % 0.1 (0.0-0.4) % Absolute Granulocytes 13.47 H (1.4-6.9) x10^3/uL Basophils # 0.02 (0-0.4) x10^3/uL Puncture Site pCO2 (35-45) mmHg pO2 (75-100) mmHg Base Excess (-2.0-2.0) O2 Saturation (94-100) g/dF ABG pH (7.35-7.45) ABG HCO3 (22-28) ABG O2 Sat (Measured) (95-100) % Gold Test A-a Gradient a/A Ratio Hemoglobin Carboxyhemoglobin (0.0-6.9) % THgb Methemoglobin (1.4-1.5) % Temperature C POC O2 Flow Rate % Sodium 133 L (137-145) mmol/L Potassium 2.6 L* (3.5-5.1) mmol/L Chloride 99 (98-107) mmol/L Carbon Dioxide 22 (22-30) mmol/L Anion Gap 14.3 (5-15) MEQ/L BUN 17 (9-20) mg/dL Creatinine 0.67 (0.66-1.25) mg/dL Estimated GFR > 60.0 ML/MIN Glucose 148 H (74-106) mg/dL Lactic Acid (0.4-2.0) Calcium 8.0 L (8.4-10.2) mg/dL Magnesium 2.1 (1.6-2.3) mg/dL Total Bilirubin 3.30 H (0.2-1.3) mg/dL AST 89 H (17-59) U/L ALT 37 (0-50) U/L Alkaline Phosphatase 119 (38-126) U/L Troponin I 0.085 H* (0.000-0.034) ng/mL NT-Pro-B Natriuret Pep 2940 (<300) pg/mL Serum Total Protein 6.3 (6.3-8.2) g/dL Albumin 3.3 L (3.5-5.0) g/dL Procalcitonin 0.240 H (0.030-0.080) ng/mL Influenza Type A Ag (NEGATIVE) Influenza Type B Ag (NEGATIVE) RSV (PCR) (NEGATIVE) SARS-CoV-2 (PCR) (NEGATIVE) 05/01/23 05/01/23 Range/Units 18:40 18:49 WBC (4.0-10.5) x10^3/uL RBC (4.1-5.6) x10^6/uL Hgb (12.5-18.0) g/dL Hct (42-50) % MCV (78-100) fL MCH (26-32) pg MCHC (32-36) g/dL Plt Count (150-450) x10^3/uL MPV (7.5-11.0) fL Gran % (36.0-66.0) % Immature Gran % (Auto) (0.00-0.4) % Nucleat RBC Rel Count (0.00-0.1) % Eos # (Auto) (0-0.5) x10^3/uL Immature Gran # (Auto) (0.00-0.03) x10^3u/L Absolute Lymphs (auto) (1.0-4.6) x10^3/uL Absolute Monos (auto) (0.0-1.3) x10^3/uL Absolute Nucleated RBC (0.00-0.01) x10^3u/L Lymphocytes % (24.0-44.0) % Monocytes % (0.0-12.0) % Eosinophils % (0.00-5.0) % Basophils % (0.0-0.4) % Absolute Granulocytes (1.4-6.9) x10^3/uL Basophils # (0-0.4) x10^3/uL Puncture Site RIGHT RADIAL pCO2 28 L (35-45) mmHg pO2 119 H (75-100) mmHg Base Excess 0.7 (-2.0-2.0) O2 Saturation 93.6 L (94-100) g/dF ABG pH 7.52 H (7.35-7.45) ABG HCO3 22.9 (22-28) ABG O2 Sat (Measured) 99.6 (95-100) % Gold Test YES A-a Gradient 131 a/A Ratio 0.48 Hemoglobin 10.1 Carboxyhemoglobin 5.0 (0.0-6.9) % THgb Methemoglobin 0.9 L (1.4-1.5) % Temperature 37.0 C POC O2 Flow Rate 40 % Sodium (137-145) mmol/L Potassium 2.6 L* (3.5-5.1) mmol/L Chloride (98-107) mmol/L Carbon Dioxide (22-30) mmol/L Anion Gap (5-15) MEQ/L BUN (9-20) mg/dL Creatinine (0.66-1.25) mg/dL Estimated GFR ML/MIN Glucose (74-106) mg/dL Lactic Acid 3.0 H (0.4-2.0) Calcium (8.4-10.2) mg/dL Magnesium (1.6-2.3) mg/dL Total Bilirubin (0.2-1.3) mg/dL AST (17-59) U/L ALT (0-50) U/L Alkaline Phosphatase (38-126) U/L Troponin I (0.000-0.034) ng/mL NT-Pro-B Natriuret Pep (<300) pg/mL Serum Total Protein (6.3-8.2) g/dL Albumin (3.5-5.0) g/dL Procalcitonin (0.030-0.080) ng/mL Influenza Type A Ag NEGATIVE (NEGATIVE) Influenza Type B Ag NEGATIVE (NEGATIVE) RSV (PCR) NEGATIVE (NEGATIVE) SARS-CoV-2 (PCR) NEGATIVE (NEGATIVE) - Radiology Impressions Radiology Exams & Impressions: Radiology Procedures Category Date Time Status CHEST 1 VIEW (PORTABLE) Stat Exams 05/01/23 18:30 Taken - Other Procedures and Tests Respiratory Therapy 05/01/23 19:03 Respiratory Therapy Assessment DAILY Assessment/Plan (1) Sepsis Current Visit: Yes Status: Acute Assessment & Plan: Presented with sepsis - tachynea, tachycardia, leukocytosis and PNA. Treating PNA with zosyn and azithromycin given the extent of the infiltrates and sepsis presentation. Cultures sent (2) Pneumonia Current Visit: Yes Status: Acute Assessment & Plan: As above in sepsis. Zosyn and azithromycin. Cultures sent Code(s): J18.9 - PNEUMONIA, UNSPECIFIED ORGANISM (3) Respiratory failure Current Visit: Yes Status: Acute Qualifiers: Chronicity: acute on chronic Respiratory failure complication: hypoxia Qualified Code(s): J96.21 - Acute and chronic respiratory failure with hypoxia Assessment & Plan: Acute on chronic respiratory failure: on 4-5LS now, at home on 3Ls. Wean down when able. O2 protocol Code(s): J96.90 - RESPIRATORY FAILURE, UNSP, UNSP W HYPOXIA OR HYPERCAPNIA (4) Acute exacerbation of chronic obstructive airways disease Current Visit: Yes Status: Acute Assessment & Plan: Acute exacerbation - solu-medrol and updrafts scheduled and prn Code(s): J44.1 - CHRONIC OBSTRUCTIVE PULMONARY DISEASE W (ACUTE) EXACERBATION (5) Hypokalemia Current Visit: Yes Status: Acute Assessment & Plan: K is 2.6 - due to diuretic effect. Replacing, and monitoring. Mg is ok Code(s): E87.6 - HYPOKALEMIA (6) Elevated troponin Current Visit: Yes Status: Acute Assessment & Plan: Doubt ACS - may be demand ischemia. Trop 0.085. Plan to trend. EKG not indicative of acute MA Code(s): R77.8 - OTHER SPECIFIED ABNORMALITIES OF PLASMA PROTEINS (7) CHF (congestive heart failure) Current Visit: Yes Status: Acute Assessment & Plan: He is SOB, but due to PNA and COPD exacerbation. BNP 2924. Can continue home Lasix dose. Limit total fluid intake < 1.5Ls/day, and limit salt intake to < 2gm/day Code(s): I50.9 - HEART FAILURE, UNSPECIFIED (8) Respiratory alkalosis Current Visit: Yes Status: Acute Assessment & Plan: He is tachypneic - as we manage his CODP and PNA, this should improve. Code(s): E87.3 - [place] Telemedicine Encounter - Telemedicine Encounter Telemedicine Encounter: The entirety of this encounter was performed via Telemedicine" Pt gave me verbal consent to have this telemedicine visit
[2023-05-01] MEDS ORDERED: Zofran 4 MG/2 ML VIAL IV PRN (21:30)
[2023-05-01] MEDS ORDERED: TYLENOL 325 MG PO PRN (21:30)
[2023-05-01] MEDS ORDERED: HUMALOG SQ PRN (22:50)
[2023-05-01 23:15] LABS: Slide Review 1 YES
[2023-05-02] MEDS ORDERED: DUONEB 0.5-3 MG/3 ml Neb IH ONE ×2 (00:12→03:44)
[2023-05-02] MEDS ORDERED: Flomax 0.4 MG ONE (00:55)
[2023-05-02] MEDS ORDERED: Ambien 10 MG ONE (00:55)
[2023-05-02] MEDS ORDERED: Requip 0.5 MG ONE (00:55)
[2023-05-02] MEDS ORDERED: DUONEB 0.5-3 MG/3 ml Neb IH SCH (01:00)
[2023-05-02] MEDS ORDERED: Lasix 20 MG/2 ML ONE (01:58)
[2023-05-02] MEDS ORDERED: Lasix 40 MG/4 ML IV ONE ×2 (04:08→10:37)
[2023-05-02] MEDS: DUONEB 0.5-3 MG/3 ml Neb IH SCH ×6 (04:19→22:52)
[2023-05-02 04:44] LABS: ARTERIAL BLD GAS O2 SATURATION 99.5 % (95-100); ARTERIAL BLOOD GAS BASE EXCESS 0.6 (-2.0-2.0); ARTERIAL BLOOD GAS PCO2 28 mmHg (35-45); ARTERIAL BLOOD GAS PO2 156 mmHg (75-100); ARTERIAL BLOOD GAS pH 7.52 (7.35-7.45); HCO3- 22.9 (22-28)
[2023-05-02 04:45] LABS: A-aADO2 94; ABG POTASSIUM 3.2 (3.5-5.1); CARBON DIOXIDE 24 mEq/L (23-27)
[2023-05-02 04:46] LABS: ARTERIAL BLOOD GAS FIO2 40 %; ARTERIAL BLOOD GAS PEEP 7 cmH2O; ARTERIAL BLOOD GAS VENT MODE BIPAP; ARTERIAL BLOOD GAS VENT RATE 18 /MIN; BIPAP(E) 7; BIPAP(I) 14; HGB O2 SAT 93.4 g/dF (94-100); Methhemoglobin 0.6 % (1.4-1.5)
[2023-05-02 04:47] LABS: ABG SITE RIGHT RADIAL; ALLEN TEST OK? YES; CARBOXYHEMOGLOBIN 5.5 % THgb (0.0-6.9)
[2023-05-02 04:56] LABS: Appearance Clear (Clear); Bacteria None Seen /HPF (None Seen); Bilirubin Negative (Negative); Blood Negative (Negative); Epithelial Cells None Seen /HPF (None Seen); Glucose, Urine Negative (Negative); Hyaline Casts NONE SEEN /LPF (0-2); Ketones Negative (Negative); Leukocyte Esterase Negative (Negative); Nitrite Negative (Negative); Protein,Urine Dip Negative (Negative); RBC 0-2 /HPF (0-5)
[2023-05-02 05:02] LABS: ADD URINE CULTURE? NO (NO)
[2023-05-02 05:08] LABS: A-aADO2 87; ABG HEMOGLOBIN 9.3; ARTERIAL BLD GAS O2 SATURATION 99.4 % (95-100); ARTERIAL BLOOD GAS BASE EXCESS 3.1 (-2.0-2.0); ARTERIAL BLOOD GAS FIO2 40 %; ARTERIAL BLOOD GAS PCO2 37 mmHg (35-45); ARTERIAL BLOOD GAS PO2 152 mmHg (75-100); ARTERIAL BLOOD GAS VENT MODE BiPAP; ARTERIAL BLOOD GAS pH 7.47 (7.35-7.45); CARBOXYHEMOGLOBIN 3.6 % THgb (0.0-6.9); HCO3- 26.9 (22-28); HGB O2 SAT 94.6 g/dF (94-100); Methhemoglobin 1.2 % (1.4-1.5); paO2 pAO1 0.64
[2023-05-02 05:09] LABS: ABG POTASSIUM 2.8 (3.5-5.1); ABG SITE LEFT RADIAL; ALLEN TEST OK? YES
[2023-05-02 05:11] LABS: Absolute Neutrophil Ct (ANC) 8.56 x10^3/uL (1.4-6.9); BASOPHIL % 0.1 % (0.0-0.4); Basophil (Absolute #) 0.01 x10^3/uL (0-0.4); Eosinophil (Absolute #) 0 x10^3/uL (0-0.5); Hematocrit 29.3 % (42-50); Hemoglobin 8.8 g/dL (12.5-18.0); IMMATURE GRAN # 0.04 x10^3u/L (0.00-0.03); IMMATURE GRAN % 0.4 % (0.00-0.4); Lymphocyte (Absolute #) 0.19 x10^3/uL (1.0-4.6); Lymphocytes % 2.1 % (24.0-44.0); Mean Cell Volume 91.3 fL (78-100); Mean Corpuscular Hemoglobin 27.4 pg (26-32); Mean Platelet Volume 9.4 fL (7.5-11.0); Monocytes % 2.2 % (0.0-12.0); Neutrophil % 95.2 % (36.0-66.0); Platelet Count 119 x10^3/uL (150-450); Red Blood Count 3.21 x10^6/uL (4.1-5.6)
[2023-05-02] MEDS: solu-MEDROL 125 MG, Sterile H2O 10 ml 2 ML IV SCH ×8 (05:17→21:26)
[2023-05-02] MEDS: Pepcid 20 MG PO SCH ×3 (05:17→21:26)
[2023-05-02] MEDS: PIPERACILLIN/TAZOBACTAM 3.375 GM in Sodium Chloride 100ML MINI-BAG PLUS 100 ML IV SCH ×4 (05:18→18:30)
[2023-05-02] MEDS ORDERED: solu-MEDROL ONE (05:24)
[2023-05-02] MEDS ORDERED: PIPERACILLIN/TAZOBACTAM IV ONE (05:24)
[2023-05-02] MEDS ORDERED: Sodium Chloride 100ML MINI-BAG PLUS 100 ML IV ONE (05:25)
[2023-05-02 05:31] LABS: ALBUMIN 2.8 g/dL (3.5-5.0); ALKALINE PHOSPHATASE 92 U/L (38-126); ANION GAP 9.1 MEQ/L (5-15); BLOOD UREA NITROGEN 15 mg/dL (9-20); CHLORIDE 103 mmol/L (98-107); Calcium 7.8 mg/dL (8.4-10.2); Carbon Dioxide 27 mmol/L (22-30); EST GLOMERULAR FILTRATION RATE > 60.0 ML/MIN; Glucose 176 mg/dL (74-106); SGOT/AST 74 U/L (17-59); SGPT/ALT 37 U/L (0-50); SODIUM 136 mmol/L (137-145); Total Protein 5.5 g/dL (6.3-8.2)
[2023-05-02 05:36] LABS: Potassium 2.8 mmol/L (3.5-5.1)
[2023-05-02] MEDS ORDERED: POTASSIUM CHLORIDE 20 mEq IN WATER 100ML 100 ML IV SCH (05:45)
[2023-05-02] MEDS: POTASSIUM CHLORIDE 20 mEq IN WATER 100ML 100 ML IV SCH (06:44)
[2023-05-02] MEDS ORDERED: PHARMACY DOSING REQUEST MC ONE (07:58)
[2023-05-02 08:42] LABS: Slide Review 1 YES
[2023-05-02] MEDS ORDERED: [UNRECOGNIZED DRUG - OTHER] IV ONE (09:00)
[2023-05-02] MEDS ORDERED: POTASSIUM CHLORIDE IV ONE (09:00)
[2023-05-02] MEDS ORDERED: XYLOCAINE 1% IV ONE (09:00)
--- NOTE | 2023-05-02 09:00 | XRAY ---
Indication: Short of breath. Comparison: April 29, 2023 Portable chest again hyperinflated with mild worsening diffuse right lung and new minimal diffuse left lung airspace disease. Tiny bibasilar effusions, unchanged on right. Heart not enlarged. Bony thorax intact.
[2023-05-02] MEDS: PATIENT OWN MEDICATION IH SCH ×2 (09:02→11:00)
[2023-05-02] MEDS: Lasix 40 MG PO SCH (09:55)
[2023-05-02] MEDS: THERAGRAN MULTIVITAMIN PO SCH (09:56)
[2023-05-02] MEDS: ENOXAPARIN SODIUM SQ SCH (09:56)
[2023-05-02] MEDS ORDERED: LASIX 20 MG PO SCH (10:00)
[2023-05-02] MEDS ORDERED: PATIENT OWN MEDICATION IH SCH (10:00)
[2023-05-02] MEDS ORDERED: NON-FORMULARY ITEM (Potassium Chloride [Potassium Chloride] 10 MEQ Tab.Er.Prt) PO SCH (10:00)
--- NOTE | 2023-05-02 12:40 | PCM.NOTE ---
Date and Time: 05/02/23 1222 Subjective Assessment: is a 77 year old male with hx of COPD and chronic respiratory failure with 3Ls NC O2 at home, CHF, HTN, GERD, BPH and restless Leg Syndrome presented 05/01/23 with c/o worsening SOB admitted for PNA, COPD exacerbation, and sepsis. reports O2 concentrator has not been working at home. She thinks this may be the precipitating factor. O2 sat in ER was 80% on RA, placed on 5Ls NC and O2 sat improved to > 92%. CXR showing hyperinflated with mild worsening diffuse right lung andnew minimal diffuse left lung airspace disease. Tiny bibasilar effusions, unchanged on right. Heart not enlarged. Bony thorax intact.Patient was placed on BIPAP with noted improvement. Now on 3L NC with spo2 @ 98%. Patient endorsing improvement overall in shortness of breath. BLE noted with 4+ pitting edema bilaterally. States he is not aware of CHF diagnosis and does not see cardiology. BNP at 2940. Additionally patient noted with hypokalemia, receiving potassium IVPB. Most recent potassium level 2.8. - Review of Systems Constitutional: No Symptoms Eyes: No Symptoms Ears, Nose, & Throat: No Symptoms Respiratory: Short Of Breath, Other (3L NC spo2@98%) Cardiac: Edema Abdominal/Gastrointestinal: No Symptoms Genitourinary Symptoms: Other (F/C) Musculoskeletal: No Symptoms Skin: No Symptoms Neurological: No Symptoms Psychological: No Symptoms Objective Exam General Appearance: mild distress Neurologic Exam: alert, 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, cooperative Skin Exam: pale Wound Assessment: Skin/Wound Assessment Wound/Incision Assessment Start: 05/02/23 00:00 Text: Status: Active Freq: Q6H Protocol: Document 05/02/23 12:00 [facility] (Rec: 05/02/23 12:10 [facility] [id number]) Wound Photo Photo Taken No Eye Exam: PERRL Ears, Nose, Throat Exam: normal ENT inspection Neck Exam: normal inspection Respiratory Exam: crackles/rales (Janak bases fine crackles 3l NC) Cardiovascular Exam: regular rate/rhythm, edema (4+ pitting edema) Gastrointestinal/Abdomen Exam: soft, normal bowel sounds Extremity Exam: normal inspection Male Genitalia Exam: other (F/C intact) OBJECTIVE DATA Vital Signs: Vital Signs - 24 hr Temp Pulse Resp BP BP Pulse Ox 05/02/23 11:43 97.6 F 79 16 103/53 98 05/02/23 10:31 79 20 97 05/02/23 09:13 99 05/02/23 07:15 97.5 F 74 16 134/62 100 05/02/23 07:13 77 23 99 05/02/23 04:27 64 23 97 05/02/23 04:00 99.0 F 79 18 116/56 05/02/23 00:17 91 H 26 H 97 05/01/23 23:59 98.8 F 105 H 26 H 133/78 97 05/01/23 23:15 98.8 F 105 H 26 H 133/78 97 05/01/23 20:30 105 H 26 H 133/78 133/78 97 05/01/23 20:20 96 05/01/23 20:15 107 H 28 H 157/65 97 05/01/23 20:00 96 H 31 H 166/73 94 L 05/01/23 19:54 96 H 30 H 98 05/01/23 19:45 91 H 27 H 171/74 100 05/01/23 19:29 99 H 33 H 167/76 97 05/01/23 19:26 93 H 30 H 97 05/01/23 18:25 89 34 H 97 05/01/23 18:24 42 H 96 05/01/23 18:22 98.8 F 106 H 42 H 165/81 85 L Pain Assessment - Last Documented Pain Intensity 0 Intake and Output: Intake & Output 04/30/23 05/01/23 05/02/23 05/03/23 11:59 11:59 11:59 11:59 Weight 94.5 kg Lab Results: Lab Results-Last 24 Hours 05/01/23 05/01/23 05/01/23 Range/Units 18:40 18:40 18:40 WBC 15.0 H (4.0-10.5) x10^3/uL RBC 3.58 L (4.1-5.6) x10^6/uL Hgb 9.8 L (12.5-18.0) g/dL Hct 32.7 L (42-50) % MCV 91.3 (78-100) fL MCH 27.4 (26-32) pg MCHC 30.0 L (32-36) g/dL RDW Plt Count 165 (150-450) x10^3/uL MPV 9.9 (7.5-11.0) fL Gran % 90.0 H (36.0-66.0) % Immature Gran % (Auto) 0.7 H (0.00-0.4) % Nucleat RBC Rel Count 0.0 (0.00-0.1) % Eos # (Auto) 0 (0-0.5) x10^3/uL Immature Gran # (Auto) 0.10 H (0.00-0.03) x10^3u/L Absolute Lymphs (auto) 0.31 L (1.0-4.6) x10^3/uL Absolute Monos (auto) 1.06 (0.0-1.3) x10^3/uL Absolute Nucleated RBC 0.00 (0.00-0.01) x10^3u/L Lymphocytes % 2.1 L (24.0-44.0) % Monocytes % 7.1 (0.0-12.0) % Eosinophils % 0.0 (0.00-5.0) % Basophils % 0.1 (0.0-0.4) % Absolute Granulocytes 13.47 H (1.4-6.9) x10^3/uL Basophils # 0.02 (0-0.4) x10^3/uL Puncture Site pCO2 (35-45) mmHg pO2 (75-100) mmHg Base Excess (-2.0-2.0) O2 Saturation (94-100) g/dF ABG pH (7.35-7.45) ABG HCO3 (22-28) ABG O2 Sat (Measured) (95-100) % Gold Test A-a Gradient a/A Ratio Hemoglobin Carboxyhemoglobin (0.0-6.9) % THgb Methemoglobin (1.4-1.5) % Temperature C POC O2 Flow Rate % Vent Mode Vent Rate /MIN PEEP cmH2O Inspiratory BiPAP Expiratory BiPAP Sodium 133 L (137-145) mmol/L Potassium 2.6 L* (3.5-5.1) mmol/L Chloride 99 (98-107) mmol/L Carbon Dioxide 22 (22-30) mmol/L Anion Gap 14.3 (5-15) MEQ/L BUN 17 (9-20) mg/dL Creatinine 0.67 (0.66-1.25) mg/dL Estimated GFR > 60.0 ML/MIN Glucose 148 H (74-106) mg/dL POC Glucometer (74 to 106) mg/dL Lactic Acid (0.4-2.0) Calcium 8.0 L (8.4-10.2) mg/dL Magnesium 2.1 (1.6-2.3) mg/dL Total Bilirubin 3.30 H (0.2-1.3) mg/dL AST 89 H (17-59) U/L ALT 37 (0-50) U/L Alkaline Phosphatase 119 (38-126) U/L Troponin I 0.085 H* (0.000-0.034) ng/mL NT-Pro-B Natriuret Pep 2940 (<300) pg/mL Serum Total Protein 6.3 (6.3-8.2) g/dL Albumin 3.3 L (3.5-5.0) g/dL Procalcitonin 0.240 H (0.030-0.080) ng/mL Urine Color (Yellow) Urine Appearance (Clear) Urine pH (4.6-8.0) Ur Specific [place] (1.005-1.030) Urine Protein (Negative) Urine Glucose (UA) (Negative) mg/dL Urine Ketones (Negative) Urine Blood (Negative) Urine Nitrite (Negative) Urine Bilirubin (Negative) Urine Urobilinogen (0.2) mg/dL Ur Leukocyte Esterase (Negative) U Hyaline Cast (Auto) (0-2) /LPF Urine Microscopic RBC (0-5) /HPF Urine Microscopic WBC (0-5) /HPF Ur Epithelial Cells (None Seen) /HPF Urine Bacteria (None Seen) /HPF Urine Culture Reflexed (NO) Influenza Type A Ag (NEGATIVE) Influenza Type B Ag (NEGATIVE) RSV (PCR) (NEGATIVE) SARS-CoV-2 (PCR) (NEGATIVE) Slides for Path Review YES 05/01/23 05/01/23 05/01/23 Range/Units 18:40 18:49 20:55 WBC (4.0-10.5) x10^3/uL RBC (4.1-5.6) x10^6/uL Hgb (12.5-18.0) g/dL Hct (42-50) % MCV (78-100) fL MCH (26-32) pg MCHC (32-36) g/dL RDW Plt Count (150-450) x10^3/uL MPV (7.5-11.0) fL Gran % (36.0-66.0) % Immature Gran % (Auto) (0.00-0.4) % Nucleat RBC Rel Count (0.00-0.1) % Eos # (Auto) (0-0.5) x10^3/uL Immature Gran # (Auto) (0.00-0.03) x10^3u/L Absolute Lymphs (auto) (1.0-4.6) x10^3/uL Absolute Monos (auto) (0.0-1.3) x10^3/uL Absolute Nucleated RBC (0.00-0.01) x10^3u/L Lymphocytes % (24.0-44.0) % Monocytes % (0.0-12.0) % Eosinophils % (0.00-5.0) % Basophils % (0.0-0.4) % Absolute Granulocytes (1.4-6.9) x10^3/uL Basophils # (0-0.4) x10^3/uL Puncture Site RIGHT RADIAL pCO2 28 L (35-45) mmHg pO2 119 H (75-100) mmHg Base Excess 0.7 (-2.0-2.0) O2 Saturation 93.6 L (94-100) g/dF ABG pH 7.52 H (7.35-7.45) ABG HCO3 22.9 (22-28) ABG O2 Sat (Measured) 99.6 (95-100) % Gold Test YES A-a Gradient 131 a/A Ratio 0.48 Hemoglobin 10.1 Carboxyhemoglobin 5.0 (0.0-6.9) % THgb Methemoglobin 0.9 L (1.4-1.5) % Temperature 37.0 C POC O2 Flow Rate 40 % Vent Mode Vent Rate /MIN PEEP cmH2O Inspiratory BiPAP Expiratory BiPAP Sodium (137-145) mmol/L Potassium 2.6 L* (3.5-5.1) mmol/L Chloride (98-107) mmol/L Carbon Dioxide (22-30) mmol/L Anion Gap (5-15) MEQ/L BUN (9-20) mg/dL Creatinine (0.66-1.25) mg/dL Estimated GFR ML/MIN Glucose (74-106) mg/dL POC Glucometer (74 to 106) mg/dL Lactic Acid 3.0 H 2.8 H (0.4-2.0) Calcium (8.4-10.2) mg/dL Magnesium (1.6-2.3) mg/dL Total Bilirubin (0.2-1.3) mg/dL AST (17-59) U/L ALT (0-50) U/L Alkaline Phosphatase (38-126) U/L Troponin I (0.000-0.034) ng/mL NT-Pro-B Natriuret Pep (<300) pg/mL Serum Total Protein (6.3-8.2) g/dL Albumin (3.5-5.0) g/dL Procalcitonin (0.030-0.080) ng/mL Urine Color (Yellow) Urine Appearance (Clear) Urine pH (4.6-8.0) Ur Specific [place] (1.005-1.030) Urine Protein (Negative) Urine Glucose (UA) (Negative) mg/dL Urine Ketones (Negative) Urine Blood (Negative) Urine Nitrite (Negative) Urine Bilirubin (Negative) Urine Urobilinogen (0.2) mg/dL Ur Leukocyte Esterase (Negative) U Hyaline Cast (Auto) (0-2) /LPF Urine Microscopic RBC (0-5) /HPF Urine Microscopic WBC (0-5) /HPF Ur Epithelial Cells (None Seen) /HPF Urine Bacteria (None Seen) /HPF Urine Culture Reflexed (NO) Influenza Type A Ag NEGATIVE (NEGATIVE) Influenza Type B Ag NEGATIVE (NEGATIVE) RSV (PCR) NEGATIVE (NEGATIVE) SARS-CoV-2 (PCR) NEGATIVE (NEGATIVE) Slides for Path Review 05/01/23 05/01/23 05/02/23 Range/Units 22:30 22:53 01:58 WBC (4.0-10.5) x10^3/uL RBC (4.1-5.6) x10^6/uL Hgb (12.5-18.0) g/dL Hct (42-50) % MCV (78-100) fL MCH (26-32) pg MCHC (32-36) g/dL RDW Plt Count (150-450) x10^3/uL MPV (7.5-11.0) fL Gran % (36.0-66.0) % Immature Gran % (Auto) (0.00-0.4) % Nucleat RBC Rel Count (0.00-0.1) % Eos # (Auto) (0-0.5) x10^3/uL Immature Gran # (Auto) (0.00-0.03) x10^3u/L Absolute Lymphs (auto) (1.0-4.6) x10^3/uL Absolute Monos (auto) (0.0-1.3) x10^3/uL Absolute Nucleated RBC (0.00-0.01) x10^3u/L Lymphocytes % (24.0-44.0) % Monocytes % (0.0-12.0) % Eosinophils % (0.00-5.0) % Basophils % (0.0-0.4) % Absolute Granulocytes (1.4-6.9) x10^3/uL Basophils # (0-0.4) x10^3/uL Puncture Site pCO2 (35-45) mmHg pO2 (75-100) mmHg Base Excess (-2.0-2.0) O2 Saturation (94-100) g/dF ABG pH (7.35-7.45) ABG HCO3 (22-28) ABG O2 Sat (Measured) (95-100) % Gold Test A-a Gradient a/A Ratio Hemoglobin Carboxyhemoglobin (0.0-6.9) % THgb Methemoglobin (1.4-1.5) % Temperature C POC O2 Flow Rate % Vent Mode Vent Rate /MIN PEEP cmH2O Inspiratory BiPAP Expiratory BiPAP Sodium (137-145) mmol/L Potassium (3.5-5.1) mmol/L Chloride (98-107) mmol/L Carbon Dioxide (22-30) mmol/L Anion Gap (5-15) MEQ/L BUN (9-20) mg/dL Creatinine (0.66-1.25) mg/dL Estimated GFR ML/MIN Glucose (74-106) mg/dL POC Glucometer 134 H 173 H (74 to 106) mg/dL Lactic Acid (0.4-2.0) Calcium (8.4-10.2) mg/dL Magnesium (1.6-2.3) mg/dL Total Bilirubin (0.2-1.3) mg/dL AST (17-59) U/L ALT (0-50) U/L Alkaline Phosphatase (38-126) U/L Troponin I 0.119 H* (0.000-0.034) ng/mL NT-Pro-B Natriuret Pep (<300) pg/mL Serum Total Protein (6.3-8.2) g/dL Albumin (3.5-5.0) g/dL Procalcitonin (0.030-0.080) ng/mL Urine Color (Yellow) Urine Appearance (Clear) Urine pH (4.6-8.0) Ur Specific [place] (1.005-1.030) Urine Protein (Negative) Urine Glucose (UA) (Negative) mg/dL Urine Ketones (Negative) Urine Blood (Negative) Urine Nitrite (Negative) Urine Bilirubin (Negative) Urine Urobilinogen (0.2) mg/dL Ur Leukocyte Esterase (Negative) U Hyaline Cast (Auto) (0-2) /LPF Urine Microscopic RBC (0-5) /HPF Urine Microscopic WBC (0-5) /HPF Ur Epithelial Cells (None Seen) /HPF Urine Bacteria (None Seen) /HPF Urine Culture Reflexed (NO) Influenza Type A Ag (NEGATIVE) Influenza Type B Ag (NEGATIVE) RSV (PCR) (NEGATIVE) SARS-CoV-2 (PCR) (NEGATIVE) Slides for Path Review 05/02/23 05/02/23 05/02/23 Range/Units 02:15 02:30 03:00 WBC (4.0-10.5) x10^3/uL RBC (4.1-5.6) x10^6/uL Hgb (12.5-18.0) g/dL Hct (42-50) % MCV (78-100) fL MCH (26-32) pg MCHC (32-36) g/dL RDW Plt Count (150-450) x10^3/uL MPV (7.5-11.0) fL Gran % (36.0-66.0) % Immature Gran % (Auto) (0.00-0.4) % Nucleat RBC Rel Count (0.00-0.1) % Eos # (Auto) (0-0.5) x10^3/uL Immature Gran # (Auto) (0.00-0.03) x10^3u/L Absolute Lymphs (auto) (1.0-4.6) x10^3/uL Absolute Monos (auto) (0.0-1.3) x10^3/uL Absolute Nucleated RBC (0.00-0.01) x10^3u/L Lymphocytes % (24.0-44.0) % Monocytes % (0.0-12.0) % Eosinophils % (0.00-5.0) % Basophils % (0.0-0.4) % Absolute Granulocytes (1.4-6.9) x10^3/uL Basophils # (0-0.4) x10^3/uL Puncture Site RIGHT RADIAL pCO2 28 L (35-45) mmHg pO2 156 H* (75-100) mmHg Base Excess 0.6 (-2.0-2.0) O2 Saturation 93.4 L (94-100) g/dF ABG pH 7.52 H (7.35-7.45) ABG HCO3 22.9 (22-28) ABG O2 Sat (Measured) 99.5 (95-100) % Gold Test YES A-a Gradient 94 a/A Ratio Hemoglobin Pending Carboxyhemoglobin 5.5 (0.0-6.9) % THgb Methemoglobin 0.6 L (1.4-1.5) % Temperature C POC O2 Flow Rate 40 % Vent Mode BIPAP Vent Rate 18 /MIN PEEP 7 cmH2O Inspiratory BiPAP 14 Expiratory BiPAP 7 Sodium (137-145) mmol/L Potassium 3.2 L (3.5-5.1) mmol/L Chloride (98-107) mmol/L Carbon Dioxide 24 (22-30) mmol/L Anion Gap (5-15) MEQ/L BUN (9-20) mg/dL Creatinine (0.66-1.25) mg/dL Estimated GFR ML/MIN Glucose (74-106) mg/dL POC Glucometer (74 to 106) mg/dL Lactic Acid (0.4-2.0) Calcium (8.4-10.2) mg/dL Magnesium (1.6-2.3) mg/dL Total Bilirubin (0.2-1.3) mg/dL AST (17-59) U/L ALT (0-50) U/L Alkaline Phosphatase (38-126) U/L Troponin I 0.099 H* (0.000-0.034) ng/mL NT-Pro-B Natriuret Pep (<300) pg/mL Serum Total Protein (6.3-8.2) g/dL Albumin (3.5-5.0) g/dL Procalcitonin (0.030-0.080) ng/mL Urine Color Yellow (Yellow) Urine Appearance Clear (Clear) Urine pH 6.0 (4.6-8.0) Ur Specific [place] 1.010 (1.005-1.030) Urine Protein Negative (Negative) Urine Glucose (UA) Negative (Negative) mg/dL Urine Ketones Negative (Negative) Urine Blood Negative (Negative) Urine Nitrite Negative (Negative) Urine Bilirubin Negative (Negative) Urine Urobilinogen 1.0 A (0.2) mg/dL Ur Leukocyte Esterase Negative (Negative) U Hyaline Cast (Auto) NONE SEEN (0-2) /LPF Urine Microscopic RBC 0-2 (0-5) /HPF Urine Microscopic WBC 6-10 A (0-5) /HPF Ur Epithelial Cells None Seen (None Seen) /HPF Urine Bacteria None Seen (None Seen) /HPF Urine Culture Reflexed NO (NO) Influenza Type A Ag (NEGATIVE) Influenza Type B Ag (NEGATIVE) RSV (PCR) (NEGATIVE) SARS-CoV-2 (PCR) (NEGATIVE) Slides for Path Review 05/02/23 05/02/23 05/02/23 Range/Units 04:00 04:00 04:50 WBC 9.0 (4.0-10.5) x10^3/uL RBC 3.21 L (4.1-5.6) x10^6/uL Hgb 8.8 L (12.5-18.0) g/dL Hct 29.3 L (42-50) % MCV 91.3 (78-100) fL MCH 27.4 (26-32) pg MCHC 30.0 L (32-36) g/dL RDW TNP Plt Count 119 L (150-450) x10^3/uL MPV 9.4 (7.5-11.0) fL Gran % 95.2 H (36.0-66.0) % Immature Gran % (Auto) 0.4 (0.00-0.4) % Nucleat RBC Rel Count 0.0 (0.00-0.1) % Eos # (Auto) 0 (0-0.5) x10^3/uL Immature Gran # (Auto) 0.04 H (0.00-0.03) x10^3u/L Absolute Lymphs (auto) 0.19 L (1.0-4.6) x10^3/uL Absolute Monos (auto) 0.20 (0.0-1.3) x10^3/uL Absolute Nucleated RBC 0.00 (0.00-0.01) x10^3u/L Lymphocytes % 2.1 L (24.0-44.0) % Monocytes % 2.2 (0.0-12.0) % Eosinophils % 0.0 (0.00-5.0) % Basophils % 0.1 (0.0-0.4) % Absolute Granulocytes 8.56 H (1.4-6.9) x10^3/uL Basophils # 0.01 (0-0.4) x10^3/uL Puncture Site LEFT RADIAL pCO2 37 (35-45) mmHg pO2 152 H* (75-100) mmHg Base Excess 3.1 H (-2.0-2.0) O2 Saturation 94.6 (94-100) g/dF ABG pH 7.47 H (7.35-7.45) ABG HCO3 26.9 (22-28) ABG O2 Sat (Measured) 99.4 (95-100) % Gold Test YES A-a Gradient 87 a/A Ratio 0.64 Hemoglobin 9.3 Carboxyhemoglobin 3.6 (0.0-6.9) % THgb Methemoglobin 1.2 L (1.4-1.5) % Temperature 37.0 C POC O2 Flow Rate 40 % Vent Mode BiPAP Vent Rate /MIN PEEP cmH2O Inspiratory BiPAP Expiratory BiPAP Sodium 136 L (137-145) mmol/L Potassium 2.8 L* 2.8 L* (3.5-5.1) mmol/L Chloride 103 (98-107) mmol/L Carbon Dioxide 27 (22-30) mmol/L Anion Gap 9.1 (5-15) MEQ/L BUN 15 (9-20) mg/dL Creatinine 0.70 (0.66-1.25) mg/dL Estimated GFR > 60.0 ML/MIN Glucose 176 H (74-106) mg/dL POC Glucometer (74 to 106) mg/dL Lactic Acid (0.4-2.0) Calcium 7.8 L (8.4-10.2) mg/dL Magnesium (1.6-2.3) mg/dL Total Bilirubin 2.80 H (0.2-1.3) mg/dL AST 74 H (17-59) U/L ALT 37 (0-50) U/L Alkaline Phosphatase 92 (38-126) U/L Troponin I (0.000-0.034) ng/mL NT-Pro-B Natriuret Pep (<300) pg/mL Serum Total Protein 5.5 L (6.3-8.2) g/dL Albumin 2.8 L (3.5-5.0) g/dL Procalcitonin (0.030-0.080) ng/mL Urine Color (Yellow) Urine Appearance (Clear) Urine pH (4.6-8.0) Ur Specific [place] (1.005-1.030) Urine Protein (Negative) Urine Glucose (UA) (Negative) mg/dL Urine Ketones (Negative) Urine Blood (Negative) Urine Nitrite (Negative) Urine Bilirubin (Negative) Urine Urobilinogen (0.2) mg/dL Ur Leukocyte Esterase (Negative) U Hyaline Cast (Auto) (0-2) /LPF Urine Microscopic RBC (0-5) /HPF Urine Microscopic WBC (0-5) /HPF Ur Epithelial Cells (None Seen) /HPF Urine Bacteria (None Seen) /HPF Urine Culture Reflexed (NO) Influenza Type A Ag (NEGATIVE) Influenza Type B Ag (NEGATIVE) RSV (PCR) (NEGATIVE) SARS-CoV-2 (PCR) (NEGATIVE) Slides for Path Review YES 05/02/23 05/02/23 05/02/23 Range/Units 05:37 05:37 07:25 WBC (4.0-10.5) x10^3/uL RBC (4.1-5.6) x10^6/uL Hgb (12.5-18.0) g/dL Hct (42-50) % MCV (78-100) fL MCH (26-32) pg MCHC (32-36) g/dL RDW Plt Count (150-450) x10^3/uL MPV (7.5-11.0) fL Gran % (36.0-66.0) % Immature Gran % (Auto) (0.00-0.4) % Nucleat RBC Rel Count (0.00-0.1) % Eos # (Auto) (0-0.5) x10^3/uL Immature Gran # (Auto) (0.00-0.03) x10^3u/L Absolute Lymphs (auto) (1.0-4.6) x10^3/uL Absolute Monos (auto) (0.0-1.3) x10^3/uL Absolute Nucleated RBC (0.00-0.01) x10^3u/L Lymphocytes % (24.0-44.0) % Monocytes % (0.0-12.0) % Eosinophils % (0.00-5.0) % Basophils % (0.0-0.4) % Absolute Granulocytes (1.4-6.9) x10^3/uL Basophils # (0-0.4) x10^3/uL Puncture Site pCO2 (35-45) mmHg pO2 (75-100) mmHg Base Excess (-2.0-2.0) O2 Saturation (94-100) g/dF ABG pH (7.35-7.45) ABG HCO3 (22-28) ABG O2 Sat (Measured) (95-100) % Gold Test A-a Gradient a/A Ratio Hemoglobin Carboxyhemoglobin (0.0-6.9) % THgb Methemoglobin (1.4-1.5) % Temperature C POC O2 Flow Rate % Vent Mode Vent Rate /MIN PEEP cmH2O Inspiratory BiPAP Expiratory BiPAP Sodium (137-145) mmol/L Potassium (3.5-5.1) mmol/L Chloride (98-107) mmol/L Carbon Dioxide (22-30) mmol/L Anion Gap (5-15) MEQ/L BUN (9-20) mg/dL Creatinine (0.66-1.25) mg/dL Estimated GFR ML/MIN Glucose (74-106) mg/dL POC Glucometer 148 H (74 to 106) mg/dL Lactic Acid 1.5 (0.4-2.0) Calcium (8.4-10.2) mg/dL Magnesium 2.2 (1.6-2.3) mg/dL Total Bilirubin (0.2-1.3) mg/dL AST (17-59) U/L ALT (0-50) U/L Alkaline Phosphatase (38-126) U/L Troponin I (0.000-0.034) ng/mL NT-Pro-B Natriuret Pep (<300) pg/mL Serum Total Protein (6.3-8.2) g/dL Albumin (3.5-5.0) g/dL Procalcitonin (0.030-0.080) ng/mL Urine Color (Yellow) Urine Appearance (Clear) Urine pH (4.6-8.0) Ur Specific [place] (1.005-1.030) Urine Protein (Negative) Urine Glucose (UA) (Negative) mg/dL Urine Ketones (Negative) Urine Blood (Negative) Urine Nitrite (Negative) Urine Bilirubin (Negative) Urine Urobilinogen (0.2) mg/dL Ur Leukocyte Esterase (Negative) U Hyaline Cast (Auto) (0-2) /LPF Urine Microscopic RBC (0-5) /HPF Urine Microscopic WBC (0-5) /HPF Ur Epithelial Cells (None Seen) /HPF Urine Bacteria (None Seen) /HPF Urine Culture Reflexed (NO) Influenza Type A Ag (NEGATIVE) Influenza Type B Ag (NEGATIVE) RSV (PCR) (NEGATIVE) SARS-CoV-2 (PCR) (NEGATIVE) Slides for Path Review 05/02/23 Range/Units 11:25 WBC (4.0-10.5) x10^3/uL RBC (4.1-5.6) x10^6/uL Hgb (12.5-18.0) g/dL Hct (42-50) % MCV (78-100) fL MCH (26-32) pg MCHC (32-36) g/dL RDW Plt Count (150-450) x10^3/uL MPV (7.5-11.0) fL Gran % (36.0-66.0) % Immature Gran % (Auto) (0.00-0.4) % Nucleat RBC Rel Count (0.00-0.1) % Eos # (Auto) (0-0.5) x10^3/uL Immature Gran # (Auto) (0.00-0.03) x10^3u/L Absolute Lymphs (auto) (1.0-4.6) x10^3/uL Absolute Monos (auto) (0.0-1.3) x10^3/uL Absolute Nucleated RBC (0.00-0.01) x10^3u/L Lymphocytes % (24.0-44.0) % Monocytes % (0.0-12.0) % Eosinophils % (0.00-5.0) % Basophils % (0.0-0.4) % Absolute Granulocytes (1.4-6.9) x10^3/uL Basophils # (0-0.4) x10^3/uL Puncture Site pCO2 (35-45) mmHg pO2 (75-100) mmHg Base Excess (-2.0-2.0) O2 Saturation (94-100) g/dF ABG pH (7.35-7.45) ABG HCO3 (22-28) ABG O2 Sat (Measured) (95-100) % Gold Test A-a Gradient a/A Ratio Hemoglobin Carboxyhemoglobin (0.0-6.9) % THgb Methemoglobin (1.4-1.5) % Temperature C POC O2 Flow Rate % Vent Mode Vent Rate /MIN PEEP cmH2O Inspiratory BiPAP Expiratory BiPAP Sodium (137-145) mmol/L Potassium (3.5-5.1) mmol/L Chloride (98-107) mmol/L Carbon Dioxide (22-30) mmol/L Anion Gap (5-15) MEQ/L BUN (9-20) mg/dL Creatinine (0.66-1.25) mg/dL Estimated GFR ML/MIN Glucose (74-106) mg/dL POC Glucometer 156 H (74 to 106) mg/dL Lactic Acid (0.4-2.0) Calcium (8.4-10.2) mg/dL Magnesium (1.6-2.3) mg/dL Total Bilirubin (0.2-1.3) mg/dL AST (17-59) U/L ALT (0-50) U/L Alkaline Phosphatase (38-126) U/L Troponin I (0.000-0.034) ng/mL NT-Pro-B Natriuret Pep (<300) pg/mL Serum Total Protein (6.3-8.2) g/dL Albumin (3.5-5.0) g/dL Procalcitonin (0.030-0.080) ng/mL Urine Color (Yellow) Urine Appearance (Clear) Urine pH (4.6-8.0) Ur Specific [place] (1.005-1.030) Urine Protein (Negative) Urine Glucose (UA) (Negative) mg/dL Urine Ketones (Negative) Urine Blood (Negative) Urine Nitrite (Negative) Urine Bilirubin (Negative) Urine Urobilinogen (0.2) mg/dL Ur Leukocyte Esterase (Negative) U Hyaline Cast (Auto) (0-2) /LPF Urine Microscopic RBC (0-5) /HPF Urine Microscopic WBC (0-5) /HPF Ur Epithelial Cells (None Seen) /HPF Urine Bacteria (None Seen) /HPF Urine Culture Reflexed (NO) Influenza Type A Ag (NEGATIVE) Influenza Type B Ag (NEGATIVE) RSV (PCR) (NEGATIVE) SARS-CoV-2 (PCR) (NEGATIVE) Slides for Path Review Radiology Exams: Radiology Procedures Category Date Time Status CHEST 1 VIEW (PORTABLE) Stat Exams 05/01/23 18:30 Completed Multi-Disciplinary Progress Notes: Multi-Disciplinary Progress Notes 05/02/23 11:49 Case Management Note by Gracie Kyle PATIENT REPORTED HE HAS SOME PORTABLE TANKS AT HOME BUT NO CONCENTRATOR. HE EXPLAINED HE HAD A CONCENTRATOR AT HOME BUT IT WAS TOO LOUD AND HE SENT IT BACK TO THE [email or web address]. HE HAS BEEN USING THOSE PORTABLE TANKS PRN AT HOME. S/W [facility] ( WHO INITIAL O2 ORDER WAS THRU)- THEY ARE NOT CURRENTLY BILLING PATIENT FOR OXYGEN. IF OXYGEN IS NEEDED AT [facility]- PATIENT WILL BE A NEW SET UP. S/W PATIENT AND ABOUT COMPANY OPTIONS. THEY WOULD LIKE TO USE [facility] FOR OXYGEN. OXYGEN ORDER FORM AND INSTRUCTIONS PLACED ON THE CHART FOR THE WEEKEND. Initialized on 05/02/23 11:49 - END OF NOTE 05/02/23 10:47 Case Management Note by Gracie Kyle REFERRAL FAXED TO [facility] PER PATIENT REQUEST. HE HAS HAD THOSE SERVICES IN THE PAST. THEY WILL NEED NOTIFIED AT TIME OF DC AT [phone]. THEY WILL NEED FAXED DC INSTRUCTIONS, DC MED LIST AND DC SUMMARY ( IF AVAILABLE) TO [phone] Initialized on 05/02/23 10:47 - END OF NOTE 05/02/23 09:04 Respiratory Note by Char Joya HOME TRELEGY INHALER BROUGHT IN BY AND CHECKED BY PHARMACY. Initialized on 05/02/23 09:04 - END OF NOTE 05/02/23 05:44 Respiratory Note by Nestor Huggins PT STATED EARLIER LAST NIGHT THAT HIS HAD HIS TRELEGY IN HER PURSE AND WILL BE BRINGING IT IN TODAY FOR HIM TO USE WHILE HERE. Initialized on 05/02/23 05:44 - END OF NOTE Assessment/Plan (1) Sepsis Current Visit: Yes Status: Acute Assessment & Plan: -Most likely secondary to pneumonia, no longer meeting sepsis criteria -Contraindication for IVF with CHF and fluid overload -WBC trending down 9.0<15.0 -Procal elevated at 0.240 -Lactic acid now wnl 1.5<2.8 -Blood and urine cultures pending -Cntinue zosyn/azith for now (2) Hypokalemia Current Visit: Yes Status: Acute Assessment & Plan: -May be secondary to diuresis with home lasix -Mag wnl at 2.2 -Potassium at redraw 2.8, IVPB KCL x 6 doses ordered, goal >4 -monitor potassium levels closely Q4H -Tele continuous Code(s): E87.6 - HYPOKALEMIA (3) Pneumonia Current Visit: Yes Status: Acute Assessment & Plan: -See sepsis -serial cxr until resolution -Consider CT if no improvement Code(s): J18.9 - PNEUMONIA, UNSPECIFIED ORGANISM (4) Acute exacerbation of chronic obstructive airways disease Current Visit: Yes Status: Chronic Assessment & Plan: -BIPAP/ now on 3L -Titrate oxygen with goal of spo2 >92% -consult pulm -Solumedrol/duonebs/inh Code(s): J44.1 - CHRONIC OBSTRUCTIVE PULMONARY DISEASE W (ACUTE) EXACERBATION (5) CHF (congestive heart failure) Current Visit: Yes Status: Chronic Assessment & Plan: He is SOB, but due to PNA and COPD exacerbation. BNP 2924. Can continue home Lasix dose. Limit total fluid intake < 1.5Ls/day, and limit salt intake to < 2gm/day 05/02: -Will add one time dose of lasix due to BLE pitting edema Code(s): I50.9 - HEART FAILURE, UNSPECIFIED (6) Elevated troponin Current Visit: Yes Status: Acute Assessment & Plan: Doubt ACS - may be demand ischemia. Trop 0.085. Plan to trend. EKG not indicative of acute [place] Code(s): R77.8 - OTHER SPECIFIED ABNORMALITIES OF PLASMA PROTEINS (7) Respiratory alkalosis Current Visit: Yes Status: Acute Assessment & Plan: He is tachypneic - as we manage his CODP and PNA, this should improve. Code(s): E87.3 - ALKALOSIS
[2023-05-02] MEDS ORDERED: Potassium Chloride 40 MEQ/20 ML VIAL 40 MEQ, XYLOCAINE 1% HCL 20 ML MDV*** 2 ML in Sodi... IV ONE (15:00)
[2023-05-02] MEDS: Flomax 0.4 MG PO SCH (21:26)
[2023-05-02] MEDS: Requip 0.5 MG PO SCH (21:26)
[2023-05-02] MEDS: Zithromax 500 MG/ 250 ML NaCl Premix 500 MG/250 ML IVPB IV SCH (21:27)
[2023-05-02] MEDS ORDERED: Ambien 10 MG PO SCH ×2 (22:00)
[2023-05-02] MEDS ORDERED: Flomax 0.4 MG PO SCH (22:00)
[2023-05-02] MEDS ORDERED: Requip 0.5 MG PO SCH (22:00)
[2023-05-03] MEDS: PIPERACILLIN/TAZOBACTAM 3.375 GM in Sodium Chloride 100ML MINI-BAG PLUS 100 ML IV SCH ×5 (00:24→23:00)
[2023-05-03] MEDS: DUONEB 0.5-3 MG/3 ml Neb IH SCH ×6 (02:55→23:30)
[2023-05-03 05:46] LABS: Basophil (Absolute #) 0 x10^3/uL (0-0.4); Eosinophil (Absolute #) 0 x10^3/uL (0-0.5); Hematocrit 28.6 % (42-50); Hemoglobin 8.3 g/dL (12.5-18.0); IMMATURE GRAN # 0.01 x10^3u/L (0.00-0.03); IMMATURE GRAN % 0.2 % (0.00-0.4); Lymphocyte (Absolute #) 0.19 x10^3/uL (1.0-4.6); Lymphocytes % 3.8 % (24.0-44.0); Mean Cell Volume 92.6 fL (78-100); Mean Corpuscular Hemoglobin 26.9 pg (26-32); Mean Platelet Volume 10.3 fL (7.5-11.0); Platelet Count 141 x10^3/uL (150-450); Red Blood Count 3.09 x10^6/uL (4.1-5.6)
[2023-05-03] MEDS: solu-MEDROL 125 MG, Sterile H2O 10 ml 2 ML IV SCH ×6 (05:58→21:04)
[2023-05-03 06:02] LABS: ALBUMIN 2.6 g/dL (3.5-5.0); ALKALINE PHOSPHATASE 105 U/L (38-126); BLOOD UREA NITROGEN 23 mg/dL (9-20); CHLORIDE 105 mmol/L (98-107); Calcium 8.1 mg/dL (8.4-10.2); Carbon Dioxide 26 mmol/L (22-30); Creatinine 1 0.86 mg/dL (0.66-1.25); EST GLOMERULAR FILTRATION RATE > 60.0 ML/MIN; Glucose 124 mg/dL (74-106); MAGNESIUM 2.4 mg/dL (1.6-2.3); Potassium 3.3 mmol/L (3.5-5.1); SGOT/AST 68 U/L (17-59); SGPT/ALT 40 U/L (0-50); SODIUM 138 mmol/L (137-145); Total Protein 5.1 g/dL (6.3-8.2)
[2023-05-03] MEDS: PATIENT OWN MEDICATION IH SCH (06:39)
[2023-05-03 07:47] LABS: Slide Review 1 YES
--- NOTE | 2023-05-03 07:52 | PCM.NOTE ---
Date and Time: 05/03/23747 Subjective Assessment: is a 77 year old male with hx of COPD and chronic respiratory failure with 3Ls NC O2 at home, CHF, HTN, GERD, BPH and restless Leg Syndrome presented 05/01/23 with c/o worsening SOB admitted for PNA, COPD exacerbation, and sepsis. reports O2 concentrator has not been working at home. She thinks this may be the precipitating factor. O2 sat in ER was 80% on RA, placed on 5Ls NC and O2 sat improved to > 92%. CXR showing hyperinflated with mild worsening diffuse right lung andnew minimal diffuse left lung airspace disease. Tiny bibasilar effusions, unchanged on right. Heart not enlarged. Bony thorax intact.Patient was placed on BIPAP with noted improvement. Now on 3L NC with spo2 @ 98%. Patient endorsing improvement overall in shortness of breath. BLE noted with 4+ pitting edema bilaterally. States he is not aware of CHF diagnosis and does not see cardiology. BNP at 2940. Additionally patient noted with hypokalemia, receiving potassium IVPB. Most recent potassium level 3.3.Patient endorses overall improvement of shortness of breath, on baseline oxygen at 3L. Will continue IV abx as well as replenish his potassium, possible d/c tomorrow. Patient will need home oxygen concentrator prior to d/c. - Review of Systems Constitutional: No Symptoms Eyes: No Symptoms Ears, Nose, & Throat: No Symptoms Respiratory: Cough, Short Of Breath, Wheezing Cardiac: Edema (ble pitting edema +4) Abdominal/Gastrointestinal: No Symptoms Genitourinary Symptoms: No Symptoms, Other (F/C) Musculoskeletal: No Symptoms Skin: No Symptoms Neurological: No Symptoms Psychological: No Symptoms Objective Exam General Appearance: no apparent distress Neurologic Exam: alert, 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, cooperative Skin Exam: pale Wound Assessment: Skin/Wound Assessment Wound/Incision Assessment Start: 05/02/23 00:00 Text: Status: Active Freq: Q6H Protocol: Document 05/03/23 06:00 AR (Rec: 05/03/23 06:51 AR [id number]) Wound Photo Photo Taken No Eye Exam: PERRL Ears, Nose, Throat Exam: normal ENT inspection Neck Exam: normal inspection Respiratory Exam: diminished breath sounds, wheezing Cardiovascular Exam: regular rate/rhythm, edema (ble edema +4 pitting R>L) Gastrointestinal/Abdomen Exam: soft, normal bowel sounds Extremity Exam: pedal edema OBJECTIVE DATA Vital Signs: Vital Signs - 24 hr Temp Pulse Resp BP Pulse Ox 05/03/23 06:52 97.5 F 82 21 120/94 97 05/03/23 06:42 81 18 97 05/03/23 02:55 75 18 94 L 05/03/23 00:00 97.3 F 82 17 116/57 96 05/02/23 22:52 77 20 96 05/02/23 20:00 97.5 F 83 23 125/60 94 L 05/02/23 18:53 87 18 95 05/02/23 15:44 96.7 F 96 H 16 115/55 96 05/02/23 14:24 80 22 98 05/02/23 11:43 97.6 F 79 16 103/53 98 05/02/23 10:31 79 20 97 05/02/23 09:13 99 Pain Assessment - Last Documented Pain Intensity 3 Intake and Output: Intake & Output 04/30/23 05/01/23 05/02/23 05/03/23 11:59 11:59 11:59 11:59 Intake Total 2399 Output Total 1825 Balance 574 Weight 94.5 kg Lab Results: Lab Results-Last 24 Hours 05/02/23 05/02/23 05/02/23 Range/Units 04:00 11:25 13:07 WBC (4.0-10.5) x10^3/uL RBC (4.1-5.6) x10^6/uL Hgb (12.5-18.0) g/dL Hct (42-50) % MCV (78-100) fL MCH (26-32) pg MCHC (32-36) g/dL Plt Count (150-450) x10^3/uL MPV (7.5-11.0) fL Gran % (36.0-66.0) % Immature Gran % (Auto) (0.00-0.4) % Nucleat RBC Rel Count (0.00-0.1) % Eos # (Auto) (0-0.5) x10^3/uL Immature Gran # (Auto) (0.00-0.03) x10^3u/L Absolute Lymphs (auto) (1.0-4.6) x10^3/uL Absolute Monos (auto) (0.0-1.3) x10^3/uL Absolute Nucleated RBC (0.00-0.01) x10^3u/L Lymphocytes % (24.0-44.0) % Monocytes % (0.0-12.0) % Eosinophils % (0.00-5.0) % Basophils % (0.0-0.4) % Absolute Granulocytes (1.4-6.9) x10^3/uL Basophils # (0-0.4) x10^3/uL Sodium (137-145) mmol/L Potassium 3.1 L (3.5-5.1) mmol/L Chloride (98-107) mmol/L Carbon Dioxide (22-30) mmol/L Anion Gap (5-15) MEQ/L BUN (9-20) mg/dL Creatinine (0.66-1.25) mg/dL Estimated GFR ML/MIN Glucose (74-106) mg/dL POC Glucometer 156 H (74 to 106) mg/dL Lactic Acid (0.4-2.0) Calcium (8.4-10.2) mg/dL Magnesium (1.6-2.3) mg/dL Total Bilirubin (0.2-1.3) mg/dL AST (17-59) U/L ALT (0-50) U/L Alkaline Phosphatase (38-126) U/L Serum Total Protein (6.3-8.2) g/dL Albumin (3.5-5.0) g/dL Slides for Path Review YES 05/02/23 05/02/23 05/02/23 Range/Units 15:27 16:32 21:16 WBC (4.0-10.5) x10^3/uL RBC (4.1-5.6) x10^6/uL Hgb (12.5-18.0) g/dL Hct (42-50) % MCV (78-100) fL MCH (26-32) pg MCHC (32-36) g/dL Plt Count (150-450) x10^3/uL MPV (7.5-11.0) fL Gran % (36.0-66.0) % Immature Gran % (Auto) (0.00-0.4) % Nucleat RBC Rel Count (0.00-0.1) % Eos # (Auto) (0-0.5) x10^3/uL Immature Gran # (Auto) (0.00-0.03) x10^3u/L Absolute Lymphs (auto) (1.0-4.6) x10^3/uL Absolute Monos (auto) (0.0-1.3) x10^3/uL Absolute Nucleated RBC (0.00-0.01) x10^3u/L Lymphocytes % (24.0-44.0) % Monocytes % (0.0-12.0) % Eosinophils % (0.00-5.0) % Basophils % (0.0-0.4) % Absolute Granulocytes (1.4-6.9) x10^3/uL Basophils # (0-0.4) x10^3/uL Sodium (137-145) mmol/L Potassium 3.0 L* (3.5-5.1) mmol/L Chloride (98-107) mmol/L Carbon Dioxide (22-30) mmol/L Anion Gap (5-15) MEQ/L BUN (9-20) mg/dL Creatinine (0.66-1.25) mg/dL Estimated GFR ML/MIN Glucose (74-106) mg/dL POC Glucometer 171 H 148 H (74 to 106) mg/dL Lactic Acid (0.4-2.0) Calcium (8.4-10.2) mg/dL Magnesium (1.6-2.3) mg/dL Total Bilirubin (0.2-1.3) mg/dL AST (17-59) U/L ALT (0-50) U/L Alkaline Phosphatase (38-126) U/L Serum Total Protein (6.3-8.2) g/dL Albumin (3.5-5.0) g/dL Slides for Path Review 05/02/23 05/03/23 05/03/23 Range/Units 22:52 05:18 05:18 WBC 5.0 (4.0-10.5) x10^3/uL RBC 3.09 L (4.1-5.6) x10^6/uL Hgb 8.3 L (12.5-18.0) g/dL Hct 28.6 L (42-50) % MCV 92.6 (78-100) fL MCH 26.9 (26-32) pg MCHC 29.0 L (32-36) g/dL Plt Count 141 L (150-450) x10^3/uL MPV 10.3 (7.5-11.0) fL Gran % 90.0 H (36.0-66.0) % Immature Gran % (Auto) 0.2 (0.00-0.4) % Nucleat RBC Rel Count 0.0 (0.00-0.1) % Eos # (Auto) 0 (0-0.5) x10^3/uL Immature Gran # (Auto) 0.01 (0.00-0.03) x10^3u/L Absolute Lymphs (auto) 0.19 L (1.0-4.6) x10^3/uL Absolute Monos (auto) 0.30 (0.0-1.3) x10^3/uL Absolute Nucleated RBC 0.00 (0.00-0.01) x10^3u/L Lymphocytes % 3.8 L (24.0-44.0) % Monocytes % 6.0 (0.0-12.0) % Eosinophils % 0.0 (0.00-5.0) % Basophils % 0.0 (0.0-0.4) % Absolute Granulocytes 4.50 (1.4-6.9) x10^3/uL Basophils # 0 (0-0.4) x10^3/uL Sodium 138 (137-145) mmol/L Potassium 3.4 L 3.3 L (3.5-5.1) mmol/L Chloride 105 (98-107) mmol/L Carbon Dioxide 26 (22-30) mmol/L Anion Gap 10.0 (5-15) MEQ/L BUN 23 H (9-20) mg/dL Creatinine 0.86 (0.66-1.25) mg/dL Estimated GFR > 60.0 ML/MIN Glucose 124 H (74-106) mg/dL POC Glucometer (74 to 106) mg/dL Lactic Acid (0.4-2.0) Calcium 8.1 L (8.4-10.2) mg/dL Magnesium 2.4 H (1.6-2.3) mg/dL Total Bilirubin 1.60 H (0.2-1.3) mg/dL AST 68 H (17-59) U/L ALT 40 (0-50) U/L Alkaline Phosphatase 105 (38-126) U/L Serum Total Protein 5.1 L (6.3-8.2) g/dL Albumin 2.6 L (3.5-5.0) g/dL Slides for Path Review YES 05/03/23 Range/Units 05:25 WBC (4.0-10.5) x10^3/uL RBC (4.1-5.6) x10^6/uL Hgb (12.5-18.0) g/dL Hct (42-50) % MCV (78-100) fL MCH (26-32) pg MCHC (32-36) g/dL Plt Count (150-450) x10^3/uL MPV (7.5-11.0) fL Gran % (36.0-66.0) % Immature Gran % (Auto) (0.00-0.4) % Nucleat RBC Rel Count (0.00-0.1) % Eos # (Auto) (0-0.5) x10^3/uL Immature Gran # (Auto) (0.00-0.03) x10^3u/L Absolute Lymphs (auto) (1.0-4.6) x10^3/uL Absolute Monos (auto) (0.0-1.3) x10^3/uL Absolute Nucleated RBC (0.00-0.01) x10^3u/L Lymphocytes % (24.0-44.0) % Monocytes % (0.0-12.0) % Eosinophils % (0.00-5.0) % Basophils % (0.0-0.4) % Absolute Granulocytes (1.4-6.9) x10^3/uL Basophils # (0-0.4) x10^3/uL Sodium (137-145) mmol/L Potassium (3.5-5.1) mmol/L Chloride (98-107) mmol/L Carbon Dioxide (22-30) mmol/L Anion Gap (5-15) MEQ/L BUN (9-20) mg/dL Creatinine (0.66-1.25) mg/dL Estimated GFR ML/MIN Glucose (74-106) mg/dL POC Glucometer (74 to 106) mg/dL Lactic Acid 1.8 (0.4-2.0) Calcium (8.4-10.2) mg/dL Magnesium (1.6-2.3) mg/dL Total Bilirubin (0.2-1.3) mg/dL AST (17-59) U/L ALT (0-50) U/L Alkaline Phosphatase (38-126) U/L Serum Total Protein (6.3-8.2) g/dL Albumin (3.5-5.0) g/dL Slides for Path Review Radiology Exams: Radiology Procedures Category Date Time Status CHEST 1 VIEW (PORTABLE) Stat Exams 05/01/23 18:30 Completed Multi-Disciplinary Progress Notes: Multi-Disciplinary Progress Notes 05/02/23 11:49 Case Management Note by Gracie Kyle PATIENT REPORTED HE HAS SOME PORTABLE TANKS AT HOME BUT NO CONCENTRATOR. HE EXPLAINED HE HAD A CONCENTRATOR AT HOME BUT IT WAS TOO LOUD AND HE SENT IT BACK TO THE [facility]. HE HAS BEEN USING THOSE PORTABLE TANKS PRN AT HOME. S/W [facility] ( WHO INITIAL O2 ORDER WAS THRU)- THEY ARE NOT CURRENTLY BILLING PATIENT FOR OXYGEN. IF OXYGEN IS NEEDED AT DC- PATIENT WILL BE A NEW SET UP. S/W PATIENT AND ABOUT COMPANY OPTIONS. THEY WOULD LIKE TO USE [employer] FOR OXYGEN. OXYGEN ORDER FORM AND INSTRUCTIONS PLACED ON THE CHART FOR THE WEEKEND. Initialized on 05/02/23 11:49 - END OF NOTE 05/02/23 10:47 Case Management Note by Gracie Kyle REFERRAL FAXED TO [facility] PER PATIENT REQUEST. HE HAS HAD THOSE SERVICES IN THE PAST. THEY WILL NEED NOTIFIED AT TIME OF DC AT [phone]. THEY WILL NEED FAXED DC INSTRUCTIONS, DC MED LIST AND DC SUMMARY ( IF AVAILABLE) TO [phone] Initialized on 05/02/23 10:47 - END OF NOTE 05/02/23 09:04 Respiratory Note by Char Joya HOME TRELEGY INHALER BROUGHT IN BY AND CHECKED BY PHARMACY. Initialized on 05/02/23 09:04 - END OF NOTE Assessment/Plan (1) Sepsis Current Visit: Yes Status: Acute Assessment & Plan: -Most likely secondary to pneumonia, no longer meeting sepsis criteria -Contraindication for IVF with CHF and fluid overload -WBC trending down 5.0<9.0<15.0 -Procal elevated at 0.240 -Lactic acid now wnl 1.5<2.8 -Blood and urine cultures pending -Cntinue zosyn/azith for now (2) Hypokalemia Current Visit: Yes Status: Acute Assessment & Plan: -May be secondary to diuresis with home lasix -Mag wnl at 2.2 -Potassium at redraw 2.8, IVPB KCL x 6 doses ordered, goal >4 -monitor potassium levels closely Q4H -Tele continuous 05/03: -Potassium still low at 3.3, will continue potassium protocol with oral kcl, continue to monitor renal/lytes, tele Code(s): E87.6 - HYPOKALEMIA (3) Pneumonia Current Visit: Yes Status: Acute Assessment & Plan: -See sepsis -serial cxr until resolution -Consider CT if no improvement Code(s): J18.9 - PNEUMONIA, UNSPECIFIED ORGANISM (4) Acute exacerbation of chronic obstructive airways disease Current Visit: Yes Status: Chronic Assessment & Plan: -BIPAP/ now on 3L -Titrate oxygen with goal of spo2 >92% -consult pulm -Solumedrol/duonebs/inh Code(s): J44.1 - CHRONIC OBSTRUCTIVE PULMONARY DISEASE W (ACUTE) EXACERBATION (5) CHF (congestive heart failure) Current Visit: Yes Status: Chronic Assessment & Plan: He is SOB, but due to PNA and COPD exacerbation. BNP 2924. Can continue home Lasix dose. Limit total fluid intake < 1.5Ls/day, and limit salt intake to < 2gm/day 05/02: -Will add one time dose of lasix due to BLE pitting edema Code(s): I50.9 - HEART FAILURE, UNSPECIFIED (6) Elevated troponin Current Visit: Yes Status: Acute Assessment & Plan: Doubt ACS - may be demand ischemia. Trop 0.085. Plan to trend. EKG not indicative of acute MA Code(s): R77.8 - OTHER SPECIFIED ABNORMALITIES OF PLASMA PROTEINS (7) Respiratory alkalosis Current Visit: Yes Status: Acute Assessment & Plan: He is tachypneic - as we manage his CODP and PNA, this should improve. Code(s): E87.3 - ALKALOSIS
[2023-05-03 08:09] LABS: ABG HEMOGLOBIN 93.4
[2023-05-03] MEDS: Klor Con PO SCH ×4 (08:35→15:17)
[2023-05-03] MEDS ORDERED: Klor Con PO SCH (10:00)
[2023-05-03] MEDS: ENOXAPARIN SODIUM SQ SCH (10:11)
[2023-05-03] MEDS: Pepcid 20 MG PO SCH (10:11)
[2023-05-03] MEDS: Lasix 40 MG PO SCH (10:11)
[2023-05-03] MEDS: THERAGRAN MULTIVITAMIN PO SCH (10:11)
[2023-05-03] MEDS ORDERED: MELATONIN PO PRN (16:54)
[2023-05-03] MEDS: POTASSIUM CHLORIDE 20 mEq IN WATER 100ML 100 ML IV SCH (19:24)
[2023-05-03 20:40] LABS: Appearance Clear (Clear); Bilirubin Negative (Negative); Blood Large (Negative); Glucose, Urine Negative (Negative); Ketones Negative (Negative); Leukocyte Esterase Small (Negative); Nitrite Negative (Negative); Protein,Urine Dip 30 (Negative); Specific Gravity 1.025 (1.005-1.030)
[2023-05-03 21:01] LABS: ADD URINE CULTURE? YES (NO); Bacteria None Seen /HPF (None Seen); Epithelial Cells None Seen /HPF (None Seen); Hyaline Casts NONE SEEN /LPF (0-2); RBC >100 /HPF (0-5)
[2023-05-03] MEDS: Zithromax 500 MG/ 250 ML NaCl Premix 500 MG/250 ML IVPB IV SCH (21:04)
[2023-05-03] MEDS: Requip 0.5 MG PO SCH (21:05)
[2023-05-03] MEDS: Flomax 0.4 MG PO SCH (21:05)
[2023-05-04] MEDS: DUONEB 0.5-3 MG/3 ml Neb IH SCH ×4 (03:03→16:12)
[2023-05-04 05:39] LABS: ANION GAP 10.4 MEQ/L (5-15); BLOOD UREA NITROGEN 24 mg/dL (9-20); CHLORIDE 105 mmol/L (98-107); Calcium 8.3 mg/dL (8.4-10.2); Carbon Dioxide 26 mmol/L (22-30); Creatinine 1 0.91 mg/dL (0.66-1.25); EST GLOMERULAR FILTRATION RATE > 60.0 ML/MIN; Glucose 110 mg/dL (74-106); MAGNESIUM 2.5 mg/dL (1.6-2.3); Potassium 3.6 mmol/L (3.5-5.1); SODIUM 138 mmol/L (137-145)
[2023-05-04] MEDS: solu-MEDROL 125 MG, Sterile H2O 10 ml 2 ML IV SCH ×2 (05:39)
[2023-05-04] MEDS: PIPERACILLIN/TAZOBACTAM 3.375 GM in Sodium Chloride 100ML MINI-BAG PLUS 100 ML IV SCH ×2 (05:39→12:22)
[2023-05-04 07:08] VITALS: TEMP 97.3
[2023-05-04] MEDS: PATIENT OWN MEDICATION IH SCH (07:30)
[2023-05-04] MEDS: Lasix 40 MG PO SCH (08:54)
[2023-05-04] MEDS: THERAGRAN MULTIVITAMIN PO SCH (08:54)
--- NOTE | 2023-05-04 10:31 | PCM.DS ---
Discharge Summary Date of Admission: 05/01/23 21:20 Date of Discharge: 05/04/23 Admitting Physician: KINZA GODOY DO Primary Care Provider: IRINA KINGSTON Allergies Allergies No Known Drug Allergies Allergy (Verified 05/01/23 18:22) Hospital Summary - Hospital Course Hospital Course: is a 77 year old male with hx of COPD and chronic respiratory failure with 3Ls NC O2 at home, CHF, HTN, GERD, BPH and restless Leg Syndrome presented 05/01/23 with c/o worsening SOB admitted for PNA, COPD exacerbation, and sepsis. reports O2 concentrator has not been working at home. She thinks this may be the precipitating factor. O2 sat in ER was 80% on RA, placed on 5Ls NC and O2 sat improved to > 92%. CXR showing hyperinflated with mild worsening diffuse right lung andnew minimal diffuse left lung airspace disease. Tiny bibasilar effusions, unchanged on right. Heart not enlarged. Bony thorax intact.Patient was placed on BIPAP with noted improvement. Now on 3L NC with spo2 @ 98%. Patient endorsing improvement overall in shortness of breath. BLE noted with 4+ pitting edema bilaterally. States he is not aware of CHF diagnosis and does not see cardiology. BNP at 2940. Additionally patient noted with hypokalemia, receiving potassium IVPB. Most recent potassium level 3.3.Patient endorses overall improvement of shortness of breath, on baseline oxygen at 3L. Hypokalemia has now resolved, patient will be sent home with oral potassium glasgow pplementation, BMP in 3 days. Patient at baseline oxygen. Will discharge home today with medrol dose stephen, no need for further abx. He has been set up with new home concentrator as well as portable oxygen. Advised patient close follow up with pcp/pulm, patient advised referral from pcp for cardiac workup/echo. (1) Sepsis Current Visit: Yes Status: Acute Assessment & Plan: -Most likely secondary to pneumonia, no longer meeting sepsis criteria -Contraindication for IVF with CHF and fluid overload -WBC trending down 5.0<9.0<15.0 -Procal elevated at 0.240 -Lactic acid now wnl 1.5<2.8 -Blood and urine cultures pending -Cntinue zosyn/azith for now (2) Hypokalemia Current Visit: Yes Status: Acute Assessment & Plan: -May be secondary to diuresis with home lasix -Mag wnl at 2.2 -Potassium at redraw 2.8, IVPB KCL x 6 doses ordered, goal >4 -monitor potassium levels closely Q4H -Tele continuous 05/03: -Potassium still low at 3.3, will continue potassium protocol with oral kcl, continue to monitor renal/lytes, tele 05/04: -Resolved, patient will dc on kcl 40meq qd Code(s): E87.6 - HYPOKALEMIA (3) Pneumonia Current Visit: Yes Status: Acute Assessment & Plan: -See sepsis -serial cxr until resolution -Consider CT if no improvement 05/04: CXR -Portable chest again hyperinflated with mild worsening diffuse right lung and new minimal diffuse left lung airspace disease. Tiny bibasilar effusions, unchanged on right. Heart not enlarged. Bony thorax intact. Code(s): J18.9 - PNEUMONIA, UNSPECIFIED ORGANISM (4) Acute exacerbation of chronic obstructive airways disease Current Visit: Yes Status: Chronic Assessment & Plan: -BIPAP/ now on 3L -Titrate oxygen with goal of spo2 >92% -consult pulm -Solumedrol/duonebs/inh 05/04: D/c on medrol dose stephen,oxygen has been set up for patient with new home concentrator as well, patient already has nebulizer with duoneb solution/inhaler, no need for further abx Code(s): J44.1 - CHRONIC OBSTRUCTIVE PULMONARY DISEASE W (ACUTE) EXACERBATION (5) CHF (congestive heart failure) Current Visit: Yes Status: Chronic Assessment & Plan: He is SOB, but due to PNA and COPD exacerbation. BNP 2924. Can continue home Lasix dose. Limit total fluid intake < 1.5Ls/day, and limit salt intake to < 2gm/day 05/02: -Will add one time dose of lasix due to BLE pitting edema 05/04: -Patient states he does not have h/o chf, will refer to PCP for op testing Code(s): I50.9 - HEART FAILURE, UNSPECIFIED (6) Elevated troponin Current Visit: Yes Status: Acute Assessment & Plan: Doubt ACS - may be demand ischemia. Trop 0.085. Plan to trend. EKG not indicative of acute [place] Code(s): R77.8 - OTHER SPECIFIED ABNORMALITIES OF PLASMA PROTEINS (7) Respiratory alkalosis Current Visit: Yes Status: Acute Assessment & Plan: He is tachypneic - as we manage his CODP and PNA, this should improve. Code(s): E87.3 - ALKALOSIS - Vitals & Intake/Output Vital Signs: Vital Signs Temperature 97.3 F 05/04/23 07:07 Pulse Rate 79 05/04/23 09:08 Respiratory Rate 18 05/04/23 09:08 Blood Pressure 135/60 05/04/23 07:07 O2 Sat by Pulse Oximetry 97 05/04/23 09:08 Intake & Output: Intake & Output 05/01/23 05/02/23 05/03/23 05/04/23 11:59 11:59 11:59 11:59 Intake Total 2759 2536 Output Total 2375 1425 Balance 384 1111 Weight 94.5 kg - Lab Result Diagrams: 05/03/23 05:18 05/04/23 05:15 Lab Results-Last 24 Hrs: Lab Results-Last 24 Hours 05/03/23 05/03/23 05/03/23 Range/Units 09:29 12:20 13:28 Sodium (137-145) mmol/L Potassium 3.4 L 3.5 (3.5-5.1) mmol/L Chloride (98-107) mmol/L Carbon Dioxide (22-30) mmol/L Anion Gap (5-15) MEQ/L BUN (9-20) mg/dL Creatinine (0.66-1.25) mg/dL Estimated GFR ML/MIN Glucose (74-106) mg/dL POC Glucometer 131 H (74 to 106) mg/dL Hemoglobin A1c (4.5-6.0) % Calcium (8.4-10.2) mg/dL Magnesium (1.6-2.3) mg/dL Troponin I (0.000-0.034) ng/mL Urine Color (Yellow) Urine Appearance (Clear) Urine pH (4.6-8.0) Ur Specific [place] (1.005-1.030) Urine Protein (Negative) Urine Glucose (UA) (Negative) mg/dL Urine Ketones (Negative) Urine Blood (Negative) Urine Nitrite (Negative) Urine Bilirubin (Negative) Urine Urobilinogen (0.2) mg/dL Ur Leukocyte Esterase (Negative) U Hyaline Cast (Auto) (0-2) /LPF Urine Microscopic RBC (0-5) /HPF Urine Microscopic WBC (0-5) /HPF Ur Epithelial Cells (None Seen) /HPF Urine Bacteria (None Seen) /HPF Urine Culture Reflexed (NO) 05/03/23 05/03/23 05/03/23 Range/Units 13:28 16:18 18:20 Sodium (137-145) mmol/L Potassium 3.6 (3.5-5.1) mmol/L Chloride (98-107) mmol/L Carbon Dioxide (22-30) mmol/L Anion Gap (5-15) MEQ/L BUN (9-20) mg/dL Creatinine (0.66-1.25) mg/dL Estimated GFR ML/MIN Glucose (74-106) mg/dL POC Glucometer 127 H (74 to 106) mg/dL Hemoglobin A1c 4.42 L (4.5-6.0) % Calcium (8.4-10.2) mg/dL Magnesium (1.6-2.3) mg/dL Troponin I (0.000-0.034) ng/mL Urine Color (Yellow) Urine Appearance (Clear) Urine pH (4.6-8.0) Ur Specific [place] (1.005-1.030) Urine Protein (Negative) Urine Glucose (UA) (Negative) mg/dL Urine Ketones (Negative) Urine Blood (Negative) Urine Nitrite (Negative) Urine Bilirubin (Negative) Urine Urobilinogen (0.2) mg/dL Ur Leukocyte Esterase (Negative) U Hyaline Cast (Auto) (0-2) /LPF Urine Microscopic RBC (0-5) /HPF Urine Microscopic WBC (0-5) /HPF Ur Epithelial Cells (None Seen) /HPF Urine Bacteria (None Seen) /HPF Urine Culture Reflexed (NO) 05/03/23 05/03/23 05/03/23 Range/Units 18:20 20:35 21:14 Sodium (137-145) mmol/L Potassium (3.5-5.1) mmol/L Chloride (98-107) mmol/L Carbon Dioxide (22-30) mmol/L Anion Gap (5-15) MEQ/L BUN (9-20) mg/dL Creatinine (0.66-1.25) mg/dL Estimated GFR ML/MIN Glucose (74-106) mg/dL POC Glucometer 118 H (74 to 106) mg/dL Hemoglobin A1c (4.5-6.0) % Calcium (8.4-10.2) mg/dL Magnesium (1.6-2.3) mg/dL Troponin I 0.042 H* (0.000-0.034) ng/mL Urine Color Dark Yellow (Yellow) Urine Appearance Clear (Clear) Urine pH 6.0 (4.6-8.0) Ur Specific [place] 1.025 (1.005-1.030) Urine Protein 30 (Negative) Urine Glucose (UA) Negative (Negative) mg/dL Urine Ketones Negative (Negative) Urine Blood Large A (Negative) Urine Nitrite Negative (Negative) Urine Bilirubin Negative (Negative) Urine Urobilinogen 1.0 A (0.2) mg/dL Ur Leukocyte Esterase Small A (Negative) U Hyaline Cast (Auto) NONE SEEN (0-2) /LPF Urine Microscopic RBC >100 A (0-5) /HPF Urine Microscopic WBC 11-20 A (0-5) /HPF Ur Epithelial Cells None Seen (None Seen) /HPF Urine Bacteria None Seen (None Seen) /HPF Urine Culture Reflexed YES (NO) 05/04/23 05/04/23 Range/Units 05:15 06:54 Sodium 138 (137-145) mmol/L Potassium 3.6 (3.5-5.1) mmol/L Chloride 105 (98-107) mmol/L Carbon Dioxide 26 (22-30) mmol/L Anion Gap 10.4 (5-15) MEQ/L BUN 24 H (9-20) mg/dL Creatinine 0.91 (0.66-1.25) mg/dL Estimated GFR > 60.0 ML/MIN Glucose 110 H (74-106) mg/dL POC Glucometer 100 (74 to 106) mg/dL Hemoglobin A1c (4.5-6.0) % Calcium 8.3 L (8.4-10.2) mg/dL Magnesium 2.5 H (1.6-2.3) mg/dL Troponin I (0.000-0.034) ng/mL Urine Color (Yellow) Urine Appearance (Clear) Urine pH (4.6-8.0) Ur Specific [place] (1.005-1.030) Urine Protein (Negative) Urine Glucose (UA) (Negative) mg/dL Urine Ketones (Negative) Urine Blood (Negative) Urine Nitrite (Negative) Urine Bilirubin (Negative) Urine Urobilinogen (0.2) mg/dL Ur Leukocyte Esterase (Negative) U Hyaline Cast (Auto) (0-2) /LPF Urine Microscopic RBC (0-5) /HPF Urine Microscopic WBC (0-5) /HPF Ur Epithelial Cells (None Seen) /HPF Urine Bacteria (None Seen) /HPF Urine Culture Reflexed (NO) Micro Results-Entire Visit: Microbiology 05/02/23 07:20 Urine Culture - Preliminary Urine, Indwelling Catheter NO GROWTH TO DATE 05/01/23 18:45 Blood Culture - Preliminary Blood 05/01/23 18:40 Blood Culture - Preliminary Blood Accuchecks Date 05/04/23 Date 05/03/23 Date 05/03/23 Time 07:07 Time 16:47 Time 12:25 - Procedures and Test Procedures and Tests throughout Hospitalization: Therapy Orders & Screens 05/01/23 19:03 Respiratory Therapy Assessment DAILY Comment: 05/01/23 21:26 Oxygen Nasal Cannula 3 lpm Comment: Respiratory Therapy Consult ONCE Comment: Reason For Exam: 05/02/23 04:19 BiPap/CPAP STAT Comment: Diagnosis: Respiratory failure, pneumonia, sepsis, hypokalemia 05/02/23 07:00 Respiratory MDI UD Comment: PT HM TRELEGY Diagnosis: Respiratory failure, pneumonia, sepsis, hypokalemia 05/02/23 08:41 Speech Therapy Eval & Treat [ST Eval & Treat (MD Order)] .as ordered Comment: Physician Instructions: Reason For Exam: Evaluate: Yes Treat: Yes Reason for Eval: nurse reports pt choking on water Diagnosis: Respiratory failure, pneumonia, sepsis, hypokalemia 05/03/23 16:56 EKG ROUTINE Comment: Diagnosis: Respiratory failure, pneumonia, sepsis, hypokalemia Discharge Exam General Appearance: no apparent distress Neurologic Exam: alert, 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, cooperative Eye Exam: PERRL Ears, Nose, Throat Exam: normal ENT inspection Neck Exam: normal inspection Respiratory Exam: diminished breath sounds Cardiovascular Exam: regular rate/rhythm, normal heart sounds, edema (BLE edema +2 R>L) Gastrointestinal/Abdomen Exam: soft, normal bowel sounds Male Genitalia Exam: deferred Rectal Exam: deferred Back Exam: normal inspection Extremity Exam: pedal edema Skin Exam: pale Wound Assessment: Skin/Wound Assessment Wound/Incision Assessment Start: 05/02/23 00:00 Text: Status: Active Freq: Q6H Protocol: Document 05/04/23 06:00 (Rec: 05/04/23 06:47 [id number]) Wound Photo Photo Taken No Final Diagnosis/Problem List - Final Discharge Diagnosis/Problem (1) Sepsis Current Visit: Yes Status: Resolved (2) Hypokalemia Current Visit: Yes Status: Resolved Code(s): E87.6 - HYPOKALEMIA (3) Pneumonia Current Visit: Yes Status: Resolved Code(s): J18.9 - PNEUMONIA, UNSPECIFIED ORGANISM (4) Acute exacerbation of chronic obstructive airways disease Current Visit: Yes Status: Chronic Code(s): J44.1 - CHRONIC OBSTRUCTIVE PULMONARY DISEASE W (ACUTE) EXACERBATION (5) CHF (congestive heart failure) Current Visit: Yes Status: Chronic Code(s): I50.9 - HEART FAILURE, UNSPECIFIED (6) Elevated troponin Current Visit: Yes Status: Acute Code(s): R77.8 - OTHER SPECIFIED ABNORMALITIES OF PLASMA PROTEINS (7) Respiratory alkalosis Current Visit: Yes Status: Resolved Code(s): E87.3 - ALKALOSIS - Discharge Prescriptions: New Potassium Chloride Tab* [Klor Con] 20 meq PO BID 30 Days #60 tab Methylprednisolone Packet [Medrol Dosepack] 4 mg PO UD 5 Days #1 packet Continue Zolpidem Tartrate 10 mg PO QHS Ropinirole HCl 0.5 mg [Requip 0.5 MG] 0.5 mg PO QHS Tamsulosin HCl 0.4 mg [Flomax 0.4 MG] 0.4 mg PO QHS Furosemide [Lasix] 40 mg PO QAM Fluticasone/Umeclidin/Vilanter [Trelegy Ellipta 100-62.5-25] 1 puff IH QHS Potassium Chloride 10 meq PO QAM Iron,Carb/Vit C/Vit B12/Folic [Iron 100 Plus Tablet] 1 each PO Imatinib Mesylate 300 mg PO HS Discontinued Metformin HCl 500 mg [Glucophage 500 MG] 500 mg PO BID Albuterol Sulfate [Proair Respiclick] 1 puff IH UD PRN PRN Reason: Shortness Of Breath Outpatient Orders: BMP Time Frame: 3 Days, Facility: [facility], Location: LABORATORY Additional Instructions: [facility]. THEY WILL CALL YOU TO ARRANGE A TIME TO COME SEE YOU. THEIR PHONE NUMBER IS [phone] IF YOU NEED ANYTHING BEFORE THEIR FIRST VISIT. Follow up with: IRINA KINGSTON [Primary Care Provider] - SOUMYA PAPPAS [ACTIVE STAFF] -
[2023-05-04 11:41] VITALS: BP 123/60
[2023-05-04 11:47] VITALS: PULSE 78; RESP 16; O2SAT 98
== END 2023-05-04 13:45 | disposition home or self-care (01) | DRG 871 ==
LOC: ED 18:19 → MED SURG 21:20
PROVIDERS: ADMIT Internal Medicine; ATTEND Internal Medicine
DX: A41.9 Sepsis, unspecified organism (principal); J18.9 Pneumonia, unspecified organism; J44.1 Chronic obstructive pulmonary disease with (acute) exacerbation; E87.3 Alkalosis; J96.10 Chronic respiratory failure, unspecified whether with hypoxia or hypercapnia; E87.6 Hypokalemia; I11.0 Hypertensive heart disease with heart failure; I50.9 Heart failure, unspecified; R77.8 Other specified abnormalities of plasma proteins; R60.0 Localized edema; N40.0 Benign prostatic hyperplasia without lower urinary tract symptoms; Z79.899 Other long term (current) drug therapy; Z99.81 Dependence on supplemental oxygen; Z20.828 Contact with and (suspected) exposure to other viral communicable diseases
CPT/HCPCS: 0241U; 36000; 36415; 36600; 71045; 71046; 80048; 80053; 81001; 82375; 82803; 82947; 83036; 83605; 83735; 83880; 84132; 84145; 84484; 85025; 87040; 87086; 92610; 93005; 93041; 94003; 94640; 94762; 96365; 96367; 96374; 99285; 99291; Q3014; J0456; J1650; J1940; J2930; J3480; J7609; A9270-GY

== ENCOUNTER 2023-05-20 16:00 | Observation (INO) | payer MEDICARE, OTHER ==
[2023-05-20 16:31] LABS: Absolute Neutrophil Ct (ANC) 3.88 x10^3/uL (1.4-6.9); BASOPHIL % 0.6 % (0.0-0.4); Basophil (Absolute #) 0.03 x10^3/uL (0-0.4); Eosinophil % 2.2 % (0.00-5.0); Eosinophil (Absolute #) 0.12 x10^3/uL (0-0.5); Hematocrit 30.4 % (42-50); Hemoglobin 9.2 g/dL (12.5-18.0); IMMATURE GRAN # 0.02 x10^3u/L (0.00-0.03); IMMATURE GRAN % 0.4 % (0.00-0.4); Lymphocyte (Absolute #) 0.58 x10^3/uL (1.0-4.6); Lymphocytes % 10.8 % (24.0-44.0); Mean Cell Volume 90.7 fL (78-100); Mean Corpuscular Hemoglobin 27.5 pg (26-32); Mean Corpuscular Hgb Concent. 30.3 g/dL (32-36); Mean Platelet Volume 9.9 fL (7.5-11.0); Monocyte (Absolute #) 0.73 x10^3/uL (0.0-1.3); Monocytes % 13.6 % (0.0-12.0); Neutrophil % 72.4 % (36.0-66.0); Platelet Count 150 x10^3/uL (150-450); Red Blood Count 3.35 x10^6/uL (4.1-5.6); Red Cell Distribution Width 26.8 % (11.5-14.0); White Blood Count 5.4 x10^3/uL (4.0-10.5)
[2023-05-20 16:44] LABS: ALKALINE PHOSPHATASE 147 U/L (38-126); ANION GAP 9.2 MEQ/L (5-15); BLOOD UREA NITROGEN 13 mg/dL (9-20); CHLORIDE 105 mmol/L (98-107); Calcium 7.7 mg/dL (8.4-10.2); Carbon Dioxide 28 mmol/L (22-30); Creatinine 1 0.71 mg/dL (0.66-1.25); EST GLOMERULAR FILTRATION RATE > 60.0 ML/MIN; Glucose 93 mg/dL (74-106); Potassium 3.3 mmol/L (3.5-5.1); SGOT/AST 40 U/L (17-59); SGPT/ALT 32 U/L (0-50); SODIUM 139 mmol/L (137-145); Total Protein 5.7 g/dL (6.3-8.2)
--- NOTE | 2023-05-20 16:51 | ERPHSYRPT ---
- History of Present Illness Time Seen by Provider: 05/20/23 16:30 Source: patient Exam Limitations: no limitations Patient Subjective Stated Complaint: C/O BLE edema for the past week Triage Nursing Assessment: Patient arrived by ambulance. No SOB noted but patient indicates he becomes SOB easily. No cough. Lungs clear with right lung more diminished. Pitting edema present to BLE. RLE with a small open place to dai area that is weeping some. LLE has no weeping but the edema is more pitting than the right and the LLE is slightly red. Patient is alert. Physician History: Patient is a 77-year-old male with a history of congestive heart failure presents to our ED as a referral from his primary care doctor office for evaluation of possible CHF exacerbation. Patient's primary care doctor believes patient may have a CHF exacerbation. She described that patient was somewhat confused today. Patient has been experiencing progressive shortness of breath over the past couple days. Bilateral lower extremity are swollen and pitting. Patient arrived to our ED via EMS. Patient was alert and oriented x3. Physical exam reveals a conversant 77-year-old male. No trauma. No fever. No nausea vomiting or diaphoresis. Symptoms are constant. Symptoms are moderate in intensity. No specific worsening or improving factors. Patient voices no other complaints or concerns at this time. Portions of this note were created with voice recognition technology. There may be grammatical, spelling, punctuation or sound alike errors Timing/Duration: day(s) (2 days) Activities at Onset: none Severity of Dyspnea-Max: moderate Severity of Dyspnea-Current: mild Possible Cause: occasional episodes Modifying Factors: Improves With: activity Associated Symptoms: edema Allergies/Adverse Reactions: No Known Drug Allergies Allergy (Verified 05/20/23 16:13) Home Medications: Zolpidem Tartrate 10 mg PO QHS 06/11/15 [History] Ropinirole HCl 0.5 mg [Requip 0.5 MG] 0.5 mg PO QHS 01/07/17 [History] Tamsulosin HCl 0.4 mg [Flomax 0.4 MG] 0.4 mg PO QHS 02/18/22 [History] Iron,Carb/Vit C/Vit B12/Folic [Iron 100 Plus Tablet] 1 each PO DAILY 05/01/23 [History] Imatinib Mesylate 300 mg PO HS 05/02/23 [History] Torsemide 20 mg [Demadex 20 mg] 1 tab PO BID 05/20/23 [History] Hx Tetanus, Diphtheria Vaccination/Date Given: Yes Hx Influenza Vaccination/Date Given: Yes Hx Pneumococcal Vaccination/Date Given: Yes Immunizations Up to Date: Yes Travel Risk - International Travel Have you traveled outside of the country in past 3 weeks: No - Coronavirus Screening Are you exhibiting any of the following symptoms?: Yes Symptoms: Shortness of Breath Close contact with a COVID-19 positive Pt in past 14-21 Days: No - Vaccine Status Have you recieved a Covid-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: Yes Religion Teacher: Moderna - Vaccination Dates Date of 2cond Vaccination (if applicable): 12/27 - Review of Systems Constitutional: No Symptoms, No Fever, No Chills Eyes: No Symptoms Ears, Nose, & Throat: No Symptoms Respiratory: No Symptoms, No Cough, No Dyspnea Cardiac: No Symptoms, No Chest Pain, No Edema, No Syncope Abdominal/Gastrointestinal: No Symptoms, No Abdominal Pain, No Nausea, No Vomiting, No Diarrhea Genitourinary Symptoms: No Symptoms, No Dysuria Musculoskeletal: No Symptoms, No Back Pain, No Neck Pain Skin: No Symptoms, No Rash Neurological: No Symptoms, No Dizziness, No Focal Weakness, No Sensory Changes Psychological: No Symptoms Endocrine: No Symptoms Hematologic/Lymphatic: No Symptoms Immunological/Allergic: No Symptoms All Other Systems: Reviewed and Negative - Past Medical History Pertinent Past Medical History: Yes Neurological History: No Pertinent History ENT History: Cataracts Cardiac History: Congestive Heart Failure, Hypertension Respiratory History: CHF, COPD, Pneumonia, Other Endocrine Medical History: No Pertinent History Musculoskeletal History: Osteoarthritis GI Medical History: GERD, Gallbladder Disease, Other History: No Pertinent History Psycho-Social History: No Pertinent History Male Reproductive Disorders: Prostate Problems Other Medical History: Insomnia, BPH - Past Surgical History Past Surgical History: Yes Neuro Surgical History: No Pertinent History Cardiac: No Pertinent History Respiratory: No Pertinent History Gastrointestinal: Cholecystectomy Genitourinary: No Pertinent History Musculoskeletal: Orthopedic Surgery Male Surgical History: No Pertinent History Other Surgical History: right knee replacement 2020 - Social History Smoking Status: Former smoker How long have you smoked: 40 years Exposure to second hand smoke: No Drug Use: none Patient Lives Alone: No Significant Family History: no pertinent family hx - Nursing Vital Signs Nursing Vital Signs: Initial Vital Signs Temperature 97.6 F 05/20/23 16:01 Pulse Rate 94 H 05/20/23 16:01 Respiratory Rate 18 05/20/23 16:01 Blood Pressure 116/50 05/20/23 16:01 O2 Sat by Pulse Oximetry 94 L 05/20/23 16:01 Pain Scale Pain Intensity 0 - Physical Exam General Appearance: no apparent distress, alert Eye Exam: PERRL/EOMI, eyes nml inspection Ears, Nose, Throat Exam: hearing grossly normal, normal ENT inspection, normal pharynx Neck Exam: normal inspection, supple Respiratory Exam: diminished breath sounds Cardiovascular/Chest Exam: normal heart sounds, regular rate/rhythm Abdominal/Gastrointestinal Exam: soft, No tenderness, No distention, No mass Extremity Exam: non-tender, normal range of motion, normal inspection, no calf tenderness, pedal edema, katarzyna's sign Peripheral Pulses Exam: dorsalis-pedis (R): 2+, dorsalis-pedis (L): 2+ Neurologic Exam: alert, 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, cooperative, scrubber operator II-XII nml as tested, sensation nml, No motor deficits Skin Exam: normal color, warm, No dry Lymphatic Exam: No adenopathy SpO2 Interpretation: normal SpO2: 95 O2 Delivery: Room Air - Course Nursing assessment & vital signs reviewed: Yes EKG Interpreted by Me: RATE (97), Sinus Rhythm, Right Brock Deviation, prolonged QT interval - Radiology Exams Chest X-ray Interpretation: Teleradiologist Report (Cardiomegaly, blunting of both costophrenic angles denoting mild pleural effusion) - CT Exams Head CT Interpretation: Tele-radiologist Report (No acute intracranial abnormality) Ordered Tests: Active Orders 24 hr Category Date Time Status Boiler Coverer STAT Care 05/20/23 16:13 Active EKG-ER Only STAT Care 05/20/23 16:12 Active IV Insertion STAT Care 05/20/23 16:12 Active Pulse Oximetry (ED) STAT Care 05/20/23 16:12 Active CHEST 1 VIEW (PORTABLE) Stat Exams 05/20/23 16:13 Completed HEAD WITHOUT CONTRAST [CT] Stat Exams 05/20/23 16:14 Completed BLOOD CULTURE Stat Lab 05/20/23 16:20 Ordered CBC W DIFF Stat Lab 05/20/23 16:20 Completed CMP Stat Lab 05/20/23 16:20 Completed NT PRO BNPII Stat Lab 05/20/23 16:20 Completed TROPONIN Q4H Lab 05/20/23 16:20 Completed TROPONIN Q4H Lab 05/20/23 20:15 Ordered TROPONIN Q4H Lab 05/21/23 00:15 Ordered Transfer Order Routine Transfer 05/20/23 Ordered Medication Summary Generic Name Dose Route Start Last Admin Trade Name Freq PRN Reason Stop Dose Admin Ceftriaxone Sodium/Dextrose 2 g in 50 mls @ 100 mls/hr 05/20/23 18:15 05/20/23 18:17 Rocephin 2 Gm-D5w 50ml Bag IV 05/20/23 18:44 100 ml/hr STAT STA 100 mls/hr Administration Azithromycin 500 mg in 250 mls @ 250 mls/hr 05/20/23 18:15 05/20/23 18:17 Zithromax 500 Mg/ 250 Ml Nacl Premix IV 05/20/23 19:14 250 ml/hr STAT STA 250 mls/hr Administration Discontinued Medications Generic Name Dose Route Start Last Admin Trade Name Freq PRN Reason Stop Dose Admin Azithromycin Confirm 05/20/23 18:16 Zithromax 500 Mg/ 250 Ml Nacl Premix Administered 05/20/23 18:17 Dose 500 mg in 250 mls @ ud IV .STK-MED ONE Ceftriaxone Sodium/Dextrose Confirm 05/20/23 18:16 Rocephin 2 Gm-D5w 50ml Bag Administered 05/20/23 18:17 Dose 2 g in 50 mls @ ud IV .STK-MED ONE Potassium Chloride 40 meq 05/20/23 17:59 05/20/23 18:10 Potassium Chloride Tab 10 Meq Tab PO 05/20/23 18:00 40 meq STAT ONE Administration Potassium Chloride Confirm 05/20/23 18:09 Potassium Chloride Tab 10 Meq Tab Administered 05/20/23 18:10 Dose 40 meq PO .STK-MED ONE Lab/Rad Data: Laboratory Result Diagrams 05/20/23 16:20 05/20/23 16:20 Laboratory Results 05/20/23 05/20/23 05/20/23 Range/Units 16:20 16:20 16:20 WBC 5.4 (4.0-10.5) x10^3/uL RBC 3.35 L (4.1-5.6) x10^6/uL Hgb 9.2 L (12.5-18.0) g/dL Hct 30.4 L (42-50) % MCV 90.7 (78-100) fL MCH 27.5 (26-32) pg MCHC 30.3 L (32-36) g/dL RDW 26.8 H (11.5-14.0) % Plt Count 150 (150-450) x10^3/uL MPV 9.9 (7.5-11.0) fL Gran % 72.4 H (36.0-66.0) % Immature Gran % (Auto) 0.4 (0.00-0.4) % Nucleat RBC Rel Count 0.0 (0.00-0.1) % Eos # (Auto) 0.12 (0-0.5) x10^3/uL Immature Gran # (Auto) 0.02 (0.00-0.03) x10^3u/L Absolute Lymphs (auto) 0.58 L (1.0-4.6) x10^3/uL Absolute Monos (auto) 0.73 (0.0-1.3) x10^3/uL Absolute Nucleated RBC 0.00 (0.00-0.01) x10^3u/L Lymphocytes % 10.8 L (24.0-44.0) % Monocytes % 13.6 H (0.0-12.0) % Eosinophils % 2.2 (0.00-5.0) % Basophils % 0.6 (0.0-0.4) % Absolute Granulocytes 3.88 (1.4-6.9) x10^3/uL Basophils # 0.03 (0-0.4) x10^3/uL Sodium 139 (137-145) mmol/L Potassium 3.3 L (3.5-5.1) mmol/L Chloride 105 (98-107) mmol/L Carbon Dioxide 28 (22-30) mmol/L Anion Gap 9.2 (5-15) MEQ/L BUN 13 (9-20) mg/dL Creatinine 0.71 (0.66-1.25) mg/dL Estimated GFR > 60.0 ML/MIN Glucose 93 (74-106) mg/dL Calcium 7.7 L (8.4-10.2) mg/dL Total Bilirubin 1.40 H (0.2-1.3) mg/dL AST 40 (17-59) U/L ALT 32 (0-50) U/L Alkaline Phosphatase 147 H (38-126) U/L Troponin I 0.033 (0.000-0.034) ng/mL NT-Pro-B Natriuret Pep 729 (<300) pg/mL Serum Total Protein 5.7 L (6.3-8.2) g/dL Albumin 3.0 L (3.5-5.0) g/dL - Progress Progress: improved Air Movement: good Progress Note: Patient is a 77-year-old male presents to our ED as a referral from primary care doctor for evaluation of shortness of breath leg swelling and some confusion. EKG reveals sinus rhythm. CT head negative for acute intracranial pathology. Chest x-ray reveals pneumonia. Blood cultures obtained. CBC reveals a normocytic anemia. CMP reveals hypokalemia 3.3. BNP normal. Initial troponin high normal at 0.033. Patient received an oral dose of potassium. Lasix adm inistered to address the leg swelling. Patient received a dose of Rocephin and azithromycin to address the pneumonia observed on the chest x-ray. Patient will require admission for further evaluation and treatment. Patient excepted by Dr. Rosenbaum at 6:30 PM. Complexity of problem addressed is moderate acute complicated. Complex of data reviewed and analyzed extensive. Test ordered. Laboratory results and imaging results reviewed and analyzed. Clinical correlation made between our findings and history and physical examination. The findings and plan of care were discussed with who excepts admission to observation. Risk of complication and or risk of morbidity/mortality of patient management is high. Patient will require hospitalization for further evaluation and treatme nt. Vital stable. Antibiotics infused. Oral potassium administered. Patient agrees to admission at [facility] for further evaluation and treatment. Plan of care established for shared decision making. Time spent to admit patient approximately 20 minutes. Portions of this note were created with voice recognition technology. There may be grammatical, spelling, punctuation or sound alike errors 05/20/23 18:28 Blood Culture(s) Obtained: No Antibiotics given: No Counseled pt/family regarding: lab results, diagnosis, rad results - Departure Departure Disposition: Observation Clinical Impression: Lower extremity pitting edema, Normocytic anemia, Hypokalemia, Pneumonia, Confusion Condition: Stable Critical Care Time: No Referrals: KARLEE CARMONA DO [Primary Care Provider] - Follow up/PCP as directed Instructions: Heart Failure
[2023-05-20 17:15] LABS: TROPONIN 0.033 ng/mL (0.000-0.034)
--- NOTE | 2023-05-20 17:29 | XRAY ---
CLINICAL HISTORY:pain COMPARISON:None TECHNIQUE:X ray of the chest, PA 1 view. FINDINGS: Multiple patchy areas of consolidation with air bronchogram seen involving the upper, middle and lower lung zones of the right lung. Normal configuration of the mediastinum. The sakshi are normal in size and position. The cardiac size is enlarged. The bony thorax is unremarkable. Blunting of both costophrenic angles denoting mild pleural effusion. IMPRESSION: Picture suggesting pneumonia with mild parapneumonic effusion, for clinical correlation. Cardiomegaly. Electronically Signed by: Valerie Aquino MD. (05/20/2023 16:27:26 POST DOCTORAL RESEARCHER)
[2023-05-20] MEDS ORDERED: Klor Con PO ONE ×2 (17:59→18:09)
--- NOTE | 2023-05-20 18:01 | XRAY ---
CLINICAL HISTORY:Confusion COMPARISON:None TECHNIQUE:Axial non-contrast CT scan of the brain was performed from the skull base to the high parietal region. CTDI: 53.92, DLP: 1016.25, FINDINGS: The ventricular system, cortical sulci and basal cisterns are prominent, consistent with senile changes. The visualized brain parenchyma shows a normal appearance. Olmedo-white matter differentiation is maintained. No midline shifts or deformity. No intracerebral or extra axial hematoma. Normal CT appearance of the posterior fossa structures namely the cerebellar hemispheres, brainstem, and cerebellar peduncles. The IACs are unremarkable. The cerebello-pontine angles are clear. The pituitary gland, the pineal gland, the optic chiasm is unremarkable. The osseous structures in the skull base are unremarkable. No definite calvarium fractures. The scanned paranasal sinuses are clear. Note is made of deviated nasal septum with convexity towards the left side. IMPRESSION: 1. Senile atrophic changes in the brain. 3. No acute intracranial abnormality. Electronically Signed by: Valerie Aquino MD. (05/20/2023 17:00:07 RETAIL PARTS PROFESSIONAL)
[2023-05-20] MEDS ORDERED: ROCEPHIN 2 Gm-D5w 50ML BAG** 2 G/50 ML IVPB IV STA (18:15)
[2023-05-20] MEDS ORDERED: Zithromax 500 MG/ 250 ML NaCl Premix 500 MG/250 ML IVPB IV STA (18:15)
[2023-05-20] MEDS ORDERED: Zithromax 500 MG/ 250 ML NaCl Premix 500 MG/250 ML IVPB IV ONE (18:16)
[2023-05-20] MEDS ORDERED: ROCEPHIN 2 Gm-D5w 50ML BAG** 2 G/50 ML IVPB IV ONE (18:16)
[2023-05-20] MEDS ORDERED: Lasix 20 MG/2 ML IV STA (18:24)
[2023-05-20 18:29] LABS: Slide Review 1 YES
--- NOTE | 2023-05-20 19:51 | PCM.HP ---
History of Present Illness - Chief Complaint Chief Complaint: leg edema Date: 05/20/23 History of Present Illness: is a 77 year old male with h/o CHF, COPD, leukemia, GERD, BPH, and restless legs syndrome, who presents with leg weeping and swelling. Patient was admitted three weeks ago with CHF exacerbation. He was placed on torsemide, and had more regular 3L oxygen (his baseline usage), and feels like his breathing is doing better. He is able to ambulate around the house and up 5 steps without difficulty. He denies chest pain, and has been compliant with his medications, although finds it difficult to swallow the potassium. But he is complaining of w orsening leg edema, with increased weeping of serous fluid from the right lower leg. He denies purulent discharge, pain, erythema, or tenderness. He has a mild chronic non-productive cough that is unchanged. He denies fevers, sore throat, or congestion. Denies orthopnea, PND, or early satiety. He had an echocardiogram done today, but not yet read. - Review of Systems Constitutional: No Fever, No Chills, No Weakness Eyes: No Symptoms Ears, Nose, & Throat: No Nose Congestion, No Throat Pain, No Throat Swelling Respiratory: Cough, No Orthopnea, No Short Of Breath Cardiac: Edema, No Chest Pain, No Palpitations, No Syncope, No Orthopnea, No PND Abdominal/Gastrointestinal: No Abdominal Pain, No Nausea, No Diarrhea Genitourinary Symptoms: No Dysuria, No Frequency, No Hematuria Musculoskeletal: No Symptoms Skin: Other (serous weeping) Neurological: No Symptoms Psychological: No Symptoms Endocrine: No Symptoms Hematologic/Lymphatic: No Symptoms Medications & Allergies Home Medications: Home Medication List Zolpidem Tartrate 5 mg PO QHS 06/11/15 [History Confirmed 05/20/23] Ropinirole HCl 0.5 mg [Requip 0.5 MG] 0.5 mg PO QHS 01/07/17 [History Confirmed 05/20/23] Tamsulosin HCl 0.4 mg [Flomax 0.4 MG] 0.4 mg PO DAILY 02/18/22 [History Confirmed 05/20/23] Imatinib Mesylate 300 mg PO HS 05/02/23 [History Confirmed 05/20/23] Ferrous Sulfate [Iron] 325 mg PO DAILY 05/20/23 [History Confirmed 05/20/23] Fluticasone/Umeclidin/Vilanter [Trelegy Ellipta 100-62.5-25] 2 inh DAILY 05/20/23 [History Confirmed 05/20/23] Furosemide 40 mg [Lasix 40 MG] 40 mg PO DAILY PRN 05/20/23 [History Confirmed 05/20/23] Melatonin/Pyridoxine [Melatonin 5 mg Tablet] 3 mg PO HS 05/20/23 [History Confirmed 05/20/23] Non-Formulary Drug [Non-Formulary Bulk Item] 1 each PO QHS 05/20/23 [History Confirmed 05/20/23] Potassium Chloride 40 mg PO BID 05/20/23 [History Confirmed 05/20/23] Torsemide 20 mg [Demadex 20 mg] 20 mg PO BID 05/20/23 [History Confirmed 05/20/23] Allergies/Adverse Reactions: Allergies Allergy/AdvReac Type Severity Reaction Status Date / Time No Known Drug Allergies Allergy Verified 05/20/23 16:13 - Past Medical History Past Medical History: Yes Neurological History: No Pertinent History ENT History: Cataracts Cardiac History: Congestive Heart Failure, Hypertension Respiratory History: COPD Endocrine Medical History: No Pertinent History Musculoskelatal History: Osteoarthritis GI Medical History: GERD, Gallbladder Disease History: No Pertinent History Pyscho-Social History: No Pertinent History Male Reproductive Disorders: Prostate Problems Comment: Insomnia, BPH, leukemia - Past Surgical History Past Surgical History: Yes Neuro Surgical History: No Pertinent History Cardiac History: No Pertinent History Respiratory Surgery: No Pertinent History GI Surgical History: Cholecystectomy Genitourinary Surgical Hx: No Pertinent History Musculskeletal Surgical Hx: Orthopedic Surgery Male Surgical History: No Pertinent History Other Surgical History: right knee replacement 2020 - Social History Smoking Status: Former smoker How long have you smoked: 40 years Exposure to second hand smoke: No Alcohol: None Drug Use: none Significant Family History: no pertinent family hx - Physical Exam Vital Signs: Vital Signs - 24 hr Temp Pulse Resp BP BP Pulse Ox 05/20/23 19:20 97.0 F 88 20 126/60 96 05/20/23 18:35 97.0 F 88 20 126/60 96 05/20/23 18:33 95 05/20/23 18:00 89 20 112/58 94 L 05/20/23 17:30 91 H 21 110/50 94 L 05/20/23 17:29 92 H 22 112/54 94 L 05/20/23 16:30 89 18 124/58 95 05/20/23 16:26 95 05/20/23 16:08 92 H 20 116/50 94 L 05/20/23 16:01 97.6 F 94 H 18 116/50 94 L General Appearance: no apparent distress Neurologic Exam: alert, 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 Eye Exam: eyes nml inspection Respiratory Exam: wheezing (minimal end-expiratory), No respiratory distress, No diminished breath sounds, No accessory muscle use, No crackles/rales Cardiovascular Exam: regular rate/rhythm, normal heart sounds, edema (bilateral leg, left slightly greater than right, pitting) Gastrointestinal/Abdomen Exam: No tenderness, No distention Skin Exam: other (very faint erythema over bilateral lower legs. One spot of sl ight superficial skin opening over right anterior lower leg with serous drainage) Results - Labs Lab/Micro Results: Lab Results-Last 24 Hours 05/20/23 05/20/23 05/20/23 Range/Units 16:20 16:20 16:20 WBC 5.4 (4.0-10.5) x10^3/uL RBC 3.35 L (4.1-5.6) x10^6/uL Hgb 9.2 L (12.5-18.0) g/dL Hct 30.4 L (42-50) % MCV 90.7 (78-100) fL MCH 27.5 (26-32) pg MCHC 30.3 L (32-36) g/dL RDW 26.8 H (11.5-14.0) % Plt Count 150 (150-450) x10^3/uL MPV 9.9 (7.5-11.0) fL Gran % 72.4 H (36.0-66.0) % Immature Gran % (Auto) 0.4 (0.00-0.4) % Nucleat RBC Rel Count 0.0 (0.00-0.1) % Eos # (Auto) 0.12 (0-0.5) x10^3/uL Immature Gran # (Auto) 0.02 (0.00-0.03) x10^3u/L Absolute Lymphs (auto) 0.58 L (1.0-4.6) x10^3/uL Absolute Monos (auto) 0.73 (0.0-1.3) x10^3/uL Absolute Nucleated RBC 0.00 (0.00-0.01) x10^3u/L Lymphocytes % 10.8 L (24.0-44.0) % Monocytes % 13.6 H (0.0-12.0) % Eosinophils % 2.2 (0.00-5.0) % Basophils % 0.6 (0.0-0.4) % Absolute Granulocytes 3.88 (1.4-6.9) x10^3/uL Basophils # 0.03 (0-0.4) x10^3/uL Sodium 139 (137-145) mmol/L Potassium 3.3 L (3.5-5.1) mmol/L Chloride 105 (98-107) mmol/L Carbon Dioxide 28 (22-30) mmol/L Anion Gap 9.2 (5-15) MEQ/L BUN 13 (9-20) mg/dL Creatinine 0.71 (0.66-1.25) mg/dL Estimated GFR > 60.0 ML/MIN Glucose 93 (74-106) mg/dL Calcium 7.7 L (8.4-10.2) mg/dL Total Bilirubin 1.40 H (0.2-1.3) mg/dL AST 40 (17-59) U/L ALT 32 (0-50) U/L Alkaline Phosphatase 147 H (38-126) U/L Troponin I 0.033 (0.000-0.034) ng/mL NT-Pro-B Natriuret Pep 729 (<300) pg/mL Serum Total Protein 5.7 L (6.3-8.2) g/dL Albumin 3.0 L (3.5-5.0) g/dL Slides for Path Review YES - Radiology Impressions Radiology Exams & Impressions: Radiology Procedures Category Date Time Status CHEST 1 VIEW (PORTABLE) Stat Exams 05/20/23 16:13 Completed HEAD WITHOUT CONTRAST [CT] Stat Exams 05/20/23 16:14 Completed CXR reviewed, patient has infiltrates in bilateral bases and laterally in RUL, all unchanged in location from prior CXR on 05/08, and very similar in appearance to 05/01. Mild increase in edema since 05/08. (images reviewed) - Other Procedures and Tests Respiratory Therapy 05/20/23 18:54 RT Screen per Nursing Assess ONCE 05/20/23 18:56 Oxygen Oxymizer LPM 3 lpm 05/20/23 19:41 Respiratory Therapy Assessment DAILY Assessment/Plan (1) CHF (congestive heart failure) Current Visit: Yes Status: Chronic Assessment & Plan: 77 y/o M with h/o CHF, COPD, GERD, leukemia, BPH, here with progressive dyspnea and leg edema, consistent with worsening leg edema. ## Leg edema - most likely from CHF. He appears to have improved from admission last month, with BNP down from 2940 -> 729, but still has edema on CXR. However, no pulmonary or abdominal symptoms. Possibly also has poor drainage from leg; will need to evaluate for DVT or lymphedema. No evidence of cellulitis at this point. - diurese as below - check BLE doppler U/S - if no DVT, and unable to get more diuresis, will need compression stockings ## Acute on chronic CHF - appears to be diastolic; has echo that was done today but is still pending read. BNP was more elevated during previous admission (2940 -> 729 today), but has worsened leg edema. CXR has bilateral infiltrates (read as pneumonia by radiology), but these locations are unchanged from prior CXR. Does not have new infiltrates, but seems to reflect increased pulmonary edema. At home on torsemide 20 BID. Given Lasix 20 mg IV x1. - give additional Lasix 40 mg IV x1 - start Lasix 40 mg IV BID - monitor respiratory status and renal function - follow up read of echo done today - d/c antibiotics ## Hypokalemia - secondary to diuresis. - given KCl 40 mEq in ED - repeat BMP, Mg in AM ## COPD, chronic hypoxic respiratory failure - at his baseline 3L oxygen. - continue home Trelegy - continue 3L oxygen; titrate to maintain SpO2 91-94% ## Anemia of chronic disease - likely related to his leukemia, perhaps his imatinib. But Hb stable around 8-9. - follow CBC ## Leukemia - continue home imatinib ## Restless leg's syndrome - continue Requip 0.5 qHS ## BPH - continue home Flomax Code Status: Full code Prophylaxis: ambulate (short stay) Diet: Low sodium Dispo: Home in next few days Code(s): I50.9 - HEART FAILURE, UNSPECIFIED Telemedicine Encounter - Telemedicine Encounter Telemedicine Encounter: The entirety of this encounter was performed via Telemedicine"
[2023-05-20] MEDS ORDERED: PROVENTIL 2.5 MG/3 ML NEB IH PRN (19:58)
[2023-05-20] MEDS ORDERED: IMATINIB MESYLATE 100 MG PO SCH (22:00)
[2023-05-20] MEDS: Ambien 5 MG Tablet PO SCH (22:07)
[2023-05-20] MEDS: MELATONIN PO SCH (22:07)
[2023-05-20] MEDS: Requip 0.5 MG PO SCH (22:07)
[2023-05-20] MEDS: Klor Con PO SCH (22:07)
[2023-05-21 04:51] LABS: Hemoglobin 8.4 g/dL (12.5-18.0); Mean Cell Volume 92.7 fL (78-100); Mean Corpuscular Hemoglobin 27.8 pg (26-32); Mean Platelet Volume 9.5 fL (7.5-11.0); Platelet Count 132 x10^3/uL (150-450); Red Blood Count 3.02 x10^6/uL (4.1-5.6); Red Cell Distribution Width 26.5 % (11.5-14.0); White Blood Count 5.4 x10^3/uL (4.0-10.5)
[2023-05-21 05:09] LABS: ANION GAP 6.8 MEQ/L (5-15); BLOOD UREA NITROGEN 16 mg/dL (9-20); CHLORIDE 106 mmol/L (98-107); Calcium 7.4 mg/dL (8.4-10.2); Carbon Dioxide 27 mmol/L (22-30); Creatinine 1 0.64 mg/dL (0.66-1.25); EST GLOMERULAR FILTRATION RATE > 60.0 ML/MIN; Glucose 108 mg/dL (74-106); Potassium 3.6 mmol/L (3.5-5.1); SODIUM 136 mmol/L (137-145)
[2023-05-21] MEDS ORDERED: MEDICATION INTERVENTION MC SCH (07:15)
[2023-05-21 07:37] LABS: Slide Review YES
[2023-05-21] MEDS: PATIENT OWN MEDICATION IH SCH ×2 (07:48→13:14)
--- NOTE | 2023-05-21 07:48 | PCM.NOTE ---
Date and Time: 05/21/23 0744 Subjective Assessment: is a 77 year old male with h/o CHF, COPD, leukemia, GERD, BPH, and restless legs syndrome, who presented to ER 05/20/23 with leg weeping and swelling. Patient recently admitted three weeks ago with CHF exacerbation. Admitted for CHF exacerbation with BLE edema/weeping, currently being treated with IV lasix. Doppler pending to r/o DVT. Plan for compression dressing if doppler is negative. Patient still with 3+ pitting edema on BLE with weeping. Endorses some sob and intermittent cough with the need for prn oxygen at baseline. During interview he is on RA. Denies fever,cough, sob, cp, abdominal pain, REYES, dizziness, N/V/D. - Review of Systems Constitutional: Fatigue Eyes: No Symptoms Ears, Nose, & Throat: No Symptoms Respiratory: Cough, Short Of Breath Cardiac: Edema Abdominal/Gastrointestinal: No Symptoms Genitourinary Symptoms: No Symptoms Musculoskeletal: No Symptoms Skin: Other (BLE edema with weeping 3+ pitting) Neurological: No Symptoms Psychological: No Symptoms Endocrine: No Symptoms Hematologic/Lymphatic: No Symptoms Objective Exam General Appearance: no apparent distress Neurologic Exam: alert, 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, cooperative Skin Exam: pale Eye Exam: PERRL Ears, Nose, Throat Exam: dry mucous membranes Neck Exam: normal inspection Respiratory Exam: crackles/rales Cardiovascular Exam: regular rate/rhythm, normal heart sounds, other (BLE edema with weeping 3+ pitting) Gastrointestinal/Abdomen Exam: soft, normal bowel sounds Extremity Exam: pedal edema (BLE), swelling Back Exam: normal inspection Male Genitalia Exam: deferred Rectal Exam: deferred OBJECTIVE DATA Vital Signs: Vital Signs - 24 hr Temp Pulse Resp BP BP Pulse Ox 05/21/23 07:15 98.1 F 104 H 16 115/50 96 05/21/23 03:51 98.8 F 101 H 24 133/60 100 05/20/23 23:55 97.0 F 95 H 19 129/59 99 05/20/23 20:00 99 05/20/23 19:50 94 H 20 94 L 05/20/23 19:20 97.0 F 88 20 126/60 96 05/20/23 18:35 97.0 F 88 20 126/60 96 09/12/23 18:33 95 05/20/23 18:00 89 20 112/58 94 L 05/20/23 17:30 91 H 21 110/50 94 L 05/20/23 17:29 92 H 22 112/54 94 L 05/20/23 16:30 89 18 124/58 95 05/20/23 16:26 95 05/20/23 16:08 92 H 20 116/50 94 L 05/20/23 16:01 97.6 F 94 H 18 116/50 94 L Oxygen-Last 24 hours Oxygen Flowrate (L/min)-RT 3 Pain Assessment - Last Documented Pain Intensity 0 Intake and Output: Intake & Output 05/18/23 05/19/23 05/20/23 05/21/23 11:59 11:59 11:59 11:59 Intake Total 300 Output Total 850 Balance -550 Weight 93 kg Lab Results: Lab Results-Last 24 Hours 05/20/23 05/20/23 05/20/23 Range/Units 16:20 16:20 16:20 WBC 5.4 (4.0-10.5) x10^3/uL RBC 3.35 L (4.1-5.6) x10^6/uL Hgb 9.2 L (12.5-18.0) g/dL Hct 30.4 L (42-50) % MCV 90.7 (78-100) fL MCH 27.5 (26-32) pg MCHC 30.3 L (32-36) g/dL RDW 26.8 H (11.5-14.0) % Plt Count 150 (150-450) x10^3/uL MPV 9.9 (7.5-11.0) fL Gran % 72.4 H (36.0-66.0) % Immature Gran % (Auto) 0.4 (0.00-0.4) % Nucleat RBC Rel Count 0.0 (0.00-0.1) % Eos # (Auto) 0.12 (0-0.5) x10^3/uL Immature Gran # (Auto) 0.02 (0.00-0.03) x10^3u/L Absolute Lymphs (auto) 0.58 L (1.0-4.6) x10^3/uL Absolute Monos (auto) 0.73 (0.0-1.3) x10^3/uL Absolute Nucleated RBC 0.00 (0.00-0.01) x10^3u/L Lymphocytes % 10.8 L (24.0-44.0) % Monocytes % 13.6 H (0.0-12.0) % Eosinophils % 2.2 (0.00-5.0) % Basophils % 0.6 (0.0-0.4) % Absolute Granulocytes 3.88 (1.4-6.9) x10^3/uL Basophils # 0.03 (0-0.4) x10^3/uL Sodium 139 (137-145) mmol/L Potassium 3.3 L (3.5-5.1) mmol/L Chloride 105 (98-107) mmol/L Carbon Dioxide 28 (22-30) mmol/L Anion Gap 9.2 (5-15) MEQ/L BUN 13 (9-20) mg/dL Creatinine 0.71 (0.66-1.25) mg/dL Estimated GFR > 60.0 ML/MIN Glucose 93 (74-106) mg/dL Calcium 7.7 L (8.4-10.2) mg/dL Magnesium (1.6-2.3) mg/dL Total Bilirubin 1.40 H (0.2-1.3) mg/dL AST 40 (17-59) U/L ALT 32 (0-50) U/L Alkaline Phosphatase 147 H (38-126) U/L Troponin I 0.033 (0.000-0.034) ng/mL NT-Pro-B Natriuret Pep 729 (<300) pg/mL Serum Total Protein 5.7 L (6.3-8.2) g/dL Albumin 3.0 L (3.5-5.0) g/dL Slides for Path Review YES 05/21/23 05/21/23 Range/Units 04:30 04:30 WBC 5.4 (4.0-10.5) x10^3/uL RBC 3.02 L (4.1-5.6) x10^6/uL Hgb 8.4 L (12.5-18.0) g/dL Hct 28.0 L (42-50) % MCV 92.7 (78-100) fL MCH 27.8 (26-32) pg MCHC 30.0 L (32-36) g/dL RDW 26.5 H (11.5-14.0) % Plt Count 132 L (150-450) x10^3/uL MPV 9.5 (7.5-11.0) fL Gran % (36.0-66.0) % Immature Gran % (Auto) (0.00-0.4) % Nucleat RBC Rel Count (0.00-0.1) % Eos # (Auto) (0-0.5) x10^3/uL Immature Gran # (Auto) (0.00-0.03) x10^3u/L Absolute Lymphs (auto) (1.0-4.6) x10^3/uL Absolute Monos (auto) (0.0-1.3) x10^3/uL Absolute Nucleated RBC (0.00-0.01) x10^3u/L Lymphocytes % (24.0-44.0) % Monocytes % (0.0-12.0) % Eosinophils % (0.00-5.0) % Basophils % (0.0-0.4) % Absolute Granulocytes (1.4-6.9) x10^3/uL Basophils # (0-0.4) x10^3/uL Sodium 136 L (137-145) mmol/L Potassium 3.6 (3.5-5.1) mmol/L Chloride 106 (98-107) mmol/L Carbon Dioxide 27 (22-30) mmol/L Anion Gap 6.8 (5-15) MEQ/L BUN 16 (9-20) mg/dL Creatinine 0.64 L (0.66-1.25) mg/dL Estimated GFR > 60.0 ML/MIN Glucose 108 H (74-106) mg/dL Calcium 7.4 L (8.4-10.2) mg/dL Magnesium 2.0 (1.6-2.3) mg/dL Total Bilirubin (0.2-1.3) mg/dL AST (17-59) U/L ALT (0-50) U/L Alkaline Phosphatase (38-126) U/L Troponin I (0.000-0.034) ng/mL NT-Pro-B Natriuret Pep (<300) pg/mL Serum Total Protein (6.3-8.2) g/dL Albumin (3.5-5.0) g/dL Slides for Path Review YES Radiology Exams: Radiology Procedures Category Date Time Status CHEST 1 VIEW (PORTABLE) Stat Exams 05/20/23 16:13 Completed HEAD WITHOUT CONTRAST [CT] Stat Exams 05/20/23 16:14 Completed VENOUS BILATERAL EXTREMITY [US] Routine Exams 05/21/23 21:42 Ordered Multi-Disciplinary Progress Notes: Multi-Disciplinary Progress Notes 05/20/23 16:35 Nutrition Note by Violet Weston Patient and forgot to bring a current medication list with them to the ER. Unable to obtain an accurate current medication list at this time. Initialized on 05/20/23 16:35 - END OF NOTE Assessment/Plan (1) CHF exacerbation Current Visit: Yes Status: Acute Assessment & Plan: appears to be diastolic; has echo that was done today but is still pending read. BNP was more elevated during previous admission (2940 -> 729 today), but has worsened leg edema. CXR has bilateral infiltrates (read as pneumonia by radiology), but these locations are unchanged from prior CXR. Does not have new infiltrates, but seems to reflect increased pulmonary edema. At home on torsemide 20 BID. Given Lasix 20 mg IV x1. - give additional Lasix 40 mg IV x1 - start Lasix 40 mg IV BID - monitor respiratory status and renal function - follow up read of echo done today - d/c antibiotics 05/21/23: HFpEF vs HFrEF -NYHA Class 3 -Baseline Weight: unrecorded -proBNP 729 CXR consistent with pulmonary edema, physical exam consistent with chf exacerbation -Monitor daily weight and document Strict I/Os -Fluid restriction <1800ml/day and Na Restriction <2g/day -ECHO pending -Daily BMP to monitor renal function Code(s): I50.9 - HEART FAILURE, UNSPECIFIED (2) Bilateral leg edema Current Visit: Yes Status: Acute Assessment & Plan: most likely from CHF. He appears to have improved from admission last month, with BNP down from 2940 -> 729, but still has edema on CXR. However, no pulmonary or abdominal symptoms. Possibly also has poor drainage from leg; will need to evaluate for DVT or lymphedema. No evidence of cellulitis at this point. - diurese as below - check BLE doppler U/S - pending 05/21/23 - if no DVT, and unable to get more diuresis, will need compression stockings Code(s): R60.0 - LOCALIZED EDEMA (3) Hypokalemia Current Visit: Yes Status: Acute Assessment & Plan: - given KCl 40 mEq in ED - repeat BMP, Mg in AM 05/21: -Now wnl, continue KCL 40 meq po with diuresis Code(s): E87.6 - HYPOKALEMIA (4) COPD (chronic obstructive pulmonary disease) Current Visit: Yes Status: Acute Assessment & Plan: - continue home Trelegy - continue 3L oxygen; titrate to maintain SpO2 91-94% (5) Anemia, chronic disease Current Visit: Yes Status: Acute Assessment & Plan: likely related to his leukemia, perhaps his imatinib. But Hb stable around 8-9. - follow CBC Code(s): D63.8 - ANEMIA IN OTHER CHRONIC DISEASES CLASSIFIED ELSEWHERE (6) Leukemia Current Visit: Yes Status: Acute Assessment & Plan: - continue home imatinib Code(s): C95.90 - LEUKEMIA, UNSPECIFIED NOT HAVING ACHIEVED REMISSION (7) RLS (restless legs syndrome) Current Visit: Yes Status: Acute Assessment & Plan: - continue Requip 0.5 qHS (8) BPH (benign prostatic hyperplasia) Current Visit: Yes Status: Acute Assessment & Plan: - continue home Flomax Code Status: Full code Prophylaxis: ambulate (short stay) Diet: Low sodium Dispo: Home in next few days Code(s): N40.0 - BENIGN PROSTATIC HYPERPLASIA WITHOUT LOWER URINRY TRACT SYMP
[2023-05-21] MEDS: Flomax 0.4 MG PO SCH (09:19)
[2023-05-21] MEDS: Lasix 40 MG/4 ML IV SCH ×2 (09:19→17:37)
[2023-05-21] MEDS: FEOSOL 325 MG PO SCH (09:19)
[2023-05-21] MEDS: Klor Con PO SCH ×2 (09:19→20:58)
[2023-05-21] MEDS ORDERED: NON-FORMULARY ITEM (Fluticasone/Umeclidin/Vilanter [Trelegy Ellipta 100-62.5-25] 1 EACH Bl IH SCH (10:00)
--- NOTE | 2023-05-21 12:10 | XRAY ---
Indication: Bilateral leg pain and swelling. Two-dimensional sonogram and color Doppler imaging of the major venous vessels of the left and right leg performed. Comparison: April 06, 2020 No thrombus seen in the examined deep venous vessels of the left and right leg including greater saphenous vein. Veins demonstrate normal compressibility. Venous waveforms are normal with and without augmentation. Impression: Left and right legs continue to be negative for DVT.
[2023-05-21] MEDS ORDERED: Lasix 40 MG/4 ML IV ONE (20:00)
[2023-05-21] MEDS: MELATONIN PO SCH (20:58)
[2023-05-21] MEDS: Ambien 5 MG Tablet PO SCH (20:58)
[2023-05-21] MEDS: Requip 0.5 MG PO SCH (20:58)
[2023-05-21] MEDS ORDERED: PATIENT OWN MEDICATION PO SCH (22:00)
--- NOTE | 2023-05-22 05:53 | PCM.NOTE ---
Date and Time: 05/22/23 0548 Subjective Assessment: is a 77 year old male with h/o CHF, COPD, leukemia, GERD, BPH, and restless legs syndrome, who presented to ER 05/20/23 with leg weeping and swelling. Patient recently admitted three weeks ago with CHF exacerbation. Admitted for CHF exacerbation with BLE edema/weeping, currently being treated with IV lasix. Left and right legs continue to be negative for DVT per Doppler. Patient still with 3+ pitting edema on BLE with weeping. Endorses some sob and intermittent cough with the need for prn oxygen at baseline. During interview he is on RA. Plan for compression dressings. Denies fever,cough, sob, cp, abdominal pain, REYES, dizziness, N/V/D. OBJECTIVE DATA Vital Signs: Vital Signs - 24 hr Temp Pulse Resp BP Pulse Ox 05/22/23 04:00 98.0 F 93 H 19 119/58 99 05/21/23 23:44 98.9 F 95 H 20 103/85 99 05/21/23 20:00 97.7 F 94 H 18 133/61 96 05/21/23 19:02 94 H 16 96 05/21/23 16:00 97.5 F 89 19 115/56 98 05/21/23 12:00 96.6 F 111 H 15 127/55 95 05/21/23 07:15 98.1 F 104 H 16 115/50 96 05/21/23 07:00 98 H 18 97 Pain Assessment - Last Documented Pain Intensity 0 Intake and Output: Intake & Output 05/19/23 05/20/23 05/21/23 05/22/23 11:59 11:59 11:59 11:59 Intake Total 660 1520 Output Total 1650 1850 Balance -990 -330 Weight 93 kg 93.3 kg Lab Results: Lab Results-Last 24 Hours 05/21/23 Range/Units 04:30 Slides for Path Review YES Radiology Exams: Radiology Procedures Category Date Time Status CHEST 1 VIEW (PORTABLE) Stat Exams 05/20/23 16:13 Completed HEAD WITHOUT CONTRAST [CT] Stat Exams 05/20/23 16:14 Completed VENOUS BILATERAL EXTREMITY [US] Routine Exams 05/21/23 21:42 Completed Assessment/Plan (1) CHF exacerbation Current Visit: Yes Status: Acute Assessment & Plan: appears to be diastolic; has echo that was done today but is still pending read. BNP was more elevated during previous admission (2940 -> 729 today), but has worsened leg edema. CXR has bilateral infiltrates (read as pneumonia by radiology), but these locations are unchanged from prior CXR. Does not have new infiltrates, but seems to reflect increased pulmonary edema. At home on torsemide 20 BID. Given Lasix 20 mg IV x1. - give additional Lasix 40 mg IV x1 - start Lasix 40 mg IV BID - monitor respiratory status and renal function - follow up read of echo done today - d/c antibiotics 05/21/23: HFpEF vs HFrEF -NYHA Class 3 -Baseline Weight: unrecorded -proBNP 729 CXR consistent with pulmonary edema, physical exam consistent with chf exacerbation -Monitor daily weight and document Strict I/Os -Fluid restriction <1800ml/day and Na Restriction <2g/day -ECHO pending -Daily BMP to monitor renal function Code(s): I50.9 - HEART FAILURE, UNSPECIFIED (2) Bilateral leg edema Current Visit: Yes Status: Acute Assessment & Plan: most likely from CHF. He appears to have improved from admission last month, with BNP down from 2940 -> 729, but still has edema on CXR. However, no pulmonary or abdominal symptoms. Possibly also has poor drainage from leg; will need to evaluate for DVT or lymphedema. No evidence of cellulitis at this point. - diurese as below - check BLE doppler U/S - negative - will need compression stockings Code(s): R60.0 - LOCALIZED EDEMA (3) Hypokalemia Current Visit: Yes Status: Acute Assessment & Plan: - given KCl 40 mEq in ED - repeat BMP, Mg in AM 05/21: -Now wnl, continue KCL 40 meq po with diuresis Code(s): E87.6 - HYPOKALEMIA (4) COPD (chronic obstructive pulmonary disease) Current Visit: Yes Status: Acute Assessment & Plan: COPD, chronic hypoxic respiratory failure - at his baseline 3L oxygen. - continue home Trelegy - continue 3L oxygen; titrate to maintain SpO2 91-94% (5) Anemia, chronic disease Current Visit: Yes Status: Acute Assessment & Plan: Anemia of chronic disease - likely related to his leukemia, perhaps his imatinib. But Hb stable around 8-9. - follow CBC Code(s): D63.8 - ANEMIA IN OTHER CHRONIC DISEASES CLASSIFIED ELSEWHERE (6) Leukemia Current Visit: Yes Status: Acute Assessment & Plan: - continue home imatinib Code(s): C95.90 - LEUKEMIA, UNSPECIFIED NOT HAVING ACHIEVED REMISSION (7) RLS (restless legs syndrome) Current Visit: Yes Status: Acute Assessment & Plan: - continue Requip 0.5 qHS (8) BPH (benign prostatic hyperplasia) Current Visit: Yes Status: Acute Assessment & Plan: - continue home Flomax Code Status: Full code Prophylaxis: ambulate (short stay) Diet: Low sodium Dispo: Home in next few days Code(s): N40.0 - BENIGN PROSTATIC HYPERPLASIA WITHOUT LOWER URINRY TRACT SYMP
[2023-05-22] MEDS: PATIENT OWN MEDICATION IH SCH (08:00)
[2023-05-22 08:50] LABS: Absolute Neutrophil Ct (ANC) 3.21 x10^3/uL (1.4-6.9); BASOPHIL % 0.5 % (0.0-0.4); Basophil (Absolute #) 0.02 x10^3/uL (0-0.4); Eosinophil % 2.9 % (0.00-5.0); Eosinophil (Absolute #) 0.13 x10^3/uL (0-0.5); Hematocrit 27.8 % (42-50); Hemoglobin 8.6 g/dL (12.5-18.0); IMMATURE GRAN # 0.02 x10^3u/L (0.00-0.03); IMMATURE GRAN % 0.5 % (0.00-0.4); Lymphocyte (Absolute #) 0.43 x10^3/uL (1.0-4.6); Lymphocytes % 9.8 % (24.0-44.0); Mean Cell Volume 90.3 fL (78-100); Mean Corpuscular Hemoglobin 27.9 pg (26-32); Mean Corpuscular Hgb Concent. 30.9 g/dL (32-36); Mean Platelet Volume 9.1 fL (7.5-11.0); Monocytes % 13.6 % (0.0-12.0); Neutrophil % 72.7 % (36.0-66.0); Platelet Count 117 x10^3/uL (150-450); Red Blood Count 3.08 x10^6/uL (4.1-5.6); Red Cell Distribution Width 26.1 % (11.5-14.0); White Blood Count 4.4 x10^3/uL (4.0-10.5)
[2023-05-22] MEDS: Lasix 40 MG/4 ML IV SCH ×2 (09:01→17:19)
[2023-05-22] MEDS: Flomax 0.4 MG PO SCH (09:01)
[2023-05-22] MEDS: Klor Con PO SCH (09:01)
[2023-05-22] MEDS: FEOSOL 325 MG PO SCH (09:01)
[2023-05-22 09:48] LABS: ALBUMIN 2.6 g/dL (3.5-5.0); ALKALINE PHOSPHATASE 116 U/L (38-126); ANION GAP 8.2 MEQ/L (5-15); BLOOD UREA NITROGEN 15 mg/dL (9-20); CHLORIDE 104 mmol/L (98-107); Calcium 7.6 mg/dL (8.4-10.2); Carbon Dioxide 27 mmol/L (22-30); Creatinine 1 0.66 mg/dL (0.66-1.25); EST GLOMERULAR FILTRATION RATE > 60.0 ML/MIN; Glucose 99 mg/dL (74-106); Potassium 3.1 mmol/L (3.5-5.1); SGOT/AST 38 U/L (17-59); SGPT/ALT 28 U/L (0-50); SODIUM 136 mmol/L (137-145); Total Protein 5.2 g/dL (6.3-8.2)
[2023-05-22 10:41] LABS: Slide Review 1 YES
--- NOTE | 2023-05-22 13:05 | PCM.DS ---
Discharge Summary Date of Admission: 05/20/23 18:24 Date of Discharge: 05/22/23 Admitting Physician: SABRA FARRELL MD Consults: Consults on Case 05/20/23 19:27 Nutritional Consult ROUTINE Primary Care Provider: KARLEE CARMONA DO <GUILLE JAMES - Last Filed: 05/22/23 12:57> Date of Admission: 05/20/23 18:24 Admitting Physician: SABRA FARRELL MD Consults: Consults on Case 05/20/23 19:27 Nutritional Consult ROUTINE Primary Care Provider: KARLEE CARMONA DO <SABRA FARRELL - Last Filed: 05/22/23 13:15> Allergies <GUILLE JAMES - Last Filed: 05/22/23 12:57> <SABRA FARRELL - Last Filed: 05/22/23 13:15> Allergies No Known Drug Allergies Allergy (Verified 05/20/23 16:13) Hospital Summary - Hospital Course Hospital Course: is a 77 year old male with h/o CHF, COPD, leukemia, GERD, BPH, and restless legs syndrome, who presented to ER 05/20/23 with leg weeping and swelling. Patient recently admitted three weeks ago with CHF exacerbation. Admitted for CHF exacerbation with BLE edema/weeping. Left and right legs continue to be negative for DVT per Doppler. BLE edema improving with lasix. At baseline oxygenation. Patient anxious for discharge. Will discharge home on lasix 80mg bid with close follow up with pcp. Patient advised to get measured for compression dressing. Patient also advised to record daily weights and take to PCP/Call PCP with noteable weight gain. New Diagnosis: CHF exacerbation New Medications: Lasix 80 mg bid Follow Up: PCP Latest Assessment & Plan (1) CHF exacerbation Current Visit: Yes Status: Acute Assessment & Plan: appears to be diastolic; has echo that was done today but is still pending read. BNP was more elevated during previous admission (2940 -> 729 today), but has worsened leg edema. CXR has bilateral infiltrates (read as pneumonia by radiology), but these locations are unchanged from prior CXR. Does not have new infiltrates, but seems to reflect increased pulmonary edema. At home on torsemide 20 BID. Given Lasix 20 mg IV x1. - give additional Lasix 40 mg IV x1 - start Lasix 40 mg IV BID - monitor respiratory status and renal function - follow up read of echo done today - d/c antibiotics 05/21/23: HFpEF vs HFrEF -NYHA Class 3 -Baseline Weight: unrecorded -proBNP 729 CXR consistent with pulmonary edema, physical exam consistent with chf exacerbation -Monitor daily weight and document Strict I/Os -Fluid restriction <1800ml/day and Na Restriction <2g/day -ECHO pending -Daily BMP to monitor renal function Code(s): I50.9 - HEART FAILURE, UNSPECIFIED (2) Bilateral leg edema Current Visit: Yes Status: Acute Assessment & Plan: most likely from CHF. He appears to have improved from admission last month, with BNP down from 2940 -> 729, but still has edema on CXR. However, no pulmonary or abdominal symptoms. Possibly also has poor drainage from leg; will need to evaluate for DVT or lymphedema. No evidence of cellulitis at this point. - diurese as below - check BLE doppler U/S - negative - will need compression stockings Code(s): R60.0 - LOCALIZED EDEMA (3) Hypokalemia Current Visit: Yes Status: Acute Assessment & Plan: - given KCl 40 mEq in ED - repeat BMP, Mg in AM 05/21: -Now wnl, continue KCL 40 meq po with diuresis Code(s): E87.6 - HYPOKALEMIA (4) COPD (chronic obstructive pulmonary disease) Current Visit: Yes Status: Acute Assessment & Plan: COPD, chronic hypoxic respiratory failure - at his baseline 3L oxygen. - continue home Trelegy - continue 3L oxygen; titrate to maintain SpO2 91-94% (5) Anemia, chronic disease Current Visit: Yes Status: Acute Assessment & Plan: Anemia of chronic disease - likely related to his leukemia, perhaps his imatinib. But Hb stable around 8-9. - follow CBC Code(s): D63.8 - ANEMIA IN OTHER CHRONIC DISEASES CLASSIFIED ELSEWHERE (6) Leukemia Current Visit: Yes Status: Acute Assessment & Plan: - continue home imatinib Code(s): C95.90 - LEUKEMIA, UNSPECIFIED NOT HAVING ACHIEVED REMISSION (7) RLS (restless legs syndrome) Current Visit: Yes Status: Acute Assessment & Plan: - continue Requip 0.5 qHS (8) BPH (benign prostatic hyperplasia) Current Visit: Yes Status: Acute Assessment & Plan: - continue home Flomax I spent greater than 45 minutes [id number] with the patient on the day of disc harge performing discharge exam, discussing hospital stay and discharge instructions with patient and caregivers, preparation of discharge records, prescriptions & referral forms and addressing any questions/concerns the patient had as documented above. - Vitals & Intake/Output Vital Signs: Vital Signs Temperature 97.3 F 05/22/23 12:00 Pulse Rate 80 05/22/23 12:00 Respiratory Rate 18 05/22/23 12:00 Blood Pressure 104/50 05/22/23 12:00 O2 Sat by Pulse Oximetry 96 05/22/23 12:00 Intake & Output: Intake & Output 05/20/23 05/21/23 05/22/23 05/23/23 11:59 11:59 11:59 11:59 Intake Total 660 1760 Output Total 1650 2575 Balance -990 -815 Weight 93 kg 93.3 kg - Lab Result Diagrams: 05/22/23 08:45 05/22/23 08:45 Lab Results-Last 24 Hrs: Lab Results-Last 24 Hours 05/22/23 05/22/23 Range/Units 08:45 08:45 WBC 4.4 (4.0-10.5) x10^3/uL RBC 3.08 L (4.1-5.6) x10^6/uL Hgb 8.6 L (12.5-18.0) g/dL Hct 27.8 L (42-50) % MCV 90.3 (78-100) fL MCH 27.9 (26-32) pg MCHC 30.9 L (32-36) g/dL RDW 26.1 H (11.5-14.0) % Plt Count 117 L (150-450) x10^3/uL MPV 9.1 (7.5-11.0) fL Gran % 72.7 H (36.0-66.0) % Immature Gran % (Auto) 0.5 H (0.00-0.4) % Nucleat RBC Rel Count 0.0 (0.00-0.1) % Eos # (Auto) 0.13 (0-0.5) x10^3/uL Immature Gran # (Auto) 0.02 (0.00-0.03) x10^3u/L Absolute Lymphs (auto) 0.43 L (1.0-4.6) x10^3/uL Absolute Monos (auto) 0.60 (0.0-1.3) x10^3/uL Absolute Nucleated RBC 0.00 (0.00-0.01) x10^3u/L Lymphocytes % 9.8 L (24.0-44.0) % Monocytes % 13.6 H (0.0-12.0) % Eosinophils % 2.9 (0.00-5.0) % Basophils % 0.5 (0.0-0.4) % Absolute Granulocytes 3.21 (1.4-6.9) x10^3/uL Basophils # 0.02 (0-0.4) x10^3/uL Sodium 136 L (137-145) mmol/L Potassium 3.1 L (3.5-5.1) mmol/L Chloride 104 (98-107) mmol/L Carbon Dioxide 27 (22-30) mmol/L Anion Gap 8.2 (5-15) MEQ/L BUN 15 (9-20) mg/dL Creatinine 0.66 (0.66-1.25) mg/dL Estimated GFR > 60.0 ML/MIN Glucose 99 (74-106) mg/dL Calcium 7.6 L (8.4-10.2) mg/dL Total Bilirubin 1.50 H (0.2-1.3) mg/dL AST 38 (17-59) U/L ALT 28 (0-50) U/L Alkaline Phosphatase 116 (38-126) U/L Serum Total Protein 5.2 L (6.3-8.2) g/dL Albumin 2.6 L (3.5-5.0) g/dL Slides for Path Review YES Micro Results-Entire Visit: Microbiology 05/20/23 16:20 Blood Culture - Preliminary Blood 05/20/23 18:00 Blood Culture - Preliminary Blood - Radiology Exams Ordered Rad Exams-Entire Visit: Radiology Procedures Category Date Time Status CHEST 1 VIEW (PORTABLE) Stat Exams 05/20/23 16:13 Completed HEAD WITHOUT CONTRAST [CT] Stat Exams 05/20/23 16:14 Completed VENOUS BILATERAL EXTREMITY [US] Routine Exams 05/21/23 21:42 Completed - Procedures and Test Procedures and Tests throughout Hospitalization: Therapy Orders & Screens 05/20/23 18:54 RT Screen per Nursing Assess ONCE Comment: Protocol Order Physician Instructions: Greater than 3 points order RT Admission Screen Reason For Exam: Triggered on Admission Diagnosis: swelling Diagnosis: swelling Pneumonia: Yes Home O2: Yes Asthma: No CHF: No Home CPAP/BIPAP: No Home Nebs/MDI: Yes Total Points: 13 05/20/23 18:56 Oxygen Oxymizer LPM 3 lpm Comment: Diagnosis: swelling 05/20/23 18:57 OT Screen per Nursing Assess ONCE Comment: Protocol Order Physician Instructions: Greater than 3 points order OT Admission Screening Reason For Exam: Triggered on Admission Diagnosis: swelling Open Wound/Cellutlitis/Pressure Ulcers: No Acute Fx/ORIF/Change in wt bearing status: Yes Severe MUSCULOSKELETAL pain: No ADL Dysfunction: No Acute CVA w/Hemiparesis/Hemiplegia: No Decreased Functional Mobility/Strength: Yes Sprain/Strain: No Acute Post-op Mobility Dysfunction: No Total Points: 6 PT Screen per Nursing Assess ONCE Comment: Protocol Order Physician Instructions: Greater than 3 points order PT Admission Screenin Reason For Exam: Triggered on Admission Diagnosis: swelling Open Wound/Cellutlitis/Pressure Ulcers: No Acute Fx/ORIF/Change in wt bearing status: Yes Severe MUSCULOSKELETAL pain: No ADL Dysfunction: No Acute CVA w/Hemiparesis/Hemiplegia: No Decreased Functional Mobility/Strength: Yes Sprain/Strain: No Acute Post-op Mobility Dysfunction: No Total Points: 6 05/20/23 19:41 Respiratory Therapy Assessment DAILY Comment: Diagnosis: swelling 05/21/23 07:00 Respiratory MDI UD Comment: PT OWN TRELEGY ONCE DAILY Diagnosis: leg edema <GUILLE JAMES - Last Filed: 05/22/23 12:57> - Vitals & Intake/Output Vital Signs: Vital Signs Temperature 97.3 F 05/22/23 12:00 Pulse Rate 80 05/22/23 12:00 Respiratory Rate 18 05/22/23 12:00 Blood Pressure 104/50 05/22/23 12:00 O2 Sat by Pulse Oximetry 96 05/22/23 12:00 Intake & Output: Intake & Output 05/20/23 05/21/23 05/22/23 05/23/23 11:59 11:59 11:59 11:59 Intake Total 660 1760 240 Output Total 1650 2575 300 Balance -990 -815 -60 Weight 93 kg 93.3 kg - Lab Result Diagrams: 05/22/23 08:45 05/22/23 08:45 Lab Results-Last 24 Hrs: Lab Results-Last 24 Hours 05/22/23 05/22/23 Range/Units 08:45 08:45 WBC 4.4 (4.0-10.5) x10^3/uL RBC 3.08 L (4.1-5.6) x10^6/uL Hgb 8.6 L (12.5-18.0) g/dL Hct 27.8 L (42-50) % MCV 90.3 (78-100) fL MCH 27.9 (26-32) pg MCHC 30.9 L (32-36) g/dL RDW 26.1 H (11.5-14.0) % Plt Count 117 L (150-450) x10^3/uL MPV 9.1 (7.5-11.0) fL Gran % 72.7 H (36.0-66.0) % Immature Gran % (Auto) 0.5 H (0.00-0.4) % Nucleat RBC Rel Count 0.0 (0.00-0.1) % Eos # (Auto) 0.13 (0-0.5) x10^3/uL Immature Gran # (Auto) 0.02 (0.00-0.03) x10^3u/L Absolute Lymphs (auto) 0.43 L (1.0-4.6) x10^3/uL Absolute Monos (auto) 0.60 (0.0-1.3) x10^3/uL Absolute Nucleated RBC 0.00 (0.00-0.01) x10^3u/L Lymphocytes % 9.8 L (24.0-44.0) % Monocytes % 13.6 H (0.0-12.0) % Eosinophils % 2.9 (0.00-5.0) % Basophils % 0.5 (0.0-0.4) % Absolute Granulocytes 3.21 (1.4-6.9) x10^3/uL Basophils # 0.02 (0-0.4) x10^3/uL Sodium 136 L (137-145) mmol/L Potassium 3.1 L (3.5-5.1) mmol/L Chloride 104 (98-107) mmol/L Carbon Dioxide 27 (22-30) mmol/L Anion Gap 8.2 (5-15) MEQ/L BUN 15 (9-20) mg/dL Creatinine 0.66 (0.66-1.25) mg/dL Estimated GFR > 60.0 ML/MIN Glucose 99 (74-106) mg/dL Calcium 7.6 L (8.4-10.2) mg/dL Total Bilirubin 1.50 H (0.2-1.3) mg/dL AST 38 (17-59) U/L ALT 28 (0-50) U/L Alkaline Phosphatase 116 (38-126) U/L Serum Total Protein 5.2 L (6.3-8.2) g/dL Albumin 2.6 L (3.5-5.0) g/dL Slides for Path Review YES Micro Results-Entire Visit: Microbiology 05/20/23 16:20 Blood Culture - Preliminary Blood 05/20/23 18:00 Blood Culture - Preliminary Blood - Radiology Exams Ordered Rad Exams-Entire Visit: Radiology Procedures Category Date Time Status CHEST 1 VIEW (PORTABLE) Stat Exams 05/20/23 16:13 Completed HEAD WITHOUT CONTRAST [CT] Stat Exams 05/20/23 16:14 Completed VENOUS BILATERAL EXTREMITY [US] Routine Exams 05/21/23 21:42 Completed - Procedures and Test Procedures and Tests throughout Hospitalization: Therapy Orders & Screens 05/20/23 18:54 RT Screen per Nursing Assess ONCE Comment: Protocol Order Physician Instructions: Greater than 3 points order RT Admission Screen Reason For Exam: Triggered on Admission Diagnosis: swelling Diagnosis: swelling Pneumonia: Yes Home O2: Yes Asthma: No CHF: No Home CPAP/BIPAP: No Home Nebs/MDI: Yes Total Points: 13 05/20/23 18:56 Oxygen Oxymizer LPM 3 lpm Comment: Diagnosis: swelling 05/20/23 18:57 OT Screen per Nursing Assess ONCE Comment: Protocol Order Physician Instructions: Greater than 3 points order OT Admission Screening Reason For Exam: Triggered on Admission Diagnosis: swelling Open Wound/Cellutlitis/Pressure Ulcers: No Acute Fx/ORIF/Change in wt bearing status: Yes Severe MUSCULOSKELETAL pain: No ADL Dysfunction: No Acute CVA w/Hemiparesis/Hemiplegia: No Decreased Functional Mobility/Strength: Yes Sprain/Strain: No Acute Post-op Mobility Dysfunction: No Total Points: 6 PT Screen per Nursing Assess ONCE Comment: Protocol Order Physician Instructions: Greater than 3 points order PT Admission Screenin Reason For Exam: Triggered on Admission Diagnosis: swelling Open Wound/Cellutlitis/Pressure Ulcers: No Acute Fx/ORIF/Change in wt bearing status: Yes Severe MUSCULOSKELETAL pain: No ADL Dysfunction: No Acute CVA w/Hemiparesis/Hemiplegia: No Decreased Functional Mobility/Strength: Yes Sprain/Strain: No Acute Post-op Mobility Dysfunction: No Total Points: 6 05/20/23 19:41 Respiratory Therapy Assessment DAILY Comment: Diagnosis: swelling 05/21/23 07:00 Respiratory MDI UD Comment: PT OWN TRELEGY ONCE DAILY Diagnosis: leg edema <SABRA FARRELL - Last Filed: 05/22/23 13:15> Discharge Exam General Appearance: no apparent distress Neurologic Exam: alert, 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, cooperative Eye Exam: PERRL Ears, Nose, Throat Exam: normal ENT inspection Neck Exam: normal inspection Respiratory Exam: crackles/rales Cardiovascular Exam: regular rate/rhythm, normal heart sounds Gastrointestinal/Abdomen Exam: soft, normal bowel sounds Male Genitalia Exam: deferred Rectal Exam: deferred Back Exam: normal inspection Extremity Exam: normal inspection Skin Exam: normal color <GUILLE JAMES - Last Filed: 05/22/23 12:57> Final Diagnosis/Problem List - Final Discharge Diagnosis/Problem (1) CHF exacerbation Current Visit: Yes Status: Acute Code(s): I50.9 - HEART FAILURE, UNSPECIFIED (2) Bilateral leg edema Current Visit: Yes Status: Acute Code(s): R60.0 - LOCALIZED EDEMA (3) Hypokalemia Current Visit: Yes Status: Acute Code(s): E87.6 - HYPOKALEMIA (4) COPD (chronic obstructive pulmonary disease) Current Visit: Yes Status: Acute (5) Anemia, chronic disease Current Visit: Yes Status: Acute Code(s): D63.8 - ANEMIA IN OTHER CHRONIC DISEASES CLASSIFIED ELSEWHERE (6) Leukemia Current Visit: Yes Status: Acute Code(s): C95.90 - LEUKEMIA, UNSPECIFIED NOT HAVING ACHIEVED REMISSION (7) RLS (restless legs syndrome) Current Visit: Yes Status: Acute (8) BPH (benign prostatic hyperplasia) Current Visit: Yes Status: Acute Code(s): N40.0 - BENIGN PROSTATIC HYP ERPLASIA WITHOUT LOWER URINRY TRACT SYMP <GUILLE JAMES - Last Filed: 05/22/23 12:57> <GUILLE JAMES - Last Filed: 05/22/23 12:57> <SABRA FARRELL - Last Filed: 05/22/23 13:15> - Discharge Disposition: Home, Self-Care Condition: Stable Prescriptions: New Furosemide 20 mg [Lasix 20 mg] 80 mg PO BID 10 Days #80 tablet Continue Zolpidem Tartrate 5 mg PO QHS Ropinirole HCl 0.5 mg [Requip 0.5 MG] 0.5 mg PO QHS Tamsulosin HCl 0.4 mg [Flomax 0.4 MG] 0.4 mg PO DAILY Imatinib Mesylate 300 mg PO HS Torsemide 20 mg [Demadex 20 mg] 20 mg PO BID Ferrous Sulfate [Iron] 325 mg PO DAILY Non-Formulary Drug [Non-Formulary Bulk Item] 1 each PO QHS Melatonin/Pyridoxine [Melatonin 5 mg Tablet] 3 mg PO HS Fluticasone/Umeclidin/Vilanter [Trelegy Ellipta 100-62.5-25] 2 inh DAILY Potassium Chloride 40 mg PO BID Discontinued Furosemide 40 mg [Lasix 40 MG] 40 mg PO DAILY PRN Outpatient Orders: BMP Time Frame: 3 Days, Facility: [facility], Location: LABORATORY Additional Instructions: PHYSICAL THERAPY WILL CALL YOU WITH AN APPOINTMENT Follow up with: KARLEE CARMONA DO [Primary Care Provider] -
[2023-05-22] MEDS ORDERED: [UNRECOGNIZED DRUG - OTHER] IV ONE (14:30)
[2023-05-22] MEDS ORDERED: XYLOCAINE 1% IV ONE (14:30)
[2023-05-22] MEDS ORDERED: POTASSIUM CHLORIDE IV ONE (14:30)
[2023-05-22 18:55] VITALS: BP 131/58; PULSE 90; RESP 16; TEMP 97.9; O2SAT 95
== END 2023-05-22 21:15 | disposition home or self-care (01) ==
LOC: ED 16:00 → MED SURG 18:24
PROVIDERS: ADMIT Internal Medicine; ATTEND Internal Medicine
DX: I11.0 Hypertensive heart disease with heart failure (principal); I50.9 Heart failure, unspecified; R60.0 Localized edema; E87.6 Hypokalemia; J44.9 Chronic obstructive pulmonary disease, unspecified; D63.8 Anemia in other chronic diseases classified elsewhere; C95.90 Leukemia, unspecified not having achieved remission; G25.81 Restless legs syndrome; N40.0 Benign prostatic hyperplasia without lower urinary tract symptoms; Z79.899 Other long term (current) drug therapy; Z20.828 Contact with and (suspected) exposure to other viral communicable diseases; Z99.81 Dependence on supplemental oxygen
CPT/HCPCS: 36000; 36415; 70450; 71045; 80048; 80053; 83735; 83880; 84132; 84484; 85025; 85027; 87040; 87077; 93005; 93041; 93268; 93970; 94640; 94760; 94762; 99285; G0378; Q3014; J0456; J0696; J1940; J3480; A9270-GY

== ENCOUNTER 2023-05-26 16:09 | Emergency (ER) | payer MEDICARE, OTHER ==
--- NOTE | 2023-05-26 16:13 | ERPHSYRPT ---
- History of Present Illness Time Seen by Provider: 05/26/23 16:12 Source: patient, family Exam Limitations: clinical condition Physician History: This is a 77-year-old white male patient who was called by primary care provider to follow-up on potassium level. Patient's potassium was drawn approximately 1215 earlier today and the level was 2.5. Patient's provided independent, additional history. She states that he has been more fatigued lately. I did review an old hemoglobin level that was drawn on 05/22/2023 which was 8.6. Patient does have a history of leukemia, CHF, hypertension, COPD, gastroesophageal reflux disease and insomnia. He currently denies chest pain. He denies shortness of breath. He has no abdominal pain. Timing/Duration: today Severity: moderate Associated Symptoms: weakness, No nausea, No vomiting, No abdominal pain, No shortness of breath, No chest pain Allergies/Adverse Reactions: No Known Drug Allergies Allergy (Verified 05/20/23 16:13) Home Medications: Zolpidem Tartrate 5 mg PO QHS 06/11/15 [History] Ropinirole HCl 0.5 mg [Requip 0.5 MG] 0.5 mg PO QHS 01/07/17 [History] Tamsulosin HCl 0.4 mg [Flomax 0.4 MG] 0.4 mg PO DAILY 02/18/22 [History] Imatinib Mesylate 300 mg PO HS 05/02/23 [History] Ferrous Sulfate [Iron] 325 mg PO DAILY 05/20/23 [History] Fluticasone/Umeclidin/Vilanter [Trelegy Ellipta 100-62.5-25] 2 inh DAILY 05/20/23 [History] Melatonin/Pyridoxine [Melatonin 5 mg Tablet] 3 mg PO HS 05/20/23 [History] Non-Formulary Drug [Non-Formulary Bulk Item] 1 each PO QHS 05/20/23 [History] Potassium Chloride 40 mg PO BID 05/20/23 [History] Torsemide 20 mg [Demadex 20 mg] 20 mg PO BID 05/20/23 [History] Hx Tetanus, Diphtheria Vaccination/Date Given: Yes Hx Influenza Vaccination/Date Given: Yes Hx Pneumococcal Vaccination/Date Given: Yes Travel Risk - International Travel Have you traveled outside of the country in past 3 weeks: No - Coronavirus Screening Are you exhibiting any of the following symptoms?: No Close contact with a COVID-19 positive Pt in past 14-21 Days: No - Vaccine Status Have you recieved a Covid-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: 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 - Vaccination Dates Date of 2cond Vaccination (if applicable): 12/27 - Review of Systems Constitutional: Weakness Eyes: No Symptoms Ears, Nose, & Throat: No Symptoms Respiratory: No Symptoms Cardiac: No Symptoms Abdominal/Gastrointestinal: No Symptoms Genitourinary Symptoms: No Symptoms Musculoskeletal: No Symptoms Skin: No Symptoms Neurological: No Symptoms Psychological: No Symptoms Endocrine: No Symptoms Hematologic/Lymphatic: No Symptoms Immunological/Allergic: No Symptoms All Other Systems: Reviewed and Negative - Past Medical History Pertinent Past Medical History: Yes Neurological History: No Pertinent History ENT History: Cataracts Cardiac History: Congestive Heart Failure, Hypertension Respiratory History: COPD Endocrine Medical History: No Pertinent History Musculoskeletal History: Osteoarthritis GI Medical History: GERD, Gallbladder Disease History: No Pertinent History Psycho-Social History: No Pertinent History Male Reproductive Disorders: Prostate Problems Other Medical History: Insomnia, BPH, leukemia - Past Surgical History Past Surgical History: Yes Neuro Surgical History: No Pertinent History Cardiac: No Pertinent History Respiratory: No Pertinent History Gastrointestinal: Cholecystectomy Genitourinary: No Pertinent History Musculoskeletal: Orthopedic Surgery Male Surgical History: No Pertinent History Other Surgical History: right knee replacement 2020 - Social History Smoking Status: Former smoker How long have you smoked: 40 years Exposure to second hand smoke: No Drug Use: none Patient Lives Alone: No Significant Family History: no pertinent family hx - Nursing Vital Signs Nursing Vital Signs: Initial Vital Signs Temperature 97.2 F 05/26/23 16:18 Pulse Rate 103 H 05/26/23 16:18 Respiratory Rate 20 05/26/23 16:18 Blood Pressure 129/50 05/26/23 16:18 O2 Sat by Pulse Oximetry 98 05/26/23 16:18 Pain Scale Pain Intensity 0 - Physical Exam General Appearance: no apparent distress, alert, anxiety Eye Exam: PERRL/EOMI, eyes nml inspection Ears, Nose, Throat Exam: normal ENT inspection, moist mucous membranes Neck Exam: normal inspection, non-tender, supple, full range of motion Respiratory Exam: normal breath sounds, lungs clear, airway intact, No chest tenderness, No respiratory distress Cardiovascular Exam: regular rate/rhythm, normal heart sounds, normal peripheral pulses Gastrointestinal/Abdomen Exam: soft, normal bowel sounds, No tenderness Rectal Exam: not done Back Exam: normal inspection, normal range of motion, No CVA tenderness, No kevin tebral tenderness Extremity Exam: normal inspection, normal range of motion, pelvis stable Neurologic Exam: alert, 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, cooperative, time study engineer II-XII nml as tested, normal mood/affect, sensation nml Skin Exam: normal color, warm, dry Lymphatic Exam: adenopathy SpO2 Interpretation: normal O2 Delivery: Room Air - Course Nursing assessment & vital signs reviewed: Yes EKG Interpreted by Me: RATE (105), NORMAL AXIS, prolonged QT interval, NORMAL QRS, Other (. I do not appreciate any acute ischemic changes on today's twelve- lead EKG.) Ordered Tests: Active Orders 24 hr Category Date Time Status EKG-ER Only STAT Care 05/26/23 16:23 Active IV Insertion STAT Care 05/26/23 16:23 Active Telemetry q4h Care 05/26/23 17:10 Active Telemetry q4h Care 05/26/23 21:41 Active Telemetry q4h Care 05/27/23 01:11 Active Telemetry q4h Care 05/27/23 01:11 Active BMP Stat Lab 05/26/23 21:15 Completed BMP Stat Lab 05/27/23 00:20 Completed BMP Stat Lab 05/27/23 02:49 Completed CBC W DIFF Stat Lab 05/26/23 16:35 Completed CMP Stat Lab 05/26/23 16:35 Completed MAG [MAGNESIUM] Stat Lab 05/26/23 16:35 Completed MAGNESIUM Stat Lab 05/27/23 02:49 Completed Medication Summary Generic Name Dose Route Start Last Admin Trade Name Freq PRN Reason Stop Dose Admin Potassium Chloride 20 meq in 100 mls @ 50 mls/hr 05/26/23 17:15 05/26/23 19:24 Potassium Chloride 20 Meq In Water 100ml IV 05/26/23 21:14 50 mls/hr Q2H MAN Administration Sodium Chloride 1,000 mls @ 100 mls/hr 05/26/23 17:15 05/27/23 03:29 Sodium Chloride 0.9% 1000 Ml IV 06/25/23 17:14 Infused .Q10H MAN Infusion Discontinued Medications Generic Name Dose Route Start Last Admin Trade Name Freq PRN Reason Stop Dose Admin Potassium Chloride 20 meq in 100 mls @ 50 mls/hr 05/26/23 21:41 05/26/23 21:59 Potassium Chloride 20 Meq In Water 100ml IV 05/26/23 23:40 50 mls/hr STAT ONE Administration Potassium Chloride 20 meq in 100 mls @ 50 mls/hr 05/27/23 01:11 05/27/23 01:14 Potassium Chloride 20 Meq In Water 100ml IV 05/27/23 03:10 50 mls/hr STAT ONE Administration Potassium Chloride 20 meq in 100 mls @ 50 mls/hr 05/27/23 01:11 05/27/23 01:15 Potassium Chloride 20 Meq In Water 100ml IV 05/27/23 03:10 Not Given STAT ONE Potassium Chloride 30 meq 05/26/23 22:18 05/26/23 22:47 Potassium Chloride Tab 10 Meq Tab PO 05/26/23 22:19 30 meq STAT ONE Administration Potassium Chloride Confirm 05/26/23 22:46 Potassium Chloride Tab 10 Meq Tab Administered 05/26/23 22:47 Dose 30 meq PO .STK-MED ONE Zolpidem Tartrate 5 mg 05/27/23 02:09 05/27/23 03:29 Zolpidem Tartrate 5 Mg Tab PO 05/27/23 02:10 Not Given STAT ONE Lab/Rad Data: Laboratory Result Diagrams 05/26/23 16:35 05/27/23 02:49 Laboratory Results 05/27/23 05/27/23 05/26/23 Range/Units 02:49 00:20 21:15 WBC (4.0-10.5) x10^3/uL RBC (4.1-5.6) x10^6/uL Hgb (12.5-18.0) g/dL Hct (42-50) % MCV (78-100) fL MCH (26-32) pg MCHC (32-36) g/dL RDW (11.5-14.0) % Plt Count (150-450) x10^3/uL MPV (7.5-11.0) fL Gran % (36.0-66.0) % Immature Gran % (Auto) (0.00-0.4) % Nucleat RBC Rel Count (0.00-0.1) % Eos # (Auto) (0-0.5) x10^3/uL Immature Gran # (Auto) (0.00-0.03) x10^3u/L Absolute Lymphs (auto) (1.0-4.6) x10^3/uL Absolute Monos (auto) (0.0-1.3) x10^3/uL Absolute Nucleated RBC (0.00-0.01) x10^3u/L Lymphocytes % (24.0-44.0) % Monocytes % (0.0-12.0) % Eosinophils % (0.00-5.0) % Basophils % (0.0-0.4) % Absolute Granulocytes (1.4-6.9) x10^3/uL Basophils # (0-0.4) x10^3/uL Sodium 136 L 135 L 137 (137-145) mmol/L Potassium 3.0 L* 2.8 L* 2.8 L* (3.5-5.1) mmol/L Chloride 101 100 101 (98-107) mmol/L Carbon Dioxide 32 H 33 H 34 H (22-30) mmol/L Anion Gap 5.6 5.0 5.5 (5-15) MEQ/L BUN 14 14 15 (9-20) mg/dL Creatinine 0.66 0.65 L 0.66 (0.66-1.25) mg/dL Estimated GFR > 60.0 > 60.0 > 60.0 ML/MIN Glucose 123 H 143 H 125 H (74-106) mg/dL Calcium 7.4 L 7.4 L 7.6 L (8.4-10.2) mg/dL Magnesium 2.0 (1.6-2.3) mg/dL Total Bilirubin (0.2-1.3) mg/dL AST (17-59) U/L ALT (0-50) U/L Alkaline Phosphatase (38-126) U/L Serum Total Protein (6.3-8.2) g/dL Albumin (3.5-5.0) g/dL Slides for Path Review 05/26/23 05/26/23 05/26/23 Range/Units 16:35 16:35 16:35 WBC 4.5 (4.0-10.5) x10^3/uL RBC 2.88 L (4.1-5.6) x10^6/uL Hgb 8.1 L (12.5-18.0) g/dL Hct 26.6 L (42-50) % MCV 92.4 (78-100) fL MCH 28.1 (26-32) pg MCHC 30.5 L (32-36) g/dL RDW 24.2 H (11.5-14.0) % Plt Count 121 L (150-450) x10^3/uL MPV 9.7 (7.5-11.0) fL Gran % 75.9 H (36.0-66.0) % Immature Gran % (Auto) 0.4 (0.00-0.4) % Nucleat RBC Rel Count 0.0 (0.00-0.1) % Eos # (Auto) 0.11 (0-0.5) x10^3/uL Immature Gran # (Auto) 0.02 (0.00-0.03) x10^3u/L Absolute Lymphs (auto) 0.31 L (1.0-4.6) x10^3/uL Absolute Monos (auto) 0.63 (0.0-1.3) x10^3/uL Absolute Nucleated RBC 0.00 (0.00-0.01) x10^3u/L Lymphocytes % 6.9 L (24.0-44.0) % Monocytes % 14.0 H (0.0-12.0) % Eosinophils % 2.4 (0.00-5.0) % Basophils % 0.4 (0.0-0.4) % Absolute Granulocytes 3.42 (1.4-6.9) x10^3/uL Basophils # 0.02 (0-0.4) x10^3/uL Sodium 137 (137-145) mmol/L Potassium 2.4 L* (3.5-5.1) mmol/L Chloride 99 (98-107) mmol/L Carbon Dioxide 34 H (22-30) mmol/L Anion Gap 6.7 (5-15) MEQ/L BUN 16 (9-20) mg/dL Creatinine 0.68 (0.66-1.25) mg/dL Estimated GFR > 60.0 ML/MIN Glucose 118 H (74-106) mg/dL Calcium 7.7 L (8.4-10.2) mg/dL Magnesium 1.9 (1.6-2.3) mg/dL Total Bilirubin 1.40 H (0.2-1.3) mg/dL AST 46 (17-59) U/L ALT 32 (0-50) U/L Alkaline Phosphatase 174 H (38-126) U/L Serum Total Protein 5.4 L (6.3-8.2) g/dL Albumin 2.7 L (3.5-5.0) g/dL Slides for Path Review YES - Progress Progress: improved, re-examined Progress Note: 05/26/23 20:59 This patient medical issues 1 of moderate complexity. Level of complexity in the work-up performed is based on review of the patient's past medical history, review of the patient's medication list, review of the patient drug allergy list, history present illness and physical findings on examination. This patie nt work-up includes placement of intravenous line, CBC, CMP, magnesium level. I reviewed the results of the studies. The patient's potassium level is 2.4. We are providing the patient with intravenous potassium riders. I placed several calls to the telehospitalist and finally they returned a call approximate [address] Delgado is the telehospitalist on-call after 7 PM. I reviewed the patient history, I reviewed reviewed the patient lab work results and discussed the intervention that I was providing the patient. Dr. Delgado prefers to finish the 40 mEq potassium riders that I provided intravenously. We will recheck the potassium level. Patient may receive another K rider and possibly additional oral potassium depending on the results of the repeat potassium level. She declines admission at this time. I do not think this is unreasonable. 05/27/23 02:36 Reexamined the patient. Patient's vital signs are stable. Patient has no chest pain. Patient has no shortness of breath. He would like an Ambien 5 mg for his insomnia. He is on this medication daily at night. We will be repeating the potassium level at this time. If the potassium level is 3.0 or higher we will discharge him to home with instructions to take his potassium, 40 mill equivalents orally twice a day. He has an appointment to see his primary care physician in the next 1 to 2 days. Counseled pt/family regarding: lab results, diagnosis, need for follow-up Medical Desision Making - Independent Historian Additional History obtained from: Spouse - Discussion of managment Care discussed with:: hospitalist (Dr. Delgado) Reviewed:: Test results Agreed on:: Treatment plan - Diagnostic Testing Diagnostic test were ordered, analyzed, and reviewed by me: Yes - Risk of complications Low Risk: Low risk of morbidity from additional dx testing or treatment - Departure Departure Disposition: Home Clinical Impression: Hypokalemia, Anemia Condition: Fair Critical Care Time: Yes Critical Care Time(excluding separately billable procedures): Critical 30-74 mins (45 minutes) Referrals: KARLEE CARMONA DO [Primary Care Provider] - Follow up/PCP as directed Additional Instructions: Take your potassium medication as prescribed. Take your other medications as prescribed. Keep your appointment with your primary care provider at your scheduled date and time.
[2023-05-26 16:22] VITALS: TEMP 97.2
[2023-05-26 16:38] LABS: Absolute Neutrophil Ct (ANC) 3.42 x10^3/uL (1.4-6.9); BASOPHIL % 0.4 % (0.0-0.4); Basophil (Absolute #) 0.02 x10^3/uL (0-0.4); Eosinophil % 2.4 % (0.00-5.0); Eosinophil (Absolute #) 0.11 x10^3/uL (0-0.5); Hematocrit 26.6 % (42-50); Hemoglobin 8.1 g/dL (12.5-18.0); IMMATURE GRAN # 0.02 x10^3u/L (0.00-0.03); IMMATURE GRAN % 0.4 % (0.00-0.4); Lymphocyte (Absolute #) 0.31 x10^3/uL (1.0-4.6); Lymphocytes % 6.9 % (24.0-44.0); Mean Cell Volume 92.4 fL (78-100); Mean Corpuscular Hemoglobin 28.1 pg (26-32); Mean Corpuscular Hgb Concent. 30.5 g/dL (32-36); Mean Platelet Volume 9.7 fL (7.5-11.0); Monocyte (Absolute #) 0.63 x10^3/uL (0.0-1.3); Neutrophil % 75.9 % (36.0-66.0); Platelet Count 121 x10^3/uL (150-450); Red Blood Count 2.88 x10^6/uL (4.1-5.6); Red Cell Distribution Width 24.2 % (11.5-14.0); White Blood Count 4.5 x10^3/uL (4.0-10.5)
[2023-05-26 16:52] LABS: ALBUMIN 2.7 g/dL (3.5-5.0); ALKALINE PHOSPHATASE 174 U/L (38-126); ANION GAP 6.7 MEQ/L (5-15); BLOOD UREA NITROGEN 16 mg/dL (9-20); CHLORIDE 99 mmol/L (98-107); Calcium 7.7 mg/dL (8.4-10.2); Carbon Dioxide 34 mmol/L (22-30); Creatinine 1 0.68 mg/dL (0.66-1.25); EST GLOMERULAR FILTRATION RATE > 60.0 ML/MIN; Glucose 118 mg/dL (74-106); SGOT/AST 46 U/L (17-59); SGPT/ALT 32 U/L (0-50); SODIUM 137 mmol/L (137-145); Total Protein 5.4 g/dL (6.3-8.2)
[2023-05-26 16:56] LABS: Potassium 2.4 mmol/L (3.5-5.1)
[2023-05-26] MEDS ORDERED: Sodium Chloride 0.9% 1000 ML 1,000 ML ONE (17:15)
[2023-05-26] MEDS ORDERED: Sodium Chloride 0.9% 1000 ML 1,000 ML IV SCH (17:15)
[2023-05-26] MEDS ORDERED: POTASSIUM CHLORIDE 20 mEq IN WATER 100ML 100 ML IV ONE ×3 (17:15→21:59)
[2023-05-26] MEDS: POTASSIUM CHLORIDE 20 mEq IN WATER 100ML 20 MEQ/100 ML BAG IV SCH ×2 (17:18→19:24)
[2023-05-26 17:48] LABS: Slide Review 1 YES
[2023-05-26 21:32] LABS: ANION GAP 5.5 MEQ/L (5-15); BLOOD UREA NITROGEN 15 mg/dL (9-20); CHLORIDE 101 mmol/L (98-107); Calcium 7.6 mg/dL (8.4-10.2); Carbon Dioxide 34 mmol/L (22-30); Creatinine 1 0.66 mg/dL (0.66-1.25); EST GLOMERULAR FILTRATION RATE > 60.0 ML/MIN; Glucose 125 mg/dL (74-106); SODIUM 137 mmol/L (137-145)
[2023-05-26 21:35] LABS: Potassium 2.8 mmol/L (3.5-5.1)
[2023-05-26] MEDS ORDERED: POTASSIUM CHLORIDE 20 mEq IN WATER 100ML 20 MEQ/100 ML BAG IV ONE (21:41)
[2023-05-26] MEDS ORDERED: Klor Con PO ONE ×2 (22:18→22:46)
[2023-05-27 00:55] LABS: BLOOD UREA NITROGEN 14 mg/dL (9-20); CHLORIDE 100 mmol/L (98-107); Calcium 7.4 mg/dL (8.4-10.2); Carbon Dioxide 33 mmol/L (22-30); Creatinine 1 0.65 mg/dL (0.66-1.25); EST GLOMERULAR FILTRATION RATE > 60.0 ML/MIN; Glucose 143 mg/dL (74-106); SODIUM 135 mmol/L (137-145)
[2023-05-27 00:58] LABS: Potassium 2.8 mmol/L (3.5-5.1)
[2023-05-27 01:10] VITALS: O2SAT 94
[2023-05-27] MEDS ORDERED: POTASSIUM CHLORIDE 20 mEq IN WATER 100ML 20 MEQ/100 ML BAG IV ONE (01:11)
[2023-05-27] MEDS: POTASSIUM CHLORIDE 20 mEq IN WATER 100ML 20 MEQ/100 ML BAG IV ONE ×2 (01:12→01:14)
[2023-05-27] MEDS ORDERED: POTASSIUM CHLORIDE 20 mEq IN WATER 100ML 100 ML IV ONE (01:13)
[2023-05-27] MEDS ORDERED: Ambien 5 MG Tablet PO ONE (02:09)
[2023-05-27 03:25] LABS: ANION GAP 5.6 MEQ/L (5-15); BLOOD UREA NITROGEN 14 mg/dL (9-20); CHLORIDE 101 mmol/L (98-107); Calcium 7.4 mg/dL (8.4-10.2); Carbon Dioxide 32 mmol/L (22-30); Creatinine 1 0.66 mg/dL (0.66-1.25); EST GLOMERULAR FILTRATION RATE > 60.0 ML/MIN; Glucose 123 mg/dL (74-106); SODIUM 136 mmol/L (137-145)
[2023-05-27 04:05] VITALS: BP 123/68; PULSE 98; RESP 18
== END 2023-05-27 04:08 | disposition home or self-care (01) ==
LOC: ED 16:09
DX: E87.6 Hypokalemia (principal); D64.9 Anemia, unspecified; R53.83 Other fatigue; I11.0 Hypertensive heart disease with heart failure; I50.9 Heart failure, unspecified; Z79.899 Other long term (current) drug therapy
CPT/HCPCS: 36000; 36415; 80048; 80053; 83735; 85025; 93005; 93041; 96360; 96361; 96374; 99285; 99291; J3480; A9270-GY

== ENCOUNTER 2023-06-13 09:25 | Emergency (ER) | payer MEDICARE, OTHER ==
--- NOTE | 2023-06-13 09:36 | ERPHSYRPT ---
- History of Present Illness Time Seen by Provider: 06/13/23 09:35 Source: patient, family Exam Limitations: no limitations Physician History: This is a 77-year-old white male patient of Dr. Carmona who was contacted this morning to come to the emergency department because of a potassium of 2.6 that was drawn yesterday approximately 3 PM (06/12/2023). Patient is asymptomatic. Patient does take potassium supplementation. Patient has a history of CHF, hypertension, BPH and COPD. He denies shortness of breath and he denies chest pain at this time. Timing/Duration: today Severity: mild Modifying Factors: Improves With: nothing Associated Symptoms: denies symptoms Allergies/Adverse Reactions: No Known Drug Allergies Allergy (Verified 06/13/23 09:35) Home Medications: Zolpidem Tartrate 10 mg PO QHS 06/11/15 [History] Ropinirole HCl 0.5 mg [Requip 0.5 MG] 0.5 mg PO QHS 01/07/17 [History] Tamsulosin HCl 0.4 mg [Flomax 0.4 MG] 0.4 mg PO DAILY 02/18/22 [History] Potassium Chloride 100 meq PO DAILY 05/20/23 [History] Albuterol Sulfate [Albuterol Sulfate Hfa] 2 puff IH QID PRN PRN 06/12/23 [ History] Fluticasone/Umeclidin/Vilanter [Trelegy Ellipta 100-62.5-25] 1 each IH DAILY 06/12/23 [History] Furosemide 20 mg [Lasix 20 mg] 20 mg PO TID 06/12/23 [History] Sildenafil Citrate [Sildenafil] 20 mg PO TID 06/12/23 [History] Hx Tetanus, Diphtheria Vaccination/Date Given: Yes Hx Influenza Vaccination/Date Given: Yes Hx Pneumococcal Vaccination/Date Given: Yes Travel Risk - International Travel Have you traveled outside of the country in past 3 weeks: No - Coronavirus Screening Are you exhibiting any of the following symptoms?: No Close contact with a COVID-19 positive Pt in past 14-21 Days: No - Vaccine Status Have you recieved a Covid-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: Yes 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 - Vaccination Dates Date of 2cond Vaccination (if applicable): 12/27 - Review of Systems Eyes: No Symptoms Ears, Nose, & Throat: No Symptoms Respiratory: No Symptoms Cardiac: No Symptoms Abdominal/Gastrointestinal: No Symptoms Genitourinary Symptoms: No Symptoms Musculoskeletal: No Symptoms Skin: No Symptoms Neurological: No Symptoms Psychological: No Symptoms Endocrine: No Symptoms Hematologic/Lymphatic: No Symptoms Immunological/Allergic: No Symptoms All Other Systems: Reviewed and Negative - Past Medical History Pertinent Past Medical History: Yes Neurological History: No Pertinent History ENT History: Cataracts Cardiac History: Congestive Heart Failure, Hypertension Respiratory History: COPD Endocrine Medical History: No Pertinent History Musculoskeletal History: Osteoarthritis GI Medical History: GERD, Gallbladder Disease History: No Pertinent History Psycho-Social History: No Pertinent History Male Reproductive Disorders: Prostate Problems Other Medical History: Insomnia, BPH, leukemia - Past Surgical History Past Surgical History: Yes Neuro Surgical History: No Pertinent History Cardiac: No Pertinent History Respiratory: No Pertinent History Gastrointestinal: Cholecystectomy Genitourinary: No Pertinent History Musculoskeletal: Orthopedic Surgery Male Surgical History: No Pertinent History Other Surgical History: right knee replacement 2020 - Social History Smoking Status: Former smoker How long have you smoked: 40 years Exposure to second hand smoke: No Drug Use: none Patient Lives Alone: No Significant Family History: no pertinent family hx - Nursing Vital Signs Nursing Vital Signs: Initial Vital Signs Temperature 97.1 F 06/13/23 09:36 Pulse Rate 95 H 06/13/23 09:36 Respiratory Rate 18 06/13/23 09:36 Blood Pressure 128/72 06/13/23 09:36 O2 Sat by Pulse Oximetry 98 06/13/23 09:36 Pain Scale Pain Intensity 0 - Physical Exam General Appearance: no apparent distress, alert Eye Exam: PERRL/EOMI, eyes nml inspection Ears, Nose, Throat Exam: normal ENT inspection, moist mucous membranes Neck Exam: normal inspection, non-tender, supple, full range of motion Respiratory Exam: normal breath sounds, lungs clear, airway intact, No chest tenderness, No respiratory distress Cardiovascular Exam: regular rate/rhythm, normal heart sounds, normal peripheral pulses Gastrointestinal/Abdomen Exam: soft, normal bowel sounds, No tenderness Rectal Exam: not done Back Exam: normal inspection, normal range of motion, No CVA tenderness, No vertebral tenderness Extremity Exam: normal inspection, normal range of motion, pelvis stable Neurologic Exam: alert, 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, cooperative, visual communications instructor II-XII nml as tested, normal mood/affect, nml cerebellar function, nml station & gait, sensation nml Skin Exam: normal color, warm, dry Lymphatic Exam: No adenopathy SpO2 Interpretation: normal O2 Delivery: Room Air - Course Nursing assessment & vital signs reviewed: Yes Ordered Tests: Active Orders 24 hr Category Date Time Status IV Insertion STAT Care 06/13/23 10:00 Active Telemetry q4h Care 06/13/23 10:33 Active BMP Stat Lab 06/13/23 10:11 Completed MAG [MAGNESIUM] Stat Lab 06/13/23 10:11 Completed Medication Summary Generic Name Dose Route Start Last Admin Trade Name Freq PRN Reason Stop Dose Admin Potassium Chloride 20 meq in 100 mls @ 50 mls/hr 06/13/23 10:32 06/13/23 10:52 Potassium Chloride 20 Meq In Water 100ml IV 06/13/23 12:31 50 mls/hr STAT ONE Administration Sodium Chloride 250 mls @ 125 mls/hr 06/13/23 11:00 06/13/23 10:52 Sodium Chloride 0.9% 250 Ml IV 06/13/23 12:59 125 mls/hr .Q2H MAN Administration Discontinued Medications Generic Name Dose Route Start Last Admin Trade Name Freq PRN Reason Stop Dose Admin Potassium Chloride Confirm 06/13/23 10:51 Potassium Chloride 20 Meq In Water 100ml Administered 06/13/23 10:52 Dose 100 mls @ ud IV .STK-MED ONE Potassium Chloride 20 meq 06/13/23 10:32 06/13/23 10:52 Potassium Chloride Tab 10 Meq Tab PO 06/13/23 10:33 20 meq STAT ONE Administration Potassium Chloride Confirm 06/13/23 10:51 Potassium Chloride Tab 10 Meq Tab Administered 06/13/23 10:52 Dose 20 meq PO .STK-MED ONE Lab/Rad Data: Laboratory Result Diagrams 06/13/23 10:11 Laboratory Results 06/13/23 Range/Units 10:11 Sodium 140 (137-145) mmol/L Potassium 2.8 L* (3.5-5.1) mmol/L Chloride 105 (98-107) mmol/L Carbon Dioxide 28 (22-30) mmol/L Anion Gap 10.3 (5-15) MEQ/L BUN 15 (9-20) mg/dL Creatinine 0.71 (0.66-1.25) mg/dL Estimated GFR > 60.0 ML/MIN Glucose 121 H (74-106) mg/dL Calcium 8.2 L (8.4-10.2) mg/dL Magnesium 1.8 (1.6-2.3) mg/dL - Progress Progress: unchanged Progress Note: 06/13/23 10:03 This patient's medical issue is 1 of low to moderate complexity depending on the need for infusion of potassium. The patient has multiple medical problems. The level of complexity in the work-up performed is based on review of the patient's past medical history, review the patient's medication list, review the patient's drug allergy list, history of present illness and physical finds on examination. The patient does take potassium supplementation and has had significant amount of time between the lab draw at 3 PM on 06/12/2023 and this morning to have taken potassium orally. We will repeat his potassium level and magnesium level and proceed accordingly. 06/13/23 10:55 This patient's repeat potassium was 2.8. We will provide him with 20 mill equivalents oral potassium now as well as an infusion of intravenous 20 mill equivalents potassium. He will be on the monitor in the emergency department while this is being infused. Patient will resume his daily potassium level today and tomorrow and then follow-up on 06/15/2023, at the [facility] lab to have repeat labs drawn. The results will be faxed to the office of Dr. Carmona Counseled pt/family regarding: lab results, diagnosis, need for follow-up Medical Desision Making - Independent Historian Additional History obtained from: Spouse - Diagnostic Testing Diagnostic test were ordered, analyzed, and reviewed by me: Yes - Risk of complications Low Risk: Low risk of morbidity from additional dx testing or treatment - Departure Departure Disposition: Home Clinical Impression: Hypokalemia Condition: Stable Critical Care Time: No Referrals: KARLEE CARMONA DO [Primary Care Provider] - Follow up/PCP as directed Additional Instructions: Continue your daily potassium oral intake as prescribed. Follow up at the [facility] lab on 06/15/2023 to repeat the potassium level. Call Dr. Carmona office on 06/16/2023, for results of the test.
[2023-06-13 09:43] VITALS: TEMP 97.1
[2023-06-13 10:27] LABS: ANION GAP 10.3 MEQ/L (5-15); BLOOD UREA NITROGEN 15 mg/dL (9-20); CHLORIDE 105 mmol/L (98-107); Calcium 8.2 mg/dL (8.4-10.2); Carbon Dioxide 28 mmol/L (22-30); Creatinine 1 0.71 mg/dL (0.66-1.25); EST GLOMERULAR FILTRATION RATE > 60.0 ML/MIN; Glucose 121 mg/dL (74-106); MAGNESIUM 1.8 mg/dL (1.6-2.3); SODIUM 140 mmol/L (137-145)
[2023-06-13 10:31] LABS: Potassium 2.8 mmol/L (3.5-5.1)
[2023-06-13] MEDS ORDERED: POTASSIUM CHLORIDE 20 mEq IN WATER 100ML 20 MEQ/100 ML BAG IV ONE (10:32)
[2023-06-13] MEDS ORDERED: Klor Con PO ONE ×2 (10:32→10:51)
[2023-06-13] MEDS ORDERED: Sodium Chloride 0.9% 250 ML 250 ML IV ONE (10:51)
[2023-06-13] MEDS ORDERED: POTASSIUM CHLORIDE 20 mEq IN WATER 100ML 100 ML IV ONE (10:51)
[2023-06-13] MEDS ORDERED: Sodium Chloride 0.9% 250 ML 250 ML IV SCH (11:00)
[2023-06-13 13:25] VITALS: RESP 18; O2SAT 96
[2023-06-13 13:26] VITALS: BP 98/60; PULSE 80
== END 2023-06-13 13:22 | disposition home or self-care (01) ==
LOC: ED 09:25
DX: E87.6 Hypokalemia (principal); I11.0 Hypertensive heart disease with heart failure; I50.9 Heart failure, unspecified; Z79.899 Other long term (current) drug therapy
CPT/HCPCS: 36000; 36415; 80048; 83735; 99284; J3480; A9270-GY

== ENCOUNTER 2023-06-15 18:29 | Emergency (ER) | payer MEDICARE, OTHER ==
--- NOTE | 2023-06-15 18:47 | ERPHSYRPT ---
- History of Present Illness Time Seen by Provider: 06/15/23 18:45 Source: patient, family Exam Limitations: no limitations Physician History: pt came in while I was in a lengthy discussion with another pt when this one came in and I did not know about it. Pt was sent in by PMD for low K of 2.8 to get boosted up. No symptoms or concerns. served as independt interview source for Hx in ER. Pt is on home O2 and this was placed in ER as well. for chronic COPD. Discussed risk/benefit of recheck K and loading K rider and oral with and pt and they wish to proceed. these are ordered and later results discussed. Timing/Duration: today Severity: moderate Modifying Factors: Improves With: nothing Associated Symptoms: denies symptoms Allergies/Adverse Reactions: No Known Drug Allergies Allergy (Verified 06/13/23 09:35) Home Medications: Zolpidem Tartrate 10 mg PO QHS 06/11/15 [History] Ropinirole HCl 0.5 mg [Requip 0.5 MG] 0.5 mg PO QHS 01/07/17 [History] Tamsulosin HCl 0.4 mg [Flomax 0.4 MG] 0.4 mg PO DAILY 02/18/22 [History] Potassium Chloride 100 meq PO DAILY 05/20/23 [History] Albuterol Sulfate [Albuterol Sulfate Hfa] 2 puff IH QID PRN PRN 06/12/23 [History] Fluticasone/Umeclidin/Vilanter [Trelegy Ellipta 100-62.5-25] 1 each IH DAILY 06/12/23 [History] Furosemide 20 mg [Lasix 20 mg] 20 mg PO TID 06/12/23 [History] Sildenafil Citrate [Sildenafil] 20 mg PO TID 06/12/23 [History] Hx Tetanus, Diphtheria Vaccination/Date Given: Yes Hx Influenza Vaccination/Date Given: Yes Hx Pneumococcal Vaccination/Date Given: Yes Travel Risk - Vaccine Status Have you recieved a Covid-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: Yes 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 - Vaccination Dates Date of 2cond Vaccination (if applicable): 12/27 - Review of Systems Constitutional: No Fever, No Chills Eyes: No Symptoms Ears, Nose, & Throat: No Symptoms Respiratory: No Cough, No Dyspnea Cardiac: No Chest Pain, No Edema, No Syncope Abdominal/Gastrointestinal: No Abdominal Pain, No Nausea, No Vomiting, No Diarrhea Genitourinary Symptoms: No Dysuria Musculoskeletal: No Back Pain, No Neck Pain Skin: No Rash Neurological: No Dizziness, No Focal Weakness, No Sensory Changes Psychological: No Symptoms Endocrine: No Symptoms Hematologic/Lymphatic: No Symptoms Immunological/Allergic: No Symptoms All Other Systems: Reviewed and Negative - Past Medical History Pertinent Past Medical History: Yes Neurological History: No Pertinent History ENT History: Cataracts Cardiac History: Congestive Heart Failure, Hypertension Respiratory History: COPD Endocrine Medical History: No Pertinent History Musculoskeletal History: Osteoarthritis GI Medical History: GERD, Gallbladder Disease History: No Pertinent History Psycho-Social History: No Pertinent History Male Reproductive Disorders: Prostate Problems Other Medical History: Insomnia, BPH, leukemia - Past Surgical History Past Surgical History: Yes Neuro Surgical History: No Pertinent History Cardiac: No Pertinent History Respiratory: No Pertinent History Gastrointestinal: Cholecystectomy Genitourinary: No Pertinent History Musculoskeletal: Orthopedic Surgery Male Surgical History: No Pertinent History Other Surgical History: right knee replacement 2020 - Social History Smoking Status: Former smoker How long have you smoked: 40 years Exposure to second hand smoke: No Drug Use: none Patient Lives Alone: No Significant Family History: no pertinent family hx - Nursing Vital Signs Nursing Vital Signs: Initial Vital Signs Temperature 98.5 F 06/15/23 18:37 Pulse Rate 89 06/15/23 18:37 Respiratory Rate 18 06/15/23 18:37 Blood Pressure 117/53 06/15/23 18:37 O2 Sat by Pulse Oximetry 93 L 06/15/23 18:37 Pain Scale Pain Intensity 2 - Physical Exam General Appearance: no apparent distress, alert Eye Exam: PERRL/EOMI, eyes nml inspection Ears, Nose, Throat Exam: normal ENT inspection, TMs normal, pharynx normal, moist mucous membranes Neck Exam: normal inspection, non-tender, supple, full range of motion Respiratory Exam: normal breath sounds, lungs clear, No respiratory distress Cardiovascular Exam: regular rate/rhythm, normal heart sounds, normal peripheral pulses Gastrointestinal/Abdomen Exam: soft, normal bowel sounds, No tenderness, No mass Rectal Exam: deferred Back Exam: normal inspection, normal range of motion, No CVA tenderness, No vertebral tenderness Extremity Exam: normal inspection, normal range of motion, pelvis stable Neurologic Exam: alert, 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, cooperative, normal mood/affect, nml cerebellar function, nml station & gait, sensation nml, No motor deficits Skin Exam: normal color, warm, dry, No rash Lymphatic Exam: No adenopathy SpO2 Interpretation: borderline oxygenation SpO2: 89 O2 Delivery: Room Air Comments: 06/15/23 19:40 increased into 90s on O2 NC. - Course Nursing assessment & vital signs reviewed: Yes Ordered Tests: Active Orders 24 hr Category Date Time Status Telemetry q4h Care 06/15/23 19:44 Active Potassium Stat Lab 06/16/23 00:18 Completed Medication Summary Generic Name Dose Route Start Last Admin Trade Name Freq PRN Reason Stop Dose Admin Potassium Chloride 20 meq in 100 mls @ 50 mls/hr 06/15/23 19:45 06/15/23 22:02 Potassium Chloride 20 Meq In Water 100ml IV 06/15/23 23:44 50 mls/hr Q2H MAN Administration Sodium Chloride 1,000 mls @ 50 mls/hr 06/15/23 20:00 06/15/23 19:54 Sodium Chloride 0.9% 1000 Ml IV 07/15/23 19:59 50 mls/hr .Q20H MAN Administration Discontinued Medications Generic Name Dose Route Start Last Admin Trade Name Freq PRN Reason Stop Dose Admin Sodium Chloride Confirm 06/15/23 19:50 Sodium Chloride 0.9% 1000 Ml Administered 06/15/23 19:51 Dose 1,000 mls @ ud .ROUTE .STK-MED ONE Potassium Bicarbonate 25 meq 06/15/23 19:43 06/15/23 19:51 Potassium Bicarbonate 25 Meq Tab PO 06/15/23 19:44 25 meq STAT ONE Administration Potassium Bicarbonate Confirm 06/15/23 19:50 Potassium Bicarbonate 25 Meq Tab Administered 06/15/23 19:51 Dose 25 meq .ROUTE .STK-MED ONE Lab/Rad Data: Laboratory Result Diagrams 06/16/23 00:18 Laboratory Results 06/16/23 Range/Units 00:18 Potassium 3.4 L D (3.5-5.1) mmol/L - Progress Progress: improved, re-examined Progress Note: 06/16/23 00:42 K is back up to 3.4 and he has no symptoms and will f/u with his PMD tomorrow for continued Tx. milind diet and fluids well. Counseled pt/family regarding: lab results, diagnosis, need for follow-up Medical Desision Making - Independent Historian Additional History obtained from: Spouse - Discussion of managment Reviewed:: Test results, Need for additional workup Agreed on:: Treatment plan, need for follow-up - Diagnostic Testing Diagnostic test were ordered, analyzed, and reviewed by me: Yes - Risk of complications The pt has a mod risk of morbidity or mortality based on: Need for prescription drug management The pt has a high risk of morbidity or mortality based on: Drug therapy req uiring intensive monitoring for toxicity - Departure Departure Disposition: Home Clinical Impression: Hypokalemia, COPD (chronic obstructive pulmonary disease) Condition: Good Critical Care Time: No Referrals: KARLEE CARMONA DO [Primary Care Provider] - Follow up/PCP as directed Instructions: Chronic Obstructive Pulmonary Disease, Hypokalemia (DC), Chronic Obstructive Pulmonary Disease (COPD) (DC) Additional Instructions: followup with your Dr.s Friday as planned to continue checking on potassium levels and your oxygen requirement as well as to coordinate your upcoming bowel prep and colon study and to make them aware so that they can make a good decision with you on whether to proceed - and this may still be OK , but all involved should have a heads up about your recent low potassium and treatment in ER for this to make the best decision for you. . Return meantime if you have any new symptoms or concerns.
[2023-06-15 18:49] VITALS: RESP 18; TEMP 98.5
[2023-06-15] MEDS ORDERED: K-LYTE PO ONE (19:43)
[2023-06-15] MEDS ORDERED: K-LYTE ONE (19:50)
[2023-06-15] MEDS ORDERED: POTASSIUM CHLORIDE 20 mEq IN WATER 100ML 200 ML IV ONE (19:50)
[2023-06-15] MEDS ORDERED: Sodium Chloride 0.9% 1000 ML 1,000 ML ONE (19:50)
[2023-06-15] MEDS: POTASSIUM CHLORIDE 20 mEq IN WATER 100ML 20 MEQ/100 ML BAG IV SCH ×2 (19:51→22:02)
[2023-06-15] MEDS ORDERED: Sodium Chloride 0.9% 1000 ML 1,000 ML IV SCH (20:00)
[2023-06-15 23:28] VITALS: PULSE 86
[2023-06-16 00:47] VITALS: O2SAT 89
[2023-06-16 01:06] VITALS: BP 116/65
== END 2023-06-16 01:46 | disposition home or self-care (01) ==
LOC: ED 18:29
DX: E87.6 Hypokalemia (principal); J44.9 Chronic obstructive pulmonary disease, unspecified; I11.0 Hypertensive heart disease with heart failure; I50.9 Heart failure, unspecified; Z79.899 Other long term (current) drug therapy
CPT/HCPCS: 36000; 36415; 84132; 96365; 96366; 99284; J3480; A9270-GY

== ENCOUNTER 2023-06-23 16:49 | Observation (INO) | payer MEDICARE, OTHER ==
[2023-06-23] MEDS ORDERED: Lasix 40 MG/4 ML IV ONE (17:30)
[2023-06-23] MEDS ORDERED: DUONEB 0.5-3 MG/3 ml Neb IH ONE ×2 (17:30→17:49)
[2023-06-23] MEDS ORDERED: Lasix 40 MG/4 ML ONE (17:37)
[2023-06-23 17:56] LABS: Absolute Neutrophil Ct (ANC) 2.41 x10^3/uL (1.4-6.9); BASOPHIL % 0.6 % (0.0-0.4); Basophil (Absolute #) 0.02 x10^3/uL (0-0.4); Eosinophil % 3.6 % (0.00-5.0); Eosinophil (Absolute #) 0.13 x10^3/uL (0-0.5); Hematocrit 28.1 % (42-50); Hemoglobin 8.2 g/dL (12.5-18.0); IMMATURE GRAN # 0.02 x10^3u/L (0.00-0.03); IMMATURE GRAN % 0.6 % (0.00-0.4); Lymphocyte (Absolute #) 0.46 x10^3/uL (1.0-4.6); Lymphocytes % 12.7 % (24.0-44.0); Mean Cell Volume 92.4 fL (78-100); Mean Corpuscular Hgb Concent. 29.2 g/dL (32-36); Mean Platelet Volume 10.6 fL (7.5-11.0); Monocyte (Absolute #) 0.57 x10^3/uL (0.0-1.3); Monocytes % 15.8 % (0.0-12.0); Neutrophil % 66.7 % (36.0-66.0); Platelet Count 139 x10^3/uL (150-450); Red Blood Count 3.04 x10^6/uL (4.1-5.6); Red Cell Distribution Width 20.6 % (11.5-14.0); White Blood Count 3.6 x10^3/uL (4.0-10.5)
--- NOTE | 2023-06-23 18:20 | ERPHSYRPT ---
- History of Present Illness Time Seen by Provider: 06/23/23 16:51 Source: patient, EMS, other (Dr. Horne) Exam Limitations: no limitations Patient Subjective Stated Complaint: Pt reports he has had swelling in bilateral lower extremities for approx one week now. He went to see Dr Vigil today with the bilat lower extremity edema and also testicular edema and Dr Vigil recommended he come to ED. Triage Nursing Assessment: Pt alert and oriented x3. No apparent respiratory distress. Wearing 3L O2 via NC per baseline. Transferred from EMS cot to ED cot by EMS staff. Skin w/p/d. Bilat lower extremities tight and +1 pitting edema along with scrotal edema. Physician History: 77-year-old male with multiple medical problems including coronary artery disease, congestive heart failure, chronic respiratory failure secondary to COPD on 3 L oxygen, recurrent hypokalemia, bilateral lower extremity swelling presented in the ER with increasing swelling in lower extremities for almost 1 week with swelling extending to scrotum and lower abdomen. Patient reports multiple pounds of weight gain lately. Reports mild increased shortness of breath but no chest tightness pressure pain/fever or chills reported. Has chr onic smoker's cough which is not any worse than usual. Denies any abdominal pain nausea or vomiting. Patient oxygen saturation around 93% on 3 L oxygen. Mild decreased air movement bilaterally. Bilateral 3+ pitting edema and scrotal edema and lower abdominal wall edema. I believe patient is having anasarca. I have ordered neb treatment and IV Lasix. Dr. Horne has discussed with Dr. 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 Allergies/Adverse Reactions: No Known Drug Allergies Allergy (Verified 06/23/23 17:05) Home Medications: Ropinirole HCl 0.5 mg [Requip 0.5 MG] 0.5 mg PO QHS 01/07/17 [History] Tamsulosin HCl 0.4 mg [Flomax 0.4 MG] 0.4 mg PO DAILY 02/18/22 [History] Fluticasone/Umeclidin/Vilanter [Trelegy Ellipta 100-62.5-25] 1 each IH DAILY 06/12/23 [History] Furosemide 20 mg [Lasix 20 mg] See Rx Instructions .ROUTE .COMPLEX 06/12/23 [History] Albuterol Sulfate [Albuterol Sulfate Hfa] 2 puff IH QID 06/23/23 [History] Aspirin EC 81 mg [Ecotrin 81 mg] 81 mg PO DAILY 06/23/23 [History] Imatinib Mesylate 3 tab PO HS 06/23/23 [History] Iron 65 mg PO DAILY 06/23/23 [History] Metoprolol Succinate 25 mg Xl* [Toprol-Xl 25MG Tablets] 25 mg PO DAILY 06/23/23 [History] Nystatin 5 ml PO QID 06/23/23 [History] Potassium Chloride 5 tab PO DAILY 06/23/23 [History] Spironolactone [Aldactone] 25 mg PO DAILY 06/23/23 [History] Hx Tetanus, Diphtheria Vaccination/Date Given: (unknown) Hx Influenza Vaccination/Date Given: Yes Hx Pneumococcal Vaccination/Date Given: (unknown) Travel Risk - International Travel Have you traveled outside of the country in past 3 weeks: No - Coronavirus Screening Are you exhibiting any of the following symptoms?: No Close contact with a COVID-19 positive Pt in past 14-21 Days: No - Vaccine Status Have you recieved a Covid-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: Yes Lemon Picker: Unknown - Vaccination Dates Dates if Unknown: 2019 - Review of Systems Constitutional: Fatigue, Weakness Eyes: No Symptoms Ears, Nose, & Throat: No Symptoms Respiratory: Cough, Dyspnea, Dyspnea on Exertion ([place]), Wheezing Cardiac: Edema Abdominal/Gastrointestinal: No Symptoms Genitourinary Symptoms: No Symptoms Musculoskeletal: No Symptoms Skin: No Symptoms Neurological: No Symptoms Endocrine: No Symptoms Immunological/Allergic: No Symptoms - Past Medical History Pertinent Past Medical History: Yes Neurological History: No Pertinent History ENT History: Cataracts Cardiac History: Congestive Heart Failure, Hypertension Respiratory History: COPD Endocrine Medical History: No Pertinent History Musculoskeletal History: Osteoarthritis GI Medical History: GERD, Gallbladder Disease History: No Pertinent History Psycho-Social History: No Pertinent History Male Reproductive Disorders: Prostate Problems Other Medical History: Insomnia, BPH, leukemia - Past Surgical History Past Surgical History: Yes Neuro Surgical History: No Pertinent History Cardiac: No Pertinent History Respiratory: No Pertinent History Gastrointestinal: Cholecystectomy Genitourinary: No Pertinent History Musculoskeletal: Orthopedic Surgery Male Surgical History: No Pertinent History Other Surgical History: right knee replacement 2020 - Social History Smoking Status: Former smoker How long have you smoked: 40 years Exposure to second hand smoke: No Drug Use: none Patient Lives Alone: No Significant Family History: no pertinent family hx - Nursing Vital Signs Nursing Vital Signs: Initial Vital Signs Temperature 97.1 F 06/23/23 16:50 Pulse Rate 75 06/23/23 16:50 Respiratory Rate 17 06/23/23 16:50 Blood Pressure 108/59 06/23/23 16:50 O2 Sat by Pulse Oximetry 95 06/23/23 16:50 Pain Scale Pain Intensity 0 - Physical Exam General Appearance: no apparent distress, alert Eye Exam: PERRL/EOMI, eyes nml inspection Ears, Nose, Throat Exam: hearing grossly normal, normal ENT inspection, normal pharynx Neck Exam: normal inspection, non-tender, supple, full range of motion Respiratory Exam: diminished breath sounds, rhonchi, wheezing Cardiovascular/Chest Exam: normal heart sounds, regular rate/rhythm, edema Abdominal/Gastrointestinal Exam: soft, normal bowel sounds, other (Abdominal w all edema, scrotal swelling/edema.), No tenderness Extremity Exam: normal range of motion, pedal edema (Lower extremity edema diffuse 3+) Neurologic Exam: alert, 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, cooperative, 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 as tested Skin Exam: normal color SpO2 Interpretation: hypoxic, O2 applied SpO2: 99 O2 Delivery: Nasal Cannula - Course EKG Interpreted by Me: RATE (73), Sinus Rhythm, NORMAL AXIS, prolonged QT interval, Non-specific ST Changes Ordered Tests: Medication Summary Discontinued Medications Generic Name Dose Route Start Last Admin Trade Name Princeq PRN Reason Stop Dose Admin Albuterol Sulfate 2 puff 06/24/23 10:00 06/24/23 06:44 Albuterol Common Canister Inhaler 07/24/23 09:59 2 puff QID MAN Administration Albuterol Sulfate 2 puff 06/24/23 11:00 Albuterol Common Canister Inhaler 07/24/23 09:59 QIDRT MAN Albuterol Sulfate 2 puff 06/24/23 09:34 Albuterol Common Canister Inhaler 07/24/23 09:33 Q4H PRN PRN SHORTNESS OF BREATH/WHEEZING Albuterol/Ipratropium 3 ml 06/23/23 17:30 06/23/23 17:49 Ipratropium/Albuterol Sulfate 3 Ml Ampul.Neb IH 06/23/23 17:31 3 ml STAT ONE Administration Albuterol/Ipratropium Confirm 06/23/23 17:49 Ipratropium/Albuterol Sulfate 3 Ml Ampul.Neb Administered 06/23/23 17:50 Dose 3 ml IH .STK-MED ONE Aspirin 81 mg 06/24/23 10:00 06/25/23 09:31 Aspirin 81 Mg Tablet.Ec PO 07/24/23 09:59 81 mg DAILY MAN Administration Ferrous Sulfate 325 mg 06/24/23 10:00 06/25/23 09:31 Ferrous Sulfate 325 Mg Tablet PO 07/24/23 09:59 325 mg DAILY MAN Administration Furosemide 40 mg 06/23/23 17:30 06/23/23 17:38 Furosemide 40 Mg/4 Ml Vial IV 06/23/23 17:31 40 mg STAT ONE Administration Furosemide Confirm 06/23/23 17:37 Furosemide 40 Mg/4 Ml Vial Administered 06/23/23 17:38 Dose 40 mg .ROUTE .STK-MED ONE Furosemide 40 mg 06/24/23 14:00 06/25/23 07:39 Furosemide 40 Mg/4 Ml Vial IV 07/24/23 13:59 40 mg Q8HT MAN Administration Potassium Chloride 20 meq in 100 mls @ 50 mls/hr 06/23/23 19:00 06/23/23 23:32 Potassium Chloride 20 Meq In Water 100ml IV 06/23/23 20:59 50 mls/hr STAT ONE Administration Azithromycin 500 mg in 250 mls @ 250 mls/hr 06/23/23 19:01 06/23/23 20:43 Zithromax 500 Mg/ 250 Ml Nacl Premix IV 06/23/23 20:00 250 mls/hr STAT STA Administration Ceftriaxone Sodium/Dextrose 2 g in 50 mls @ 100 mls/hr 06/23/23 19:01 06/23/23 20:23 Rocephin 2 Gm-D5w 50ml Bag IV 06/23/23 19:30 Infused STAT STA Infusion Ceftriaxone Sodium/Dextrose Confirm 06/23/23 19:37 Rocephin 2 Gm-D5w 50ml Bag Administered 06/23/23 19:38 Dose 2 g in 50 mls @ ud IV .STK-MED ONE Azithromycin Confirm 06/23/23 20:40 Zithromax 500 Mg/ 250 Ml Nacl Premix Administered 06/23/23 20:41 Dose 500 mg in 250 mls @ ud IV .STK-MED ONE Potassium Chloride Confirm 06/23/23 23:30 Potassium Chloride 20 Meq In Water 100ml Administered 06/23/23 23:31 Dose 100 mls @ ud IV .STK-MED ONE Sodium Chloride Confirm 06/23/23 23:31 Sodium Chloride 0.9% 1000 Ml Administered 06/23/23 23:32 Dose 1,000 mls @ ud .ROUTE .STK-MED ONE Potassium Chloride 100 mls @ 50 mls/hr 06/24/23 07:30 06/24/23 09:17 Potassium Chloride 20 Meq In Water 100ml IV 06/24/23 11:29 50 mls/hr Q2H MAN Administration Potassium Chloride 100 mls @ 50 mls/hr 06/24/23 18:15 06/24/23 20:39 Potassium Chloride 20 Meq In Water 100ml IV 06/24/23 22:14 50 mls/hr Q2H MAN Administration Potassium Chloride 20 meq in 100 mls @ 50 mls/hr 06/25/23 00:38 06/25/23 02:50 Potassium Chloride 20 Meq In Water 100ml IV 06/25/23 02:37 50 mls/hr STAT ONE Administration Melatonin 3 mg 06/23/23 22:38 06/25/23 00:21 Melatonin 3 Mg Tablet PO 07/23/23 22:37 3 mg HS PRN PRN Administration insomnia Metoprolol Succinate 25 mg 06/24/23 10:00 06/25/23 09:31 Metoprolol Succinate 25 Mg Xl Tab PO 07/24/23 09:59 25 mg DAILY MAN Administration Miscellaneous Information 1 each 06/24/23 07:15 Medication Intervention 1 Each Each 07/24/23 07:14 .RN TO CHECK MAN Miscellaneous Information 1 each 06/24/23 07:15 Medication Intervention 1 Each Each 07/24/23 07:14 .RT TO CHECK MAN Nystatin 5 ml 06/24/23 10:00 06/25/23 09:32 Nystatin 60 Ml Suspension Bottle PO 07/01/23 23:00 5 ml QID MAN Administration Ondansetron HCl Confirm 06/24/23 22:56 Ondansetron Hcl 4 Mg/2 Ml Vial Administered 06/24/23 22:57 Dose 4 mg .ROUTE .STK-MED ONE Trelegy Ellipta 100/ 1 each 06/24/23 09:00 06/25/23 08:02 62.5/25mcg Inhaler IH 07/24/23 08:59 1 each 0700 MAN Administration Imatinib 100mg 3 each 06/24/23 22:00 06/24/23 21:52 Tablet PO 07/24/23 21:59 3 each HS MAN Administration Potassium Chloride 40 meq 06/23/23 19:00 06/23/23 19:41 Potassium Chloride Tab 10 Meq Tab PO 06/23/23 19:01 40 meq STAT ONE Administration Potassium Chloride Confirm 06/23/23 19:37 Potassium Chloride Tab 10 Meq Tab Administered 06/23/23 19:38 Dose 40 meq PO .STK-MED ONE Potassium Chloride 40 meq 06/24/23 00:49 06/24/23 00:52 Potassium Chloride Tab 10 Meq Tab PO 06/24/23 00:50 40 meq STAT ONE Administration Potassium Chloride 20 meq 06/24/23 15:00 Potassium Chloride Tab 10 Meq Tab PO 07/24/23 14:59 5XD MAN Potassium Chloride 20 meq 06/24/23 15:30 06/24/23 17:32 Potassium Chloride Tab 10 Meq Tab PO 06/24/23 21:31 20 meq Q2H MAN Administration Potassium Chloride 40 meq 06/25/23 00:37 06/25/23 00:40 Potassium Chloride Tab 10 Meq Tab PO 06/25/23 00:38 40 meq STAT ONE Administration Ropinirole HCl 0.5 mg 06/24/23 22:00 06/24/23 21:51 Ropinirole Hcl 0.5 Mg Tablet PO 07/24/23 21:59 0.5 mg QHS MAN Administration Spironolactone 25 mg 06/24/23 10:00 06/25/23 09:31 Spironolactone 25 Mg Tablet PO 07/24/23 09:59 25 mg DAILY MAN Administration Tamsulosin HCl 0.4 mg 06/24/23 10:00 06/25/23 09:31 Tamsulosin Hcl 0.4 Mg Cap PO 07/24/23 09:59 0.4 mg DAILY MAN Administration Trazodone HCl 25 mg 06/25/23 22:00 06/25/23 00:21 Trazodone Hcl 50 Mg Tablet PO 07/25/23 21:59 25 mg HS MAN Administration Trazodone HCl Confirm 06/25/23 00:20 Trazodone Hcl 50 Mg Tablet Administered 06/25/23 00:21 Dose 50 mg .ROUTE .STK-MED ONE Lab/Rad Data: Laboratory Result Diagrams 06/23/23 17:30 06/23/23 17:30 Laboratory Results 06/23/23 06/23/23 06/23/23 Range/Units 18:23 17:50 17:40 WBC (4.0-10.5) x10^3/uL RBC (4.1-5.6) x10^6/uL Hgb (12.5-18.0) g/dL Hct (42-50) % MCV (78-100) fL MCH (26-32) pg MCHC (32-36) g/dL RDW (11.5-14.0) % Plt Count (150-450) x10^3/uL MPV (7.5-11.0) fL Gran % (36.0-66.0) % Immature Gran % (Auto) (0.00-0.4) % Nucleat RBC Rel Count (0.00-0.1) % Eos # (Auto) (0-0.5) x10^3/uL Immature Gran # (Auto) (0.00-0.03) x10^3u/L Absolute Lymphs (auto) (1.0-4.6) x10^3/uL Absolute Monos (auto) (0.0-1.3) x10^3/uL Absolute Nucleated RBC (0.00-0.01) x10^3u/L Lymphocytes % (24.0-44.0) % Monocytes % (0.0-12.0) % Eosinophils % (0.00-5.0) % Basophils % (0.0-0.4) % Absolute Granulocytes (1.4-6.9) x10^3/uL Basophils # (0-0.4) x10^3/uL Sodium (137-145) mmol/L Potassium (3.5-5.1) mmol/L Chloride (98-107) mmol/L Carbon Dioxide (22-30) mmol/L Anion Gap (5-15) MEQ/L BUN (9-20) mg/dL Creatinine (0.66-1.25) mg/dL Estimated GFR ML/MIN Glucose (74-106) mg/dL Lactic Acid 1.9 (0.4-2.0) Calcium (8.4-10.2) mg/dL Magnesium (1.6-2.3) mg/dL Total Bilirubin (0.2-1.3) mg/dL AST (17-59) U/L ALT (0-50) U/L Alkaline Phosphatase (38-126) U/L Troponin I (0.000-0.034) ng/mL NT-Pro-B Natriuret Pep (<300) pg/mL Serum Total Protein (6.3-8.2) g/dL Albumin (3.5-5.0) g/dL Urine Color Yellow (Yellow) Urine Appearance Clear (Clear) Urine pH 6.0 (4.6-8.0) Ur Specific [place] 1.010 (1.005-1.030) Urine Protein Negative (Negative) Urine Glucose (UA) Negative (Negative) mg/dL Urine Ketones Negative (Negative) Urine Blood Negative (Negative) Urine Nitrite Negative (Negative) Urine Bilirubin Negative (Negative) Urine Urobilinogen 1.0 A (0.2) mg/dL Ur Leukocyte Esterase Negative (Negative) U Hyaline Cast (Auto) NONE SEEN (0-2) /LPF Urine Microscopic RBC 0-2 (0-5) /HPF Urine Microscopic WBC 0-2 (0-5) /HPF Ur Epithelial Cells None Seen (None Seen) /HPF Urine Bacteria None Seen (None Seen) /HPF Urine Culture Reflexed NO (NO) Influenza Type A Ag NEGATIVE (NEGATIVE) Influenza Type B Ag NEGATIVE (NEGATIVE) RSV (PCR) NEGATIVE (NEGATIVE) SARS-CoV-2 (PCR) NEGATIVE (NEGATIVE) Slides for Path Review 06/23/23 06/23/23 Range/Units 17:30 17:30 WBC 3.6 L (4.0-10.5) x10^3/uL RBC 3.04 L (4.1-5.6) x10^6/uL Hgb 8.2 L (12.5-18.0) g/dL Hct 28.1 L (42-50) % MCV 92.4 (78-100) fL MCH 27.0 (26-32) pg MCHC 29.2 L (32-36) g/dL RDW 20.6 H (11.5-14.0) % Plt Count 139 L (150-450) x10^3/uL MPV 10.6 (7.5-11.0) fL Gran % 66.7 H (36.0-66.0) % Immature Gran % (Auto) 0.6 H (0.00-0.4) % Nucleat RBC Rel Count 0.0 (0.00-0.1) % Eos # (Auto) 0.13 (0-0.5) x10^3/uL Immature Gran # (Auto) 0.02 (0.00-0.03) x10^3u/L Absolute Lymphs (auto) 0.46 L (1.0-4.6) x10^3/uL Absolute Monos (auto) 0.57 (0.0-1.3) x10^3/uL Absolute Nucleated RBC 0.00 (0.00-0.01) x10^3u/L Lymphocytes % 12.7 L (24.0-44.0) % Monocytes % 15.8 H (0.0-12.0) % Eosinophils % 3.6 (0.00-5.0) % Basophils % 0.6 (0.0-0.4) % Absolute Granulocytes 2.41 (1.4-6.9) x10^3/uL Basophils # 0.02 (0-0.4) x10^3/uL Sodium 135 L (137-145) mmol/L Potassium 3.0 L* (3.5-5.1) mmol/L Chloride 101 (98-107) mmol/L Carbon Dioxide 31 H (22-30) mmol/L Anion Gap 6.2 (5-15) MEQ/L BUN 15 (9-20) mg/dL Creatinine 0.85 (0.66-1.25) mg/dL Estimated GFR > 60.0 ML/MIN Glucose 99 (74-106) mg/dL Lactic Acid (0.4-2.0) Calcium 7.6 L (8.4-10.2) mg/dL Magnesium 2.2 (1.6-2.3) mg/dL Total Bilirubin 1.70 H (0.2-1.3) mg/dL AST 81 H (17-59) U/L ALT 40 (0-50) U/L Alkaline Phosphatase 150 H (38-126) U/L Troponin I 0.066 H* (0.000-0.034) ng/mL NT-Pro-B Natriuret Pep 2070 (<300) pg/mL Serum Total Protein 5.6 L (6.3-8.2) g/dL Albumin 2.7 L (3.5-5.0) g/dL Urine Color (Yellow) Urine Appearance (Clear) Urine pH (4.6-8.0) Ur Specific [place] (1.005-1.030) Urine Protein (Negative) Urine Glucose (UA) (Negative) mg/dL Urine Ketones (Negative) Urine Blood (Negative) Urine Nitrite (Negative) Urine Bilirubin (Negative) Urine Urobilinogen (0.2) mg/dL Ur Leukocyte Esterase (Negative) U Hyaline Cast (Auto) (0-2) /LPF Urine Microscopic RBC (0-5) /HPF Urine Microscopic WBC (0-5) /HPF Ur Epithelial Cells (None Seen) /HPF Urine Bacteria (None Seen) /HPF Urine Culture Reflexed (NO) Influenza Type A Ag (NEGATIVE) Influenza Type B Ag (NEGATIVE) RSV (PCR) (NEGATIVE) SARS-CoV-2 (PCR) (NEGATIVE) Slides for Path Review YES - Progress Progress: improved, re-examined Air Movement: fair Progress Note: 06/23/23 19:07 77-year-old male with multiple medical problems including coronary artery disease, congestive heart failure, chronic respiratory failure secondary to COPD on 3 L oxygen, recurrent hypokalemia, bilateral lower extremity swelling presented in the ER with increasing swelling in lower extremities for almost 1 week with swelling extending to scrotum and lower abdomen. Patient reports multiple pounds of weight gain lately. Reports mild increased shortness of breath but no chest tightness pressure pain/fever or chills reported. Has chronic smoker's cough which is not any worse than usual. Denies any abdominal pain nausea or vomiting. Patient oxygen saturation around 93% on 3 L oxygen. Mild decreased air movement bilaterally. Bilateral 3+ pitting edema and scrotal edema and lower abdominal wall edema. I believe patient is having anasarca. I have ordered neb treatment and IV Lasix. Dr. Horne has discussed with Dr. 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 06/23/23 19:07 Patient is started on Lasix. Has mildly low potassium for which she is getting replacement. Has pneumonia on x-ray as reviewed by me, started on antibiotics, official report is pending. Discussed with Dr. Estes, reviewed history, work-up and cardiology recommendations, patient is excepted for admission. Blood Culture(s) Obtained: Yes Antibiotics given: Yes Discussed with Dr.: Mary Ellen ([id number]) Counseled pt/family regarding: lab results, diagnosis Medical Desision Making - Independent Historian Additional History obtained from: Spouse - Discussion of managment Care discussed with:: hospitalist Reviewed:: Test results Agreed on:: Treatment plan Will see patient: in hospital - Diagnostic Testing Diagnostic test were ordered, analyzed, and reviewed by me: Yes Radiological Interpretation: Interpreted by me, Reviewed by me - Risk of complications The pt has a high risk of morbidity or mortality based on: Decision regarding hospitilization or escalation of hosp level of care - Departure Departure Disposition: Observation Clinical Impression: Anasarca, Acute exacerbation of CHF (congestive heart failure), Pneumonia Condition: Fair Critical Care Time: No
[2023-06-23 18:21] LABS: ALBUMIN 2.7 g/dL (3.5-5.0); ALKALINE PHOSPHATASE 150 U/L (38-126); ANION GAP 6.2 MEQ/L (5-15); BLOOD UREA NITROGEN 15 mg/dL (9-20); CHLORIDE 101 mmol/L (98-107); Calcium 7.6 mg/dL (8.4-10.2); Carbon Dioxide 31 mmol/L (22-30); Creatinine 1 0.85 mg/dL (0.66-1.25); EST GLOMERULAR FILTRATION RATE > 60.0 ML/MIN; Glucose 99 mg/dL (74-106); MAGNESIUM 2.2 mg/dL (1.6-2.3); NT PRO BNPII 2070 pg/mL (<300); SGOT/AST 81 U/L (17-59); SGPT/ALT 40 U/L (0-50); SODIUM 135 mmol/L (137-145); Total Protein 5.6 g/dL (6.3-8.2)
[2023-06-23 18:35] LABS: Appearance Clear (Clear); Bacteria None Seen /HPF (None Seen); Bilirubin Negative (Negative); Blood Negative (Negative); Epithelial Cells None Seen /HPF (None Seen); Glucose, Urine Negative (Negative); Hyaline Casts NONE SEEN /LPF (0-2); Ketones Negative (Negative); Leukocyte Esterase Negative (Negative); Nitrite Negative (Negative); Protein,Urine Dip Negative (Negative); RBC 0-2 /HPF (0-5); WBC 0-2 /HPF (0-5)
[2023-06-23 18:36] LABS: ADD URINE CULTURE? NO (NO)
[2023-06-23 18:38] LABS: INFLUENZA A NEGATIVE (NEGATIVE); INFLUENZA B NEGATIVE (NEGATIVE); RESPIRATORY SYNCTIAL VIRUS NEGATIVE (NEGATIVE); SARS-CoV-2 Xpert Express NEGATIVE (NEGATIVE)
[2023-06-23 18:51] LABS: TROPONIN 0.066 ng/mL (0.000-0.034)
[2023-06-23 18:54] LABS: Slide Review 1 YES
[2023-06-23] MEDS ORDERED: Klor Con PO ONE ×2 (19:00→19:37)
[2023-06-23] MEDS ORDERED: POTASSIUM CHLORIDE 20 mEq IN WATER 100ML 20 MEQ/100 ML BAG IV ONE (19:00)
[2023-06-23] MEDS ORDERED: ROCEPHIN 2 Gm-D5w 50ML BAG** 2 G/50 ML IVPB IV STA (19:01)
[2023-06-23] MEDS ORDERED: Zithromax 500 MG/ 250 ML NaCl Premix 500 MG/250 ML IVPB IV STA (19:01)
[2023-06-23] MEDS ORDERED: ROCEPHIN 2 Gm-D5w 50ML BAG** 2 G/50 ML IVPB IV ONE (19:37)
[2023-06-23] MEDS ORDERED: Zithromax 500 MG/ 250 ML NaCl Premix 500 MG/250 ML IVPB IV ONE (20:40)
--- NOTE | 2023-06-23 22:46 | PCM.HP ---
History of Present Illness - Chief Complaint Chief Complaint: Edema / CHF Exacerbation History of Present Illness: is a 77 year old male. He has a medical history with CHF, COPD on 3liters, hypokalemia who presents with one week of progressive bilateral lower extremity up to the scrotum. No chest pain, nausea, vomiting, diarrhea, fevers. Increasing in SOB with work. - Review of Systems Constitutional: No Fever, No Chills Eyes: No Symptoms Ears, Nose, & Throat: No Symptoms Respiratory: No Cough, No Short Of Breath Cardiac: Edema, No Chest Pain, No Syncope Abdominal/Gastrointestinal: No Abdominal Pain, No Nausea, No Vomiting, No Diarrhea Genitourinary Symptoms: No Dysuria Musculoskeletal: No Back Pain, No Neck Pain Skin: No Rash Neurological: No Dizziness, No Focal Weakness, No Sensory Changes Psychological: No Symptoms Endocrine: No Symptoms Hematologic/Lymphatic: No Symptoms Immunological/Allergic: No Symptoms Medications & Allergies Home Medications: Home Medication List Ropinirole HCl 0.5 mg [Requip 0.5 MG] 0.5 mg PO QHS 01/07/17 [History Confirmed 06/23/23] Tamsulosin HCl 0.4 mg [Flomax 0.4 MG] 0.4 mg PO DAILY 02/18/22 [History Confirmed 06/23/23] Fluticasone/Umeclidin/Vilanter [Trelegy Ellipta 100-62.5-25] 1 each IH DAILY 06/12/23 [History Confirmed 06/23/23] Furosemide 20 mg [Lasix 20 mg] See Rx Instructions .ROUTE .COMPLEX 06/12/23 [History Confirmed 06/23/23] Albuterol Sulfate [Albuterol Sulfate Hfa] 2 puff IH QID 06/23/23 [History Confirmed 06/23/23] Aspirin EC 81 mg [Ecotrin 81 mg] 81 mg PO DAILY 06/23/23 [History Confirmed 06/23/23] Imatinib Mesylate 3 tab PO DAILY 06/23/23 [History Confirmed 06/23/23] Iron 65 mg PO DAILY 06/23/23 [History Confirmed 06/23/23] Metoprolol Succinate 25 mg Xl* [Toprol-Xl 25MG Tablets] 25 mg PO DAILY 06/23/23 [History Confirmed 06/23/23] Nystatin 5 ml PO QID 06/23/23 [History Confirmed 06/23/23] Potassium Chloride 5 tab PO DAILY 06/23/23 [History Confirmed 06/23/23] Spironolactone [Aldactone] 25 mg PO DAILY 06/23/23 [History Confirmed 06/23/23] Allergies/Adverse Reactions: Allergies Allergy/AdvReac Type Severity Reaction Status Date / Time No Known Drug Allergies Allergy Verified 06/23/23 17:05 - Past Medical History Past Medical History: Yes Neurological History: No Pertinent History ENT History: Cataracts Cardiac History: Congestive Heart Failure, Hypertension Respiratory History: COPD Endocrine Medical History: No Pertinent History Musculoskelatal History: Osteoarthritis GI Medical History: GERD, Gallbladder Disease History: No Pertinent History Pyscho-Social History: No Pertinent History Male Reproductive Disorders: Prostate Problems Comment: Insomnia, BPH, leukemia - Past Surgical History Past Surgical History: Yes Neuro Surgical History: No Pertinent History Cardiac History: No Pertinent History Respiratory Surgery: No Pertinent History GI Surgical History: Cholecystectomy Genitourinary Surgical Hx: No Pertinent History Musculskeletal Surgical Hx: Orthopedic Surgery Male Surgical History: No Pertinent History Other Surgical History: right knee replacement 2020 - Social History Smoking Status: Former smoker How long have you smoked: 40 years Exposure to second hand smoke: No Alcohol: Rarely Drug Use: none Significant Family History: no pertinent family hx - Physical Exam Vital Signs: Vital Signs - 24 hr Temp Pulse Resp BP BP Pulse Ox 06/23/23 20:00 76 20 123/56 98 06/23/23 19:30 79 23 122/62 97 06/23/23 19:08 76 20 123/57 98 06/23/23 19:07 99 06/23/23 19:00 75 23 128/61 99 06/23/23 18:30 75 18 128/68 100 06/23/23 18:00 73 20 129/76 99 06/23/23 17:52 72 16 99 06/23/23 17:30 76 21 121/66 93 L 06/23/23 17:00 73 20 116/61 06/23/23 16:50 97.1 F 75 17 108/59 95 General Appearance: no apparent distress, alert Neurologic Exam: alert, 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, cooperative, normal mood/affect, nml cerebellar function, nml station & gait, sensation nml, No motor deficits Eye Exam: PERRL/EOMI, eyes nml inspection Ears, Nose, Throat Exam: normal ENT inspection, TMs normal, pharynx normal, moist mucous membranes Neck Exam: normal inspection, non-tender, supple, full range of motion Respiratory Exam: normal breath sounds, lungs clear, No respiratory distress Cardiovascular Exam: regular rate/rhythm, normal heart sounds, normal peripheral pulses Gastrointestinal/Abdomen Exam: soft, normal bowel sounds, No tenderness, No mass Back Exam: normal inspection, normal range of motion, No CVA tenderness, No vertebral tenderness Extremity Exam: normal inspection, normal range of motion, pelvis stable, swelling Skin Exam: normal color, warm, dry, No rash Lymphatic Exam: No adenopathy Results - Labs Lab/Micro Results: Lab Results-Last 24 Hours 06/23/23 06/23/23 06/23/23 Range/Units 17:30 17:30 17:40 WBC 3.6 L (4.0-10.5) x10^3/uL RBC 3.04 L (4.1-5.6) x10^6/uL Hgb 8.2 L (12.5-18.0) g/dL Hct 28.1 L (42-50) % MCV 92.4 (78-100) fL MCH 27.0 (26-32) pg MCHC 29.2 L (32-36) g/dL RDW 20.6 H (11.5-14.0) % Plt Count 139 L (150-450) x10^3/uL MPV 10.6 (7.5-11.0) fL Gran % 66.7 H (36.0-66.0) % Immature Gran % (Auto) 0.6 H (0.00-0.4) % Nucleat RBC Rel Count 0.0 (0.00-0.1) % Eos # (Auto) 0.13 (0-0.5) x10^3/uL Immature Gran # (Auto) 0.02 (0.00-0.03) x10^3u/L Absolute Lymphs (auto) 0.46 L (1.0-4.6) x10^3/uL Absolute Monos (auto) 0.57 (0.0-1.3) x10^3/uL Absolute Nucleated RBC 0.00 (0.00-0.01) x10^3u/L Lymphocytes % 12.7 L (24.0-44.0) % Monocytes % 15.8 H (0.0-12.0) % Eosinophils % 3.6 (0.00-5.0) % Basophils % 0.6 (0.0-0.4) % Absolute Granulocytes 2.41 (1.4-6.9) x10^3/uL Basophils # 0.02 (0-0.4) x10^3/uL Sodium 135 L (137-145) mmol/L Potassium 3.0 L* (3.5-5.1) mmol/L Chloride 101 (98-107) mmol/L Carbon Dioxide 31 H (22-30) mmol/L Anion Gap 6.2 (5-15) MEQ/L BUN 15 (9-20) mg/dL Creatinine 0.85 (0.66-1.25) mg/dL Estimated GFR > 60.0 ML/MIN Glucose 99 (74-106) mg/dL Lactic Acid 1.9 (0.4-2.0) Calcium 7.6 L (8.4-10.2) mg/dL Magnesium 2.2 (1.6-2.3) mg/dL Total Bilirubin 1.70 H (0.2-1.3) mg/dL AST 81 H (17-59) U/L ALT 40 (0-50) U/L Alkaline Phosphatase 150 H (38-126) U/L Troponin I 0.066 H* (0.000-0.034) ng/mL NT-Pro-B Natriuret Pep 2070 (<300) pg/mL Serum Total Protein 5.6 L (6.3-8.2) g/dL Albumin 2.7 L (3.5-5.0) g/dL Urine Color (Yellow) Urine Appearance (Clear) Urine pH (4.6-8.0) Ur Specific [place] (1.005-1.030) Urine Protein (Negative) Urine Glucose (UA) (Negative) mg/dL Urine Ketones (Negative) Urine Blood (Negative) Urine Nitrite (Negative) Urine Bilirubin (Negative) Urine Urobilinogen (0.2) mg/dL Ur Leukocyte Esterase (Negative) U Hyaline Cast (Auto) (0-2) /LPF Urine Microscopic RBC (0-5) /HPF Urine Microscopic WBC (0-5) /HPF Ur Epithelial Cells (None Seen) /HPF Urine Bacteria (None Seen) /HPF Urine Culture Reflexed (NO) Influenza Type A Ag (NEGATIVE) Influenza Type B Ag (NEGATIVE) RSV (PCR) (NEGATIVE) SARS-CoV-2 (PCR) (NEGATIVE) Slides for Path Review YES 06/23/23 06/23/23 06/23/23 Range/Units 17:50 18:23 21:25 WBC (4.0-10.5) x10^3/uL RBC (4.1-5.6) x10^6/uL Hgb (12.5-18.0) g/dL Hct (42-50) % MCV (78-100) fL MCH (26-32) pg MCHC (32-36) g/dL RDW (11.5-14.0) % Plt Count (150-450) x10^3/uL MPV (7.5-11.0) fL Gran % (36.0-66.0) % Immature Gran % (Auto) (0.00-0.4) % Nucleat RBC Rel Count (0.00-0.1) % Eos # (Auto) (0-0.5) x10^3/uL Immature Gran # (Auto) (0.00-0.03) x10^3u/L Absolute Lymphs (auto) (1.0-4.6) x10^3/uL Absolute Monos (auto) (0.0-1.3) x10^3/uL Absolute Nucleated RBC (0.00-0.01) x10^3u/L Lymphocytes % (24.0-44.0) % Monocytes % (0.0-12.0) % Eosinophils % (0.00-5.0) % Basophils % (0.0-0.4) % Absolute Granulocytes (1.4-6.9) x10^3/uL Basophils # (0-0.4) x10^3/uL Sodium (137-145) mmol/L Potassium (3.5-5.1) mmol/L Chloride (98-107) mmol/L Carbon Dioxide (22-30) mmol/L Anion Gap (5-15) MEQ/L BUN (9-20) mg/dL Creatinine (0.66-1.25) mg/dL Estimated GFR ML/MIN Glucose (74-106) mg/dL Lactic Acid (0.4-2.0) Calcium (8.4-10.2) mg/dL Magnesium (1.6-2.3) mg/dL Total Bilirubin (0.2-1.3) mg/dL AST (17-59) U/L ALT (0-50) U/L Alkaline Phosphatase (38-126) U/L Troponin I 0.059 H* (0.000-0.034) ng/mL NT-Pro-B Natriuret Pep (<300) pg/mL Serum Total Protein (6.3-8.2) g/dL Albumin (3.5-5.0) g/dL Urine Color Yellow (Yellow) Urine Appearance Clear (Clear) Urine pH 6.0 (4.6-8.0) Ur Specific [place] 1.010 (1.005-1.030) Urine Protein Negative (Negative) Urine Glucose (UA) Negative (Negative) mg/dL Urine Ketones Negative (Negative) Urine Blood Negative (Negative) Urine Nitrite Negative (Negative) Urine Bilirubin Negative (Negative) Urine Urobilinogen 1.0 A (0.2) mg/dL Ur Leukocyte Esterase Negative (Negative) U Hyaline Cast (Auto) NONE SEEN (0-2) /LPF Urine Microscopic RBC 0-2 (0-5) /HPF Urine Microscopic WBC 0-2 (0-5) /HPF Ur Epithelial Cells None Seen (None Seen) /HPF Urine Bacteria None Seen (None Seen) /HPF Urine Culture Reflexed NO (NO) Influenza Type A Ag NEGATIVE (NEGATIVE) Influenza Type B Ag NEGATIVE (NEGATIVE) RSV (PCR) NEGATIVE (NEGATIVE) SARS-CoV-2 (PCR) NEGATIVE (NEGATIVE) Slides for Path Review - Radiology Impressions Radiology Exams & Impressions: Radiology Procedures Category Date Time Status CHEST 1 VIEW (PORTABLE) Stat Exams 06/23/23 17:30 Taken - Other Procedures and Tests Respiratory Therapy 06/23/23 20:41 Oxygen Nasal Cannula 3 lpm Respiratory Therapy Consult ONCE Assessment/Plan (1) CHF exacerbation Current Visit: Yes Status: Acute Assessment & Plan: 1. Lasix 40 mg IV BID (given in the ED) 2. Continue other home cardiac medications 3. K repletiion - given in the ED Code(s): I50.9 - HEART FAILURE, UNSPECIFIED Telemedicine Encounter - Telemedicine Encounter Telemedicine Encounter: The entirety of this encounter was performed via Telemedicine"
[2023-06-23] MEDS ORDERED: POTASSIUM CHLORIDE 20 mEq IN WATER 100ML 100 ML IV ONE (23:30)
[2023-06-23] MEDS ORDERED: Sodium Chloride 0.9% 1000 ML 1,000 ML ONE (23:31)
[2023-06-23] MEDS: MELATONIN PO PRN (23:34)
[2023-06-24] MEDS ORDERED: Klor Con PO ONE (00:49)
--- NOTE | 2023-06-24 06:01 | PCM.NOTE ---
Date and Time: 06/24/23 0558 Subjective Assessment: 77-year-old male with multiple medical problems including coronary artery disease, congestive heart failure, chronic respiratory failure secondary to COPD on 3 L oxygen, recurrent hypokalemia, bilateral lower extremity swelling presented to the ER 06/23/23 with increasing swelling in lower extremities for almost 1 week with swelling extending to scrotum and lower abdomen. Bilateral 3+ pitting edema and scrotal edema and lower abdominal wall edema. I believe patient is having anasarca. I have ordered neb treatment and IV Lasix. Dr. Horne has discussed with Dr. Velsaquez patient's primary probate paralegal prior to arrival who recommended IV diuresis aggressively and monitoring electrolytes. Overnight improvement in BLE edema per spouse. Patient still with dry cough. Endorses nose bleed this morning, which is a chronic issue. States he is at his baseline oxygenation of 3L, shortness of breath has improved. Fine crackles at lung bases on exam. Plan is to continue aggressive diuresis. Patient was hypokalemic this morning, will replenish. - Review of Systems Constitutional: No Symptoms Eyes: No Symptoms Ears, Nose, & Throat: Epistaxis Respiratory: Cough, Short Of Breath Cardiac: Edema Abdominal/Gastrointestinal: No Symptoms Genitourinary Symptoms: No Symptoms Musculoskeletal: No Symptoms Skin: No Symptoms Neurological: No Symptoms Psychological: No Symptoms Endocrine: No Symptoms Objective Exam General Appearance: no apparent distress Neurologic Exam: alert, 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, cooperative Skin Exam: pale Eye Exam: PERRL Ears, Nose, Throat Exam: moist mucous membranes Neck Exam: normal inspection Respiratory Exam: crackles/rales Cardiovascular Exam: regular rate/rhythm, normal heart sounds Gastrointestinal/Abdomen Exam: soft, normal bowel sounds Extremity Exam: normal inspection Back Exam: normal inspection OBJECTIVE DATA Vital Signs: Vital Signs - 24 hr Temp Pulse Resp BP BP Pulse Ox 06/24/23 04:00 98.6 F 82 16 114/55 95 06/23/23 23:28 18 06/23/23 23:08 97.1 F 72 18 108/59 96 06/23/23 22:42 72 18 96 06/23/23 20:41 72 96 06/23/23 20:00 76 20 123/56 98 06/23/23 19:30 79 23 122/62 97 06/23/23 19:08 76 20 123/57 98 06/23/23 19:07 99 06/23/23 19:00 75 23 128/61 99 06/23/23 18:30 75 18 128/68 100 06/23/23 18:00 73 20 129/76 99 06/23/23 17:52 72 16 99 06/23/23 17:30 76 21 121/66 93 L 06/23/23 17:00 73 20 116/61 06/23/23 16:50 97.1 F 75 17 108/59 95 Oxygen-Last 24 hours Oxygen Flowrate (L/min)-RT 3 Pain Assessment - Last Documented Pain Intensity 0 Intake and Output: Intake & Output 06/21/23 06/22/23 06/23/23 06/24/23 11:59 11:59 11:59 11:59 Intake Total 470 Output Total 500 Balance -30 Weight 102.4 kg Lab Results: Lab Results-Last 24 Hours 06/23/23 06/23/23 06/23/23 Range/Units 17:30 17:30 17:40 WBC 3.6 L (4.0-10.5) x10^3/uL RBC 3.04 L (4.1-5.6) x10^6/uL Hgb 8.2 L (12.5-18.0) g/dL Hct 28.1 L (42-50) % MCV 92.4 (78-100) fL MCH 27.0 (26-32) pg MCHC 29.2 L (32-36) g/dL RDW 20.6 H (11.5-14.0) % Plt Count 139 L (150-450) x10^3/uL MPV 10.6 (7.5-11.0) fL Gran % 66.7 H (36.0-66.0) % Immature Gran % (Auto) 0.6 H (0.00-0.4) % Nucleat RBC Rel Count 0.0 (0.00-0.1) % Eos # (Auto) 0.13 (0-0.5) x10^3/uL Immature Gran # (Auto) 0.02 (0.00-0.03) x10^3u/L Absolute Lymphs (auto) 0.46 L (1.0-4.6) x10^3/uL Absolute Monos (auto) 0.57 (0.0-1.3) x10^3/uL Absolute Nucleated RBC 0.00 (0.00-0.01) x10^3u/L Lymphocytes % 12.7 L (24.0-44.0) % Monocytes % 15.8 H (0.0-12.0) % Eosinophils % 3.6 (0.00-5.0) % Basophils % 0.6 (0.0-0.4) % Absolute Granulocytes 2.41 (1.4-6.9) x10^3/uL Basophils # 0.02 (0-0.4) x10^3/uL Sodium 135 L (137-145) mmol/L Potassium 3.0 L* (3.5-5.1) mmol/L Chloride 101 (98-107) mmol/L Carbon Dioxide 31 H (22-30) mmol/L Anion Gap 6.2 (5-15) MEQ/L BUN 15 (9-20) mg/dL Creatinine 0.85 (0.66-1.25) mg/dL Estimated GFR > 60.0 ML/MIN Glucose 99 (74-106) mg/dL Lactic Acid 1.9 (0.4-2.0) Calcium 7.6 L (8.4-10.2) mg/dL Magnesium 2.2 (1.6-2.3) mg/dL Total Bilirubin 1.70 H (0.2-1.3) mg/dL AST 81 H (17-59) U/L ALT 40 (0-50) U/L Alkaline Phosphatase 150 H (38-126) U/L Troponin I 0.066 H* (0.000-0.034) ng/mL NT-Pro-B Natriuret Pep 2070 (<300) pg/mL Serum Total Protein 5.6 L (6.3-8.2) g/dL Albumin 2.7 L (3.5-5.0) g/dL Urine Color (Yellow) Urine Appearance (Clear) Urine pH (4.6-8.0) Ur Specific [place] (1.005-1.030) Urine Protein (Negative) Urine Glucose (UA) (Negative) mg/dL Urine Ketones (Negative) Urine Blood (Negative) Urine Nitrite (Negative) Urine Bilirubin (Negative) Urine Urobilinogen (0.2) mg/dL Ur Leukocyte Esterase (Negative) U Hyaline Cast (Auto) (0-2) /LPF Urine Microscopic RBC (0-5) /HPF Urine Microscopic WBC (0-5) /HPF Ur Epithelial Cells (None Seen) /HPF Urine Bacteria (None Seen) /HPF Urine Culture Reflexed (NO) Influenza Type A Ag (NEGATIVE) Influenza Type B Ag (NEGATIVE) RSV (PCR) (NEGATIVE) SARS-CoV-2 (PCR) (NEGATIVE) Slides for Path Review YES 06/23/23 06/23/23 06/23/23 Range/Units 17:50 18:23 21:25 WBC (4.0-10.5) x10^3/uL RBC (4.1-5.6) x10^6/uL Hgb (12.5-18.0) g/dL Hct (42-50) % MCV (78-100) fL MCH (26-32) pg MCHC (32-36) g/dL RDW (11.5-14.0) % Plt Count (150-450) x10^3/uL MPV (7.5-11.0) fL Gran % (36.0-66.0) % Immature Gran % (Auto) (0.00-0.4) % Nucleat RBC Rel Count (0.00-0.1) % Eos # (Auto) (0-0.5) x10^3/uL Immature Gran # (Auto) (0.00-0.03) x10^3u/L Absolute Lymphs (auto) (1.0-4.6) x10^3/uL Absolute Monos (auto) (0.0-1.3) x10^3/uL Absolute Nucleated RBC (0.00-0.01) x10^3u/L Lymphocytes % (24.0-44.0) % Monocytes % (0.0-12.0) % Eosinophils % (0.00-5.0) % Basophils % (0.0-0.4) % Absolute Granulocytes (1.4-6.9) x10^3/uL Basophils # (0-0.4) x10^3/uL Sodium (137-145) mmol/L Potassium (3.5-5.1) mmol/L Chloride (98-107) mmol/L Carbon Dioxide (22-30) mmol/L Anion Gap (5-15) MEQ/L BUN (9-20) mg/dL Creatinine (0.66-1.25) mg/dL Estimated GFR ML/MIN Glucose (74-106) mg/dL Lactic Acid (0.4-2.0) Calcium (8.4-10.2) mg/dL Magnesium (1.6-2.3) mg/dL Total Bilirubin (0.2-1.3) mg/dL AST (17-59) U/L ALT (0-50) U/L Alkaline Phosphatase (38-126) U/L Troponin I 0.059 H* (0.000-0.034) ng/mL NT-Pro-B Natriuret Pep (<300) pg/mL Serum Total Protein (6.3-8.2) g/dL Albumin (3.5-5.0) g/dL Urine Color Yellow (Yellow) Urine Appearance Clear (Clear) Urine pH 6.0 (4.6-8.0) Ur Specific [place] 1.010 (1.005-1.030) Urine Protein Negative (Negative) Urine Glucose (UA) Negative (Negative) mg/dL Urine Ketones Negative (Negative) Urine Blood Negative (Negative) Urine Nitrite Negative (Negative) Urine Bilirubin Negative (Negative) Urine Urobilinogen 1.0 A (0.2) mg/dL Ur Leukocyte Esterase Negative (Negative) U Hyaline Cast (Auto) NONE SEEN (0-2) /LPF Urine Microscopic RBC 0-2 (0-5) /HPF Urine Microscopic WBC 0-2 (0-5) /HPF Ur Epithelial Cells None Seen (None Seen) /HPF Urine Bacteria None Seen (None Seen) /HPF Urine Culture Reflexed NO (NO) Influenza Type A Ag NEGATIVE (NEGATIVE) Influenza Type B Ag NEGATIVE (NEGATIVE) RSV (PCR) NEGATIVE (NEGATIVE) SARS-CoV-2 (PCR) NEGATIVE (NEGATIVE) Slides for Path Review 06/24/23 Range/Units 01:30 WBC (4.0-10.5) x10^3/uL RBC (4.1-5.6) x10^6/uL Hgb (12.5-18.0) g/dL Hct (42-50) % MCV (78-100) fL MCH (26-32) pg MCHC (32-36) g/dL RDW (11.5-14.0) % Plt Count (150-450) x10^3/uL MPV (7.5-11.0) fL Gran % (36.0-66.0) % Immature Gran % (Auto) (0.00-0.4) % Nucleat RBC Rel Count (0.00-0.1) % Eos # (Auto) (0-0.5) x10^3/uL Immature Gran # (Auto) (0.00-0.03) x10^3u/L Absolute Lymphs (auto) (1.0-4.6) x10^3/uL Absolute Monos (auto) (0.0-1.3) x10^3/uL Absolute Nucleated RBC (0.00-0.01) x10^3u/L Lymphocytes % (24.0-44.0) % Monocytes % (0.0-12.0) % Eosinophils % (0.00-5.0) % Basophils % (0.0-0.4) % Absolute Granulocytes (1.4-6.9) x10^3/uL Basophils # (0-0.4) x10^3/uL Sodium (137-145) mmol/L Potassium (3.5-5.1) mmol/L Chloride (98-107) mmol/L Carbon Dioxide (22-30) mmol/L Anion Gap (5-15) MEQ/L BUN (9-20) mg/dL Creatinine (0.66-1.25) mg/dL Estimated GFR ML/MIN Glucose (74-106) mg/dL Lactic Acid (0.4-2.0) Calcium (8.4-10.2) mg/dL Magnesium (1.6-2.3) mg/dL Total Bilirubin (0.2-1.3) mg/dL AST (17-59) U/L ALT (0-50) U/L Alkaline Phosphatase (38-126) U/L Troponin I 0.054 H* (0.000-0.034) ng/mL NT-Pro-B Natriuret Pep (<300) pg/mL Serum Total Protein (6.3-8.2) g/dL Albumin (3.5-5.0) g/dL Urine Color (Yellow) Urine Appearance (Clear) Urine pH (4.6-8.0) Ur Specific [place] (1.005-1.030) Urine Protein (Negative) Urine Glucose (UA) (Negative) mg/dL Urine Ketones (Negative) Urine Blood (Negative) Urine Nitrite (Negative) Urine Bilirubin (Negative) Urine Urobilinogen (0.2) mg/dL Ur Leukocyte Esterase (Negative) U Hyaline Cast (Auto) (0-2) /LPF Urine Microscopic RBC (0-5) /HPF Urine Microscopic WBC (0-5) /HPF Ur Epithelial Cells (None Seen) /HPF Urine Bacteria (None Seen) /HPF Urine Culture Reflexed (NO) Influenza Type A Ag (NEGATIVE) Influenza Type B Ag (NEGATIVE) RSV (PCR) (NEGATIVE) SARS-CoV-2 (PCR) (NEGATIVE) Slides for Path Review Radiology Exams: Radiology Procedures Category Date Time Status CHEST 1 VIEW (PORTABLE) Stat Exams 06/23/23 17:30 Taken Assessment/Plan (1) CHF exacerbation Current Visit: Yes Status: Acute Assessment & Plan: -Acute on chronic HFrEF 40-45% -ECHO from 05/20/23 IMPRESSION: 1) MILD DECREASE IN LEFT VENTRICULAR SYSTOLIC FUNCTION. 2) MILD CONCENTRIC LEFT VENTRICULAR HYPERTROPHY. 3) MILD LEFT ATRIAL DILATATION. 4) MODERATE TRICUSPID REGURGITATION. 5) SEVERE PULMONARY HYPERTENSION. SOB and edema present, BNP elevated at 2070 On Lasix 40mg IV Q8h, place on 1500cc fluid restriction monitor vol status closely Code(s): I50.9 - HEART FAILURE, UNSPECIFIED (2) Anasarca Current Visit: Yes Status: Acute Assessment & Plan: -see above Code(s): R60.1 - GENERALIZED EDEMA (3) Hypokalemia Current Visit: Yes Status: Acute Assessment & Plan: -Replenish, continue to monitor renal/lytes daily, replace as appropriate Code(s): E87.6 - HYPOKALEMIA (4) Elevated troponin Current Visit: Yes Status: Acute Assessment & Plan: -most likely demand, downtrending denies cp, ekg Code(s): R79.89 - OTHER SPECIFIED ABNORMAL FINDINGS OF BLOOD CHEMISTRY (5) Transaminitis Current Visit: Yes Status: Acute Assessment & Plan: -improving, will continue to monitor Code(s): R74.01 - ELEVATION OF LEVELS OF LIVER TRANSAMINASE LEVELS (6) Anemia Current Visit: No Status: Acute Assessment & Plan: -chronic, near baseline, will continue to monitor and replace if hgb <7 Code(s): D64.9 - ANEMIA, UNSPECIFIED
[2023-06-24 06:45] LABS: Absolute Neutrophil Ct (ANC) 2.35 x10^3/uL (1.4-6.9); BASOPHIL % 0.5 % (0.0-0.4); Basophil (Absolute #) 0.02 x10^3/uL (0-0.4); Eosinophil % 3.8 % (0.00-5.0); Eosinophil (Absolute #) 0.15 x10^3/uL (0-0.5); Hematocrit 27.4 % (42-50); Hemoglobin 8.1 g/dL (12.5-18.0); IMMATURE GRAN # 0.02 x10^3u/L (0.00-0.03); IMMATURE GRAN % 0.5 % (0.00-0.4); Lymphocyte (Absolute #) 0.59 x10^3/uL (1.0-4.6); Lymphocytes % 14.9 % (24.0-44.0); Mean Cell Volume 90.7 fL (78-100); Mean Corpuscular Hemoglobin 26.8 pg (26-32); Mean Corpuscular Hgb Concent. 29.6 g/dL (32-36); Mean Platelet Volume 9.7 fL (7.5-11.0); Monocyte (Absolute #) 0.82 x10^3/uL (0.0-1.3); Monocytes % 20.8 % (0.0-12.0); Neutrophil % 59.5 % (36.0-66.0); Platelet Count 132 x10^3/uL (150-450); Red Blood Count 3.02 x10^6/uL (4.1-5.6); Red Cell Distribution Width 20.7 % (11.5-14.0)
[2023-06-24 07:01] LABS: ALBUMIN 2.5 g/dL (3.5-5.0); ALKALINE PHOSPHATASE 157 U/L (38-126); ANION GAP 5.1 MEQ/L (5-15); BLOOD UREA NITROGEN 13 mg/dL (9-20); CHLORIDE 104 mmol/L (98-107); Calcium 7.8 mg/dL (8.4-10.2); Carbon Dioxide 31 mmol/L (22-30); Creatinine 1 0.85 mg/dL (0.66-1.25); EST GLOMERULAR FILTRATION RATE > 60.0 ML/MIN; Glucose 97 mg/dL (74-106); SGOT/AST 57 U/L (17-59); SGPT/ALT 36 U/L (0-50); SODIUM 137 mmol/L (137-145); Total Protein 5.2 g/dL (6.3-8.2)
[2023-06-24 07:07] LABS: Potassium 2.8 mmol/L (3.5-5.1)
[2023-06-24] MEDS ORDERED: MEDICATION INTERVENTION MC SCH ×2 (07:15)
[2023-06-24] MEDS: POTASSIUM CHLORIDE 20 mEq IN WATER 100ML 100 ML IV SCH ×5 (07:42→20:39)
[2023-06-24 08:01] LABS: Slide Review 1 YES
--- NOTE | 2023-06-24 08:51 | XRAY ---
Indication: Short of breath. Comparison: June 12, 2023 Portable chest again demonstrates diffuse bilateral hazy interstitial alveolar opacities worsened right base, stable right upper lobe patchy consolidation, and stable borderline cardiomegaly. Slightly worsening moderate right basilar effusion.
[2023-06-24] MEDS: Nystatin SUSPENSION 60 ML PO SCH ×4 (09:17→21:51)
[2023-06-24] MEDS: ECOTRIN 81 MG PO SCH (09:17)
[2023-06-24] MEDS: Flomax 0.4 MG PO SCH (09:17)
[2023-06-24] MEDS: FEOSOL 325 MG PO SCH (09:18)
[2023-06-24] MEDS: Toprol-Xl 25MG Tablets PO SCH (09:18)
[2023-06-24] MEDS: Aldactone 25 MG PO SCH (09:18)
[2023-06-24] MEDS: PATIENT OWN MEDICATION IH SCH (09:18)
[2023-06-24] MEDS ORDERED: VENTOLIN COMMON CANISTER IH PRN (09:34)
[2023-06-24] MEDS ORDERED: NON-FORMULARY ITEM (Fluticasone/Umeclidin/Vilanter [Trelegy Ellipta 100-62.5-25] 1 EACH Bl IH SCH (10:00)
[2023-06-24] MEDS ORDERED: VENTOLIN COMMON CANISTER IH SCH ×2 (10:00→11:00)
[2023-06-24] MEDS ORDERED: IMATINIB MESYLATE 100 MG PO SCH (10:00)
[2023-06-24] MEDS ORDERED: NON-FORMULARY ITEM (Potassium Chloride [Potassium Chloride] 20 MEQ Tab.Er.Prt) PO SCH (10:00)
[2023-06-24] MEDS: Lasix 40 MG/4 ML IV SCH ×2 (13:51→21:51)
[2023-06-24] MEDS ORDERED: Klor Con PO SCH (15:00)
[2023-06-24] MEDS: Klor Con PO SCH ×2 (15:41→17:32)
[2023-06-24] MEDS ORDERED: Requip 0.5 MG PO SCH (22:00)
[2023-06-24] MEDS ORDERED: PATIENT OWN MEDICATION PO SCH (22:00)
[2023-06-24] MEDS ORDERED: Zofran 4 MG/2 ML VIAL ONE (22:56)
[2023-06-25] MEDS ORDERED: DESYREL 50 MG ONE (00:20)
[2023-06-25] MEDS: MELATONIN PO PRN (00:21)
[2023-06-25] MEDS ORDERED: Klor Con PO ONE (00:37)
[2023-06-25] MEDS ORDERED: POTASSIUM CHLORIDE 20 mEq IN WATER 100ML 20 MEQ/100 ML BAG IV ONE (00:38)
[2023-06-25 04:49] LABS: Absolute Neutrophil Ct (ANC) 2.13 x10^3/uL (1.4-6.9); BASOPHIL % 0.6 % (0.0-0.4); Basophil (Absolute #) 0.02 x10^3/uL (0-0.4); Eosinophil % 3.1 % (0.00-5.0); Eosinophil (Absolute #) 0.11 x10^3/uL (0-0.5); Hematocrit 29.2 % (42-50); Hemoglobin 8.4 g/dL (12.5-18.0); IMMATURE GRAN # 0.02 x10^3u/L (0.00-0.03); IMMATURE GRAN % 0.6 % (0.00-0.4); Lymphocyte (Absolute #) 0.55 x10^3/uL (1.0-4.6); Lymphocytes % 15.6 % (24.0-44.0); Mean Cell Volume 92.7 fL (78-100); Mean Corpuscular Hemoglobin 26.7 pg (26-32); Mean Corpuscular Hgb Concent. 28.8 g/dL (32-36); Monocyte (Absolute #) 0.69 x10^3/uL (0.0-1.3); Monocytes % 19.6 % (0.0-12.0); Neutrophil % 60.5 % (36.0-66.0); Platelet Count 131 x10^3/uL (150-450); Red Blood Count 3.15 x10^6/uL (4.1-5.6); Red Cell Distribution Width 20.7 % (11.5-14.0); White Blood Count 3.5 x10^3/uL (4.0-10.5)
[2023-06-25 05:16] LABS: ALBUMIN 2.5 g/dL (3.5-5.0); ALKALINE PHOSPHATASE 140 U/L (38-126); ANION GAP 6.6 MEQ/L (5-15); BLOOD UREA NITROGEN 11 mg/dL (9-20); CHLORIDE 103 mmol/L (98-107); Calcium 7.7 mg/dL (8.4-10.2); Carbon Dioxide 31 mmol/L (22-30); Creatinine 1 0.82 mg/dL (0.66-1.25); EST GLOMERULAR FILTRATION RATE > 60.0 ML/MIN; Glucose 112 mg/dL (74-106); Potassium 3.5 mmol/L (3.5-5.1); SGOT/AST 50 U/L (17-59); SGPT/ALT 35 U/L (0-50); SODIUM 137 mmol/L (137-145); Total Protein 5.2 g/dL (6.3-8.2)
--- NOTE | 2023-06-25 05:40 | PCM.NOTE ---
Date and Time: 06/25/23537 Subjective Assessment: 77-year-old male with multiple medical problems including coronary artery disease, congestive heart failure, chronic respiratory failure secondary to COPD on 3 L oxygen, recurrent hypokalemia, bilateral lower extremity swelling presented to the ER 06/23/23 with increasing swelling in lower extremities for almost 1 week with swelling extending to scrotum and lower abdomen. Bilateral 3+ pitting edema and scrotal edema and lower abdominal wall edema. I believe patient is having anasarca. I have ordered neb treatment and IV Lasix. Dr. Horne has discussed with Dr. 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 Overnight improvement in BLE edema per spouse. Patient still with dry cough. Endorses nose bleed this morning, which is a chronic issue. States he is at his baseline oxygenation of 3L, shortness of breath has improved. Fine crackles at lung bases on exam. Plan is to continue aggressive diuresis. Patient was hypokalemic this morning, will replenish. OBJECTIVE DATA Vital Signs: Vital Signs - 24 hr Temp Pulse Resp BP Pulse Ox 06/25/23 04:00 19 06/25/23 03:57 97.8 F 81 19 120/60 93 L 06/25/23 00:09 97.8 F 79 16 112/56 97 06/24/23 23:44 18 06/24/23 20:41 85 06/24/23 20:22 98.7 F 81 21 118/59 97 06/24/23 19:51 16 06/24/23 15:58 16 06/24/23 15:50 97.8 F 79 16 116/56 92 L 06/24/23 12:00 16 06/24/23 11:20 97.8 F 75 16 111/51 97 06/24/23 08:00 16 06/24/23 07:02 98.0 F 79 16 121/59 96 06/24/23 06:45 85 16 96 Pain Assessment - Last Documented Pain Intensity 0 Intake and Output: Intake & Output 06/22/23 06/23/23 06/24/23 06/25/23 11:59 11:59 11:59 11:59 Intake Total 1050 860 Output Total 700 1950 Balance 350 -1090 Weight 99.4 kg Lab Results: Lab Results-Last 24 Hours 06/24/23 06/24/23 06/24/23 Range/Units 00:14 06:37 06:37 WBC 4.0 (4.0-10.5) x10^3/uL RBC 3.02 L (4.1-5.6) x10^6/uL Hgb 8.1 L (12.5-18.0) g/dL Hct 27.4 L (42-50) % MCV 90.7 (78-100) fL MCH 26.8 (26-32) pg MCHC 29.6 L (32-36) g/dL RDW 20.7 H (11.5-14.0) % Plt Count 132 L (150-450) x10^3/uL MPV 9.7 (7.5-11.0) fL Gran % 59.5 (36.0-66.0) % Immature Gran % (Auto) 0.5 H (0.00-0.4) % Nucleat RBC Rel Count 0.0 (0.00-0.1) % Eos # (Auto) 0.15 (0-0.5) x10^3/uL Immature Gran # (Auto) 0.02 (0.00-0.03) x10^3u/L Absolute Lymphs (auto) 0.59 L (1.0-4.6) x10^3/uL Absolute Monos (auto) 0.82 (0.0-1.3) x10^3/uL Absolute Nucleated RBC 0.00 (0.00-0.01) x10^3u/L Lymphocytes % 14.9 L (24.0-44.0) % Monocytes % 20.8 H (0.0-12.0) % Eosinophils % 3.8 (0.00-5.0) % Basophils % 0.5 (0.0-0.4) % Absolute Granulocytes 2.35 (1.4-6.9) x10^3/uL Basophils # 0.02 (0-0.4) x10^3/uL Sodium 137 (137-145) mmol/L Potassium 3.0 L* 2.8 L* (3.5-5.1) mmol/L Chloride 104 (98-107) mmol/L Carbon Dioxide 31 H (22-30) mmol/L Anion Gap 5.1 (5-15) MEQ/L BUN 13 (9-20) mg/dL Creatinine 0.85 (0.66-1.25) mg/dL Estimated GFR > 60.0 ML/MIN Glucose 97 (74-106) mg/dL POC Glucometer (74 to 106) mg/dL Calcium 7.8 L (8.4-10.2) mg/dL Magnesium (1.6-2.3) mg/dL Total Bilirubin 1.40 H (0.2-1.3) mg/dL AST 57 (17-59) U/L ALT 36 (0-50) U/L Alkaline Phosphatase 157 H (38-126) U/L Serum Total Protein 5.2 L (6.3-8.2) g/dL Albumin 2.5 L (3.5-5.0) g/dL Slides for Path Review YES 06/24/23 06/24/23 06/24/23 Range/Units 06:37 07:08 11:08 WBC (4.0-10.5) x10^3/uL RBC (4.1-5.6) x10^6/uL Hgb (12.5-18.0) g/dL Hct (42-50) % MCV (78-100) fL MCH (26-32) pg MCHC (32-36) g/dL RDW (11.5-14.0) % Plt Count (150-450) x10^3/uL MPV (7.5-11.0) fL Gran % (36.0-66.0) % Immature Gran % (Auto) (0.00-0.4) % Nucleat RBC Rel Count (0.00-0.1) % Eos # (Auto) (0-0.5) x10^3/uL Immature Gran # (Auto) (0.00-0.03) x10^3u/L Absolute Lymphs (auto) (1.0-4.6) x10^3/uL Absolute Monos (auto) (0.0-1.3) x10^3/uL Absolute Nucleated RBC (0.00-0.01) x10^3u/L Lymphocytes % (24.0-44.0) % Monocytes % (0.0-12.0) % Eosinophils % (0.00-5.0) % Basophils % (0.0-0.4) % Absolute Granulocytes (1.4-6.9) x10^3/uL Basophils # (0-0.4) x10^3/uL Sodium (137-145) mmol/L Potassium (3.5-5.1) mmol/L Chloride (98-107) mmol/L Carbon Dioxide (22-30) mmol/L Anion Gap (5-15) MEQ/L BUN (9-20) mg/dL Creatinine (0.66-1.25) mg/dL Estimated GFR ML/MIN Glucose (74-106) mg/dL POC Glucometer 101 119 H (74 to 106) mg/dL Calcium (8.4-10.2) mg/dL Magnesium 2.0 (1.6-2.3) mg/dL Total Bilirubin (0.2-1.3) mg/dL AST (17-59) U/L ALT (0-50) U/L Alkaline Phosphatase (38-126) U/L Serum Total Protein (6.3-8.2) g/dL Albumin (3.5-5.0) g/dL Slides for Path Review 06/24/23 06/24/23 06/24/23 Range/Units 12:04 16:06 17:30 WBC (4.0-10.5) x10^3/uL RBC (4.1-5.6) x10^6/uL Hgb (12.5-18.0) g/dL Hct (42-50) % MCV (78-100) fL MCH (26-32) pg MCHC (32-36) g/dL RDW (11.5-14.0) % Plt Count (150-450) x10^3/uL MPV (7.5-11.0) fL Gran % (36.0-66.0) % Immature Gran % (Auto) (0.00-0.4) % Nucleat RBC Rel Count (0.00-0.1) % Eos # (Auto) (0-0.5) x10^3/uL Immature Gran # (Auto) (0.00-0.03) x10^3u/L Absolute Lymphs (auto) (1.0-4.6) x10^3/uL Absolute Monos (auto) (0.0-1.3) x10^3/uL Absolute Nucleated RBC (0.00-0.01) x10^3u/L Lymphocytes % (24.0-44.0) % Monocytes % (0.0-12.0) % Eosinophils % (0.00-5.0) % Basophils % (0.0-0.4) % Absolute Granulocytes (1.4-6.9) x10^3/uL Basophils # (0-0.4) x10^3/uL Sodium (137-145) mmol/L Potassium 3.2 L 2.7 L* (3.5-5.1) mmol/L Chloride (98-107) mmol/L Carbon Dioxide (22-30) mmol/L Anion Gap (5-15) MEQ/L BUN (9-20) mg/dL Creatinine (0.66-1.25) mg/dL Estimated GFR ML/MIN Glucose (74-106) mg/dL POC Glucometer 139 H (74 to 106) mg/dL Calcium (8.4-10.2) mg/dL Magnesium (1.6-2.3) mg/dL Total Bilirubin (0.2-1.3) mg/dL AST (17-59) U/L ALT (0-50) U/L Alkaline Phosphatase (38-126) U/L Serum Total Protein (6.3-8.2) g/dL Albumin (3.5-5.0) g/dL Slides for Path Review 06/24/23 06/24/23 06/25/23 Range/Units 20:00 20:48 04:11 WBC 3.5 L (4.0-10.5) x10^3/uL RBC 3.15 L (4.1-5.6) x10^6/uL Hgb 8.4 L (12.5-18.0) g/dL Hct 29.2 L (42-50) % MCV 92.7 (78-100) fL MCH 26.7 (26-32) pg MCHC 28.8 L (32-36) g/dL RDW 20.7 H (11.5-14.0) % Plt Count 131 L (150-450) x10^3/uL MPV 10.0 (7.5-11.0) fL Gran % 60.5 (36.0-66.0) % Immature Gran % (Auto) 0.6 H (0.00-0.4) % Nucleat RBC Rel Count 0.0 (0.00-0.1) % Eos # (Auto) 0.11 (0-0.5) x10^3/uL Immature Gran # (Auto) 0.02 (0.00-0.03) x10^3u/L Absolute Lymphs (auto) 0.55 L (1.0-4.6) x10^3/uL Absolute Monos (auto) 0.69 (0.0-1.3) x10^3/uL Absolute Nucleated RBC 0.00 (0.00-0.01) x10^3u/L Lymphocytes % 15.6 L (24.0-44.0) % Monocytes % 19.6 H (0.0-12.0) % Eosinophils % 3.1 (0.00-5.0) % Basophils % 0.6 (0.0-0.4) % Absolute Granulocytes 2.13 (1.4-6.9) x10^3/uL Basophils # 0.02 (0-0.4) x10^3/uL Sodium (137-145) mmol/L Potassium 3.1 L (3.5-5.1) mmol/L Chloride (98-107) mmol/L Carbon Dioxide (22-30) mmol/L Anion Gap (5-15) MEQ/L BUN (9-20) mg/dL Creatinine (0.66-1.25) mg/dL Estimated GFR ML/MIN Glucose (74-106) mg/dL POC Glucometer 130 H (74 to 106) mg/dL Calcium (8.4-10.2) mg/dL Magnesium (1.6-2.3) mg/dL Total Bilirubin (0.2-1.3) mg/dL AST (17-59) U/L ALT (0-50) U/L Alkaline Phosphatase (38-126) U/L Serum Total Protein (6.3-8.2) g/dL Albumin (3.5-5.0) g/dL Slides for Path Review 06/25/23 Range/Units 04:11 WBC (4.0-10.5) x10^3/uL RBC (4.1-5.6) x10^6/uL Hgb (12.5-18.0) g/dL Hct (42-50) % MCV (78-100) fL MCH (26-32) pg MCHC (32-36) g/dL RDW (11.5-14.0) % Plt Count (150-450) x10^3/uL MPV (7.5-11.0) fL Gran % (36.0-66.0) % Immature Gran % (Auto) (0.00-0.4) % Nucleat RBC Rel Count (0.00-0.1) % Eos # (Auto) (0-0.5) x10^3/uL Immature Gran # (Auto) (0.00-0.03) x10^3u/L Absolute Lymphs (auto) (1.0-4.6) x10^3/uL Absolute Monos (auto) (0.0-1.3) x10^3/uL Absolute Nucleated RBC (0.00-0.01) x10^3u/L Lymphocytes % (24.0-44.0) % Monocytes % (0.0-12.0) % Eosinophils % (0.00-5.0) % Basophils % (0.0-0.4) % Absolute Granulocytes (1.4-6.9) x10^3/uL Basophils # (0-0.4) x10^3/uL Sodium 137 (137-145) mmol/L Potassium 3.5 (3.5-5.1) mmol/L Chloride 103 (98-107) mmol/L Carbon Dioxide 31 H (22-30) mmol/L Anion Gap 6.6 (5-15) MEQ/L BUN 11 (9-20) mg/dL Creatinine 0.82 (0.66-1.25) mg/dL Estimated GFR > 60.0 ML/MIN Glucose 112 H (74-106) mg/dL POC Glucometer (74 to 106) mg/dL Calcium 7.7 L (8.4-10.2) mg/dL Magnesium 2.0 (1.6-2.3) mg/dL Total Bilirubin 1.40 H (0.2-1.3) mg/dL AST 50 (17-59) U/L ALT 35 (0-50) U/L Alkaline Phosphatase 140 H (38-126) U/L Serum Total Protein 5.2 L (6.3-8.2) g/dL Albumin 2.5 L (3.5-5.0) g/dL Slides for Path Review Radiology Exams: Radiology Procedures Category Date Time Status CHEST 1 VIEW (PORTABLE) Stat Exams 06/23/23 17:30 Completed Multi-Disciplinary Progress Notes: Multi-Disciplinary Progress Notes 06/24/23 13:44 Case Management Note by Edwina Allan S/W WITH PATIENT AND . THEY CURRENTLY HAVE [facility] BUT WERE TOLD ABOUT [facility] BY [facility]. LIBERTY TOMLINSON RN FROM [facility] HERE TO SPEAK WITH THEM RE: HOSPICE SERVICES. THEY ARE UNDECIDED WHAT THEY WANT TO DO UPON [place]. CALLED [facility] AT [phone] AND THEY CONFIRMED THAT THEY [facility]ERR[facility] TO [facility], BUT WOULD TAKE PATIENT BACK IF PATIENT NOT READY FOR HOSPICE YET. WILL LET THEM KNOW WHAT IS DECIDED. Initialized on 06/24/23 13:44 - END OF NOTE Assessment/Plan (1) CHF exacerbation Current Visit: Yes Status: Acute Assessment & Plan: -Acute on chronic HFrEF 40-45% -ECHO from 05/20/23 IMPRESSION: 1) MILD DECREASE IN LEFT VENTRICULAR SYSTOLIC FUNCTION. 2) MILD CONCENTRIC LEFT VENTRICULAR HYPERTROPHY. 3) MILD LEFT ATRIAL DILATATION. 4) MODERATE TRICUSPID REGURGITATION. 5) SEVERE PULMONARY HYPERTENSION. SOB and edema present, BNP elevated at 2070 On Lasix 40mg IV Q8h, place on 1500cc fluid restriction monitor vol status closely Code(s): I50.9 - HEART FAILURE, UNSPECIFIED (2) Anasarca Current Visit: Yes Status: Acute Assessment & Plan: -see above Code(s): R60.1 - GENERALIZED EDEMA (3) Hypokalemia Current Visit: Yes Status: Acute Assessment & Plan: -Replenish, continue to monitor renal/lytes daily, replace as appropriate Code(s): E87.6 - HYPOKALEMIA (4) Elevated troponin Current Visit: Yes Status: Acute Assessment & Plan: -most likely demand, downtrending denies cp, ekg Code(s): R79.89 - OTHER SPECIFIED ABNORMAL FINDINGS OF BLOOD CHEMISTRY (5) Transaminitis Current Visit: Yes Status: Acute Assessment & Plan: -improving, will continue to monitor Code(s): R74.01 - ELEVATION OF LEVELS OF LIVER TRANSAMINASE LEVELS (6) Anemia Current Visit: No Status: Acute Assessment & Plan: -chronic, near baseline, will continue to monitor and replace if hgb <7 Code(s): D64.9 - ANEMIA, UNSPECIFIED
[2023-06-25 07:13] LABS: Slide Review 1 YES
[2023-06-25] MEDS: Lasix 40 MG/4 ML IV SCH (07:39)
[2023-06-25] MEDS: PATIENT OWN MEDICATION IH SCH (08:02)
[2023-06-25] MEDS: FEOSOL 325 MG PO SCH (09:31)
[2023-06-25] MEDS: ECOTRIN 81 MG PO SCH (09:31)
[2023-06-25] MEDS: Aldactone 25 MG PO SCH (09:31)
[2023-06-25] MEDS: Toprol-Xl 25MG Tablets PO SCH (09:31)
[2023-06-25] MEDS: Flomax 0.4 MG PO SCH (09:31)
[2023-06-25] MEDS: Nystatin SUSPENSION 60 ML PO SCH (09:32)
[2023-06-25 11:34] VITALS: BP 114/55; PULSE 87; RESP 14; TEMP 98.6
--- NOTE | 2023-06-25 11:41 | PCM.DS ---
Discharge Summary Date of Admission: 06/23/23 20:33 Date of Discharge: 06/25/23 Admitting Physician: MARCO A THAPA MD Primary Care Provider: KARLEE CARMONA, Allergies Allergies No Known Drug Allergies Allergy (Verified 06/23/23 17:05) Hospital Summary - Hospital Course Hospital Course: 77-year-old male with multiple medical problems including coronary artery disease, congestive heart failure, chronic respiratory failure secondary to COPD on 3 L oxygen, recurrent hypokalemia, bilateral lower extremity swelling presented to the ER 06/23/23 with increasing swelling in lower extremities for almost 1 week with swelling extending to scrotum and lower abdomen. Bilateral 3+ pitting edema and scrotal edema and lower abdominal wall edema. I believe patient is having anasarca. Patient received neb treatment and agressive IV Lasix. Dr. Horne has discussed with Dr. 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 During hospitalization mild improvement to BLE/Scrotal edema. Patient still with dry cough. States he is at his baseline oxygenation of 3L, shortness of breath has improved. Fine crackles at lung bases on exam. Patient requesting discharge with hospice care today. Will send home on lasix/potassium regimen as well as hospice care. Discharge Note New Diagnosis: CHF exacerbation New Medications:lasix/ potassium Home with Hospice Latest Assessment & Plan (1) CHF exacerbation Current Visit: Yes Status: Acute Assessment & Plan: -Acute on chronic HFrEF 40-45% -ECHO from 05/20/23 IMPRESSION: 1) MILD DECREASE IN LEFT VENTRICULAR SYSTOLIC FUNCTION. 2) MILD CONCENTRIC LEFT VENTRICULAR HYPERTROPHY. 3) MILD LEFT ATRIAL DILATATION. 4) MODERATE TRICUSPID REGURGITATION. 5) SEVERE PULMONARY HYPERTENSION. SOB and edema present, BNP elevated at 2070 On Lasix 40mg IV Q8h, place on 1500cc fluid restriction monitor vol status closely Code(s): I50.9 - HEART FAILURE, UNSPECIFIED (2) Anasarca Current Visit: Yes Status: Acute Assessment & Plan: -see above Code(s): R60.1 - GENERALIZED EDEMA (3) Hypokalemia Current Visit: Yes Status: Acute Assessment & Plan: -Replenish, continue to monitor renal/lytes daily, replace as appropriate Code(s): E87.6 - HYPOKALEMIA (4) Elevated troponin Current Visit: Yes Status: Acute Assessment & Plan: -most likely demand, downtrending denies cp, ekg Code(s): R79.89 - OTHER SPECIFIED ABNORMAL FINDINGS OF BLOOD CHEMISTRY (5) Transaminitis Current Visit: Yes Status: Acute Assessment & Plan: -improving, will continue to monitor Code(s): R74.01 - ELEVATION OF LEVELS OF LIVER TRANSAMINASE LEVELS (6) Anemia Current Visit: No Status: Acute Assessment & Plan: -chronic, near baseline, will continue to monitor and replace if hgb <7 Code(s): D64.9 - ANEMIA, UNSPECIFIED (1) CHF exacerbation Current Visit: Yes Status: Acute Assessment & Plan: -Acute on chronic HFrEF 40-45% -ECHO from 05/20/23 IMPRESSION: 1) MILD DECREASE IN LEFT VENTRICULAR SYSTOLIC FUNCTION. 2) MILD CONCENTRIC LEFT VENTRICULAR HYPERTROPHY. 3) MILD LEFT ATRIAL DILATATION. 4) MODERATE TRICUSPID REGURGITATION. 5) SEVERE PULMONARY HYPERTENSION. SOB and edema present, BNP elevated at 2070 On Lasix 40mg IV Q8h, place on 1500cc fluid restriction monitor vol status closely Code(s): I50.9 - HEART FAILURE, UNSPECIFIED (2) Anasarca Current Visit: Yes Status: Acute Assessment & Plan: -see above Code(s): R60.1 - GENERALIZED EDEMA (3) Hypokalemia Current Visit: Yes Status: Acute Assessment & Plan: -Replenish, continue to monitor renal/lytes daily, replace as appropriate Code(s): E87.6 - HYPOKALEMIA (4) Elevated troponin Current Visit: Yes Status: Acute Assessment & Plan: -most likely demand, downtrending denies cp, ekg Code(s): R79.89 - OTHER SPECIFIED ABNORMAL FINDINGS OF BLOOD CHEMISTRY (5) Transaminitis Current Visit: Yes Status: Acute Assessment & Plan: -improving, will continue to monitor Code(s): R74.01 - ELEVATION OF LEVELS OF LIVER TRANSAMINASE LEVELS (6) Anemia Current Visit: No Status: Acute Assessment & Plan: -chronic, near baseline, will continue to monitor and replace if hgb <7 Code(s): D64.9 - ANEMIA, UNSPECIFIED I spent 35 minutes [id number] with the patient on the day of discharge performing discharge exam, discussing hospital stay and discharge instructions with patient and caregivers, preparation of discharge records, prescriptions & referral forms and addressing any questions/concerns the patient had as documented above. - Vitals & Intake/Output Vital Signs: Vital Signs Temperature 98.6 F 06/25/23 11:33 Pulse Rate 87 06/25/23 11:33 Respiratory Rate 14 06/25/23 11:33 Blood Pressure 114/55 06/25/23 11:33 O2 Sat by Pulse Oximetry 94 L 06/25/23 11:33 Intake & Output: Intake & Output 06/22/23 06/23/23 06/24/23 06/25/23 11:59 11:59 11:59 11:59 Intake Total 1050 1440 Output Total 700 1950 Balance 350 -510 Weight 99.4 kg 97.6 kg - Lab Result Diagrams: 06/25/23 04:11 06/25/23 08:14 Lab Results-Last 24 Hrs: Lab Results-Last 24 Hours 06/24/23 06/24/23 06/24/23 Range/Units 00:14 06:37 12:04 WBC (4.0-10.5) x10^3/uL RBC (4.1-5.6) x10^6/uL Hgb (12.5-18.0) g/dL Hct (42-50) % MCV (78-100) fL MCH (26-32) pg MCHC (32-36) g/dL RDW (11.5-14.0) % Plt Count (150-450) x10^3/uL MPV (7.5-11.0) fL Gran % (36.0-66.0) % Immature Gran % (Auto) (0.00-0.4) % Nucleat RBC Rel Count (0.00-0.1) % Eos # (Auto) (0-0.5) x10^3/uL Immature Gran # (Auto) (0.00-0.03) x10^3u/L Absolute Lymphs (auto) (1.0-4.6) x10^3/uL Absolute Monos (auto) (0.0-1.3) x10^3/uL Absolute Nucleated RBC (0.00-0.01) x10^3u/L Lymphocytes % (24.0-44.0) % Monocytes % (0.0-12.0) % Eosinophils % (0.00-5.0) % Basophils % (0.0-0.4) % Absolute Granulocytes (1.4-6.9) x10^3/uL Basophils # (0-0.4) x10^3/uL Sodium 137 (137-145) mmol/L Potassium 3.0 L* 2.8 L* 3.2 L (3.5-5.1) mmol/L Chloride 104 (98-107) mmol/L Carbon Dioxide 31 H (22-30) mmol/L Anion Gap 5.1 (5-15) MEQ/L BUN 13 (9-20) mg/dL Creatinine 0.85 (0.66-1.25) mg/dL Estimated GFR > 60.0 ML/MIN Glucose 97 (74-106) mg/dL POC Glucometer (74 to 106) mg/dL Calcium 7.8 L (8.4-10.2) mg/dL Magnesium (1.6-2.3) mg/dL Total Bilirubin 1.40 H (0.2-1.3) mg/dL AST 57 (17-59) U/L ALT 36 (0-50) U/L Alkaline Phosphatase 157 H (38-126) U/L Serum Total Protein 5.2 L (6.3-8.2) g/dL Albumin 2.5 L (3.5-5.0) g/dL Slides for Path Review 06/24/23 06/24/23 06/24/23 Range/Units 16:06 17:30 20:00 WBC (4.0-10.5) x10^3/uL RBC (4.1-5.6) x10^6/uL Hgb (12.5-18.0) g/dL Hct (42-50) % MCV (78-100) fL MCH (26-32) pg MCHC (32-36) g/dL RDW (11.5-14.0) % Plt Count (150-450) x10^3/uL MPV (7.5-11.0) fL Gran % (36.0-66.0) % Immature Gran % (Auto) (0.00-0.4) % Nucleat RBC Rel Count (0.00-0.1) % Eos # (Auto) (0-0.5) x10^3/uL Immature Gran # (Auto) (0.00-0.03) x10^3u/L Absolute Lymphs (auto) (1.0-4.6) x10^3/uL Absolute Monos (auto) (0.0-1.3) x10^3/uL Absolute Nucleated RBC (0.00-0.01) x10^3u/L Lymphocytes % (24.0-44.0) % Monocytes % (0.0-12.0) % Eosinophils % (0.00-5.0) % Basophils % (0.0-0.4) % Absolute Granulocytes (1.4-6.9) x10^3/uL Basophils # (0-0.4) x10^3/uL Sodium (137-145) mmol/L Potassium 2.7 L* 3.1 L (3.5-5.1) mmol/L Chloride (98-107) mmol/L Carbon Dioxide (22-30) mmol/L Anion Gap (5-15) MEQ/L BUN (9-20) mg/dL Creatinine (0.66-1.25) mg/dL Estimated GFR ML/MIN Glucose (74-106) mg/dL POC Glucometer 139 H (74 to 106) mg/dL Calcium (8.4-10.2) mg/dL Magnesium (1.6-2.3) mg/dL Total Bilirubin (0.2-1.3) mg/dL AST (17-59) U/L ALT (0-50) U/L Alkaline Phosphatase (38-126) U/L Serum Total Protein (6.3-8.2) g/dL Albumin (3.5-5.0) g/dL Slides for Path Review 06/24/23 06/25/23 06/25/23 Range/Units 20:48 04:11 04:11 WBC 3.5 L (4.0-10.5) x10^3/uL RBC 3.15 L (4.1-5.6) x10^6/uL Hgb 8.4 L (12.5-18.0) g/dL Hct 29.2 L (42-50) % MCV 92.7 (78-100) fL MCH 26.7 (26-32) pg MCHC 28.8 L (32-36) g/dL RDW 20.7 H (11.5-14.0) % Plt Count 131 L (150-450) x10^3/uL MPV 10.0 (7.5-11.0) fL Gran % 60.5 (36.0-66.0) % Immature Gran % (Auto) 0.6 H (0.00-0.4) % Nucleat RBC Rel Count 0.0 (0.00-0.1) % Eos # (Auto) 0.11 (0-0.5) x10^3/uL Immature Gran # (Auto) 0.02 (0.00-0.03) x10^3u/L Absolute Lymphs (auto) 0.55 L (1.0-4.6) x10^3/uL Absolute Monos (auto) 0.69 (0.0-1.3) x10^3/uL Absolute Nucleated RBC 0.00 (0.00-0.01) x10^3u/L Lymphocytes % 15.6 L (24.0-44.0) % Monocytes % 19.6 H (0.0-12.0) % Eosinophils % 3.1 (0.00-5.0) % Basophils % 0.6 (0.0-0.4) % Absolute Granulocytes 2.13 (1.4-6.9) x10^3/uL Basophils # 0.02 (0-0.4) x10^3/uL Sodium 137 (137-145) mmol/L Potassium 3.5 (3.5-5.1) mmol/L Chloride 103 (98-107) mmol/L Carbon Dioxide 31 H (22-30) mmol/L Anion Gap 6.6 (5-15) MEQ/L BUN 11 (9-20) mg/dL Creatinine 0.82 (0.66-1.25) mg/dL Estimated GFR > 60.0 ML/MIN Glucose 112 H (74-106) mg/dL POC Glucometer 130 H (74 to 106) mg/dL Calcium 7.7 L (8.4-10.2) mg/dL Magnesium 2.0 (1.6-2.3) mg/dL Total Bilirubin 1.40 H (0.2-1.3) mg/dL AST 50 (17-59) U/L ALT 35 (0-50) U/L Alkaline Phosphatase 140 H (38-126) U/L Serum Total Protein 5.2 L (6.3-8.2) g/dL Albumin 2.5 L (3.5-5.0) g/dL Slides for Path Review YES 06/25/23 06/25/23 06/25/23 Range/Units 07:30 08:14 11:24 WBC (4.0-10.5) x10^3/uL RBC (4.1-5.6) x10^6/uL Hgb (12.5-18.0) g/dL Hct (42-50) % MCV (78-100) fL MCH (26-32) pg MCHC (32-36) g/dL RDW (11.5-14.0) % Plt Count (150-450) x10^3/uL MPV (7.5-11.0) fL Gran % (36.0-66.0) % Immature Gran % (Auto) (0.00-0.4) % Nucleat RBC Rel Count (0.00-0.1) % Eos # (Auto) (0-0.5) x10^3/uL Immature Gran # (Auto) (0.00-0.03) x10^3u/L Absolute Lymphs (auto) (1.0-4.6) x10^3/uL Absolute Monos (auto) (0.0-1.3) x10^3/uL Absolute Nucleated RBC (0.00-0.01) x10^3u/L Lymphocytes % (24.0-44.0) % Monocytes % (0.0-12.0) % Eosinophils % (0.00-5.0) % Basophils % (0.0-0.4) % Absolute Granulocytes (1.4-6.9) x10^3/uL Basophils # (0-0.4) x10^3/uL Sodium (137-145) mmol/L Potassium 3.3 L (3.5-5.1) mmol/L Chloride (98-107) mmol/L Carbon Dioxide (22-30) mmol/L Anion Gap (5-15) MEQ/L BUN (9-20) mg/dL Creatinine (0.66-1.25) mg/dL Estimated GFR ML/MIN Glucose (74-106) mg/dL POC Glucometer 110 H 166 H (74 to 106) mg/dL Calcium (8.4-10.2) mg/dL Magnesium (1.6-2.3) mg/dL Total Bilirubin (0.2-1.3) mg/dL AST (17-59) U/L ALT (0-50) U/L Alkaline Phosphatase (38-126) U/L Serum Total Protein (6.3-8.2) g/dL Albumin (3.5-5.0) g/dL Slides for Path Review Micro Results-Entire Visit: Microbiology 06/23/23 17:50 Blood Culture - Preliminary Blood Accuchecks Date 06/25/23 Date 06/24/23 Time 07:33 Time 16:07 - Radiology Exams Ordered Rad Exams-Entire Visit: Radiology Procedures Category Date Time Status CHEST 1 VIEW (PORTABLE) Stat Exams 06/23/23 17:30 Completed - Procedures and Test Procedures and Tests throughout Hospitalization: Therapy Orders & Screens 06/23/23 20:41 Oxygen Nasal Cannula 3 lpm Comment: Respiratory Therapy Consult ONCE Comment: Reason For Exam: 06/24/23 07:00 Respiratory MDI UD Comment: TRELEGY DAILY Diagnosis: Edema / CHF Exacerbation Discharge Exam General Appearance: no apparent distress Neurologic Exam: alert, 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, cooperative Eye Exam: PERRL Ears, Nose, Throat Exam: normal ENT inspection Neck Exam: normal inspection Respiratory Exam: crackles/rales, wheezing Cardiovascular Exam: regular rate/rhythm, normal heart sounds, edema (BLE/scrotal edema) Gastrointestinal/Abdomen Exam: soft, normal bowel sounds Male Genitalia Exam: testicular tenderness, other (scrotal edema) Extremity Exam: pedal edema, swelling Skin Exam: pale Final Diagnosis/Problem List - Final Discharge Diagnosis/Problem (1) CHF exacerbation Current Visit: Yes Status: Acute Code(s): I50.9 - HEART FAILURE, UNSPECIFIED (2) Anasarca Current Visit: Yes Status: Acute Code(s): R60.1 - GENERALIZED EDEMA (3) Hypokalemia Current Visit: Yes Status: Acute Code(s): E87.6 - HYPOKALEMIA (4) Elevated troponin Current Visit: Yes Status: Acute Code(s): R79.89 - OTHER SPECIFIED ABNORMAL FINDINGS OF BLOOD CHEMISTRY (5) Transaminitis Current Visit: Yes Status: Acute Code(s): R74.01 - ELEVATION OF LEVELS OF LIVER TRANSAMINASE LEVELS (6) Anemia Current Visit: No Status: Acute Code(s): D64.9 - ANEMIA, UNSPECIFIED - Discharge Disposition: Hospice @ [facility] Condition: Fair Prescriptions: Continue Ropinirole HCl 0.5 mg [Requip 0.5 MG] 0.5 mg PO QHS Tamsulosin HCl 0.4 mg [Flomax 0.4 MG] 0.4 mg PO DAILY Furosemide 20 mg [Lasix 20 mg] See Rx Instructions .ROUTE .COMPLEX Fluticasone/Umeclidin/Vilanter [Trelegy Ellipta 100-62.5-25] 1 each IH DAILY Imatinib Mesylate 3 tab PO HS Aspirin EC 81 mg [Ecotrin 81 mg] 81 mg PO DAILY Potassium Chloride 5 tab PO DAILY Iron 65 mg PO DAILY Spironolactone [Aldactone] 25 mg PO DAILY Nystatin 5 ml PO QID Metoprolol Succinate 25 mg Xl* [Toprol-Xl 25MG Tablets] 25 mg PO DAILY Albuterol Sulfate [Albuterol Sulfate Hfa] 2 puff IH QID Additional Instructions: [facility] HAS BEEN SET UP. THEIR NUMBER IS [phone]. Follow up with: KARLEE CARMONA DO [Primary Care Provider] -
[2023-06-25] MEDS ORDERED: DESYREL 50 MG PO SCH (22:00)
[2023-06-26 18:07] VITALS: O2SAT 99
== END 2023-06-25 12:40 | disposition hospice, home (50) ==
LOC: ED 16:49 → MED SURG 20:33
PROVIDERS: ADMIT Student in an Organized Health Care Education/Training Program; ATTEND Student in an Organized Health Care Education/Training Program
DX: I11.0 Hypertensive heart disease with heart failure (principal); I50.9 Heart failure, unspecified; R60.1 Generalized edema; E87.6 Hypokalemia; R79.89 Other specified abnormal findings of blood chemistry; R74.01 Elevation of levels of liver transaminase levels; I25.10 Atherosclerotic heart disease of native coronary artery without angina pectoris; D64.9 Anemia, unspecified; J44.9 Chronic obstructive pulmonary disease, unspecified; Z99.81 Dependence on supplemental oxygen; Z79.899 Other long term (current) drug therapy; Z20.828 Contact with and (suspected) exposure to other viral communicable diseases
CPT/HCPCS: 0241U; 36415; 71045; 80053; 81001; 82947; 83605; 83735; 83880; 84132; 84484; 85025; 87040; 93041; 94640; 94760; 96365; 96374; 99285; Q3014; 93268; J0456; J0696; J1940; J2405; J3480; A9270-GY; G0378